=== PATIENT | male | born 1955 | race Caucasian/White ===

== ENCOUNTER 2017-12-03 23:30 | Emergency (ER) | payer SELFPAY ==
[2017-12-03 23:36] VITALS: BMI 39.5
[2017-12-03] MEDS ORDERED: VALSARTAN 80 MG TABLET (UD) PO ONE (23:49)
--- NOTE | 2017-12-04 00:08 | PDOC ---
Attending Attestation - HPI HPI: 12/04/17 01:02 62 year old male with past medical history of alcoholism, cirrhosis, CHF, CAD, who presents to the ED with complaints of chest pain, headache and nausea for the past two days. Patient was on a binge of drinking this week and is now feeling ill. He reports a midsternal, reproducible chest pain without any palpitations or SOB. Complains of a headache similar to a hangover with associated nausea. Denies any visual changes or focal neurological deficits. Denies any fevers or chills. - Medical Decision Making 12/04/17 01:02 Documentation prepared by Frances Thompson, acting as medical laboratory technicians for Patti Busots MD. <Frances Thompson - Last Filed: 12/04/17 01:02> - Resident Resident Name: Alejo Stroud - ED Attending Attestation I have performed the following: I have examined & evaluated the patient, The case was reviewed & discussed with the resident, I agree w/resident's findings & plan - Physicial Exam PE: 12/04/17 03:22 Agree with resident exam. Pt is requesting detox. He will be sent over to [facility]. I am trying to reach Dr. Plummer. - Medical Decision Making 12/04/17 03:40 Pt is going to a detox bed at [facility]. Accepted by Dr. Plummer. <Patti Bustos - Last Filed: 12/04/17 03:41>
[2017-12-04] MEDS ORDERED: SODIUM CHLORIDE 1,000 ML IV STA (00:15)
[2017-12-04] MEDS ORDERED: METOCLOPRAMIDE HCL INJECTION 10 MG/2 ML VIAL IVPUSH ONE (00:16)
[2017-12-04] MEDS ORDERED: FOLIC ACID INJECTION - 1 MG, THIAMINE HCL 100 MG, MULTIVIT INJECTION ADULT 10 ML in SOD... IVPB ONE (00:38)
--- NOTE | 2017-12-04 01:01 | PDOC ---
History of Present Illness - General Chief Complaint: Chest Pain Stated Complaint: CHEST PAIN Time Seen by Provider: 12/03/17 23:51 History Source: Patient Exam Limitations: No Limitations - History of Present Illness Initial Comments: 12/04/17 00:55 Patient is a 62M with history of HTN, CAD, CHF, alcohol abuse, and cirrhosis coming in today complaining of headache, nausea, and chest pain after drinking for the past three days. Patient states that his last drink was on 12/03/17, he states that he drinks beer to keep his blood pressure down. He states that his chest pain is worsened with palpation. Endorses subjective fevers and chills. Denies withdrawal and seizure history. Denies history of blood clots, recent travel and leg swelling. He states that he came in today because he took his blood pressure at home and it was high. He states that he has not taken any blood pressure medication since May. Past History - Past Medical History Allergies/Adverse Reactions: Allergies Allergy/AdvReac Type Severity Reaction Status Date / Time No Known Drug Allergies Allergy Verified 12/03/17 23:36 Home Medications: Ambulatory Orders Ondansetron [Zofran Odt -] 4 mg SL TID #21 od.tablet 03/20/16 Pantoprazole Sodium [Protonix -] 40 mg PO DAILY #30 tablet.ec 03/20/16 Anemia: No Asthma: No Cancer: No Cardiac Disorders: No CVA: No COPD: No CHF: No Dementia: No Diabetes: No GI Disorders: No Disorders: No HTN: Yes Hypercholesterolemia: Yes Liver Disease: No Seizures: No Thyroid Disease: No - Surgical History Abdominal Surgery: Yes (HERNIA) Appendectomy: Yes Cardiac Surgery: No Cholecystectomy: Yes GI Surgery: Yes (appendectomy) Lung Surgery: No Neurologic Surgery: No Orthopedic Surgery: No - Immunization History Td Vaccination: Yes Immunization Up to Date: Yes - Suicide/Smoking/Psychosocial Hx Smoking Status: Yes Smoking History: Never smoked Years of Tobacco Use: 0 Have you smoked in the past 12 months: No Number of Cigarettes Smoked Daily: 0 If you are a former smoker, when did you quit?: smoked for 13 years Cigars Per Day: 0 'Breaking Loose' booklet given: 06/12/12 Hx Alcohol Use: Yes Drug/Substance Use Hx: No Substance Use Type: None Hx Substance Use Treatment: No Review of Systems - Review of Systems Comments:: 12/04/17 00:57 GENERAL/CONSTITUTIONAL: +fever +chills. No weakness. HEAD, EYES, EARS, NOSE AND THROAT: No change in vision. No sore throat. CARDIOVASCULAR+chest pain +shortness of breath RESPIRATORY: No cough, wheezing, or hemoptysis. GASTROINTESTINAL: +nausea, no vomiting, diarrhea or constipation. GENITOURINARY: No dysuria, frequency, or change in urination. MUSCULOSKELETAL: No joint or muscle swelling or pain. No neck or back pain. SKIN: No rash NEUROLOGIC: + headache, no vertigo, loss of consciousness, or change in strength /sensation. ENDOCRINE: No increased thirst. No abnormal weight change HEMATOLOGIC/LYMPHATIC: No anemia, easy bleeding, or history of blood clots. ALLERGIC/IMMUNOLOGIC: No hives or skin allergy. *Physical Exam - Vital Signs Last Vital Signs Temp Pulse Resp BP Pulse Ox 98.2 F 79 16 172/100 H 100 12/03/17 23:33 12/03/17 23:33 12/03/17 23:33 12/03/17 23:33 12/03/17 23:33 - Physical Exam Comments: 12/04/17 00:58 GENERAL: Awake, alert, and fully oriented, in no acute distress, smells of alcohol HEAD: No signs of trauma, normocephalic, atraumatic EYES: PERRLA, EOMI, sclera anicteric, conjunctiva clear ENT: Auricles normal inspection, hearing grossly normal, nares patent, oropharynx clear without exudates. Moist mucosa NECK: Normal ROM, supple, no lymphadenopathy, JVD, or masses, no meningismus LUNGS: No distress, speaks full sentences, clear to auscultation bilaterally, tender over chest wall HEART: Regular rate and rhythm, normal S1 and S2, no murmurs, rubs or gallops, peripheral pulses normal and equal bilaterally. ABDOMEN: Soft, nontender, normoactive bowel sounds. No guarding, no rebound. No masses EXTREMITIES: Normal inspection, Normal range of motion, no edema. No clubbing or cyanosis. NEUROLOGICAL: Cranial nerves II through XII grossly intact. Normal speech, no focal sensorimotor deficits SKIN: Warm, Dry, normal turgor, no rashes or lesions noted. ED Treatment Course - LABORATORY CBC & Chemistry Diagram: 12/04/17 01:30 12/04/17 01:30 - RADIOLOGY Radiology Studies Ordered: Category Date Time Status CHEST X-RAY PORTABLE* [RAD] Stat Radiology 12/04/17 00:15 Ordered Medical Decision Making - Medical Decision Making 12/04/17 00:59 Patient is 62M with history of HTN, CAD, CHF, alcohol abuse, liver cirrhosis here today with headache, nausea, and chest pain. Vitals notable for hypertension, but stable. Given valsartan. DDx includes, but is not limited to: ACS, alcoholic gastritis, arrhythmia, alcohol withdrawal. Do not suspect bleed. Do not suspect meningitis. No abdominal pain. Will evaluate with cardiac labs, ekg, cxr. Will treat with fluids, reglan, banana bag. 12/04/17 03:34 Laboratory Tests 12/04/17 12/04/17 01:30 01:30 WBC 4.7 Hgb 15.6 Plt Count 120 L BUN 19 H Creatinine 0.9 AST 126 H ALT 79 H Alkaline Phosphatase 173 H Troponin I 0.04 CBC normal. CMP shows normal kidney function, liver enzymes mildly elevated consistent with cirrhosis. Troponin less than threshold. Patient is requesting detox. Medically cleared. Feeling better. *DC/Admit/Observation/Transfer Diagnosis at time of Disposition: Atypical chest pain, Alcohol intoxication - Discharge Dispostion Disposition: HOME Condition at time of disposition: Good Decision to Admit order: No - Referrals - Patient Instructions Printed Discharge Instructions: DI for Atypical Chest Pain Additional Instructions: Please go to [facility] for detox. Please return to the ED if you have any new, worsening or concerning symptoms. - Post Discharge Activity
[2017-12-04] MEDS ORDERED: VALSARTAN 80 MG TABLET (UD) ONE (01:11)
[2017-12-04] MEDS ORDERED: METOCLOPRAMIDE HCL INJECTION 10 MG/2 ML VIAL ONE (01:11)
[2017-12-04 01:43] LABS: BASO % 1.1 % (0-2.0); EOS % 1.1 % (0-4.5); HEMOGLOBIN 15.6 GM/dL (11.7-16.9); LYMPH % 33.4 % (8-40); MCHC 34.6 g/dl (32.0-35.9); MEAN CELL VOLUME 95.5 fl (80-96); MEAN PLT VOLUME 8.4 fl (7.5-11.1); MONO % 7.1 % (3.8-10.2); NEUT % 57.3 % (42.8-82.8); PLATELET COUNT 120 K/MM3 (134-434); RBC 4.71 M/mm3 (4.00-5.60); RDW 13.9 % (11.9-15.9); WHITE BLOOD COUNT 4.7 K/mm3 (4.0-10.0)
[2017-12-04 01:54] LABS: INR 1.33 (0.83-1.09); PROTHROMBIN TIME (PATIENT) 15.7 SEC (9.7-13.0)
[2017-12-04 02:07] LABS: ALBUMIN 3.1 g/dl (3.4-5.0); ALK PHOS 173 U/L (45-117); ANION GAP 10 MMOL/L (8-16); BILIRUBIN,TOTAL 1.1 mg/dL (0.2-1); BLOOD UREA NITROGEN 19 mg/dL (7-18); CALCIUM 7.8 mg/dL (8.5-10.1); CHLORIDE 104 mmol/L (98-107); CO2 24 mmol/L (21-32); CREATININE 0.9 mg/dL (0.55-1.3); GLUCOSE,RANDOM 97 mg/dL (74-106); MAGNESIUM 1.7 mg/dL (1.8-2.4); POTASSIUM 3.7 mmol/L (3.5-5.1); SGOT/AST 126 U/L (15-37); SGPT/ALT 79 U/L (13-61); SODIUM 139 mmol/L (136-145); TOT PROT 7.2 g/dl (6.4-8.2)
[2017-12-04] MEDS ORDERED: MAGNESIUM SULF 50% (8.12 MEQ/2 ML-1 GM VIAL) IVPB ONE (02:12)
[2017-12-04] MEDS ORDERED: MAGNESIUM 1GM/D5W - 1 GM/100 ML IVPB IVPB ONE (02:49)
[2017-12-04 04:51] VITALS: BP 167/95; PULSE 64; TEMP 98.1
--- NOTE | 2017-12-04 13:58 | EKG ---
Test Reason : Blood Pressure : / mmHG Vent. Rate : 072 BPM Atrial Rate : 072 BPM P-R Int : 198 ms QRS Dur : 114 ms QT Int : 428 ms P-R-T Axes : 026 -47 024 degrees QTc Int : 468 ms NORMAL SINUS RHYTHM LEFT AXIS DEVIATION POSSIBLE LATERAL INFARCT , AGE UNDETERMINED INFERIOR-POSTERIOR INFARCT (CITED ON OR BEFORE 16-AUG-2014) ABNORMAL ECG Confirmed by MD Prabha, Dillan ([id number]) on 12/04/2017 1:58:04 PM Referred By: Confirmed By:Dillan Armando MD
== END 2017-12-04 04:51 | disposition home or self-care (01) ==
LOC: JER 23:30
PROC: 3E033GC Introduction of Other Therapeutic Substance into Peripheral Vein, Percutaneous Approach (ICD-10-PCS; principal; 2017-12-03)
PROC: 3E033GC Introduction of Other Therapeutic Substance into Peripheral Vein, Percutaneous Approach (ICD-10-PCS; 2017-12-03)
PROC: 3E033GC Introduction of Other Therapeutic Substance into Peripheral Vein, Percutaneous Approach (ICD-10-PCS; 2017-12-03)
DX: R07.89 Other chest pain (principal); F10.120 Alcohol abuse with intoxication, uncomplicated; I25.10 Atherosclerotic heart disease of native coronary artery without angina pectoris; I11.0 Hypertensive heart disease with heart failure; I50.9 Heart failure, unspecified; K74.60 Unspecified cirrhosis of liver
CPT/HCPCS: 36415; 71045-TC-FY; 80053; 82550; 82553; 83735; 84484; 85025; 85610; 93005; 93010; 99285-25; J7030

== ENCOUNTER 2018-01-03 22:11 | Inpatient (IN) | payer OTHER ==
--- NOTE | 2018-01-03 23:25 | PDOC ---
History of Present Illness - General Chief Complaint: Chest Pain Stated Complaint: CHEST PAIN,VOMITING Time Seen by Provider: 01/03/18 23:19 - History of Present Illness Initial Comments: 01/04/18 01:49 The patient is a 62 year old male with a history of HTN, HLD, Alcohol abuse who presents for evaluation of chest pain, nausea, vomiting, body aches, headache. The patient reports a 3 day history of chest pain with associated nausea, and vomiting, body aches and headache prompting his presentation to the ED for further evaluation. He notes that he is a daily alcohol drinker and his last drink was 10pm yesterday evening. He otherwise denies fevers, chills, SOB, abdominal pain, or changes with urination or bowel movements. Past History - Past Medical History Allergies/Adverse Reactions: Allergies Allergy/AdvReac Type Severity Reaction Status Date / Time No Known Drug Allergies Allergy Verified 01/03/18 22:20 Home Medications: Ambulatory Orders Lisinopril 10 mg PO DAILY 01/26/15 Lisinopril [Zestril] 10 mg PO BID #60 tablet 01/26/15 Lisinopril [Prinivil] 10 mg PO DAILY 01/04/18 Metoprolol Tartrate 25 mg PO Q12H 01/04/18 Pravastatin Sodium [Pravachol -] 40 mg PO HS 01/04/18 Anemia: No Asthma: No Cancer: No Cardiac Disorders: No CVA: No COPD: No CHF: No Dementia: No Diabetes: No GI Disorders: No Disorders: No HTN: Yes Hypercholesterolemia: Yes Liver Disease: No Seizures: No Thyroid Disease: No - Surgical History Abdominal Surgery: Yes (HERNIA) Appendectomy: Yes Cardiac Surgery: No Cholecystectomy: Yes GI Surgery: Yes (appendectomy) Lung Surgery: No Neurologic Surgery: No Orthopedic Surgery: No - Immunization History Td Vaccination: Yes Immunization Up to Date: Yes - Suicide/Smoking/Psychosocial Hx Smoking Status: Yes Smoking History: Never smoked Years of Tobacco Use: 0 Have you smoked in the past 12 months: No Number of Cigarettes Smoked Daily: 0 If you are a former smoker, when did you quit?: smoked for 13 years Cigars Per Day: 0 Information on smoking cessation initiated: No 'Breaking Loose' booklet given: 06/12/12 Hx Alcohol Use: No Drug/Substance Use Hx: No Substance Use Type: None Hx Substance Use Treatment: No Review of Systems - Review of Systems Comments:: 01/04/18 01:51 Constitutional: Body aches. No fevers, chills, fatigue, HEENT: No Rhinorrhea, nasal congestion, visual changes Cardiovascular: Chest pain. No syncope, palpitations, lightheadedness Respiratory: No Cough, SOB, Hemoptysis, Gastrointestinal: Nausea, vomiting. No Abdominal pain, Constipation, Diarrhea, Melena Genitourinary: No Dysuria, Frequency, Urgency, Hesitancy, Hematuria, Flank pain Musculoskeletal: No Myalgia, arthralgia Skin: No rashes, itching, bruising, pallor Neurologic: Headache. No Dizziness, Numbness, Weakness, or Tingling Psychiatric: No Hallucinations. No SI or HI *Physical Exam - Vital Signs Last Vital Signs Temp Pulse Resp BP Pulse Ox 98.3 F 107 H 16 133/90 96 01/03/18 22:16 01/03/18 22:16 01/03/18 22:16 01/03/18 22:16 01/03/18 22:16 - Physical Exam Comments: 01/04/18 01:51 General Appearance: Nourished. No Apparent Distress HEENT: No Pharyngeal Erythema, Tonsillar Exudate, Tonsillar Erythema Neck: No Cervical Lymphadenopathy Respiratory/Chest: Lungs Clear, Normal Breath Sounds. No Crackles, Rales, Rhonchi, Wheezing Cardiovascular: Regular Rhythm, Regular Rate. No Murmur, Gallops, Rubs Gastrointestinal/Abdominal: Normal Bowel Sounds, Soft. No Guarding, Rebound, Tenderness Musculoskeletal: No CVA Tenderness Extremity: Normal Capillary Refill Integumentary: Normal Color, Dry, Warm Neurologic: Fully Oriented, Alert, Normal Mood/Affect, Normal Response, Moderate Sedation - Procedure Monitoring Vital Signs: Procedure Monitoring Vital Signs Temperature 98.3 F 01/03/18 22:16 Pulse Rate 107 H 01/03/18 22:16 Respiratory Rate 16 01/03/18 22:16 Blood Pressure 133/90 01/03/18 22:16 O2 Sat by Pulse Oximetry (%) 96 01/03/18 22:16 Heart Score/ECG Review - History History: Slightly suspicious - Electrocardiogram EKG: Non specific repolarization disturbance - Age Age: 45-65 - Risk Factors Risk Factors Heart Score: Yes Hx Hypercholesterolemia, Yes Hx Hypertension, Yes Smoking History Based on the list above the patient has:: >/=3 risk factors or Hx atherosclerotic disease - Troponin Troponin: </= normal limit - Score Heart Score - Total: 4 ED Treatment Course - LABORATORY CBC & Chemistry Diagram: 01/06/18 05:30 01/06/18 05:30 Medical Decision Making - Medical Decision Making 01/04/18 01:52 The patient is a 62 year old male with a history of HTN, HLD, Alcohol abuse who presents for evaluation of chest pain, nausea, vomiting, body aches, headache. Differential includes but is not limited to: ACS, Arrhythmia, Gastritis, Pneumonia, Musculoskeletal, Infectious, Metabolic Derangement. Given the patient's history and physical exam, we will obtain a cbc, cmp, troponin, chest plain film, ekg, lipase to evaluate further. We will treat with a banana bag and asa and continue to monitor and reassess while here in the ED. 01/04/18 04:01 CBC, cmp, troponin are unremarkable. Chest plain film is unremarkable. Lipase is unremarkable. Given the patient's comorbidities, we believe he requires observation admission for further monitoring. We discussed the case with the admitting team who accepted the patient for admission. *DC/Admit/Observation/Transfer Diagnosis at time of Disposition: Chest pain - Discharge Dispostion Condition at time of disposition: Good Decision to Admit order: Yes - Referrals - Patient Instructions - Post Discharge Activity
[2018-01-03] MEDS ORDERED: FOLIC ACID INJECTION - 1 MG, THIAMINE HCL 100 MG, MULTIVIT INJECTION ADULT 10 ML in SOD... IVPB ONE (23:45)
[2018-01-04] MEDS ORDERED: ASPIRIN 81 MG CHEWABLE TABLETS PO ONE (00:25)
[2018-01-04 00:38] LABS: BASO % 0.6 % (0-2.0); EOS % 0.5 % (0-4.5); HEMATOCRIT 45.9 % (35.4-49); HEMOGLOBIN 16.6 GM/dL (11.7-16.9); LYMPH % 15.9 % (8-40); MCH 34.1 pg (25.7-33.7); MCHC 36.2 g/dl (32.0-35.9); MEAN CELL VOLUME 94.4 fl (80-96); MEAN PLT VOLUME 10.2 fl (7.5-11.1); MONO % 6.1 % (3.8-10.2); NEUT % 76.9 % (42.8-82.8); PLATELET COUNT 80 K/MM3 (134-434); RBC 4.87 M/mm3 (4.00-5.60); RDW 15.3 % (11.9-15.9); WHITE BLOOD COUNT 5.7 K/mm3 (4.0-10.0)
[2018-01-04] MEDS ORDERED: ASPIRIN 325 MG TABLET ONE (01:15)
[2018-01-04 01:31] LABS: ALBUMIN 2.6 g/dl (3.4-5.0); ALK PHOS 348 U/L (45-117); ANION GAP 10 MMOL/L (8-16); BILIRUBIN,TOTAL 7.6 mg/dL (0.2-1); BLOOD UREA NITROGEN 13 mg/dL (7-18); CALCIUM 7.9 mg/dL (8.5-10.1); CHLORIDE 96 mmol/L (98-107); CO2 26 mmol/L (21-32); CREATININE 1.3 mg/dL (0.55-1.3); GLUCOSE,RANDOM 172 mg/dL (74-106); LIPASE 214 U/L (73-393); POTASSIUM 3.4 mmol/L (3.5-5.1); SGOT/AST 281 U/L (15-37); SGPT/ALT 155 U/L (13-61); SODIUM 132 mmol/L (136-145); TOT PROT 7.3 g/dl (6.4-8.2)
[2018-01-04] MEDS ORDERED: LORazepam 2 MG/ML SDV VIAL IVPUSH PRN (03:00)
[2018-01-04] MEDS ORDERED: LORazepam 2 MG/ML SDV VIAL IVPUSH SCH (03:23)
--- NOTE | 2018-01-04 04:02 | PDOC ---
Attending Attestation - Resident Resident Name: IvonneBaljit - ED Attending Attestation I have performed the following: I have examined & evaluated the patient, The case was reviewed & discussed with the resident, I agree w/resident's findings & plan, Exceptions are as noted <Nallely Skinner - Last Filed: 01/04/18 04:02> - HPI HPI: 01/04/18 04:32 The patient is a 62 year old male with a history of HTN, HLD, Alcohol abuse who presents for evaluation of chest pain, nausea, vomiting, body aches, headache for the past 3 days. Patient states his last drink was at 10PM yesterday. He denies fevers, chills, shortness of breath, abdominal pain, or changes with urination or bowel movements. <Desi Guzmán - Last Filed: 01/04/18 04:33>
[2018-01-04] MEDS: LACTATED RINGERS SOLUTION 1,000 ML/1,000 ML INFUS.BAG IV SCH (04:08)
[2018-01-04] MEDS ORDERED: POTASSIUM CHLORIDE TABS 20 MEQ TABLET.ER (FP) PO ONE ×3 (04:41→09:00)
--- NOTE | 2018-01-04 04:47 | HP ---
CHIEF COMPLAINT: n/v, CP PCP: HISTORY OF PRESENT ILLNESS: Patient is a 62 y/o M w/ PMHx EtOH abuse, cirrhosis, significant ischemic cardiac history otherwise unspecified, HTN, HLD, p/w n/v, CP, PARMAR, body aches x ~ 3days. Denies f/c/SOB/tremors. Drinks significant EtOH daily, last drink was 10 pm 1 day PROSTHETIST. Has had multiple hospitalizations for chest pain, is totally non- compliant with recommendations. Had cardiac w/u in 2014 demonstrating ischemic defects, was recommended therapy with carvedilol and lisinopril but had no compliance or f/u. On presentation, has thrombocytopenia, LFT elevation w/ AST: ALT ~2, hyperbilirubinemia, negative initial troponin, Cr 1.3 representing ESTIVEN given Cr 0.9 1 month ago, CIWA score 3. EKG showed evidence of prior infarct and QTc 686. Additionally is chronically hypomagnesemic. In ED, received ASA 324 and banana bag. ER course was notable for: (1) AST:ALT = 281:155, T bilirubin 7.6, alk phos 348 (2) QTc 686 (3) Cr 1.3 vs 0.9 1 month prior Recent Travel: PAST MEDICAL HISTORY: As per HPI PAST SURGICAL HISTORY: As per HPI Social History: As per HPI Family History: Allergies No Known Drug Allergies Allergy (Verified 01/03/18 22:20) HOME MEDICATIONS: Home Medications Medication Instructions Recorded Ondansetron [Zofran Odt -] 4 mg SL TID #21 od.tablet 03/20/16 Pantoprazole Sodium [Protonix -] 40 mg PO DAILY #30 tablet.ec 03/20/16 REVIEW OF SYSTEMS As per HPI PHYSICAL EXAMINATION Vital Signs - 24 hr 01/03/18 22:16 Temperature 98.3 F Pulse Rate 107 H Respiratory 16 Rate Blood Pressure 133/90 O2 Sat by Pulse 96 Oximetry (%) GENERAL: A&Ox3, jaundiced and toxic-appearing, in moderate distress HEAD: NC/AT EYES: +scleral icterus, PERRLA, EOMI EARS, NOSE, THROAT: MMM LUNGS: CTA b/l HEART: RRR no m/r/g, no reproducible TTP ABDOMEN: significant distention, tympanitic, +fluid wave EXTREMITIES: 2+ pulses, warm, well-perfused. No calf tenderness. No peripheral edema. NEUROLOGICAL: No focal deficits, no tremor, no asterixis SKIN: Profound jaundice Laboratory Results - last 24 hr 01/04/18 01/04/18 00:20 00:20 WBC 5.7 RBC 4.87 Hgb 16.6 Hct 45.9 MCV 94.4 MCH 34.1 H MCHC 36.2 H RDW 15.3 D Plt Count 80 L D MPV 10.2 D Absolute Neuts (auto) 4.4 Neutrophils % 76.9 D Lymphocytes % 15.9 D Monocytes % 6.1 Eosinophils % 0.5 Basophils % 0.6 Nucleated RBC % 0 Sodium 132 L Potassium 3.4 L Chloride 96 L Carbon Dioxide 26 Anion Gap 10 BUN 13 Creatinine 1.3 Creat Clearance w eGFR 56.31 Random Glucose 172 H Calcium 7.9 L Total Bilirubin 7.6 H AST 281 H ALT 155 H Alkaline Phosphatase 348 H Creatine Kinase 341 H Creatine Kinase Index 1.6 CK-MB (CK-2) 5.5 H Troponin I 0.04 Total Protein 7.3 Albumin 2.6 L Lipase 214 ASSESSMENT/PLAN: 62 y/o M w/ PMHx EtOH abuse, cirrhosis, significant ischemic cardiac history otherwise unspecified, HTN, HLD, p/w n/v, CP, PARMAR, body aches x ~3days. Presentation suggests alcoholic hepatitis. #GI/hepatic -likely alcoholic hepatitis -viral hepatitis panel pending -AST:ALT ~2 -Plt 80 -Coags pending, obtain discriminant and MELD score when available -abd US pending -LR @ 83 -close monitoring for decompensation #cardiac -EKG, prior history suggestive of ischemic cardiomyopathy -repeat EKG to confirm QTc prolongation -cardiology consulted -started on carvedilol 3.125 BID, titrate up as needed -echo ordered -no LAM inhibition at this time in light of ESTIVEN #EtOH withdrawal -Ativan protocol given cirrhosis and QTc elevation -thiamine, folate, MVT daily -fall risk precautions #ESTIVEN -LR @ 83 -treat underlying issues -avoid nephrotoxic agents #FEN -LR @ 83 -monitor and replete -NPO at this time #PPx -DVT: heparin subq -GI: Protonic IV #code -full #dispo -admit to tele Visit type - Emergency Visit Emergency Visit: Yes ED Registration Date: 01/04/18 Care time: The patient presented to the Emergency Department on the above date and was hospitalized for further evaluation of their emergent condition. - New Patient This patient is new to me today: Yes Date on this admission: 01/04/18 - Critical Care Critical Care patient: No
[2018-01-04 05:17] LABS: MAGNESIUM 1.4 mg/dL (1.8-2.4); PHOSPHOROUS 2.4 mg/dL (2.5-4.9)
[2018-01-04] MEDS ORDERED: MAGNESIUM SULF 50% (8.12 MEQ/2 ML-1 GM VIAL) IVPB ONE (05:37)
[2018-01-04 05:54] LABS: BASO % 0.5 % (0-2.0); EOS % 0.8 % (0-4.5); HEMATOCRIT 49.5 % (35.4-49); HEMOGLOBIN 16.8 GM/dL (11.7-16.9); MCH 32.3 pg (25.7-33.7); MEAN PLT VOLUME 10.1 fl (7.5-11.1); MONO % 5.2 % (3.8-10.2); NEUT % 70.5 % (42.8-82.8); PLATELET COUNT 69 K/MM3 (134-434); RBC 5.21 M/mm3 (4.00-5.60); RDW 15.2 % (11.9-15.9)
[2018-01-04] MEDS ORDERED: HEPARIN NA (PORCINE) 5,000 UNITS/ML 1ML VIAL SQ SCH (06:00)
[2018-01-04 06:43] LABS: ALBUMIN 2.8 g/dl (3.4-5.0); ALK PHOS 357 U/L (45-117); ANION GAP 8 MMOL/L (8-16); BILIRUBIN,TOTAL 8.4 mg/dL (0.2-1); BLOOD UREA NITROGEN 13 mg/dL (7-18); CALCIUM 7.9 mg/dL (8.5-10.1); CHLORIDE 98 mmol/L (98-107); CO2 29 mmol/L (21-32); CREATININE 1.2 mg/dL (0.55-1.3); GLUCOSE,RANDOM 119 mg/dL (74-106); POTASSIUM 3.3 mmol/L (3.5-5.1); SGOT/AST 286 U/L (15-37); SGPT/ALT 159 U/L (13-61); SODIUM 135 mmol/L (136-145); TOT PROT 7.5 g/dl (6.4-8.2)
[2018-01-04] MEDS ORDERED: HEPARIN NA (PORCINE) 5,000 UNITS/ML 1ML VIAL ONE (06:49)
[2018-01-04] MEDS ORDERED: MAGNESIUM SULF 50% (8.12 MEQ/2 ML-1 GM VIAL) ONE (06:49)
--- NOTE | 2018-01-04 07:39 | PDOC ---
Attending Attestation - Resident Resident Name: IvonneBaljit - ED Attending Attestation I have performed the following: I have examined & evaluated the patient, The case was reviewed & discussed with the resident, I agree w/resident's findings & plan, Exceptions are as noted - HPI HPI: 01/04/18 07:36 62 yo M with h/o HTN, HLD, Alcohol abuse who presents for evaluation of chest pain, nausea, vomiting, body aches, headache. states 2 days ago. nause, no vomting. no sick contact. no h/o pe or dvt. no leg swelling. no mod factor. was seen for same thin in the past. no cough. no diarrhea. no recent travel. - Physicial Exam PE: 01/04/18 07:37 awake alert lungs clear bilaterally heart rrr no mrg abd soft nt nd. abd soft nt nd. ext wwp . no edema. no calf tenderness. - Medical Decision Making 01/04/18 07:38 differential angina, pna, effusion, infection, gerd, intox plan cxr ekg tro plabs asa. cxr negative. labs unremakrable. eliud admit. Heart Score/ECG Review #1 General ECG Interpretation: Sinus Rhythm, Normal Rate, Normal Intervals Compared to previous ECG there are: Other (q wave II, III, AVF.)
--- NOTE | 2018-01-04 08:13 | PN ---
Teaching Attending Note Name of Resident: Lalito Palafox ATTENDING PHYSICIAN STATEMENT I saw and evaluated the patient. I reviewed the resident's note and discussed the case with the resident. I agree with the resident's findings and plan as documented. SUBJECTIVE: Patient is a 62 y/o HM with a PMH of EtOH abuse, cirrhosis, CAD, HLD, HTN; he presents with a host of complaints. He has been having chest pain, headaches, bodyaches, fatigue, etc. for the past several days; not made better or worse with anything, hasn't seen anyone else with this. His last drink was at 10 today. He is a daily drinker with poor compliance with his home therapies. He is not feeling tremulous. He agrees he has withdrawn from alcohol in the past. He denies any anil RUQ pain, etc. Afebrile, hemodynamics stable. He is hypokalemic and hypomagnesemic. He has largely derranged LFTs. His CP is atypical in nature but he does have a history of a positive stress test in 2014 ; unknown followup. Admit to medicine service for further workup and monitoring. Further history per resident note. He had similar symptoms at his last visit to our ER last month and was not admitted at that juncture. Got aspirin and banana bag in the ER. 10 sys ROS done and negative aside for HPI. PMH and PSH discussed Socially he consumes EtOH daily, no illicits, has withdrawn in the past. FH asked and noncontributory OBJECTIVE: VS, labs, imaging reviewed NAD, AAOx3, resting comfortably in bed RRR s1/2 no mgr Lungs CTAB with sym exp NT ND +ascites limited assessment of HSM CN2-12 wnl, no fnd CIWA 3 Normal mood, appropriate behavior Labs show AST/ALT 286/159, Alk Phos of 357, negligible NH4, chronic thrombocytopenia with plts 69 today. Hepatitis pannel pending. Troponin 0.04x1 EKG with QTC 686; repeating RUQ us pending ASSESSMENT AND PLAN: 62 y/o male presenting with nonspecific sx with chest pain and full body aches; found to have likely alcoholic hepatitis. Chest pain is atypical but he is high risk given his h/o CAD and noncompliance. 1) Likely Alcoholic Hepatitis with history of cirrhosis -INR pending; given cirrhosis need to calculate MELD and Maddrey -Trend CMP; check hepatitis pannel -Consider GI consultation in AM; workup still pending with coags -Advise alcohol cessasion; check RUQ US to r/o any underlying biliary pathology given the total is 7.6. Will fractionate this. Lipase negative. Doesn't have the components to call this a cholangitis and the history points to EtOH 2) Chest Pain -Nonspecific and atypical; does have a history of ischemic CAD as shown on his prior workups here. Restarting BB, restarting ASA 81mg PO QD. Trend troponins , consider CV consultation. Monitor on tele. We need to find out if he ever was ultimately cathed, etc. Check lipids, TSH, A1c. 3) CAD -Continue BB with restarting his coreg at low dose, ASA. Hold off on statin for now given cirrhosis (rechecking lipids). High risk for CAD with prior findings on 2014 stress test. Needs consistent followup with cardiology or at high risk for decompensation and . Was on lisinopril but likely noncompliant (20mg; consider restarting at lower dose) and coreg 12.5 4) EtOH abuse/WD potential -Precontemplative; placing on ativan protocol and rechecking qTC. 5) HLD -Has history but was wholly noncompliant 6) HTN -Monitor pressure on coreg; titrate as needed and reintroduce lisinopril Full Code
[2018-01-04 09:31] LABS: CHOLESTEROL 100 mg/dL (50-200); HDL CHOLESTEROL 12 mg/dL (40-60); TRIGLYCERIDES 471 mg/dL (0-150)
[2018-01-04 09:58] LABS: BILIRUBIN,DIRECT 5.8 mg/dL (0.0-0.2)
[2018-01-04] MEDS ORDERED: LORazepam 2 MG/ML SDV VIAL ONE ×2 (09:59→16:47)
[2018-01-04] MEDS ORDERED: CARVEDILOL 3.125 MG TABLET (FP) PO SCH (10:00)
[2018-01-04] MEDS: NAPH,MB-DB/K PH,MBDB POWDER PACKET PO SCH ×3 (10:11→21:37)
[2018-01-04] MEDS ORDERED: PANTOPRAZOLE SODIUM 40 MG/100 ML BAG IVPB ONE (10:14)
--- NOTE | 2018-01-04 10:18 | CON.CARD ---
Consult - History of Present Illness History of Present Illness: Patient is a 62 y/o HM with a PMH of EtOH abuse, cirrhosis, CAD, HLD, HTN; he presents with a host of complaints. He has been having chest pain, headaches, bodyaches, fatigue, etc. for the past several days; not made better or worse with anything, hasn't seen anyone else with this. His last drink was at 10 today. He is a daily drinker with poor compliance with his home therapies. He is not feeling tremulous. He agrees he has withdrawn from alcohol in the past. He denies any anil RUQ pain, etc. Afebrile, hemodynamics stable. He is hypokalemic and hypomagnesemic. He has largely derranged LFTs. His CP is atypical in nature but he does have a history of a positive stress test in 2014 ; unknown followup. Admit to medicine service for further workup and monitoring. Further history per resident note. He had similar symptoms at his last visit to our ER last month and was not admitted at that juncture. Got aspirin and banana bag in the ER. 10 sys ROS done and negative aside for HPI. PMH and PSH discussed Socially he consumes EtOH daily, no illicits, has withdrawn in the past. 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: Alzheimer's, CVA, Dementia, Migraine, Multiple Sclerosis, Peripheral Neuropathy, Parkinson's, Seizure, Syncope, TIA, Vertigo, Other Cardio/Vascular: Yes: CAD, HTN, Hyperlipdemia Pulmonary: No: Asthma, Bronchitis, Cancer, COPD, O2 Dependent, Pneumonia, Previously Intubated, Pulmonary Embolus, Pulmonary Fibrosis, Sleep Apnea, Other Gastrointestinal: No: Ascites, Cancer, Constipation, Crohn's Disease, Diverticulitis, Diverticulosis, Esophageal Varices, Gastritis, GERD, GI Bleed, Hemorrhoids, Hiatal Hernia, Inflamatory Bowel Disease, Irritable Bowel Disease, Pancreatitis, Peptic Ulcer Disease, Ulcerative Colitis, Other Psych: Yes: Addictions - Past Surgical History Past Surgical History: Yes: Appendectomy, Hernia Repair - Alcohol/Substance Use Hx Alcohol Use: No Number of Drinks Daily: 5 (25 oz cans) History of Substance Use: reports: Cocaine - Smoking History Smoking history: Never smoked Have you smoked in the past 12 months: No Aproximately how many cigarettes per day: 0 If you are a former smoker, when did you quit?: smoked for 13 years - Social History Usual Living Arrangement: Other (detention) ADL: Independent 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 History of Recent Travel: No Home Medications - Allergies Allergies/Adverse Reactions: Allergies Allergy/AdvReac Type Severity Reaction Status Date / Time No Known Drug Allergies Allergy Verified 01/03/18 22:20 - Home Medications Home Medications: Ambulatory Orders Ondansetron [Zofran Odt -] 4 mg SL TID #21 od.tablet 03/20/16 Pantoprazole Sodium [Protonix -] 40 mg PO DAILY #30 tablet.ec 03/20/16 Family Disease History - Family Disease History Family Disease History: Diabetes: Father, Other: Brother (has swelling in legs) Review of Systems - Review of Systems Constitutional: reports: No Symptoms Eyes: reports: No Symptoms HENT: reports: No Symptoms Neck: reports: No Symptoms Cardiovascular: reports: Chest Pain Gastrointestinal: reports: No Symptoms Genitourinary: reports: No Symptoms Breasts: reports: No Symptoms Reported Musculoskeletal: reports: No Symptoms Integumentary: reports: No Symptoms Neurological: reports: No Symptoms Endocrine: reports: No Symptoms Hematology/Lymphatic: reports: No Symptoms Psychiatric: reports: No Symptoms Vital Signs: Vital Signs Temperature 98.4 F 01/04/18 08:40 Pulse Rate 70 01/04/18 08:40 Respiratory Rate 18 01/04/18 08:40 Blood Pressure 153/98 01/04/18 08:40 O2 Sat by Pulse Oximetry (%) 97 01/04/18 08:40 Constitutional: Yes: Well Nourished, No Distress, Calm Eyes: Yes: WNL, Conjunctiva Clear, EOM Intact HENT: Yes: WNL, Atraumatic, Normocephalic Neck: Yes: WNL, Supple, Trachea Midline Respiratory: Yes: WNL, Regular, CTA Bilaterally Gastrointestinal: Yes: WNL, Normal Bowel Sounds Renal/: Yes: WNL Cardiovascular: Yes: WNL, Regular Rate and Rhythm Musculoskeletal: Yes: WNL Extremities: Yes: WNL Integumentary: Yes: WNL Neurological: Yes: WNL, Alert, Oriented ...Motor Strength: WNL Psychiatric: Yes: WNL, Alert, Oriented - Other Data Labs, Other Data: CBC, BMP 01/04/18 05:10 01/04/18 05:10 Troponin, BNP 01/04/18 01/04/18 00:20 05:10 Troponin I 0.04 0.05 Troponin, BNP 01/04/18 01/04/18 00:20 05:10 Troponin I 0.04 0.05 Imaging - Results Chest X-ray: Pending EKG: Image Reviewed (SR LVH old IW AR?ant wall AR) Problem List - Problems (1) Chest pain Code(s): R07.9 - CHEST PAIN, UNSPECIFIED Qualifiers: Chest pain type: unspecified Qualified Code(s): R07.9 - Chest pain, unspecified (2) Alcohol abuse Code(s): F10.10 - ALCOHOL ABUSE, UNCOMPLICATED (3) GERD (gastroesophageal reflux disease) Code(s): K21.9 - GASTRO-ESOPHAGEAL REFLUX DISEASE WITHOUT ESOPHAGITIS (4) Hypercholesteremia Code(s): E78.0 - PURE HYPERCHOLESTEROLEMIA * DO NOT USE * (5) Hypertension Code(s): I10 - ESSENTIAL (PRIMARY) HYPERTENSION Qualifiers: Hypertension type: essential hypertension Qualified Code(s): I10 - Essential (primary) hypertension (6) Obesity Code(s): E66.9 - OBESITY, UNSPECIFIED Qualifiers: Obesity classification: unspecified obesity classification (7) Coronary artery disease Code(s): I25.10 - ATHSCL HEART DISEASE OF [place] CORONARY ARTERY W/O ANG PCTRS (8) Acute coronary syndrome Code(s): I24.9 - ACUTE ISCHEMIC HEART DISEASE, UNSPECIFIED Assessment/Plan EtOH abuse, cirrhosis, CAD, HLD, HTN;presenting with multiple complaints including CP ECHO ekg c/w old IW AR Plan Detox bp control asa if no contraindication from GI point of view MIBI st when stable
[2018-01-04] MEDS: FOLIC ACID 1 MG TABLET (FP) PO SCH (10:37)
[2018-01-04] MEDS: PANTOPRAZOLE SODIUM 40 MG VIAL IVPUSH SCH (10:37)
[2018-01-04] MEDS: SODIUM CHLORIDE 1,000 ML IV SCH (10:38)
[2018-01-04] MEDS: MULTIVITAMINS (DAILY MVI) TABLET (FP) PO SCH (10:38)
[2018-01-04] MEDS: THIAMINE HCL 100 MG TABLET (FP) PO SCH (10:38)
--- NOTE | 2018-01-04 11:40 | EKG ---
Test Reason : Blood Pressure : / mmHG Vent. Rate : 083 BPM Atrial Rate : 083 BPM P-R Int : 190 ms QRS Dur : 118 ms QT Int : 388 ms P-R-T Axes : 020 -46 053 degrees QTc Int : 455 ms SINUS RHYTHM WITH OCCASIONAL PREMATURE VENTRICULAR COMPLEXES LEFT AXIS DEVIATION LATERAL INFARCT (CITED ON OR BEFORE 16-AUG-2014) INFERIOR-POSTERIOR INFARCT (CITED ON OR BEFORE 16-AUG-2014) ABNORMAL ECG WHEN COMPARED WITH ECG OF 03-DEC-2017 23:35, PREMATURE VENTRICULAR COMPLEXES ARE NOW PRESENT QUESTIONABLE CHANGE IN INITIAL FORCES OF LATERAL LEADS NONSPECIFIC T WAVE ABNORMALITY, WORSE IN LATERAL LEADS Confirmed by RADHA COX, RAEGAN ([id number]) on 01/04/2018 11:39:59 AM Referred By: LAURO WILLIS Confirmed By:RAEGAN GARCIA MD
--- NOTE | 2018-01-04 11:46 | EKG ---
Test Reason : Blood Pressure : / mmHG Vent. Rate : 100 BPM Atrial Rate : 100 BPM P-R Int : 000 ms QRS Dur : 114 ms QT Int : 532 ms P-R-T Axes : 000 -61 015 degrees QTc Int : 686 ms SINUS RHYTHM WITH SHORT [place] WITH OCCASIONAL PREMATURE VENTRICULAR COMPLEXES LEFT AXIS DEVIATION INFERIOR-POSTERIOR INFARCT (CITED ON OR BEFORE 16-AUG-2014) ANTEROLATERAL INFARCT (CITED ON OR BEFORE 16-AUG-2014) PROLONGED QT ABNORMAL ECG WHEN COMPARED WITH ECG OF 03-DEC-2017 23:35, SIGNIFICANT CHANGES HAVE OCCURRED Confirmed by RAEGAN GARCIA MD ([id number]) on 01/04/2018 11:45:52 AM Referred By: Confirmed By:RAEGAN GARCIA MD
--- NOTE | 2018-01-04 12:18 | CONSULT ---
Admitting History and Physical - Primary Care Physician PCP: Hank Mixon - Admission History of Present Illness: 62 y/o M w/ PMHx EtOH abuse, cirrhosis, significant ischemic cardiac history otherwise unspecified, HTN, HLD, p/w n/v, CP, PARMAR, body aches x ~3days. Presentation suggests alcoholic hepatitis. 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: Alzheimer's, CVA, Dementia, Migraine, Multiple Sclerosis, Peripheral Neuropathy, Parkinson's, Seizure, Syncope, TIA, Vertigo, Other Cardiovascular: Yes: CAD, HTN, Hyperlipdemia Pulmonary: No: Asthma, Bronchitis, Cancer, COPD, O2 Dependent, Pneumonia, Previously Intubated, Pulmonary Embolus, Pulmonary Fibrosis, Sleep Apnea, Other Gastrointestinal: No: Ascites, Cancer, Constipation, Crohn's Disease, Diverticulitis, Diverticulosis, Esophageal Varices, Gastritis, GERD, GI Bleed, Hemorrhoids, Hiatal Hernia, Inflamatory Bowel Disease, Irritable Bowel Disease, Pancreatitis, Peptic Ulcer Disease, Ulcerative Colitis, Other Psych: Yes: Addictions - Past Surgical History Past Surgical History: Yes: Appendectomy, Hernia Repair - Smoking History Smoking history: Never smoked Have you smoked in the past 12 months: No Aproximately how many cigarettes per day: 0 If you are a former smoker, when did you quit?: smoked for 13 years - Alcohol/Substance Use Hx Alcohol Use: No Number of Drinks Daily: 5 (25 oz cans) History of Substance Use: reports: Cocaine - Social History ADL: Independent 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 Pt denies dysphagia.) Oral Secretions: Yes: WFL Dentition: Yes: Adequate Facial Symmetry at Rest: Symmetrical Facial Symmetry on Retraction: Symmetrical Facial Movement: Controlled Against Resistance Opening: Normal Against Resistance Closing: Normal Pucker Lips: Normal Smile: Normal Lingual Movement: Normal, Symmetric Bolus Size: WFL Labial Seal: WFL Chewing: WFL Oral Prep Time: WFL A-P Transit: WFL Pocketing: None Coughing/Throat Clear: No Change in Voice: No Recommendations - Speech Evaluation, Impression/Plan Impression: Swallowing overtly intact. - Dysphagia Impressions/Plan Dysphagia Impressions: No Impairment *Silent aspiration: cannot be R/O at bedside Recommendations: Other (Monitor PO tolerance and and for deterioration in status which can adversely affect swallowing function.) - Recommendations Diet Consistency: Regular Medication Administration: Whole with water Liquids: Thin Liquids
--- NOTE | 2018-01-04 13:16 | ECHO ---
Name: RADHA CARDOSO ELIAS Exam:Adult Echocardiogram Study Date: 01/04/2018 08:05 AM Age: 62 yrs Reason For Study: Cardiomyopathy Height: 66 in Weight: 185 lb BSA: 1.9 m2 MMode/2D Measurements & Calculations IVSd: 1.3 cm Ao root diam: 2.7 cm LVIDd: 6.4 cm LA dimension: 4.3 cm LVIDs: 4.5 cm LVPWd: 0.85 cm EDV(Teich): 210.5 ml LAV (MOD-bp): 66.1 ml ESV(Teich): 92.4 ml Doppler Measurements & Calculations MV E max gil: 64.0 cm/sec MR max gil: 240.3 cm/sec MV A max gil: 100.4 cm/sec MR max P.1 mmHg MV E/A: 0.64 MV dec time: 0.11 sec Med Peak E' Gil: 5.8 cm/sec PI Vmax: 69.2 cm/sec Med E/e': 11.1 Lat Peak E' Gil: 4.2 cm/sec Lat E/e': 15.1 Procedure A two-dimensional transthoracic echocardiogram with color flow and Doppler was performed. Left Ventricle The left ventricle is moderately dilated. There is moderate concentric left ventricular hypertrophy. The left ventricular ejection fraction is normal. E/A reversal consistent with but not diagnostic of poor LV compliance. There is moderate inferior wall hypokinesis. Right Ventricle The right ventricle is not well visualized. Atria The left atrium is moderately dilated. The right atrium is moderately dilated. Mitral Valve There is moderate mitral valve thickening. There is no mitral valve stenosis. There is trace to mild mitral regurgitation. Tricuspid Valve There is mild to moderate tricuspid valve thickening. There is no tricuspid stenosis. There was insuf ficient TR detected to calculate RV systolic pressure. Aortic Valve The aortic valve is not well visualized. No hemodynamically significant valvular aortic stenosis. No aortic regurgitation is present. Pulmonic Valve The pulmonic valve is not well visualized. There is no pulmonic valvular stenosis. Mild pulmonic valv ular regurgitation. Great Vessels The aortic root is normal size. Pericardium/Pleura There is no pericardial effusion. Interpretation Summary The left ventricle is moderately dilated. There is moderate concentric left ventricular hypertrophy. There is moderate inferior wall hypokinesis. The left atrium is moderately dilated. The right atrium is moderately dilated. The left ventricular ejection fraction is normal. There is moderate mitral valve thickening. There is mild to moderate tricuspid valve thickening. The aortic valve is not well visualized. The aortic root is normal size. E/A reversal consistent with but not diagnostic of poor LV compliance There is trace to mild mitral regurgitation. There was insufficient TR detected to calculate RV systolic pressure. MD Cortes Headley 01/04/2018 01:16 PM
--- NOTE | 2018-01-04 16:10 | PN ---
Physical Exam: SUBJECTIVE: Patient seen and examined reports he was still having some chest pain that comes and goes. Patient denies any history of GI bleeds, reports he drinks about 6 beers a day. Patient has no other complaints and no acute events today. OBJECTIVE: Vital Signs Temperature 98.4 F 01/04/18 08:40 Pulse Rate 70 01/04/18 08:40 Respiratory Rate 18 01/04/18 08:40 Blood Pressure 153/98 01/04/18 08:40 O2 Sat by Pulse Oximetry (%) 97 01/04/18 08:40 GENERAL: The patient is awake, alert, and fully oriented, in no acute distress. smells of alcohol HEAD: Normal with no signs of trauma. EYES: PERRL, extraocular movements intact, sclera anicteric, conjunctiva clear. No ptosis. ENT: moist mucous membranes. NECK: Trachea midline, full range of motion, supple. LUNGS: Breath sounds equal, clear to auscultation bilaterally, no wheezes, no crackles, no accessory muscle use. HEART: Regular rate and rhythm, S1, S2 without murmur, rub or gallop. ABDOMEN: Soft, nontender, nondistended, normoactive bowel sounds, no guarding, no ascites present EXTREMITIES: 2+ pulses, warm, well-perfused, no edema. PSYCH: Normal mood, normal affect. SKIN: Warm, dry, normal turgor, no rashes or lesions noted CBC, BMP 01/04/18 05:10 01/04/18 05:10 Active Medications Carvedilol (Coreg -) 3.125 mg PO BID [facility] Last Admin: 01/04/18 10:37 Dose: 3.125 mg Folic Acid (Folic Acid -) 1 mg PO DAILY [facility] Last Admin: 01/04/18 10:37 Dose: 1 mg Lactated Ringer's (Lactated Ringers Solution) 1,000 ml in 1,000 mls @ 83 mls/ hr IV ASDIR [facility] Last Admin: 01/04/18 04:08 Dose: 83 mls/hr Sodium Chloride (Normal Saline -) 1,000 mls @ 100 mls/hr IV ASDIR [facility] Last Admin: 01/04/18 10:38 Dose: 100 mls/hr Lorazepam (Ativan Injection -) 2 mg IVPUSH Q4H PRN PRN Reason: WITHDRAWAL(CONT SUBST) Lorazepam (Ativan Injection -) 1 mg IVPUSH Q6H-IV LISA Multivitamins/Minerals/Vitamin C (Tab-A-Vit -) 1 tab PO DAILY [facility] Last Admin: 01/04/18 10:38 Dose: 1 tab Pantoprazole Sodium (Protonix Iv) 40 mg IVPUSH DAILY [facility] Last Admin: 01/04/18 10:37 Dose: 40 mg Potassium Phos/Sodium Phos (Phos-Nak Packet -) 1 packet PO TID [facility] Last Admin: 01/04/18 14:29 Dose: 1 packet Thiamine HCl (Vitamin B1 -) 100 mg PO DAILY [facility] Last Admin: 01/04/18 10:38 Dose: 100 mg ASSESSMENT/PLAN: Patient is a 62 y/o male with a history of alcohol abuse, ischemic cardiac disease, HTN, and HLD, who presents to r/o ACS and for alcoholic hepatitis. #r/o ACS - troponin negative x 2 - EKG shows no changes - per cardio, Dr. Headley continue detox, asa if no cotra indication from GI - repeat EKG: QTC 455 - 2014 stress test: large, severe inferior and inferior lateral wall defects that are predominatly fixed with a small area of reversibility in fay inferior wall consistent with infarct with mild perinfarct ischemia LVEF: 50% #withdrawl from alcohol - continue ativan q6h - continue folic acid - continue thiamine - fall risk precautions #alcoholic hepatitis - elevated transaminitis, continue to trend - ABD sonogram: no evidence of ascites - MADRY score 25, steroids not indicated at this time - f/u hepatitis panel #HTN - continue lsinopril 10 mg daily - metoprolol 25 mg po BID #HLD - pravastatin 40 mg po hs - high triglycerides: 471 begin fenofibrat 45 mg daily #FEN - K: 3.3, replete with kdur Dispo: f/u GI consult, NPO for possible stress test tomorrow, f/u with cardio for stress test tomorrow Visit type - Emergency Visit Emergency Visit: No - New Patient This patient is new to me today: Yes Date on this admission: 01/04/18 - Critical Care Critical Care patient: No
--- NOTE | 2018-01-04 16:16 | PN ---
Teaching Attending Note Name of Resident: Whit Linares ATTENDING PHYSICIAN STATEMENT I saw and evaluated the patient. I reviewed the resident's note and discussed the case with the resident. I agree with the resident's findings and plan as documented. SUBJECTIVE: No fever or chills. has minimal L sided Cp . he drank alcohol to help pain. he took 3 tylenols a day for PARMAR nad CP. he is a very poor historian even with using quarter seamer phone. unclear if he has a conference service coordinator or GI doctor . OBJECTIVE: NAD CV: RRR. NL S1, S2. Lungs : CTAB Abd: obese, soft, ND, no hepatosplenomegaly . TTP in epigastric area and RUQ. no shifting dullness Ext : no edema ASSESSMENT AND PLAN: 62 y/o man with h/o HTN, CAD, + stress test in 2014 ( unknown w/u after then), cirrhosis , and alcoholism who presented with CP 1- L sided CP: complicated hx, poor historian, not clear of previous w/u. high risk. likely MS though. - EKG, trop reviewed. - repeat trop now. -Card consult : stress test. hopefully tomorrow 2- prolonged Qtc> 600---> 445 . - avoid any prolonging agents. 3- ETOH abuse: PRn ativan for withdrawal signs - thiamine 4- Alcoholic hepatitis: DF 25.4. no need for steorids - monitor lFTS - no signs of ascitis on exam - GI consult - US reviewed.
[2018-01-04] MEDS: LORazepam 2 MG/ML SDV VIAL IVPUSH SCH ×2 (16:49→21:39)
[2018-01-04 18:18] VITALS: BMI 30.7
--- NOTE | 2018-01-04 19:23 | CON.GI ---
Consult Consult Specialty:: GI - History of Present Illness History of Present Illness: The patient was asked to be seebn because of alcoholo abuse associated with elevated total bilirubin. He has been drdinking every day for the past 10 years, usually Tequila and beer. He denies LOC, denies fall, melena and rectal bleeding. 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: Alzheimer's, CVA, Dementia, Migraine, Multiple Sclerosis, Peripheral Neuropathy, Parkinson's, Seizure, Syncope, TIA, Vertigo, Other Cardio/Vascular: Yes: CAD, HTN, Hyperlipdemia Pulmonary: No: Asthma, Bronchitis, Cancer, COPD, O2 Dependent, Pneumonia, Previously Intubated, Pulmonary Embolus, Pulmonary Fibrosis, Sleep Apnea, Other Gastrointestinal: No: Ascites, Cancer, Constipation, Crohn's Disease, Diverticulitis, Diverticulosis, Esophageal Varices, Gastritis, GERD, GI Bleed, Hemorrhoids, Hiatal Hernia, Inflamatory Bowel Disease, Irritable Bowel Disease, Pancreatitis, Peptic Ulcer Disease, Ulcerative Colitis, Other Psych: Yes: Addictions - Past Surgical History Past Surgical History: Yes: Appendectomy, Hernia Repair - Alcohol/Substance Use Hx Alcohol Use: Yes (daily) Number of Drinks Daily: 5 (25 oz cans) History of Substance Use: reports: Cocaine - Smoking History Smoking history: Never smoked Have you smoked in the past 12 months: No Aproximately how many cigarettes per day: 0 If you are a former smoker, when did you quit?: smoked for 13 years - Social History Usual Living Arrangement: Other (retirement) ADL: Independent 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 History of Recent Travel: No Home Medications - Allergies Allergies/Adverse Reactions: Allergies Allergy/AdvReac Type Severity Reaction Status Date / Time No Known Drug Allergies Allergy Verified 01/03/18 22:20 - Home Medications Home Medications: Ambulatory Orders Lisinopril [Prinivil] 10 mg PO DAILY 01/04/18 Metoprolol Tartrate 25 mg PO Q12H 01/04/18 Pravastatin Sodium [Pravachol -] 40 mg PO HS 01/04/18 Family Disease History - Family Disease History Family Disease History: Diabetes: Father, Other: Brother (has swelling in legs) Review of Systems - Review of Systems Constitutional: denies: No Symptoms, Chills, Diaphoresis, Fever, Lethargy, Loss of Appetite, Malaise, Night Sweats, Unintentional Wgt. Loss, Weakness, Other Eyes: denies: No Symptoms, Blind Spots, Blurred Vision, Double Vision, Eye Pain , Floaters, Photophobia, Recent Change in Vision, Other HENT: denies: No Symptoms, Difficult Swallowing, Ear Discharge, Ear Pain, Epistaxis, Gingival Bleeding, Hearing Loss, Mouth Swelling, Nasal Congestion, Ocular Prosthesis, Throat Pain, Toothache, Ringing in Ears, Other Neck: denies: No Symptoms, Decreased ROM, Lumps, Pain on Movement, Stiffness, Swollen Glands, Tenderness, Other Gastrointestinal: denies: No Symptoms, Abdominal Pain, Bloating, Constipation, Diarrhea, Dysphagia, Indigestion, Melena, Nausea, Rectal Bleeding, Vomiting, Vomiting Blood, Other Physical Exam-GI Vital Signs: Vital Signs Temperature 98.4 F 01/04/18 18:10 Pulse Rate 90 01/04/18 18:10 Respiratory Rate 20 01/04/18 18:10 Blood Pressure 135/85 01/04/18 18:10 O2 Sat by Pulse Oximetry (%) 98 01/04/18 18:00 Constitutional: Yes: No Distress Eyes: Yes: Sclera Icterus HENT: Yes: Normocephalic Neck: Yes: Supple Cardiovascular: Yes: Regular Rate and Rhythm Gastrointestinal Inspection: No: Distention ...Palpate: Yes: Soft. No: Guarding, Hepatomegaly, Mass, Pulsatile Mass, Splenomegaly, Tenderness, Epigastium Labs: CBC, BMP 01/04/18 05:10 01/04/18 05:10 Hepatic Panel Total Bilirubin 8.4 mg/dL (0.2-1) H 01/04/18 05:10 Direct Bilirubin 5.8 mg/dL (0.0-0.2) H 01/04/18 00:20 AST 286 U/L (15-37) H 01/04/18 05:10 ALT 159 U/L (13-61) H 01/04/18 05:10 Alkaline Phosphatase 357 U/L (45-117) H 01/04/18 05:10 Albumin 2.8 g/dl (3.4-5.0) L 01/04/18 05:10 Home Medications Medication Instructions Recorded Lisinopril [Prinivil] 10 mg PO DAILY 01/04/18 Metoprolol Tartrate 25 mg PO Q12H 01/04/18 Pravastatin Sodium [Pravachol -] 40 mg PO HS 01/04/18 Problem List - Problems (1) Alcohol abuse Assessment/Plan: associated with subacute hepatic failure and portal HTN casuing thrombocytopenia R> continue to abstain from alcohol avoid simvastatin and fenofibrate in a patient with e severe elevation of liver enzymes trend lfts every 3 days recall as necessary patient was made aware of his clinical condition Code(s): F10.10 - ALCOHOL ABUSE, UNCOMPLICATED
[2018-01-04] MEDS: METOPROLOL TARTRATE 25 MG TABLET (FP) PO SCH (21:37)
[2018-01-04] MEDS ORDERED: ATORVASTATIN CA 10 MG TABLET (FP) PO SCH (22:00)
[2018-01-05] MEDS: LORazepam 2 MG/ML SDV VIAL IVPUSH SCH ×2 (02:31→09:05)
[2018-01-05] MEDS: LACTATED RINGERS SOLUTION 1,000 ML/1,000 ML INFUS.BAG IV SCH (02:31)
[2018-01-05] MEDS ORDERED: diazePAM CARPU-JECT 10 MG/2 ML DISP.SYRIN IVPUSH ONE (05:31)
[2018-01-05] MEDS ORDERED: LORazepam 2 MG/ML SDV VIAL IVPUSH ONE ×2 (06:06→11:50)
[2018-01-05] MEDS: NAPH,MB-DB/K PH,MBDB POWDER PACKET PO SCH ×4 (06:41→21:24)
[2018-01-05 07:50] LABS: HEMATOCRIT 43.1 % (35.4-49); HEMOGLOBIN 14.5 GM/dL (11.7-16.9); MCH 32.3 pg (25.7-33.7); MCHC 33.6 g/dl (32.0-35.9); MEAN CELL VOLUME 96.1 fl (80-96); PLATELET COUNT 43 K/MM3 (134-434); RBC 4.49 M/mm3 (4.00-5.60); RDW 15.6 % (11.9-15.9); WHITE BLOOD COUNT 4.4 K/mm3 (4.0-10.0)
[2018-01-05 08:43] LABS: ALBUMIN 2.4 g/dl (3.4-5.0); ALK PHOS 330 U/L (45-117); ANION GAP 9 MMOL/L (8-16); BILIRUBIN,TOTAL 9.6 mg/dL (0.2-1); BLOOD UREA NITROGEN 12 mg/dL (7-18); CHLORIDE 102 mmol/L (98-107); CO2 26 mmol/L (21-32); CREATININE 1.3 mg/dL (0.55-1.3); GLUCOSE,RANDOM 125 mg/dL (74-106); POTASSIUM 3.6 mmol/L (3.5-5.1); SGOT/AST 226 U/L (15-37); SGPT/ALT 117 U/L (13-61); SODIUM 137 mmol/L (136-145); TOT PROT 6.4 g/dl (6.4-8.2)
[2018-01-05] MEDS: LISINOPRIL 10 MG TABLET (FP) PO SCH (09:27)
[2018-01-05] MEDS: THIAMINE HCL 100 MG TABLET (FP) PO SCH (09:27)
[2018-01-05] MEDS: PANTOPRAZOLE SODIUM 40 MG VIAL IVPUSH SCH (09:27)
[2018-01-05] MEDS: METOPROLOL TARTRATE 25 MG TABLET (FP) PO SCH ×2 (09:27→21:24)
[2018-01-05] MEDS: MULTIVITAMINS (DAILY MVI) TABLET (FP) PO SCH (09:27)
[2018-01-05] MEDS: FOLIC ACID 1 MG TABLET (FP) PO SCH (09:27)
[2018-01-05] MEDS ORDERED: FENOFIBRIC ACID 45 MG CAP PO SCH (10:00)
[2018-01-05] MEDS ORDERED: ASPIRIN 81 MG CHEWABLE TABLETS PO SCH (10:00)
--- NOTE | 2018-01-05 11:46 | PN ---
Teaching Attending Note Name of Resident: Linda Mckinnon ATTENDING PHYSICIAN STATEMENT I saw and evaluated the patient. I reviewed the resident's note and discussed the case with the resident. I agree with the resident's findings and plan as documented. SUBJECTIVE: no fever or chills . no abd pain. no cp . over night he was confused , tried to leave bed. was reaching out in the air. OBJECTIVE: NAD , confused, does not answer questions appropriately . calm. CV: RRR. NL S1, S2. Lungs: CTAB Abd: obese, soft, ND, no hepatosplenomegaly . No tenderness Ext : no edema ASSESSMENT AND PLAN: 62 y/o man with h/o HTN, CAD, + stress test in 2014 ( unknown w/u after then), cirrhosis , and alcoholism who presented with CP 1- L sided CP: - hold stress test due to withdrawal sx - d/W dr. Martinez - cont aspiin 2- Prolonged Qtc, improved - avoid any prolonging agents. 3-Alcohol withdrawal: with visual hallucinations - change ativan to standing for now. monitor cont thiamine and folate 4- Alcoholic hepatitis: bili is worse check INR/PT to calculate DF - monitor lFTS - Hep serology pending 5- Cirrhosis : -will perform rectal exam to check for OB - no ascitis on US . - Monitor with low salt diet . 6- Hypertriglyceredemia: low fat diet for now, pending improvement in his LFTs before statin or Fibrates coulf be used 7- Thrombocytopenia: - likely due to cirrhosis. - cont to hold heparin products. - if it drops further will check HIT Abs SCDS
[2018-01-05] MEDS: SODIUM CHLORIDE 1,000 ML IV SCH (11:47)
[2018-01-05] MEDS ORDERED: LORazepam 2 MG/ML SDV VIAL ONE (13:01)
[2018-01-05 13:04] LABS: INR 1.56 (0.83-1.09); PROTHROMBIN TIME (PATIENT) 18.5 SEC (9.7-13.0)
[2018-01-05] MEDS: LORazepam 2 MG/ML SDV VIAL IM SCH ×3 (14:15→21:33)
--- NOTE | 2018-01-05 15:26 | PN ---
Physical Exam: SUBJECTIVE: Patient seen and upon examination was alert and oriented x3. Patient answered questions appropriately. Overnight patient became unruley and had to be place on a 1:1. OBJECTIVE: Vital Signs Period Temp Pulse Resp BP Sys/De Dios Pulse Ox Last 24 Hr 98.2 F-99 F 83-90 18-20 116-155/60-85 95-98 GENERAL: The patient is awake, alert, and fully oriented, in no acute distress. smells of alcohol HEAD: Normal with no signs of trauma. EYES: PERRL, extraocular movements intact, sclera anicteric, conjunctiva clear. No ptosis. ENT: moist mucous membranes. NECK: Trachea midline, full range of motion, supple. LUNGS: Breath sounds equal, clear to auscultation bilaterally, no wheezes, no crackles, no accessory muscle use. HEART: Regular rate and rhythm, S1, S2 without murmur, rub or gallop. ABDOMEN: Soft, nontender, nondistended, normoactive bowel sounds, no guarding, no ascites present EXTREMITIES: 2+ pulses, warm, well-perfused, no edema. PSYCH: Normal mood, normal affect. SKIN: Warm, dry, normal turgor, no rashes or lesions noted CBC, BMP 01/05/18 06:10 01/05/18 06:10 Active Medications Folic Acid (Folic Acid -) 1 mg PO DAILY [facility] Last Admin: 01/05/18 09:27 Dose: 1 mg Sodium Chloride (Normal Saline -) 1,000 mls @ 100 mls/hr IV ASDIR [facility] Last Admin: 01/05/18 11:47 Dose: 100 mls/hr Lisinopril (Prinivil) 10 mg PO DAILY [facility] Last Admin: 01/05/18 09:27 Dose: 10 mg Lorazepam (Ativan Injection -) 1 mg IM Q4H [facility] Last Admin: 01/05/18 14:15 Dose: 1 mg Metoprolol Tartrate (Lopressor -) 25 mg PO BID [facility] Last Admin: 01/05/18 09:27 Dose: 25 mg Multivitamins/Minerals/Vitamin C (Tab-A-Vit -) 1 tab PO DAILY [facility] Last Admin: 01/05/18 09:27 Dose: 1 tab Pantoprazole Sodium (Protonix Iv) 40 mg IVPUSH DAILY [facility] Last Admin: 01/05/18 09:27 Dose: 40 mg Potassium Phos/Sodium Phos (Phos-Nak Packet -) 1 packet PO TID [facility] Last Admin: 01/05/18 15:13 Dose: Not Given Prednisolone (Prednisolone Unit Dose Cups) 40 mg PO DAILY [facility] Thiamine HCl (Vitamin B1 -) 100 mg PO DAILY [facility] Last Admin: 01/05/18 09:27 Dose: 100 mg ASSESSMENT/PLAN: Patient is a 62 y/o male with a history of alcohol abuse, ischemic cardiac disease, HTN, and HLD, who presents to r/o ACS and for alcoholic hepatitis. #alcoholic hepatitis - elevated transaminitis, trending down slightly - ABD sonogram: no evidence of ascites - MADRY score 39.5, start prednisolone 40 mg daily - f/u hepatitis panel - f/u GI Dr. Patterson #r/o ACS - troponin negative x 2 - EKG shows no changes - per cardio, Dr. Headley continue detox, asa if no cotra indication from GI - repeat EKG: QTC 455 - 2014 stress test: large, severe inferior and inferior lateral wall defects that are predominatly fixed with a small area of reversibility in fay inferior wall consistent with infarct with mild perinfarct ischemia LVEF: 50% - hold stress test until stable #withdrawl from alcohol - continue ativan 2mg q6h standing - continue folic acid - continue thiamine - fall risk precautions - 1:1 - consulted Dr. Taylor for detox #thrombocytopenia - hold asa - continue to monitor - likely 2/2 to splenomegaly #HTN - continue lsinopril 10 mg daily - metoprolol 25 mg po BID #HLD - high triglycerides: 471 - hold statin and antitriglycerides while in transaminitis #FEN - monitor daily #DVT ppx - SCD's Dispo: f/u GI consult, NPO for possible stress test tomorrow, f/u with cardio for stress test tomorrow Visit type - Emergency Visit Emergency Visit: No - New Patient This patient is new to me today: No - Critical Care Critical Care patient: No
[2018-01-05] MEDS: PrednisoLONE 15 MG/5 ML UNIT-DOSE CUP PO SCH (17:54)
[2018-01-06 00:06] LABS: HBSAG SCREEN Negative (Negative); HEP A AB, IGM Negative (Negative); HEP B CORE AB, TOT Negative (Negative)
[2018-01-06] MEDS: LORazepam 2 MG/ML SDV VIAL IM SCH ×3 (02:30→09:58)
[2018-01-06] MEDS: NAPH,MB-DB/K PH,MBDB POWDER PACKET PO SCH ×3 (05:13→23:35)
[2018-01-06 06:21] LABS: HEMATOCRIT 42.1 % (35.4-49); HEMOGLOBIN 13.9 GM/dL (11.7-16.9); MCH 32.1 pg (25.7-33.7); MCHC 33.1 g/dl (32.0-35.9); MEAN CELL VOLUME 97.1 fl (80-96); MEAN PLT VOLUME 10.6 fl (7.5-11.1); RBC 4.34 M/mm3 (4.00-5.60); RDW 15.7 % (11.9-15.9); WHITE BLOOD COUNT 4.8 K/mm3 (4.0-10.0)
[2018-01-06 06:43] LABS: PLATELET COUNT 31 K/MM3 (134-434)
[2018-01-06 07:31] LABS: ALK PHOS 283 U/L (45-117); ANION GAP 8 MMOL/L (8-16); BLOOD UREA NITROGEN 13 mg/dL (7-18); CALCIUM 7.6 mg/dL (8.5-10.1); CHLORIDE 109 mmol/L (98-107); CO2 25 mmol/L (21-32); CREATININE 1.1 mg/dL (0.55-1.3); GLUCOSE,RANDOM 141 mg/dL (74-106); POTASSIUM 3.6 mmol/L (3.5-5.1); SGOT/AST 166 U/L (15-37); SGPT/ALT 94 U/L (13-61); SODIUM 142 mmol/L (136-145); TOT PROT 5.8 g/dl (6.4-8.2)
--- NOTE | 2018-01-06 08:14 | PN ---
Physical Exam: SUBJECTIVE: Patient is a 62 y/o male with a history of alcohol abuse, ischemic cardiac disease, HTN, and HLD, who presents to r/o ACS and for alcoholic hepatitis. Per nursing patient was quiet overnight, but late afternoon he needed security to hold him down as he was thrashing. Patient is A & O x2. Patients only complaint is of a headache. OBJECTIVE: Vital Signs Temperature 97.5 F L 01/06/18 05:56 Pulse Rate 76 01/06/18 05:56 Respiratory Rate 19 01/06/18 05:56 Blood Pressure 118/73 01/06/18 05:56 O2 Sat by Pulse Oximetry (%) 95 01/05/18 21:00 GENERAL: The patient is awake, alert, and fully oriented, in no acute distress. smells of alcohol HEAD: Normal with no signs of trauma. EYES: PERRL, extraocular movements intact, sclera anicteric, conjunctiva clear. No ptosis. ENT: moist mucous membranes. NECK: Trachea midline, full range of motion, supple. LUNGS: Breath sounds equal, clear to auscultation bilaterally, no wheezes, no crackles, no accessory muscle use. HEART: Regular rate and rhythm, S1, S2 without murmur, rub or gallop. ABDOMEN: Soft, nontender, nondistended, normoactive bowel sounds, no guarding, no ascites present EXTREMITIES: 2+ pulses, warm, well-perfused, no edema. PSYCH: Normal mood, normal affect. SKIN: Warm, dry, normal turgor, no rashes or lesions noted CBC, BMP 01/06/18 05:30 01/06/18 05:30 Active Medications Folic Acid (Folic Acid -) 1 mg PO DAILY [facility] Last Admin: 01/05/18 09:27 Dose: 1 mg Sodium Chloride (Normal Saline -) 1,000 mls @ 100 mls/hr IV ASDIR [facility] Last Admin: 01/05/18 11:47 Dose: 100 mls/hr Lisinopril (Prinivil) 10 mg PO DAILY [facility] Last Admin: 01/05/18 09:27 Dose: 10 mg Lorazepam (Ativan Injection -) 1 mg IM Q4H [facility] Last Admin: 01/06/18 05:13 Dose: 1 mg Metoprolol Tartrate (Lopressor -) 25 mg PO BID [facility] Last Admin: 01/05/18 21:24 Dose: Not Given Multivitamins/Minerals/Vitamin C (Tab-A-Vit -) 1 tab PO DAILY [facility] Last Admin: 01/05/18 09:27 Dose: 1 tab Pantoprazole Sodium (Protonix Iv) 40 mg IVPUSH DAILY [facility] Last Admin: 01/05/18 09:27 Dose: 40 mg Potassium Phos/Sodium Phos (Phos-Nak Packet -) 1 packet PO TID [facility] Last Admin: 01/06/18 05:13 Dose: 1 packet Prednisolone (Prednisolone Unit Dose Cups) 45 mg PO DAILY [facility] Last Admin: 01/05/18 17:54 Dose: 45 mg Thiamine HCl (Vitamin B1 -) 100 mg PO DAILY [facility] Last Admin: 01/05/18 09:27 Dose: 100 mg ASSESSMENT/PLAN: Patient is a 62 y/o male with a history of alcohol abuse, ischemic cardiac disease, HTN, and HLD, who presents to r/o ACS and for alcoholic hepatitis. #alcoholic hepatitis - elevated transaminitis, trending down slightly - ABD sonogram: no evidence of ascites, spleen slightly enlarged measuring 12.1 cm - MADRY score 39.5, start prednisolone 40 mg daily day 2 - hepatitis panel negative for acute infection, f/u hep B add on - discussed with GI Dr. Patterson, see bottom of note for reccomendations #r/o ACS - troponin negative x 2 - EKG shows no changes - per cardio, Dr. Headley continue detox, asa if no cotra indication from GI - repeat EKG: QTC 455 - 2014 stress test: large, severe inferior and inferior lateral wall defects that are predominantly fixed with a small area of reversibility in inferior wall consistent with infarct with mild perinfarct ischemia LVEF: 50% - hold stress test and aspirin until stable from detox #withdrawl from alcohol - continue ativan 1mg q4h standing, can likely decrease tomorrow - continue folic acid - continue thiamine - fall risk precautions - 1:1 - consulted Dr. Taylor for detox #thrombocytopenia - hold asa - continue to monitor - likely 2/2 to splenomegaly - f/u HIT assay #HTN - continue lsinopril 10 mg daily - metoprolol 25 mg po BID #HLD - high triglycerides: 471 - hold statin and antitriglycerides while in transaminitis #FEN - replete Mg and Phosp, follow tomorrow #DVT ppx - SCD's Dispo: monitor patient until stable for possible stress test - upon discharge patient needs to have his alpha feta protein followed every four months, and abd US every 6 months to check for hepatoma, patient should f/ u with Dr. Patterson for an EGD, patient needs to follow with clinic to trend LFT's , should be D/C on Pentoxifylline rather than prednisolone, patient will not likely be compliant with steroid outpatient and need to avoid adrenal insufficiency, patient should be encouraged to follow up with [facility] or [facility] for potential future treatment Visit type - Emergency Visit Emergency Visit: No - New Patient This patient is new to me today: No - Critical Care Critical Care patient: No
--- NOTE | 2018-01-06 08:15 | CON.CARD ---
Consult Consult Specialty:: cardiology Reason for Consultation:: chest pain; CAD risks - History of Present Illness Chief Complaint: Pt is verbally abusive and confrontational; tries to get out of bed, resisting treatment. History of Present Illness: The patient is a 62 year old male with a history of HTN, HLD, Alcohol abuse, who presents for evaluation of chest pain, nausea, vomiting, body aches, headache. The patient reports a 3 day history of chest pain with associated nausea, and vomiting, body aches and headache prompting his presentation to the ED for further evaluation. He notes that he is a daily alcohol drinker and his last drink was 10pm yesterday evening. He otherwise denies fevers, chills, SOB , abdominal pain, or changes with urination or bowel movements. - History Source History Provided By: Patient, Medical Record Limitations to Obtaining History: Intoxication - Past Medical History ELECTROLYSIST: No: Alzheimer's, CVA, Dementia, Migraine, Multiple Sclerosis, Peripheral Neuropathy, Parkinson's, Seizure, Syncope, TIA, Vertigo, Other Cardio/Vascular: Yes: CAD, HTN, Hyperlipdemia Pulmonary: No: Asthma, Bronchitis, Cancer, COPD, O2 Dependent, Pneumonia, Previously Intubated, Pulmonary Embolus, Pulmonary Fibrosis, Sleep Apnea, Other Gastrointestinal: No: Ascites, Cancer, Constipation, Crohn's Disease, Diverticulitis, Diverticulosis, Esophageal Varices, Gastritis, GERD, GI Bleed, Hemorrhoids, Hiatal Hernia, Inflamatory Bowel Disease, Irritable Bowel Disease, Pancreatitis, Peptic Ulcer Disease, Ulcerative Colitis, Other Psych: Yes: Addictions - Past Surgical History Past Surgical History: Yes: Appendectomy, Hernia Repair - Alcohol/Substance Use Hx Alcohol Use: No Number of Drinks Daily: 5 (25 oz cans) History of Substance Use: reports: Cocaine - Smoking History Smoking history: Never smoked Have you smoked in the past 12 months: No Aproximately how many cigarettes per day: 0 If you are a former smoker, when did you quit?: smoked for 13 years - Social History Usual Living Arrangement: Other (long-term) ADL: Independent 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 History of Recent Travel: No Home Medications - Allergies Allergies/Adverse Reactions: Allergies Allergy/AdvReac Type Severity Reaction Status Date / Time No Known Drug Allergies Allergy Verified 01/03/18 22:20 - Home Medications Home Medications: Ambulatory Orders Lisinopril 10 mg PO DAILY 01/26/15 Lisinopril [Zestril] 10 mg PO BID #60 tablet 01/26/15 Lisinopril [Prinivil] 10 mg PO DAILY 01/04/18 Metoprolol Tartrate 25 mg PO Q12H 01/04/18 Pravastatin Sodium [Pravachol -] 40 mg PO HS 01/04/18 Family Disease History - Family Disease History Family Disease History: Diabetes: Father, Other: Brother (has swelling in legs) Vital Signs: Vital Signs Temperature 97.5 F L 01/06/18 05:56 Pulse Rate 76 01/06/18 05:56 Respiratory Rate 19 01/06/18 05:56 Blood Pressure 118/73 01/06/18 05:56 O2 Sat by Pulse Oximetry (%) 95 01/05/18 21:00 - Other Data Labs, Other Data: CBC, BMP 01/06/18 05:30 01/06/18 05:30 INR, PTT INR 1.56 (0.83-1.09) H 01/05/18 12:35 Problem List - Problems (1) Elevated LFTs Assessment/Plan: acute alcoholism F/u w/u for this elevation, including hepatitis profile. Code(s): R94.5 - ABNORMAL RESULTS OF LIVER FUNCTION STUDIES (2) Chest pain Assessment/Plan: f/u EKG (evidence of old infarct and possibly acute ischemia); telemetry. Lipid levels WNL. HFpEF: continue lisinopril and metoprolol. ASA 81 mg daily. Coronary artery evaluation when stable. Code(s): R07.9 - CHEST PAIN, UNSPECIFIED (3) Alcohol abuse Assessment/Plan: Full detox protocol. Code(s): F10.10 - ALCOHOL ABUSE, UNCOMPLICATED (4) Alcohol abuse Code(s): F10.10 - ALCOHOL ABUSE, UNCOMPLICATED (5) Hypercholesteremia Assessment/Plan: total cholesterol 100 mg/dL Code(s): E78.0 - PURE HYPERCHOLESTEROLEMIA * DO NOT USE * (6) Hypertension Assessment/Plan: on metoprolol and lisinopril Code(s): I10 - ESSENTIAL (PRIMARY) HYPERTENSION Qualifiers: Hypertension type: essential hypertension Qualified Code(s): I10 - Essential (primary) hypertension (7) Obesity Code(s): E66.9 - OBESITY, UNSPECIFIED Qualifiers: Obesity classification: unspecified obesity classification (8) [place] cardiac risk >20% in next 10 years Assessment/Plan: Coronary artery evaluation (stress MIBI and/or coronary angiogram) when no longer acutely alcoholic. (Ability to comply with medication regimen is questionable, however). Code(s): Z91.89 - [facility] PERSONAL RISK FACTORS, NOT ELSEWHERE CLASSIFIED (9) Hypomagnesemia Assessment/Plan: f/u all electrolyte levels after repletion (K, Mg, and PO4 were initially low). Code(s): E83.42 - HYPOMAGNESEMIA
[2018-01-06 09:43] LABS: MAGNESIUM 1.6 mg/dL (1.8-2.4); PHOSPHOROUS 2.2 mg/dL (2.5-4.9)
[2018-01-06] MEDS ORDERED: PT OWN MED DRAWER 7, Y5N ONE (09:48)
[2018-01-06] MEDS: PANTOPRAZOLE SODIUM 40 MG VIAL IVPUSH SCH (09:57)
[2018-01-06] MEDS: THIAMINE HCL 100 MG TABLET (FP) PO SCH (09:58)
[2018-01-06] MEDS: PrednisoLONE 15 MG/5 ML UNIT-DOSE CUP PO SCH (09:58)
[2018-01-06] MEDS: MULTIVITAMINS (DAILY MVI) TABLET (FP) PO SCH (09:58)
[2018-01-06] MEDS: METOPROLOL TARTRATE 25 MG TABLET (FP) PO SCH ×2 (09:58→23:34)
[2018-01-06] MEDS: FOLIC ACID 1 MG TABLET (FP) PO SCH (09:58)
[2018-01-06] MEDS: LISINOPRIL 10 MG TABLET (FP) PO SCH (09:58)
--- NOTE | 2018-01-06 10:09 | EKG ---
Test Reason : Blood Pressure : / mmHG Vent. Rate : 087 BPM Atrial Rate : 087 BPM P-R Int : 200 ms QRS Dur : 114 ms QT Int : 410 ms P-R-T Axes : 021 -50 -25 degrees QTc Int : 493 ms SINUS RHYTHM WITH OCCASIONAL and consecutive PREMATURE VENTRICULAR COMPLEXES LEFT AXIS DEVIATION LATERAL INFARCT (CITED ON OR BEFORE 16-AUG-2014) INFERIOR INFARCT (CITED ON OR BEFORE 16-AUG-2014) ABNORMAL ECG WHEN COMPARED WITH ECG OF 04-JAN-2018 09:37, INVERTED T WAVES HAVE REPLACED NONSPECIFIC T WAVE ABNORMALITY IN INFERIOR LEADS NONSPECIFIC T WAVE ABNORMALITY, IMPROVED IN LATERAL LEADS Confirmed by ROBER TEIXEIRA MD ([id number]) on 01/06/2018 10:09:01 AM Referred By: MICHI LÓPEZ DR Confirmed By:ROBER TEIXEIRA MD
[2018-01-06] MEDS: LORazepam 2 MG/ML SDV VIAL IVPUSH SCH ×4 (10:39→23:34)
--- NOTE | 2018-01-06 12:01 | PN ---
Progress Note, Physician History of Present Illness: Patient is a 62 y/o HM with a PMH of EtOH abuse, cirrhosis, CAD, HLD, HTN; he presents with a host of complaints. He has been having chest pain, headaches, bodyaches, fatigue, etc. for the past several days; not made better or worse with anything, hasn't seen anyone else with this. His last drink was at 10 today. He is a daily drinker with poor compliance with his home therapies. He is not feeling tremulous. He agrees he has withdrawn from alcohol in the past. He denies any anil RUQ pain, etc. Afebrile, hemodynamics stable. He is hypokalemic and hypomagnesemic. He has largely derranged LFTs. His CP is atypical in nature but he does have a history of a positive stress test in 2014 ; unknown followup. Admit to medicine service for further workup and monitoring. Further history per resident note. He had similar symptoms at his last visit to our ER last month and was not admitted at that juncture. Got aspirin and banana bag in the ER. 10 sys ROS done and negative aside for HPI. PMH and PSH discussed Socially he consumes EtOH daily, no illicits, has withdrawn in the past. FH asked and noncontributory - Current Medication List Current Medications: Active Medications Folic Acid (Folic Acid -) 1 mg PO DAILY [facility] Last Admin: 01/06/18 09:58 Dose: 1 mg Sodium Chloride (Normal Saline -) 1,000 mls @ 100 mls/hr IV ASDIR [facility] Last Admin: 01/05/18 11:47 Dose: 100 mls/hr Lisinopril (Prinivil) 10 mg PO DAILY [facility] Last Admin: 01/06/18 09:58 Dose: 10 mg Lorazepam (Ativan Injection -) 1 mg IVPUSH Q4H [facility] Last Admin: 01/06/18 10:39 Dose: Not Given Metoprolol Tartrate (Lopressor -) 25 mg PO BID [facility] Last Admin: 01/06/18 09:58 Dose: 25 mg Multivitamins/Minerals/Vitamin C (Tab-A-Vit -) 1 tab PO DAILY [facility] Last Admin: 01/06/18 09:58 Dose: 1 tab Pantoprazole Sodium (Protonix Iv) 40 mg IVPUSH DAILY [facility] Last Admin: 01/06/18 09:57 Dose: 40 mg Potassium Phos/Sodium Phos (Phos-Nak Packet -) 1 packet PO TID [facility] Last Admin: 01/06/18 05:13 Dose: 1 packet Prednisolone (Prednisolone Unit Dose Cups) 45 mg PO DAILY [facility] Last Admin: 01/06/18 09:58 Dose: 45 mg Thiamine HCl (Vitamin B1 -) 100 mg PO DAILY [facility] Last Admin: 01/06/18 09:58 Dose: 100 mg - Objective Vital Signs: Vital Signs Temperature 97.7 F 01/06/18 11:00 Pulse Rate 69 01/06/18 11:00 Respiratory Rate 18 01/06/18 11:00 Blood Pressure 119/72 01/06/18 11:00 O2 Sat by Pulse Oximetry (%) 92 L 01/06/18 09:00 Eyes: Yes: WNL, Conjunctiva Clear, EOM Intact HENT: Yes: WNL, Atraumatic, Normocephalic Neck: Yes: WNL, Supple, Trachea Midline Cardiovascular: Yes: WNL, Regular Rate and Rhythm Respiratory: Yes: WNL, Regular, CTA Bilaterally Gastrointestinal: Yes: WNL, Normal Bowel Sounds Genitourinary: Yes: WNL Musculoskeletal: Yes: WNL Extremities: Yes: WNL Edema: No Integumentary: Yes: WNL Neurological: Yes: WNL, Alert, Oriented ...Motor Strength: WNL Psychiatric: Yes: WNL Labs: CBC, BMP 01/06/18 05:30 01/06/18 05:30 INR, PTT INR 1.56 (0.83-1.09) H 01/05/18 12:35 Problem List - Problems (1) Chest pain Code(s): R07.9 - CHEST PAIN, UNSPECIFIED Qualifiers: Chest pain type: unspecified Qualified Code(s): R07.9 - Chest pain, unspecified (2) Alcohol abuse Code(s): F10.10 - ALCOHOL ABUSE, UNCOMPLICATED (3) GERD (gastroesophageal reflux disease) Code(s): K21.9 - GASTRO-ESOPHAGEAL REFLUX DISEASE WITHOUT ESOPHAGITIS (4) Hypercholesteremia Code(s): E78.0 - PURE HYPERCHOLESTEROLEMIA * DO NOT USE * (5) Hypertension Code(s): I10 - ESSENTIAL (PRIMARY) HYPERTENSION Qualifiers: Hypertension type: essential hypertension Qualified Code(s): I10 - Essential (primary) hypertension (6) Obesity Code(s): E66.9 - OBESITY, UNSPECIFIED Qualifiers: Obesity classification: unspecified obesity classification (7) Coronary artery disease Code(s): I25.10 - ATHSCL HEART DISEASE OF [place] CORONARY ARTERY W/O ANG PCTRS (8) Acute coronary syndrome Code(s): I24.9 - ACUTE ISCHEMIC HEART DISEASE, UNSPECIFIED Assessment/Plan - Problems (1) Elevated LFTs Assessment/Plan: acute alcoholism F/u w/u for this elevation, including hepatitis profile. Code(s): R94.5 - ABNORMAL RESULTS OF LIVER FUNCTION STUDIES (2) Chest pain Assessment/Plan: f/u EKG (evidence of old infarct and possibly acute ischemia); telemetry. Lipid levels WNL. HFpEF: continue lisinopril and metoprolol. ASA 81 mg daily. Coronary artery evaluation when stable. Code(s): R07.9 - CHEST PAIN, UNSPECIFIED (3) Alcohol abuse Assessment/Plan: Full detox protocol. Code(s): F10.10 - ALCOHOL ABUSE, UNCOMPLICATED (4) Alcohol abuse Code(s): F10.10 - ALCOHOL ABUSE, UNCOMPLICATED (5) Hypercholesteremia Assessment/Plan: total cholesterol 100 mg/dL Code(s): E78.0 - PURE HYPERCHOLESTEROLEMIA * DO NOT USE * (6) Hypertension Assessment/Plan: on metoprolol and lisinopril Code(s): I10 - ESSENTIAL (PRIMARY) HYPERTENSION Qualifiers: Hypertension type: essential hypertension Qualified Code(s): I10 - Essential (primary) hypertension (7) Obesity Code(s): E66.9 - OBESITY, UNSPECIFIED Qualifiers: Obesity classification: unspecified obesity classification (8) [place] cardiac risk >20% in next 10 years Assessment/Plan: Coronary artery evaluation (stress MIBI and/or coronary angiogram) when no longer acutely alcoholic. (Ability to comply with medication regimen is questionable, however). Code(s): Z91.89 - [place] PERSONAL RISK FACTORS, NOT ELSEWHERE CLASSIFIED (9) Hypomagnesemia Assessment/Plan: f/u all electrolyte levels after repletion (K, Mg, and PO4 were initially low). Code(s): E83.42 - HYPOMAGNESEMIA
--- NOTE | 2018-01-06 14:26 | PN ---
Teaching Attending Note Name of Resident: Linda Mckinnon ATTENDING PHYSICIAN STATEMENT I saw and evaluated the patient. I reviewed the resident's note and discussed the case with the resident. I agree with the resident's findings and plan as documented. SUBJECTIVE: no fever or chills. No pain. no events over night OBJECTIVE:[place], knows his name, and location . jaundiced CV: RRR. NL S1, S2. Lungs: CTAB Abd: obese, soft, ND, no hepatosplenomegaly. No tenderness Ext : no edema . ASSESSMENT AND PLAN: 62 y/o man with h/o HTN, CAD, + stress test in 2014 ( unknown w/u after then), cirrhosis , and alcoholism who presented with CP 1- L sided CP: - hold stress test due to withdrawal sx - hold aspirin due to thrombocytopenia 2- Alcoholic hepatitis : bili is getting worse. poor prognosis - day 2 of prednisolone - monitor LFTs - will watch for response - add hep B core IgM Abs . follow hep C abs 3-Alcohol withdrawal: improved today . - cont Ativan , can decrease dose tomorrow if cont to improve - cont thiamine and folate 4- Cirrhosis : - was not able to perform rectal due to agitation. will try later - no ascitis on US . - Monitor with low salt diet . 5- Hypertriglyceredemia: low fat diet for now, pending improvement in his LFTs before statin or Fibrates could be used 6- Thrombocytopenia: worse. likely due to liver disease, but received heparin on admission - HIT Abs. low suspicion - hold antiplt and heparin 7- replete electrolytes SCDS
[2018-01-06] MEDS: MAGNESIUM OXIDE 400 MG TABLET (FP) PO SCH ×2 (15:13→23:34)
[2018-01-06] MEDS: SODIUM CHLORIDE 1,000 ML IV SCH (23:35)
[2018-01-07] MEDS: LORazepam 2 MG/ML SDV VIAL IVPUSH SCH ×2 (02:50→06:27)
[2018-01-07] MEDS: NAPH,MB-DB/K PH,MBDB POWDER PACKET PO SCH ×3 (06:28→21:26)
[2018-01-07 06:45] LABS: HEMATOCRIT 40.4 % (35.4-49); HEMOGLOBIN 13.6 GM/dL (11.7-16.9); MCH 32.2 pg (25.7-33.7); MCHC 33.5 g/dl (32.0-35.9); MEAN CELL VOLUME 96.1 fl (80-96); MEAN PLT VOLUME 11.1 fl (7.5-11.1); PLATELET COUNT 40 K/MM3 (134-434); RBC 4.21 M/mm3 (4.00-5.60); RDW 15.7 % (11.9-15.9); WHITE BLOOD COUNT 7.9 K/mm3 (4.0-10.0)
[2018-01-07 07:37] LABS: ALBUMIN 2.3 g/dl (3.4-5.0); ALK PHOS 320 U/L (45-117); ANION GAP 9 MMOL/L (8-16); BILIRUBIN,TOTAL 10.2 mg/dL (0.2-1); BLOOD UREA NITROGEN 17 mg/dL (7-18); CALCIUM 7.9 mg/dL (8.5-10.1); CHLORIDE 110 mmol/L (98-107); CO2 23 mmol/L (21-32); CREATININE 1.3 mg/dL (0.55-1.3); GLUCOSE,RANDOM 142 mg/dL (74-106); POTASSIUM 3.8 mmol/L (3.5-5.1); SGOT/AST 165 U/L (15-37); SGPT/ALT 93 U/L (13-61); SODIUM 142 mmol/L (136-145); TOT PROT 6.2 g/dl (6.4-8.2)
[2018-01-07] MEDS ORDERED: LORazepam 2 MG/ML SDV VIAL IVPUSH SCH (10:30)
[2018-01-07] MEDS: LISINOPRIL 10 MG TABLET (FP) PO SCH (11:23)
[2018-01-07] MEDS: METOPROLOL TARTRATE 25 MG TABLET (FP) PO SCH ×2 (11:23→21:26)
[2018-01-07] MEDS: FOLIC ACID 1 MG TABLET (FP) PO SCH (11:23)
[2018-01-07] MEDS: MULTIVITAMINS (DAILY MVI) TABLET (FP) PO SCH (11:24)
[2018-01-07] MEDS: PENTOXIFYLLINE 400 MG TABLET.ER PO SCH ×2 (11:24→18:54)
[2018-01-07] MEDS: THIAMINE HCL 100 MG TABLET (FP) PO SCH (11:24)
[2018-01-07] MEDS: PANTOPRAZOLE SODIUM 40 MG VIAL IVPUSH SCH (11:24)
[2018-01-07] MEDS: SODIUM CHLORIDE 1,000 ML IV SCH (11:32)
--- NOTE | 2018-01-07 11:57 | PN ---
Physical Exam: SUBJECTIVE: Patient seen and examined. Seen in hallway, sitting on chair fully dressed with restraints. Had attempted to leave floor. C/o pain in chest, abdomen, upper and lower extremities. OBJECTIVE: Vital Signs Period Temp Pulse Resp BP Sys/De Dios Pulse Ox Last 24 Hr 98 F-98.3 F 66-83 20-20 92-122/54-73 95 GENERAL: The patient is AAOx2. Sitting in chair with vest restraint. HEAD: Normal with no signs of trauma. EYES: PERRL, extraocular movements intact, +scleral icterus ENT: Ears normal, nares patent, oropharynx clear without exudates, moist mucous membranes NECK: Trachea midline, supple. LUNGS: CTA b/l. no rhonchi/wheezes/crackles HEART: Regular rate and rhythm, S1, S2 without murmur, rub or gallop. ABDOMEN: Soft, obese, nontender, nondistended EXTREMITIES: 2+ pt pulses, warm, well-perfused, no edema NEUROLOGICAL: club licensee 2-12 grossly intact. unable to adequately assess motor strength. pt not compliant PSYCH: Normal mood, normal affect. SKIN: Warm, dry, normal turgor Laboratory Results 01/04/18 01/04/18 03:52 03:52 Heparin-Ind Plt Ab Scrn Hep A IgM Ab Confirm Negative Hepatitis A Ab Total Positive H Hep Bs Antigen Negative Hep Bs Antibody Non reactive Hep B Core Total Ab Negative HCV Quantitation Hcv not detected 01/07/18 05:30 AST 165 H ALT 93 H Alkaline Phosphatase 320 H Heparin-Ind Plt Ab Scrn pending Active Medications Generic Name Dose Route Start Last Admin Trade Name [id number] PRN Reason Stop Dose Admin Folic Acid 1 mg 01/04/18 10:00 01/07/18 11:23 Folic Acid - PO 1 mg DAILY LISA Administration Sodium Chloride 1,000 mls @ 100 mls/hr 01/04/18 10:15 01/07/18 11:32 Normal Saline - IV Not Given ASDIR LISA Lisinopril 10 mg 01/05/18 10:00 01/07/18 11:23 Prinivil PO 10 mg DAILY LISA Administration Lorazepam 1 mg 01/07/18 10:30 01/07/18 11:24 Ativan Injection - IVPUSH 1 mg Q6H-IV LISA Administration Metoprolol Tartrate 25 mg 01/04/18 22:00 01/07/18 11:23 Lopressor - PO 25 mg BID LISA Administration Multivitamins/Minerals/Vitamin C 1 tab 01/04/18 10:00 01/07/18 11:24 Tab-A-Vit - PO 1 tab DAILY LISA Administration Pantoprazole Sodium 40 mg 01/04/18 10:00 01/07/18 11:24 Protonix Iv IVPUSH 40 mg DAILY LISA Administration Pentoxifylline 400 mg 01/07/18 12:00 01/07/18 11:24 Trental - PO 400 mg TIDCM LISA Administration Potassium Phos/Sodium Phos 1 packet 01/04/18 06:00 01/07/18 06:28 Phos-Nak Packet - PO 1 packet TID LISA Administration Thiamine HCl 100 mg 01/04/18 10:00 01/07/18 11:24 Vitamin B1 - PO 100 mg DAILY LISA Administration ASSESSMENT/PLAN: 62 y/o M with a history of alcohol abuse, ischemic cardiac disease, HTN, and HLD , who presented with chest pain and was found to have alcoholic hepatitis. #chest pain -no longer with complaint, trops (-) x 2 -asa still held -can complete stress test as outpatient #alcoholic hepatitis -consistently elevated LFTs -started on pentoxifylline 400 TID (Day1), given pt's likely noncompliance -hep B core igM, HCV (-) -will need AFP q4h, abd sono q6mo as outpt to check for hepatoma. will also need to f/u with Dr. Patterson for EGD, trend LFTs, and f/u with [facility] or [facility] clinic #alcohol withdrawal -improving; CIWA 2-3. continue to assess -will switch ativan to 1mg q6h. cannot use librium in setting of transaminitis -c/w thiamine, folic -detox consult #thrombocytopenia -slowly improving, however may be lab variation -hold asa -f/u HIT assay. still pending #HTN -c/w lisinopril 10 mg qd, metoprolol 25mg bid #HLD -hold statin and triglyceride tx given transaminitis. #F/E/N IV NS 100 cc/hr continue to follow lytes Na controlled diet #PPX SCD's; as w/thrombocytopenia GI: protonix 40mg IVP qd #Dispo cont'd monitoring to assess withdrawal status. Visit type - Emergency Visit Emergency Visit: No - New Patient This patient is new to me today: No - Critical Care Critical Care patient: No
--- NOTE | 2018-01-07 13:26 | PN ---
Teaching Attending Note Name of Resident: Whit Linares ATTENDING PHYSICIAN STATEMENT I saw and evaluated the patient. I reviewed the resident's note and discussed the case with the resident. I agree with the resident's findings and plan as documented. SUBJECTIVE: No fever or chills. has generalized pain , even in his chest for a while . NP. Kessler helped with translation OBJECTIVE: awake, knows his nameand location CV: RRR. NL S1, S2. Lungs: CTAB Ext : no edema . no asterexis and no tremor ASSESSMENT AND PLAN: 62 y/o man with h/o HTN, CAD, + stress test in 2014 ( unknown w/u after then), cirrhosis , and alcoholism who presented with CP 1- L sided CP: -doubt it is cardiac now, as patient is abl eto provide more history and indicates pain for a week , did not resolve yet - hold aspirin due to thrombocytopenia 2- Alcoholic hepatitis : - change to pentoxiphylin 400 TID, due to concern for compliance with prednisone , infection , and side effects . this was d/w GI - monitor LFTs - Neg hepatitis serology 3-Alcohol withdrawal: improved today . -decrease ativan to 1 mg q 6 hours and give PO - cont thiamine and folate 4- Cirrhosis : - Monitor with low salt diet . 5- Hypertriglyceredemia: low fat diet for now, pending improvement in his LFTs before statin or Fibrates could be used 6- Thrombocytopenia: likely due to liver disease, but received heparin on admission - HIT Abs pending . low suspicion for HIT - hold antiplt and heparin 7- replete electrolytes SCDS
[2018-01-07] MEDS ORDERED: LORazepam 0.5 MG TABLET PO SCH (13:45)
[2018-01-07] MEDS: LORazepam 0.5 MG TABLET PO SCH (18:54)
[2018-01-07] MEDS ORDERED: LORazepam 2 MG/ML SDV VIAL IM ONE (20:03)
[2018-01-07] MEDS ORDERED: LORazepam 2 MG/ML SDV VIAL IVPUSH ONE ×2 (22:10→23:40)
[2018-01-07] MEDS ORDERED: LORazepam 2 MG/ML SDV VIAL ONE (23:34)
[2018-01-08] MEDS: LORazepam 0.5 MG TABLET PO SCH ×5 (00:08→21:12)
[2018-01-08] MEDS ORDERED: LORazepam 2 MG/ML SDV VIAL IVPUSH ONE ×3 (02:41→06:32)
[2018-01-08] MEDS: NAPH,MB-DB/K PH,MBDB POWDER PACKET PO SCH (05:49)
[2018-01-08 06:37] LABS: BASO % 0.3 % (0-2.0); EOS % 2.4 % (0-4.5); HEMOGLOBIN 12.8 GM/dL (11.7-16.9); LYMPH % 20.7 % (8-40); MCHC 32.9 g/dl (32.0-35.9); MEAN CELL VOLUME 97.2 fl (80-96); MONO % 11.3 % (3.8-10.2); NEUT % 65.3 % (42.8-82.8); RBC 4.01 M/mm3 (4.00-5.60); RDW 15.8 % (11.9-15.9); WHITE BLOOD COUNT 5.8 K/mm3 (4.0-10.0)
--- NOTE | 2018-01-08 07:10 | PN ---
Progress Note (short form) - Note Progress Note: Pt. became agitated overnight and broke threw wrist restraints and vest restraint. Pt. was constantly getting out of be out of bed to walk to the bathroom and to leave AMA. I talked with the patient and we agreed that it was best for him to stay and get some sleep and he agreed to get some medication that would help him sleep. Per Uptodate guidelines Pt. is able to receive up to 4 mg Ativan every 15 min until somnolent. Decision was made to give 2 mg increments in addition to the 1 mg scheduled doses. Pt was assessed in between doses by nursing staff with stable vital signs. Pt. was breathing calmly and SpO2 was always maintained above 95%.
[2018-01-08 07:47] LABS: PLATELET COUNT 35 K/MM3 (134-434)
[2018-01-08 08:02] LABS: ALK PHOS 259 U/L (45-117); ANION GAP 10 MMOL/L (8-16); BILIRUBIN,TOTAL 8.6 mg/dL (0.2-1); BLOOD UREA NITROGEN 14 mg/dL (7-18); CALCIUM 7.6 mg/dL (8.5-10.1); CHLORIDE 106 mmol/L (98-107); CO2 26 mmol/L (21-32); CREATININE 1.1 mg/dL (0.55-1.3); GLUCOSE,RANDOM 94 mg/dL (74-106); MAGNESIUM 1.5 mg/dL (1.8-2.4); PHOSPHOROUS 2.4 mg/dL (2.5-4.9); POTASSIUM 3.7 mmol/L (3.5-5.1); SGOT/AST 161 U/L (15-37); SGPT/ALT 92 U/L (13-61); SODIUM 141 mmol/L (136-145); TOT PROT 5.5 g/dl (6.4-8.2)
[2018-01-08] MEDS: THIAMINE HCL 100 MG TABLET (FP) PO SCH (10:15)
[2018-01-08] MEDS: METOPROLOL TARTRATE 25 MG TABLET (FP) PO SCH ×2 (10:15→21:13)
[2018-01-08] MEDS: MULTIVITAMINS (DAILY MVI) TABLET (FP) PO SCH (10:15)
[2018-01-08] MEDS: PENTOXIFYLLINE 400 MG TABLET.ER PO SCH ×3 (10:15→17:15)
[2018-01-08] MEDS: PANTOPRAZOLE SODIUM 40 MG VIAL IVPUSH SCH (10:15)
[2018-01-08] MEDS: LISINOPRIL 10 MG TABLET (FP) PO SCH (10:16)
[2018-01-08] MEDS: FOLIC ACID 1 MG TABLET (FP) PO SCH (10:16)
[2018-01-08] MEDS ORDERED: NAPH,MB-DB/K PH,MBDB POWDER PACKET PO SCH (10:57)
[2018-01-08] MEDS: SODIUM CHLORIDE 1,000 ML IV SCH (11:00)
--- NOTE | 2018-01-08 11:02 | PN ---
Progress Note (short form) - Note Progress Note: Subjective: no fever or chills . contto have generalized pain even in his chest . no N/V. Objective: Vital Signs: Last Vital Signs Temp Pulse Resp BP Pulse Ox 98.3 F 75 18 108/68 94 L 01/08/18 03:00 01/08/18 03:00 01/08/18 09:00 01/08/18 03:00 01/08/18 09:00 Laboratory Results - last 24 hr 01/08/18 01/08/18 05:30 05:30 WBC 5.8 RBC 4.01 Hgb 12.8 Hct 39.0 MCV 97.2 H MCH 32.0 MCHC 32.9 RDW 15.8 Plt Count 35 L* MPV 11.0 Absolute Neuts (auto) 3.8 Neutrophils % 65.3 Lymphocytes % 20.7 Monocytes % 11.3 H D Eosinophils % 2.4 D Basophils % 0.3 Nucleated RBC % 0 Sodium 141 Potassium 3.7 Chloride 106 Carbon Dioxide 26 Anion Gap 10 BUN 14 Creatinine 1.1 Creat Clearance w eGFR > 60 Random Glucose 94 Calcium 7.6 L Phosphorus 2.4 L Magnesium 1.5 L Total Bilirubin 8.6 H AST 161 H ALT 92 H Alkaline Phosphatase 259 H Total Protein 5.5 L Albumin 2.0 L Physical Exam: sleeping, arousable, lethargic ( got ativan ) CV: RRR. NL S1, S2. Lungs: CTAB Ext : no edema. no asterexis and no tremor ASSESSMENT AND PLAN: 62 y/o man with h/o HTN, CAD, + stress test in 2014 ( unknown w/u after then), cirrhosis , and alcoholism who presented with CP 1- L sided CP: -unlikely cardiac - hold aspirin due to thrombocytopenia 2- Alcoholic hepatitis : -cont pentoxiphylin 400 TID,day 2 - LFTs improved 3-Alcohol withdrawal: - cont po ativan at 1 mg q6h. possible decrease in dose tomorrow - cont thiamine and folate 4- Cirrhosis : - Monitor with low salt diet . no volume overload 5- Hypertriglyceredemia: low fat diet for now, pending improvement in his LFTs before statin or Fibrates could be used 6- Thrombocytopenia: likely due to liver disease. - HIT Abs pending . low suspicion for HIT - hold anti-plt and heparin 7- replete electrolytes : Mg and Phos SCDS Visit type - Emergency Visit Emergency Visit: Yes ED Registration Date: 01/04/18 Care time: The patient presented to the Emergency Department on the above date and was hospitalized for further evaluation of their emergent condition. - New Patient This patient is new to me today: No - Critical Care Critical Care patient: No
[2018-01-08] MEDS: MAGNESIUM OXIDE 400 MG TABLET (FP) PO SCH ×2 (12:53→21:12)
[2018-01-08] MEDS ORDERED: PT OWN MED DRAWER 7, Y5N ONE (17:18)
[2018-01-09] MEDS: LORazepam 0.5 MG TABLET PO SCH ×2 (06:05→06:12)
[2018-01-09 06:53] LABS: HEMATOCRIT 37.7 % (35.4-49); HEMOGLOBIN 12.6 GM/dL (11.7-16.9); MCH 32.1 pg (25.7-33.7); MCHC 33.4 g/dl (32.0-35.9); MEAN CELL VOLUME 96.3 fl (80-96); MEAN PLT VOLUME 10.9 fl (7.5-11.1); PLATELET COUNT 38 K/MM3 (134-434); RBC 3.91 M/mm3 (4.00-5.60); RDW 15.9 % (11.9-15.9); WHITE BLOOD COUNT 5.2 K/mm3 (4.0-10.0)
[2018-01-09 07:16] LABS: ALBUMIN 1.8 g/dl (3.4-5.0); ALK PHOS 278 U/L (45-117); ANION GAP 8 MMOL/L (8-16); BILIRUBIN,TOTAL 7.4 mg/dL (0.2-1); BLOOD UREA NITROGEN 10 mg/dL (7-18); CALCIUM 7.2 mg/dL (8.5-10.1); CHLORIDE 106 mmol/L (98-107); CO2 26 mmol/L (21-32); GLUCOSE,RANDOM 111 mg/dL (74-106); MAGNESIUM 1.6 mg/dL (1.8-2.4); PHOSPHOROUS 2.6 mg/dL (2.5-4.9); POTASSIUM 3.3 mmol/L (3.5-5.1); SGOT/AST 104 U/L (15-37); SGPT/ALT 74 U/L (13-61); SODIUM 139 mmol/L (136-145); TOT PROT 5.3 g/dl (6.4-8.2)
[2018-01-09] MEDS ORDERED: POTASSIUM CHLORIDE TABS 20 MEQ TABLET.ER (FP) PO ONE (08:07)
[2018-01-09] MEDS: PENTOXIFYLLINE 400 MG TABLET.ER PO SCH ×3 (08:30→16:56)
[2018-01-09] MEDS: MULTIVITAMINS (DAILY MVI) TABLET (FP) PO SCH (09:30)
[2018-01-09] MEDS: MAGNESIUM OXIDE 400 MG TABLET (FP) PO SCH ×2 (09:30→23:11)
[2018-01-09] MEDS: THIAMINE HCL 100 MG TABLET (FP) PO SCH (09:30)
[2018-01-09] MEDS: PANTOPRAZOLE SODIUM 40 MG VIAL IVPUSH SCH (09:30)
[2018-01-09] MEDS: FOLIC ACID 1 MG TABLET (FP) PO SCH (09:30)
[2018-01-09] MEDS: LISINOPRIL 10 MG TABLET (FP) PO SCH (09:30)
[2018-01-09] MEDS: METOPROLOL TARTRATE 25 MG TABLET (FP) PO SCH ×2 (09:30→23:11)
[2018-01-09] MEDS ORDERED: LORazepam 0.5 MG TABLET PO PRN (11:30)
--- NOTE | 2018-01-09 11:40 | PN ---
Physical Exam: SUBJECTIVE: Patient is a 62 y/o male with a history of alcohol abuse, ischemic cardiac disease, HTN, and HLD, who presents to r/o ACS and for alcoholic hepatitis. Patient A & O x2 upon examination, patient reports only having a headache with no other complaints. OBJECTIVE: Vital Signs Temperature 98.4 F 01/09/18 08:52 Pulse Rate 74 01/09/18 08:52 Respiratory Rate 16 01/09/18 08:52 Blood Pressure 150/78 01/09/18 08:52 O2 Sat by Pulse Oximetry (%) 94 L 01/09/18 10:00 GENERAL: The patient is awake, alert, and fully oriented, in no acute distress. smells of alcohol HEAD: Normal with no signs of trauma. EYES: PERRL, extraocular movements intact, sclera anicteric, conjunctiva clear. No ptosis. ENT: moist mucous membranes. NECK: Trachea midline, full range of motion, supple. LUNGS: Breath sounds equal, clear to auscultation bilaterally, no wheezes, no crackles, no accessory muscle use. HEART: Regular rate and rhythm, S1, S2 without murmur, rub or gallop. ABDOMEN: Soft, nontender, nondistended, normoactive bowel sounds, no guarding, no ascites present EXTREMITIES: 2+ pulses, warm, well-perfused, no edema. PSYCH: Normal mood, normal affect. SKIN: Warm, dry, normal turgor, no rashes or lesions noted CBC, BMP 01/09/18 05:30 01/09/18 05:30 Active Medications Folic Acid (Folic Acid -) 1 mg PO DAILY [facility]CLUDES [facility] Last Admin: 01/09/18 09:30 Dose: 1 mg Sodium Chloride (Normal Saline -) 1,000 mls @ 100 mls/hr IV ASDIR COUNT INCLUDES THE [facility] Last Admin: 01/08/18 11:00 Dose: 100 mls/hr Lisinopril (Prinivil) 10 mg PO DAILY [facility] Last Admin: 01/09/18 09:30 Dose: 10 mg Lorazepam (Ativan -) 1 mg PO Q6HPO PRN PRN Reason: AGITATION Magnesium Oxide (Mag-Ox -) 400 mg PO BID COUNT [facility]CLUDES [facility] Stop: 01/09/18 22:01 Last Admin: 01/09/18 09:30 Dose: 400 mg Metoprolol Tartrate (Lopressor -) 25 mg PO BID COUNT [facility]CLUD[facility] Last Admin: 01/09/18 09:30 Dose: 25 mg Multivitamins/Minerals/Vitamin C (Tab-A-Vit -) 1 tab PO DAILY [facility] Last Admin: 01/09/18 09:30 Dose: 1 tab Pantoprazole Sodium (Protonix Iv) 40 mg IVPUSH DAILY [facility] Last Admin: 01/09/18 09:30 Dose: 40 mg Pentoxifylline (Trental -) 400 mg PO TIDCM COUNT INCLUDES [facility] Last Admin: 01/09/18 08:30 Dose: 400 mg Thiamine HCl (Vitamin B1 -) 100 mg PO DAILY [facility]CLUD[facility] Last Admin: 01/09/18 09:30 Dose: 100 mg ASSESSMENT/PLAN: Patient is a 62 y/o male with a history of alcohol abuse, ischemic cardiac disease, HTN, and HLD, who presents to r/o ACS and for alcoholic hepatitis. #alcoholic hepatitis - elevated transaminitis, trending down slightly - ABD sonogram: no evidence of ascites, spleen slightly enlarged measuring 12.1 cm - MADRY score 39.5, Phentoxifylline 400 mg TID - hepatitis panel negative for acute infection, f/u hep B add on - discussed with GI Dr. Patterson, see bottom of note for recommendations #r/o ACS : resolved - per cardio, Dr. Headley continue detox, asa if no cotra indication from GI - repeat EKG: QTC 455 - stress test as an outpatient #withdrawl from alcohol - continue ativan 1mg q4h prn - continue folic acid - continue thiamine - fall risk precautions - consulted Dr. Taylor for detox #thrombocytopenia - hold asa - continue to monitor - likely 2/2 to splenomegaly - f/u HIT assay #HTN - continue lsinopril 10 mg daily - metoprolol 25 mg po BID #HLD - high triglycerides: 471 - hold statin and antitriglycerides while in transaminitis #FEN - replete Mg and K, follow tomorrow #DVT ppx - SCD's Dispo: monitor patient status, possibly leave tomorrow - upon discharge patient needs to have his alpha feta protein followed every four months, and abd US every 6 months to check for hepatoma, patient should f/ u with Dr. Patterson for an EGD, patient needs to follow with clinic to trend LFT's , should be D/C on Pentoxifylline rather than prednisolone, patient will not likely be compliant with steroid outpatient and need to avoid adrenal insufficiency, patient should be encouraged to follow up with [facility] or [place] [facility] for potential future treatment Visit type - Emergency Visit Emergency Visit: No - New Patient This patient is new to me today: No - Critical Care Critical Care patient: No
[2018-01-09] MEDS: SODIUM CHLORIDE 1,000 ML IV SCH (12:48)
--- NOTE | 2018-01-09 13:06 | PN ---
Teaching Attending Note Name of Resident: Linda Mckinnon ATTENDING PHYSICIAN STATEMENT I saw and evaluated the patient. I reviewed the resident's note and discussed the case with the resident. I agree with the resident's findings and plan as documented. SUBJECTIVE: No fever ro chills. has no pain. has no SOB. OBJECTIVE: awake, alert, knows location and age . CV: RRR. NL S1, S2. Lungs: CTAB Ext : no edema. no asterexis and no tremor ASSESSMENT AND PLAN: 62 y/o man with h/o HTN, CAD, + stress test in 2014 ( unknown w/u after then), cirrhosis , and alcoholism who presented with CP 1- L sided CP: - unlikely cardiac - hold aspirin due to thrombocytopenia 2- Alcoholic hepatitis : - cont pentoxiphylin 400 TID,day 3 - LFTs improved . bili improved . hopefully can stop pentoxiphylin when Bili < 5 3-Alcohol withdrawal: much improved - make ativan PRN - cont thiamine and folate 4- Cirrhosis : - Monitor with low salt diet . no volume overload 5- Hypertriglyceredemia: low fat diet for now, pending improvement in his LFTs before statin or Fibrates could be used 6- Thrombocytopenia: likely due to liver disease. - HIT Abs pending . low suspicion for HIT - hold anti-plt and heparin 7- replete electrolytes SCDS
[2018-01-09] MEDS ORDERED: OCTREOTIDE ACETATE 1,200 MCG in DEXTROSE 5%-WATER - 488 ML IVPB SCH (17:15)
[2018-01-09] MEDS: PANTOPRAZOLE SODIUM 80 MG in SODIUM CHLORIDE 100 ML IVPB SCH (18:37)
[2018-01-09 19:43] LABS: HEMATOCRIT 36.7 % (35.4-49); HEMOGLOBIN 12.9 GM/dL (11.7-16.9); MCH 33.8 pg (25.7-33.7); MCHC 35.3 g/dl (32.0-35.9); PLATELET COUNT 62 K/MM3 (134-434); RBC 3.82 M/mm3 (4.00-5.60); RDW 15.8 % (11.9-15.9); WHITE BLOOD COUNT 5.4 K/mm3 (4.0-10.0)
[2018-01-10] MEDS: PANTOPRAZOLE SODIUM 80 MG in SODIUM CHLORIDE 100 ML IVPB SCH ×2 (04:14→14:02)
[2018-01-10 07:43] LABS: HEMATOCRIT 37.9 % (35.4-49); HEMOGLOBIN 12.6 GM/dL (11.7-16.9); MCH 32.2 pg (25.7-33.7); MCHC 33.2 g/dl (32.0-35.9); MEAN PLT VOLUME 10.8 fl (7.5-11.1); PLATELET COUNT 55 K/MM3 (134-434); RBC 3.91 M/mm3 (4.00-5.60); RDW 15.6 % (11.9-15.9)
[2018-01-10 08:21] LABS: ALBUMIN 1.9 g/dl (3.4-5.0); ALK PHOS 259 U/L (45-117); ANION GAP 10 MMOL/L (8-16); BILIRUBIN,TOTAL 6.6 mg/dL (0.2-1); BLOOD UREA NITROGEN 9 mg/dL (7-18); CALCIUM 7.3 mg/dL (8.5-10.1); CHLORIDE 105 mmol/L (98-107); CO2 24 mmol/L (21-32); CREATININE 0.9 mg/dL (0.55-1.3); GLUCOSE,RANDOM 106 mg/dL (74-106); POTASSIUM 3.7 mmol/L (3.5-5.1); SGOT/AST 74 U/L (15-37); SGPT/ALT 62 U/L (13-61); SODIUM 139 mmol/L (136-145); TOT PROT 5.7 g/dl (6.4-8.2)
[2018-01-10] MEDS ORDERED: PT OWN MED DRAWER 7, Y5N ONE ×2 (09:55→18:33)
[2018-01-10] MEDS: SODIUM CHLORIDE 1,000 ML IV SCH ×2 (10:27→10:28)
[2018-01-10] MEDS: PENTOXIFYLLINE 400 MG TABLET.ER PO SCH ×3 (10:28→18:36)
[2018-01-10] MEDS: LISINOPRIL 10 MG TABLET (FP) PO SCH (10:28)
[2018-01-10] MEDS: THIAMINE HCL 100 MG TABLET (FP) PO SCH (10:28)
[2018-01-10] MEDS: MULTIVITAMINS (DAILY MVI) TABLET (FP) PO SCH (10:28)
[2018-01-10] MEDS: FOLIC ACID 1 MG TABLET (FP) PO SCH (10:28)
[2018-01-10] MEDS: METOPROLOL TARTRATE 25 MG TABLET (FP) PO SCH ×2 (10:28→21:54)
--- NOTE | 2018-01-10 11:31 | PN ---
GI Progress Note Subjective: patients history reviewed, he was seen for follow up last night. I was informed by his nurse that he coughed up blood,no anil hematemesis, no rectal bleeding, no melena. He was started on octreotide and IV Protonix. - Objective Vital Signs: Vital Signs Temperature 97.8 F 01/10/18 09:32 Pulse Rate 67 01/10/18 09:32 Respiratory Rate 18 01/10/18 09:32 Blood Pressure 129/74 01/10/18 09:32 O2 Sat by Pulse Oximetry (%) 96 01/10/18 09:00 Constitutional: Well Nourished Eyes: Yes: Conjunctiva Clear HENT: Yes: Atraumatic Neck: Yes: Trachea Midline Cardiovascular: Yes: Regular Rate and Rhythm Respiratory: Yes: CTA Bilaterally ...Palpate: Yes: Soft. No: Firm/Rigid, Guarding, Hepatomegaly, Mass, Pulsatile Mass, Splenomegaly, Tenderness Labs: CBC, BMP 01/10/18 05:30 01/10/18 05:30 INR, PTT INR 1.56 (0.83-1.09) H 01/05/18 12:35 Hepatic Panel Total Bilirubin 6.6 mg/dL (0.2-1) H 01/10/18 05:30 Direct Bilirubin 5.8 mg/dL (0.0-0.2) H 01/04/18 00:20 AST 74 U/L (15-37) H 01/10/18 05:30 ALT 62 U/L (13-61) H 01/10/18 05:30 Alkaline Phosphatase 259 U/L (45-117) H 01/10/18 05:30 Albumin 1.9 g/dl (3.4-5.0) L 01/10/18 05:30 Problem List - Problems (1) Alcohol abuse Code(s): F10.10 - ALCOHOL ABUSE, UNCOMPLICATED (2) Acute and subacute hepatic failure without coma Assessment/Plan: --resolving, T bilirubin trending downward R>continue Trental 400mg tid ok to discontinue Octreotide and IV Pantoprazole(switch to PO) Code(s): K72.00 - ACUTE AND SUBACUTE HEPATIC FAILURE WITHOUT COMA
--- NOTE | 2018-01-10 13:41 | PN ---
Teaching Attending Note Name of Resident: Linda Mckinnon ATTENDING PHYSICIAN STATEMENT I saw and evaluated the patient. I reviewed the resident's note and discussed the case with the resident. I agree with the resident's findings and plan as documented. SUBJECTIVE: no pain, no fever or chills. No abd pain . had hematomesis ( < 1 tble spoon ) , last night, started on octeriotide and PPI gtt. OBJECTIVE: awake, alert, knows location and age . CV: RRR. NL S1, S2. Lungs: CTAB Ext: no edema. no tremor ASSESSMENT AND PLAN: 62 y/o man with h/o HTN, CAD, + stress test in 2014 ( unknown w/u after then), cirrhosis , and alcoholism who presented with CP 1- L sided CP: - unlikely cardiac - hold aspirin due to thrombocytopenia - l discussed with Dr. Norris if a stress test is still needed . will follow Recs 2- Alcoholic hepatitis : - cont pentoxiphylin 400 TID,day 4 - LFTs improved . bili improved . hopefully can stop pentoxiphylin when Bili < 5 3-Alcohol withdrawal: much improved . did not require ativan since yesterday. - cont po ativan PRN - cont thiamine and folate 4- Hematemesis yesterday: no recurence. evaluated by GI and will stop PPI and octeriotide gtt. ? EGD? 5- Hypertriglyceredemia: low fat diet for now, pending improvement in his LFTs before statin or Fibrates could be used 6- Thrombocytopenia: likely due to liver disease. - HIT Abs pending . low suspicion for HIT - hold anti-plt and heparin 7- Cirrhosis: low salt diet . f/u as out pt SCDS PT eval. anticipate dc in 2 days A
--- NOTE | 2018-01-10 14:29 | PN ---
Physical Exam: SUBJECTIVE: Patient is a 62 y/o male with a history of alcohol abuse, ischemic cardiac disease, HTN, and HLD, who presents to r/o ACS and for alcoholic hepatitis. Patient A & O x2 upon examination, patient had one episode of bloody vomit last night. Reports not having any further episodes. OBJECTIVE: Vital Signs Temperature 97.8 F 01/10/18 09:32 Pulse Rate 67 01/10/18 09:32 Respiratory Rate 18 01/10/18 09:32 Blood Pressure 129/74 01/10/18 09:32 O2 Sat by Pulse Oximetry (%) 96 01/10/18 09:00 GENERAL: The patient is awake, alert, and fully oriented, in no acute distress. smells of alcohol HEAD: Normal with no signs of trauma. EYES: PERRL, extraocular movements intact ENT: moist mucous membranes. NECK: Trachea midline, full range of motion, supple. LUNGS: Breath sounds equal, clear to auscultation bilaterally, no wheezes, no crackles, no accessory muscle use. HEART: Regular rate and rhythm, S1, S2 without murmur, rub or gallop. ABDOMEN: Soft, nontender, nondistended, normoactive bowel sounds, no guarding, no ascites present EXTREMITIES: 2+ pulses, warm, well-perfused, no edema. PSYCH: Normal mood, normal affect. SKIN: Warm, dry, normal turgor, no rashes or lesions noted CBC, BMP 01/10/18 05:30 01/10/18 05:30 Active Medications Folic Acid (Folic Acid -) 1 mg PO DAILY [facility] Last Admin: 01/10/18 10:28 Dose: 1 mg Sodium Chloride (Normal Saline -) 1,000 mls @ 100 mls/hr IV ASDIR [facility] Last Admin: 01/10/18 10:28 Dose: 100 mls/hr Lisinopril (Prinivil) 10 mg PO DAILY [facility] Last Admin: 01/10/18 10:28 Dose: 10 mg Lorazepam (Ativan -) 1 mg PO Q6H PRN PRN Reason: AGITATION Metoprolol Tartrate (Lopressor -) 25 mg PO BID [facility] Last Admin: 01/10/18 10:28 Dose: 25 mg Multivitamins/Minerals/Vitamin C (Tab-A-Vit -) 1 tab PO DAILY [facility] Last Admin: 01/10/18 10:28 Dose: 1 tab Pantoprazole Sodium (Protonix -) 40 mg PO DAILY [facility] Pentoxifylline (Trental -) 400 mg PO TIDCM [facility] Last Admin: 01/10/18 12:57 Dose: Not Given Thiamine HCl (Vitamin B1 -) 100 mg PO DAILY [facility] Last Admin: 01/10/18 10:28 Dose: 100 mg ASSESSMENT/PLAN: Patient is a 62 y/o male with a history of alcohol abuse, ischemic cardiac disease, HTN, and HLD, who presents to r/o ACS and for alcoholic hepatitis. #alcoholic hepatitis - elevated transaminitis, trending down slightly - ABD sonogram: no evidence of ascites, spleen slightly enlarged measuring 12.1 cm - MADRY score 39.5, Phentoxifylline 400 mg TID, if T mikhail resumes to normal can DC medication - hepatitis panel negative - discussed with GI Dr. Patterson, see bottom of note for recommendations - patient to continue protonix 40 mg po daily #r/o ACS : resolved - per cardio, Dr. Headley continue detox, asa if no cotra indication from GI - repeat EKG: QTC 455 - stress test as an outpatient #withdrawl from alcohol - patient DC ativant and restraints - continue folic acid - continue thiamine - fall risk precautions - consulted Dr. Taylor for detox #thrombocytopenia - hold asa - continue to monitor - likely 2/2 to splenomegaly - HIT assay elevated at .526 #HTN - continue lsinopril 10 mg daily - metoprolol 25 mg po BID #HLD - high triglycerides: 471 - hold statin and antitriglycerides while in transaminitis #FEN - f/u electrolytes tomorrow #DVT ppx - SCD's Dispo: monitor patient, can likely leave tomorrow, patient cannot get VNS, will be discharged to his apartment - upon discharge patient needs to have his alpha feta protein followed every four months, and abd US every 6 months to check for hepatoma, patient should f/ u with Dr. Patterson for an EGD, patient needs to follow with clinic to trend LFT's , should be D/C on Pentoxifylline rather than prednisolone, patient will not likely be compliant with steroid outpatient and need to avoid adrenal insufficiency, patient should be encouraged to follow up with [facility] or [facility] [facility] for potential future treatment Visit type - Emergency Visit Emergency Visit: No - New Patient This patient is new to me today: No - Critical Care Critical Care patient: No
--- NOTE | 2018-01-10 15:32 | PN ---
Progress Note, Physician Chief Complaint: Pt lolitawer; denies chest pain or dyspnea, but hx of chest pressure and GOMEZ. History of Present Illness: The patient is a 62 year old male with a history of HTN, HLD, Alcohol abuse, who presents for evaluation of chest pain, nausea, vomiting, body aches, headache. The patient reports a 3 day history of chest pain with associated nausea, and vomiting, body aches and headache prompting his presentation to the ED for further evaluation. He notes that he is a daily alcohol drinker and his last drink was 10pm yesterday evening. He otherwise denies fevers, chills, SOB , abdominal pain, or changes with urination or bowel movements. - Current Medication List Current Medications: Active Medications Folic Acid (Folic Acid -) 1 mg PO DAILY [facility] Last Admin: 01/10/18 10:28 Dose: 1 mg Lisinopril (Prinivil) 10 mg PO DAILY [facility] Last Admin: 01/10/18 10:28 Dose: 10 mg Metoprolol Tartrate (Lopressor -) 25 mg PO BID [facility] Last Admin: 01/10/18 10:28 Dose: 25 mg Multivitamins/Minerals/Vitamin C (Tab-A-Vit -) 1 tab PO DAILY [facility] Last Admin: 01/10/18 10:28 Dose: 1 tab Pantoprazole Sodium (Protonix -) 40 mg PO DAILY [facility] Pentoxifylline (Trental -) 400 mg PO TIDCM [facility] Last Admin: 01/10/18 12:57 Dose: Not Given Thiamine HCl (Vitamin B1 -) 100 mg PO DAILY [facility] Last Admin: 01/10/18 10:28 Dose: 100 mg - Objective Vital Signs: Vital Signs Temperature 97.8 F 01/10/18 09:32 Pulse Rate 67 01/10/18 09:32 Respiratory Rate 18 01/10/18 09:32 Blood Pressure 129/74 01/10/18 09:32 O2 Sat by Pulse Oximetry (%) 96 01/10/18 09:00 Labs: CBC, BMP 01/10/18 05:30 01/10/18 05:30 INR, PTT INR 1.56 (0.83-1.09) H 01/05/18 12:35 Problem List - Problems (1) Elevated LFTs Assessment/Plan: acute alcoholism F/u w/u for this elevation, including hepatitis profile. Code(s): R94.5 - ABNORMAL RESULTS OF LIVER FUNCTION STUDIES (2) Chest pain Assessment/Plan: f/u EKG (evidence of old infarct and possibly acute ischemia); telemetry. Lipid levels WNL. HFpEF: continue lisinopril and metoprolol. ASA 81 mg daily. Coronary artery evaluation: pt refused to consider coronary angiogram, despite having had + stress MIBI in 2015, with large infarct area and area of periinfarct ischemia. Code(s): R07.9 - CHEST PAIN, UNSPECIFIED (3) Alcohol abuse Code(s): F10.10 - ALCOHOL ABUSE, UNCOMPLICATED (4) Alcohol abuse Code(s): F10.10 - ALCOHOL ABUSE, UNCOMPLICATED (5) Hypercholesteremia Code(s): E78.0 - PURE HYPERCHOLESTEROLEMIA * DO NOT USE * (6) Hypertension Code(s): I10 - ESSENTIAL (PRIMARY) HYPERTENSION Qualifiers: Hypertension type: essential hypertension Qualified Code(s): I10 - Essential (primary) hypertension (7) Obesity Code(s): E66.9 - OBESITY, UNSPECIFIED Qualifiers: Obesity classification: unspecified obesity classification (8) [place] cardiac risk >20% in next 10 years Assessment/Plan: Stress MIBI 2015: large areas of infarct with mild periinfarct ischemia. Pt refuses to consdier undergoing coronary angiogrma, despite being informed of the potential risks of not studying the state of the coronary arteries in the face of the stress results and ongoing dyspnea with exertion and occasional chest pressure with exertion.He believes the procedure might be dangerous for him.Compliance with post-angiogram medication regimen (e.g. potential need for dual-platelet therapy) and pt's admitted contining alcoholism are additional obstacles. Code(s): Z91.89 - [facility] PERSONAL RISK FACTORS, NOT ELSEWHERE CLASSIFIED (9) Hypomagnesemia Assessment/Plan: f/u all electrolyte levels after repletion (K, Mg, and PO4 were initially low). Code(s): E83.42 - HYPOMAGNESEMIA (10) (HFpEF) heart failure with preserved ejection fraction Code(s): I50.30 - UNSPECIFIED DIASTOLIC (CONGESTIVE) HEART FAILURE
[2018-01-10 17:18] LABS: MAGNESIUM 1.6 mg/dL (1.8-2.4)
[2018-01-11 06:45] LABS: HEMATOCRIT 38.1 % (35.4-49); HEMOGLOBIN 12.8 GM/dL (11.7-16.9); MCH 32.6 pg (25.7-33.7); MCHC 33.6 g/dl (32.0-35.9); MEAN PLT VOLUME 10.2 fl (7.5-11.1); PLATELET COUNT 79 K/MM3 (134-434); RBC 3.92 M/mm3 (4.00-5.60); RDW 15.7 % (11.9-15.9); WHITE BLOOD COUNT 5.5 K/mm3 (4.0-10.0)
[2018-01-11 07:31] LABS: ALK PHOS 254 U/L (45-117); ANION GAP 7 MMOL/L (8-16); BILIRUBIN,TOTAL 6.6 mg/dL (0.2-1); BLOOD UREA NITROGEN 10 mg/dL (7-18); CALCIUM 7.5 mg/dL (8.5-10.1); CHLORIDE 102 mmol/L (98-107); CO2 27 mmol/L (21-32); GLUCOSE,RANDOM 136 mg/dL (74-106); MAGNESIUM 1.6 mg/dL (1.8-2.4); PHOSPHOROUS 2.3 mg/dL (2.5-4.9); POTASSIUM 3.5 mmol/L (3.5-5.1); SGOT/AST 71 U/L (15-37); SGPT/ALT 54 U/L (13-61); SODIUM 136 mmol/L (136-145); TOT PROT 5.9 g/dl (6.4-8.2)
--- NOTE | 2018-01-11 07:41 | PN ---
Teaching Attending Note Name of Resident: Linda Mckinnon ATTENDING PHYSICIAN STATEMENT I saw and evaluated the patient. I reviewed the resident's note and discussed the case with the resident. I agree with the resident's findings and plan as documented. SUBJECTIVE: Patient is sitting on the bed comfortably , trinidadian speaking gentleman. No new complains. OBJECTIVE: Vital Signs Temperature 98.1 F 01/11/18 05:10 Pulse Rate 65 01/11/18 05:10 Respiratory Rate 20 01/11/18 05:10 Blood Pressure 138/77 01/11/18 05:10 O2 Sat by Pulse Oximetry (%) 97 01/10/18 20:42 Initial Vital Signs Temp Pulse Resp BP Pulse Ox 98.3 F 107 H 16 133/90 96 01/03/18 22:16 01/03/18 22:16 01/03/18 22:16 01/03/18 22:16 01/03/18 22:16 GENERAL: The patient is awake, alert, and fully oriented, in no acute distress. HEAD: Normal with no signs of trauma. EYES: PERRL, extraocular movements intact ENT: moist mucous membranes. NECK: Trachea midline, full range of motion, supple. LUNGS: Breath sounds equal, CTA BL , no wheezes, no crackles, no accessory muscle use. HEART: Regular rate and rhythm, S1, S2 without murmur, rub or gallop. ABDOMEN: Soft, nontender, nondistended, normoactive bowel sounds, no guarding, no ascites present EXTREMITIES: 2+ pulses, warm, well-perfused, no edema. PSYCH: Normal mood, normal affect. SKIN: Warm, dry, normal turgor, no rashes or lesions noted CBCD WBC 5.0 K/mm3 (4.0-10.0) 01/10/18 05:30 RBC 3.91 M/mm3 (4.00-5.60) L 01/10/18 05:30 Hgb 12.6 GM/dL (11.7-16.9) 01/10/18 05:30 Hct 37.9 % (35.4-49) 01/10/18 05:30 MCV 97.0 fl (80-96) H 01/10/18 05:30 MCHC 33.2 g/dl (32.0-35.9) 01/10/18 05:30 RDW 15.6 % (11.9-15.9) 01/10/18 05:30 Plt Count 55 K/MM3 (134-434) L 01/10/18 05:30 MPV 10.8 fl (7.5-11.1) 01/10/18 05:30 CMP Sodium 136 mmol/L (136-145) 01/11/18 05:30 Potassium 3.5 mmol/L (3.5-5.1) 01/11/18 05:30 Chloride 102 mmol/L (98-107) 01/11/18 05:30 Carbon Dioxide 27 mmol/L (21-32) 01/11/18 05:30 Anion Gap 7 MMOL/L (8-16) L 01/11/18 05:30 BUN 10 mg/dL (7-18) 01/11/18 05:30 Creatinine 1.0 mg/dL (0.55-1.3) 01/11/18 05:30 Creat Clearance w eGFR > 60 (>60) 01/11/18 05:30 Random Glucose 136 mg/dL (74-106) H 01/11/18 05:30 Calcium 7.5 mg/dL (8.5-10.1) L 01/11/18 05:30 Total Bilirubin 6.6 mg/dL (0.2-1) H 01/11/18 05:30 AST 71 U/L (15-37) H 01/11/18 05:30 ALT 54 U/L (13-61) 01/11/18 05:30 Alkaline Phosphatase 254 U/L (45-117) H 01/11/18 05:30 Total Protein 5.9 g/dl (6.4-8.2) L 01/11/18 05:30 Albumin 2.0 g/dl (3.4-5.0) L 01/11/18 05:30 CARDIAC ENZYMES Creatine Kinase 341 IU/L (26-308) H 01/04/18 00:20 Troponin I 0.05 ng/ml (0.00-0.05) 01/04/18 17:00 Current Medications Generic Name Dose Route Start Last Admin Trade Name Freq PRN Reason Stop Dose Admin Folic Acid 1 mg 01/04/18 10:00 01/10/18 10:28 Folic Acid - PO 1 mg DAILY [facility] Administration Lisinopril 10 mg 01/05/18 10:00 01/10/18 10:28 Prinivil PO 10 mg DAILY [facility] Administration Metoprolol Tartrate 25 mg 01/04/18 22:00 01/10/18 21:54 Lopressor - PO 25 mg BID [facility] Administration Multivitamins/Minerals/Vitamin C 1 tab 01/04/18 10:00 01/10/18 10:28 Tab-A-Vit - PO 1 tab DAILY [facility] Administration Pantoprazole Sodium 40 mg 01/11/18 10:00 Protonix - PO DAILY [facility] Pentoxifylline 400 mg 01/07/18 12:00 01/10/18 18:36 Trental - PO 400 mg TIDCM [facility] Administration Thiamine HCl 100 mg 01/04/18 10:00 01/10/18 10:28 Vitamin B1 - PO 100 mg DAILY [facility] Administration Home Medications Medication Instructions Recorded Lisinopril [Prinivil] 10 mg PO DAILY 01/04/18 Metoprolol Tartrate 25 mg PO Q12H 01/04/18 Pravastatin Sodium [Pravachol -] 40 mg PO HS 01/04/18 ASSESSMENT AND PLAN: Patient is a 62yo male with PMHx of HTN, CAD, positive for stress test in 2014 ( unknown w/u), cirrhosis , and alcoholism who presented with CP # Acute left sided CP: Troponins are negative ;unlikely cardiac in origin , continue to hold aspirin due to thrombocytopenia, cardiology Dr. Norris possible stress test as per cardio. # Alcoholic hepatitis : as per GI to cont. pentoxiphylin 400 TID ,day 6, LFTs improved . bili improving but still elevated will repeat the level in am . hopefully can stop pentoxiphylin when Bili < 5 #Alcohol withdrawal: improved, s/p Ativan. prn ativan if needed. cont thiamine and folate # s/p Hematemesis : no reccurence. evaluated by GI and will stop PPI and octeriotide gtt. EGD as an outpatient as per GI. # Hypertriglyceredemia: low fat diet for now, repeat LFTs improving but still elevated and has an elevated bilirubin , will hydrate the patient , before statin or Fibrates could be used # Thrombocytopenia: likely due to liver disease. will continue to hold aspirin due to thrombocytopenia. HIT Abs is negative. hold anti-plt and heparin # Cirrhosis: low salt diet . f/u as out pt SCDS PT eval. anticipate dc in am
[2018-01-11] MEDS ORDERED: MAGNESIUM SULF 50% (8.12 MEQ/2 ML-1 GM VIAL) IVPB ONE (09:00)
[2018-01-11] MEDS ORDERED: NAPH,MB-DB/K PH,MBDB POWDER PACKET PO ONE (09:00)
[2018-01-11] MEDS ORDERED: SODIUM CHLORIDE 0.9% 500 ML INFUS.BAG IV ONE ×2 (09:22→10:45)
[2018-01-11] MEDS: METOPROLOL TARTRATE 25 MG TABLET (FP) PO SCH ×2 (09:33→21:46)
[2018-01-11] MEDS: FOLIC ACID 1 MG TABLET (FP) PO SCH (09:33)
[2018-01-11] MEDS: LISINOPRIL 10 MG TABLET (FP) PO SCH (09:33)
[2018-01-11] MEDS: MULTIVITAMINS (DAILY MVI) TABLET (FP) PO SCH (09:33)
[2018-01-11] MEDS: PENTOXIFYLLINE 400 MG TABLET.ER PO SCH ×3 (09:33→17:36)
[2018-01-11] MEDS: THIAMINE HCL 100 MG TABLET (FP) PO SCH (09:33)
[2018-01-11] MEDS: PANTOPRAZOLE 40 MG TABLET (FP) PO SCH (09:33)
[2018-01-11] MEDS: SODIUM CHLORIDE 1,000 ML IV SCH (12:31)
--- NOTE | 2018-01-11 13:19 | PN ---
Physical Exam: SUBJECTIVE: Patient is a 62 y/o male with a history of alcohol abuse, ischemic cardiac disease, HTN, and HLD, who presents to r/o ACS and for alcoholic hepatitis. Patient A & O x2 upon examination, patient had one episode of bloody vomit last night. Reports not having any further episodes. OBJECTIVE: Vital Signs Temperature 98.0 F 01/11/18 09:00 Pulse Rate 68 01/11/18 09:00 Respiratory Rate 20 01/11/18 09:00 Blood Pressure 123/72 01/11/18 09:00 O2 Sat by Pulse Oximetry (%) 97 01/11/18 08:28 GENERAL: The patient is awake, alert, and fully oriented, in no acute distress. smells of alcohol HEAD: Normal with no signs of trauma. EYES: PERRL, extraocular movements intact ENT: moist mucous membranes. NECK: Trachea midline, full range of motion, supple. LUNGS: Breath sounds equal, clear to auscultation bilaterally, no wheezes, no crackles, no accessory muscle use. HEART: Regular rate and rhythm, S1, S2 without murmur, rub or gallop. ABDOMEN: Soft, nontender, nondistended, normoactive bowel sounds, no guarding, no ascites present EXTREMITIES: 2+ pulses, warm, well-perfused, no edema. PSYCH: Normal mood, normal affect. SKIN: Warm, dry, normal turgor, no rashes or lesions noted CBC, BMP 01/11/18 05:30 01/11/18 05:30 Active Medications Folic Acid (Folic Acid -) 1 mg PO DAILY [facility] Last Admin: 01/11/18 09:33 Dose: 1 mg Sodium Chloride (Normal Saline -) 1,000 mls @ 125 mls/hr IV ASDIR [facility] Last Admin: 01/11/18 12:31 Dose: 125 mls/hr Lisinopril (Prinivil) 10 mg PO DAILY [facility] Last Admin: 01/11/18 09:33 Dose: 10 mg Metoprolol Tartrate (Lopressor -) 25 mg PO BID [facility] Last Admin: 01/11/18 09:33 Dose: 25 mg Multivitamins/Minerals/Vitamin C (Tab-A-Vit -) 1 tab PO DAILY [facility] Last Admin: 01/11/18 09:33 Dose: 1 tab Pantoprazole Sodium (Protonix -) 40 mg PO DAILY [facility] Last Admin: 12/05/18 09:33 Dose: 40 mg Pentoxifylline (Trental -) 400 mg PO TIDCM [facility] Last Admin: 01/11/18 12:33 Dose: 400 mg Thiamine HCl (Vitamin B1 -) 100 mg PO DAILY [facility] Last Admin: 01/11/18 09:33 Dose: 100 mg ASSESSMENT/PLAN: Patient is a 62 y/o male with a history of alcohol abuse, ischemic cardiac disease, HTN, and HLD, who presents to r/o ACS and for alcoholic hepatitis. #alcoholic hepatitis - elevated transaminitis, trending down slightly - ABD sonogram: no evidence of ascites, spleen slightly enlarged measuring 12.1 cm , fatty liver - MADRY score 39.5, Phentoxifylline 400 mg TID, if T mikhail resumes to normal can DC medication - hepatitis panel negative - discussed with GI Dr. Patterson, see bottom of note for recommendations - patient to continue protonix 40 mg po daily #r/o ACS : resolved - per cardio, Dr. Headley continue detox, asa if no cotra indication from GI - repeat EKG: QTC 455 - stress test as an outpatient #withdrawl from alcohol - continue folic acid - continue thiamine - fall risk precautions #thrombocytopenia - hold asa - continue to monitor - likely 2/2 to splenomegaly - HIT assay elevated at .526 #HTN - continue lsinopril 10 mg daily - metoprolol 25 mg po BID #HLD - high triglycerides: 471 - hold statin and antitriglycerides while in transaminitis #FEN - repleted Mg and Phosp #DVT ppx - SCD's Dispo: monitor patients T bili until below 5 to be D/C - upon discharge patient needs to have his alpha feta protein followed every four months, and abd US every 6 months to check for hepatoma, patient should f/ u with Dr. Patterson for an EGD, patient needs to follow with clinic to trend LFT's , should be D/C on Pentoxifylline rather than prednisolone, patient will not likely be compliant with steroid outpatient and need to avoid adrenal insufficiency, patient should be encouraged to follow up with [facility] or [facility] for potential future treatment Visit type - Emergency Visit Emergency Visit: No - New Patient This patient is new to me today: No - Critical Care Critical Care patient: No
[2018-01-12 07:02] LABS: HEMATOCRIT 38.3 % (35.4-49); HEMOGLOBIN 12.7 GM/dL (11.7-16.9); MCH 32.1 pg (25.7-33.7); MCHC 33.2 g/dl (32.0-35.9); MEAN CELL VOLUME 96.9 fl (80-96); MEAN PLT VOLUME 10.1 fl (7.5-11.1); PLATELET COUNT 106 K/MM3 (134-434); RBC 3.95 M/mm3 (4.00-5.60); RDW 15.9 % (11.9-15.9); WHITE BLOOD COUNT 7.4 K/mm3 (4.0-10.0)
[2018-01-12 07:47] LABS: ALBUMIN 2.3 g/dl (3.4-5.0); ALK PHOS 316 U/L (45-117); ANION GAP 10 MMOL/L (8-16); BILIRUBIN,TOTAL 6.8 mg/dL (0.2-1); BLOOD UREA NITROGEN 11 mg/dL (7-18); CALCIUM 7.4 mg/dL (8.5-10.1); CHLORIDE 104 mmol/L (98-107); CO2 25 mmol/L (21-32); CREATININE 0.9 mg/dL (0.55-1.3); GLUCOSE,RANDOM 97 mg/dL (74-106); MAGNESIUM 1.8 mg/dL (1.8-2.4); PHOSPHOROUS 2.3 mg/dL (2.5-4.9); POTASSIUM 3.4 mmol/L (3.5-5.1); SGOT/AST 96 U/L (15-37); SGPT/ALT 63 U/L (13-61); SODIUM 138 mmol/L (136-145); TOT PROT 6.6 g/dl (6.4-8.2)
[2018-01-12] MEDS: PENTOXIFYLLINE 400 MG TABLET.ER PO SCH ×3 (08:37→17:43)
[2018-01-12] MEDS ORDERED: POTASSIUM CHLORIDE TABS 20 MEQ TABLET.ER (FP) PO ONE (08:45)
--- NOTE | 2018-01-12 08:48 | PN ---
Teaching Attending Note Name of Resident: Linda Mckinnon ATTENDING PHYSICIAN STATEMENT I saw and evaluated the patient. I reviewed the resident's note and discussed the case with the resident. I agree with the resident's findings and plan as documented. SUBJECTIVE: Patient is feeling better with no acute distress. OBJECTIVE: Vital Signs Temperature 98.5 F 01/12/18 05:00 Pulse Rate 67 01/12/18 05:00 Respiratory Rate 20 01/12/18 05:00 Blood Pressure 126/74 01/12/18 05:00 O2 Sat by Pulse Oximetry (%) 98 01/11/18 21:00 GENERAL: The patient is awake, alert, and fully oriented, in no acute distress. HEAD: Normal with no signs of trauma. EYES: PERRL, extraocular movements intact ENT: moist mucous membranes. NECK: Trachea midline, full range of motion, supple. LUNGS: Breath sounds equal, CTA BL , no wheezes, no crackles, no accessory muscle use. HEART: Regular rate and rhythm, S1, S2 without murmur, rub or gallop. ABDOMEN: Soft, nontender, nondistended, normoactive bowel sounds, no guarding, no ascites present EXTREMITIES: 2+ pulses, warm, well-perfused, no edema. PSYCH: Normal mood, normal affect. SKIN: Warm, dry, normal turgor, no rashes or lesions noted CBCD WBC 7.4 K/mm3 (4.0-10.0) 01/12/18 05:30 RBC 3.95 M/mm3 (4.00-5.60) L 01/12/18 05:30 Hgb 12.7 GM/dL (11.7-16.9) 01/12/18 05:30 Hct 38.3 % (35.4-49) 01/12/18 05:30 MCV 96.9 fl (80-96) H 01/12/18 05:30 MCHC 33.2 g/dl (32.0-35.9) 01/12/18 05:30 RDW 15.9 % (11.9-15.9) 01/12/18 05:30 Plt Count 106 K/MM3 (134-434) L D 01/12/18 05:30 MPV 10.1 fl (7.5-11.1) 01/12/18 05:30 CMP Sodium 138 mmol/L (136-145) 01/12/18 05:30 Potassium 3.4 mmol/L (3.5-5.1) L 01/12/18 05:30 Chloride 104 mmol/L (98-107) 01/12/18 05:30 Carbon Dioxide 25 mmol/L (21-32) 01/12/18 05:30 Anion Gap 10 MMOL/L (8-16) 01/12/18 05:30 BUN 11 mg/dL (7-18) 01/12/18 05:30 Creatinine 0.9 mg/dL (0.55-1.3) 01/12/18 05:30 Creat Clearance w eGFR > 60 (>60) 01/12/18 05:30 Random Glucose 97 mg/dL (74-106) 01/12/18 05:30 Calcium 7.4 mg/dL (8.5-10.1) L 01/12/18 05:30 Total Bilirubin 6.8 mg/dL (0.2-1) H 01/12/18 05:30 AST 96 U/L (15-37) H 01/12/18 05:30 ALT 63 U/L (13-61) H 01/12/18 05:30 Alkaline Phosphatase 316 U/L (45-117) H 01/12/18 05:30 Total Protein 6.6 g/dl (6.4-8.2) 01/12/18 05:30 Albumin 2.3 g/dl (3.4-5.0) L 01/12/18 05:30 CARDIAC ENZYMES Creatine Kinase 341 IU/L (26-308) H 01/04/18 00:20 Troponin I 0.05 ng/ml (0.00-0.05) 01/04/18 17:00 Current Medications Generic Name Dose Route Start Last Admin Trade Name Freq PRN Reason Stop Dose Admin Folic Acid 1 mg 01/12/18 10:00 Folic Acid - PO DAILY [facility] Sodium Chloride 1,000 mls @ 125 mls/hr 01/11/18 11:00 01/11/18 12:31 Normal Saline - IV 125 mls/hr ASDIR [facility] Administration Lisinopril 10 mg 01/12/18 10:00 Prinivil PO DAILY [facility] Metoprolol Tartrate 25 mg 01/12/18 10:00 Lopressor - PO BID [facility] Multivitamins/Minerals/Vitamin C 1 tab 01/12/18 10:00 Tab-A-Vit - PO DAILY [facility] Pantoprazole Sodium 40 mg 01/11/18 10:00 01/11/18 09:33 Protonix - PO 40 mg DAILY [facility] Administration Pentoxifylline 400 mg 01/12/18 12:00 Trental - PO TIDCM [facility] Thiamine HCl 100 mg 01/12/18 10:00 Vitamin B1 - PO DAILY [facility] Home Medications Medication Instructions Recorded Lisinopril [Prinivil] 10 mg PO DAILY 01/04/18 Metoprolol Tartrate 25 mg PO Q12H 01/04/18 Pravastatin Sodium [Pravachol -] 40 mg PO HS 01/04/18 ASSESSMENT AND PLAN: Patient is a 62yo male with PMHx of HTN, CAD, positive for stress test in 2014 ( unknown w/u), cirrhosis , and alcoholism who presented with CP # Alcoholic hepatitis : as per GI to cont.to stop pentoxiphylin 400 TID since patient is unreliable with his meds. s/p day 7, LFTs improved . bili improving but still elevated. As per GI patient can be discharged with follow up visit with , follow with electrical tech/project manager/clinic for follow up labs. # Acute left sided CP: Troponins are negative ;unlikely cardiac in origin , continue to hold aspirin due to thrombocytopenia, cardiology Dr. Norris appreciated. As per cardio: Stress MIBI 2014: large areas of infarct with mild periinfarct ischemia. Pt refuses to consider coronary angiogram, despite being informed of the potential risks of not studying the state of the coronary arteries in the face of the stress results and ongoing dyspnea with exertion and occasional chest pressure with exertion.He believes the procedure might be dangerous for him.Compliance with post-angiogram medication regimen (e.g. potential need for dual-platelet therapy) and pt's states that he will quit drinking but not reliable since has started drinking since he was age 16yo. since patient might bleed and falll is a risk factor of bleeding. #Alcohol withdrawal: improved, s/p Ativan. prn ativan if needed. cont thiamine and folate # s/p Hematemesis : no reccurence. evaluated by GI and will stop PPI and octeriotide gtt. EGD as an outpatient as per GI. # Hypertriglyceredemia: low fat diet for now, repeat LFTs improving but still elevated and has an elevated bilirubin , will hydrate the patient. # Thrombocytopenia: likely due to liver disease. will continue to hold aspirin due to thrombocytopenia. HIT Abs is negative. hold anti-plt and heparin # Cirrhosis: low salt diet . f/u as out pt dc patient home.
[2018-01-12] MEDS ORDERED: THIAMINE HCL 100 MG TABLET (FP) PO SCH (10:00)
[2018-01-12] MEDS ORDERED: LISINOPRIL 10 MG TABLET (FP) PO SCH (10:00)
[2018-01-12] MEDS ORDERED: METOPROLOL TARTRATE 25 MG TABLET (FP) PO SCH (10:00)
[2018-01-12] MEDS ORDERED: FOLIC ACID 1 MG TABLET (FP) PO SCH (10:00)
[2018-01-12] MEDS ORDERED: MULTIVITAMINS (DAILY MVI) TABLET (FP) PO SCH (10:00)
[2018-01-12] MEDS: PANTOPRAZOLE 40 MG TABLET (FP) PO SCH (10:07)
[2018-01-12] MEDS ORDERED: PT OWN MED DRAWER 7, Y5N ONE ×2 (11:12→17:42)
[2018-01-12] MEDS: SODIUM CHLORIDE 1,000 ML IV SCH (11:17)
--- NOTE | 2018-01-12 14:35 | DS ---
Physical Exam: SUBJECTIVE: Patient denies any nausea or vomiting overnight. Reports he is feeling better. OBJECTIVE: Vital Signs Temperature 99.4 F 01/12/18 15:08 Pulse Rate 73 01/12/18 15:08 Respiratory Rate 18 01/12/18 15:08 Blood Pressure 129/61 01/12/18 15:08 O2 Sat by Pulse Oximetry (%) 98 01/12/18 09:00 PHYSICAL EXAM GENERAL: The patient is awake, alert, and fully oriented, in no acute distress. smells of alcohol HEAD: Normal with no signs of trauma. EYES: PERRL, extraocular movements intact ENT: moist mucous membranes. NECK: Trachea midline, full range of motion, supple. LUNGS: Breath sounds equal, clear to auscultation bilaterally, no wheezes, no crackles, no accessory muscle use. HEART: Regular rate and rhythm, S1, S2 without murmur, rub or gallop. ABDOMEN: Soft, nontender, nondistended, normoactive bowel sounds, no guarding, no ascites present EXTREMITIES: 2+ pulses, warm, well-perfused, no edema. PSYCH: Normal mood, normal affect. SKIN: Warm, dry, normal turgor, no rashes or lesions noted LABS Laboratory Results - last 24 hr CBC, BMP 01/12/18 05:30 01/12/18 05:30 HOSPITAL COURSE: Date of Admission:01/04/18 Patient was admitted to the hospital with chest pain. Troponins were negative x2 and EKG showed no acute ST elevations. Patient was seen by Life Insurance Actuary, recommended out patient stress test. Patient presented with elevated transaminitis 2/2 to alcoholic hepatitis. Patient had a Madry discriminant of 39.5. Prenisolone was started but it was changed to Phentoxyfilline upon recommendation of GI. Patient had one episode of blood sputum/vomiting. Per GI patient should have a follow up EGD as an outpatient to check for varicies. Patient did not have any further episodes of vomiting. Patients AST, ALT, and Tbili trended down but did not resolve. Patient instructed to follow up with outpatinet. Patient showed signs of withdrawl from alcohol and was on standing ativan. He had to be put on a 1:1 to monitor his condition. ABD sonogram: no evidence of ascites, spleen slightly enlarged measuring 12.1 cm , fatty liver FOBT: negative Date of Discharge: 01/12/18 Minutes to complete discharge: 38 Discharge Summary Reason For Visit: CHEST PAIN Current Active Problems (HFpEF) heart failure with preserved ejection fraction (Chronic) Acute and subacute hepatic failure without coma (Chronic) Elevated LFTs (Chronic) [place] cardiac risk >20% in next 10 years (Chronic) Hypomagnesemia (Chronic) Condition: Good - Instructions Diet, Activity, Other Instructions: You were admitted to the hospital for having chest pain. We monitored you and your heart is stable. While you were here your liver enzymes were elevated. Your enzymes and bilirubin levels are now lower, but they are not completely normal. Within one week you need to have your levels checked of Bilirubin These levels were high due to your alcohol use. It is very important that you discontinue using alcohol. Continuing to drink alcohol will lead to a worsening of your liver, could lead to vomiting blood which could lead to . Please stop drinking alcohol. To continue monitoring your heart you should follow up with public housing manager, Dr. Headley in one week. To continue monitoring your liver function you need to make an appointment with reception agent, Dr. Patterson. You also need an EGD done, you can make this appointment with Dr. Patterson. It is very important that every four months you follow with a clinic to have your alpha feta protein checked. Every 6 months you need to have an ultrasound of your liver done to check for hepatoma. Medications: Please continue to take Folic acid 1 a day by mouth Thiamine 100 mg a day by mouth Please follow up with a primary care physician in one week, information for one will be provided in the discharge instructions. You may also call the clinic at [address] [place] [address] and schedule an appointment . Please continue your home medications as prescribed. Please return to the Emergency Department if you vomit blood, have headache, nausea, vomiting, diarrhea, chest pain, or shortness of breath. En Espanol Usted fue ingresado en el hospital por [facility]. Te vigilamos y tu corazn est estable. Mientras estabas aqu, tus enzimas hepticas estaban elevadas. Shell niveles de enzimas y bilirrubina ahora son ms bajos, jesse no son completamente normales. Dentro de anton semana, debe tener shell niveles controlados en anton clnica. Estos niveles fueron altos debido a peña consumo de alcohol. Es muy importante que dejes de consumir alcohol. Seguir bebiendo alcohol provocar un empeoramiento de peña hgado, podra provocar vmitos de joel que podran provocar la muerte. Por favor pranav de beber alcohol. Para continuar controlando peña corazn, debe hacer un seguimiento con el cardilogo, el Dr. Headley, en anton semana. Para continuar controlando peña funcin heptica, debe hacer anton miranda con el gastroenterlogo, el Dr. Patterson. Dago necesita un EGD hecho, puede hacer esta miranda con el Dr. Patterson. Es muy importante que cada cuatro meses siga con anton clnica para que le revisen la protena elliot feta. Cada 6 meses debe realizarse anton ecografa de peña hgado para detectar un hepatoma. Medicamentos Por favor contine tomando cido flico 1 al da por va oral. Tiamina 100 mg al da por va oral. Por favor felton un seguimiento con un mdico de atencin primaria en anton semana, la informacin para jorden se proporcionar en las instrucciones de jose. Dago puede llamar a la clnica al [facility] [place] [facility] y programar anton miranda . Por favor contine shell medicamentos caseros segn lo prescrito. Regrese al Departamento de Emergencias si vomita joel, tiene dolor de boogie, nuseas, vmitos, diarrea, dolor de pecho o falta de aire. Referrals: [facility] [place] [facility] [Provider Group] - 1 Week Stew Patterson MD [Staff Physician] - 1 Week Cortes Headley MD [Staff Physician] - 1 Week Disposition: HOME - Home Medications Comprehensive Discharge Medication List: Ambulatory Orders Lisinopril [Prinivil] 10 mg PO DAILY 01/04/18 Metoprolol Tartrate 25 mg PO Q12H 01/04/18 Pravastatin Sodium [Pravachol -] 40 mg PO HS 01/04/18 Folic Acid 1 mg PO DAILY #30 tablet 01/12/18 Thiamine HCl [B-1] 100 mg PO DAILY #30 tablet 01/12/18 This patient is new to me today: No Emergency Visit: No Critical Care patient: No - Discharge Referral Referred to [facility] No
[2018-01-12 15:09] VITALS: BP 129/61; PULSE 73; TEMP 99.4
== END 2018-01-12 18:37 | disposition home or self-care (01) | DRG 280 ==
LOC: JER 22:11 → JERBED 01-04 02:45 → OBSVTOIN 01-04 03:14 → J4W 01-04 17:55 → J8W 01-12 05:53
PROVIDERS: ADMIT Internal Medicine; ATTEND Internal Medicine
DX: K70.10 Alcoholic hepatitis without ascites (principal); F10.239 Alcohol dependence with withdrawal, unspecified; N17.9 Acute kidney failure, unspecified; R07.9 Chest pain, unspecified; E83.42 Hypomagnesemia; E78.5 Hyperlipidemia, unspecified; I25.10 Atherosclerotic heart disease of native coronary artery without angina pectoris; R74.0 Nonspecific elevation of levels of transaminase and lactic acid dehydrogenase [LDH]; K72.00 Acute and subacute hepatic failure without coma; D69.6 Thrombocytopenia, unspecified; K74.60 Unspecified cirrhosis of liver; E78.1 Pure hyperglyceridemia; I11.0 Hypertensive heart disease with heart failure; I50.30 Unspecified diastolic (congestive) heart failure; K21.9 Gastro-esophageal reflux disease without esophagitis; E87.6 Hypokalemia
CPT/HCPCS: 36415; 76700-TC; 80053; 80061; 80307; 82140; 82248; 82272; 82550; 82553; 83036; 83690; 83721; 83735; 84100; 84443; 84484; 85025; 85027; 85610; 86022; 86704; 86705; 86706; 86708; 87340; 87522; 93005; 93010; 93306-TC; 97116-GP; 97161-GP; 99284-25; G0378; J1644; J7030

== ENCOUNTER 2018-03-11 03:17 | Inpatient (IN) | payer OTHER ==
--- NOTE | 2018-03-11 03:33 | PDOC ---
History of Present Illness - General Stated Complaint: CHEST PAIN Time Seen by Provider: 03/11/18 03:33 - History of Present Illness Initial Comments: 63 year old male with PMH of EtOH abuse, cirrhosis, significant ischemic cardiac history (medically non compliant after workup demonstrating ischemia in 2014), HTN, and HLD presenting with chest pain in the left side of his chest that started a few hours ago that is non-exertional, non-pleuritic, non- radiating and does not co-present with nausea, vomiting, diarrhea, SOB or other symptoms. He does drink a bottle of Bacardi daily and his last drink was last night at 22:00. He states he sometimes gets the shakes when he doesn't drink for a few days but denies seizures in the psat. He was admitted to our hospital a few months ago for similar chest pain and was worked up with negative EKGs and troponins and recommended medications and stress tst but he has been non compliant with meds or follow up. 03/11/18 05:09 Past History - Past Medical History Allergies/Adverse Reactions: Allergies Allergy/AdvReac Type Severity Reaction Status Date / Time No Known Drug Allergies Allergy Verified 03/11/18 04:05 Home Medications: Ambulatory Orders Folic Acid 1 mg PO DAILY #30 tablet 01/12/18 Lisinopril [Prinivil] 10 mg PO DAILY #30 tablet 01/12/18 Metoprolol Tartrate 25 mg PO Q12H #30 tablet 01/12/18 Pantoprazole Sodium [Protonix] 40 mg PO BID #30 tablet. 01/12/18 Pravastatin Sodium [Pravachol -] 40 mg PO HS #30 tablet 01/12/18 Thiamine HCl [B-1] 100 mg PO DAILY #30 tablet 01/12/18 Aspirin 81 mg DAILY 03/13/18 Famotidine 20 mg PO Q12H 03/13/18 Anemia: No Asthma: No Cancer: No Cardiac Disorders: No CVA: No COPD: No CHF: No Dementia: No Diabetes: No GI Disorders: No Disorders: No HTN: Yes Hypercholesterolemia: Yes Liver Disease: No Seizures: No Thyroid Disease: No - Surgical History Abdominal Surgery: Yes (HERNIA) Appendectomy: Yes Cardiac Surgery: No Cholecystectomy: Yes GI Surgery: Yes (appendectomy) Lung Surgery: No Neurologic Surgery: No Orthopedic Surgery: No - Immunization History Td Vaccination: Yes Immunization Up to Date: No - Suicide/Smoking/Psychosocial Hx Smoking Status: Yes Smoking History: Unknown if ever smoked Years of Tobacco Use: 0 Have you smoked in the past 12 months: No Number of Cigarettes Smoked Daily: 0 If you are a former smoker, when did you quit?: smoked for 13 years Cigars Per Day: 0 'Breaking Loose' booklet given: 06/12/12 Hx Alcohol Use: No Drug/Substance Use Hx: No Substance Use Type: None Hx Substance Use Treatment: No Review of Systems - Review of Systems Constitutional: No: Chills, Diaphoresis, Fever, Loss of Appetite HEENTM: No: Eye Pain, Blurred Vision, Tearing Respiratory: Yes: Shortness of Breath. No: Cough, Orthopnea Cardiac (ROS): Yes: Chest Pain. No: Irregular Heart Rate, Lightheadedness ABD/GI: No: Diarrhea, Nausea, Poor Appetite, Poor Fluid Intake : No: Burning, Frequency, Hematuria Integumentary: No: Lesions, Lumps, Pallor Neurological: No: Headache, Numbness, Paresthesia Psychiatric: No: Anxiety, Depression Hematologic/Lymphatic: No: Anemia, Blood Clots *Physical Exam - Physical Exam General Appearance: Yes: Nourished, Appropriately Dressed. No: Apparent Distress HEENT: positive: EOMI, DAYAN, Normal ENT Inspection Neck: positive: Trachea midline, Normal Thyroid, Supple. negative: Tender, Rigid Respiratory/Chest: positive: Lungs Clear, Normal Breath Sounds. negative: Chest Tender, Respiratory Distress Cardiovascular: positive: Regular Rhythm, Tachycardia. negative: Regular Rate Gastrointestinal/Abdominal: positive: Normal Bowel Sounds, Flat, Soft. negative : Tender Lymphatic: negative: Adenopathy, Tenderness Musculoskeletal: positive: Normal Inspection. negative: Decreased Range of Motion Extremity: positive: Normal Capillary Refill, Normal Inspection, Normal Range of Motion. negative: Tender Integumentary: positive: Normal Color, Dry, Warm Neurologic: positive: Fully Oriented, Alert, Normal Mood/Affect, Normal Response , Motor Strength 5/5 Heart Score/ECG Review - History History: Moderately suspicious - Electrocardiogram EKG: Non specific repolarization disturbance - Age Age: 45-65 - Risk Factors Risk Factors Heart Score: Yes Hx Hypercholesterolemia, Yes Hx Hypertension, Yes Hx Obesity Based on the list above the patient has:: >/=3 risk factors or Hx atherosclerotic disease ED Treatment Course - LABORATORY CBC & Chemistry Diagram: 03/13/18 13:40 03/13/18 07:35 Medical Decision Making - Medical Decision Making 63 year old male with PMH of cardiac disease with many risk factors and very poor follow up with outpatient PCP and cardiology. 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 Patient given asa and Tylenol. VS concerning for Labs and CXR pending and patient was signed out to the oncoming team. 03/11/18 07:10 *DC/Admit/Observation/Transfer Diagnosis at time of Disposition: Hypercholesteremia, Alcohol abuse Chest pain Qualifiers: Chest pain type: chest pain due to myocardial ischemia Ischemic chest pain type : unstable angina pectoris Qualified Code(s): I20.0 - Unstable angina CAD (coronary artery disease) Qualifiers: Coronary Disease-Associated Artery/Lesion type: unspecified vessel or lesion type [place] vs. transplanted heart: [place] heart Associated angina: with unstable angina Qualified Code(s): I25.110 - Atherosclerotic heart disease of [place] coronary artery with unstable angina pectoris Hypertension Qualifiers: Hypertension type: essential hypertension Qualified Code(s): I10 - Essential ( primary) hypertension - Discharge Dispostion Condition at time of disposition: Guarded - Referrals - Patient Instructions - Post Discharge Activity
--- NOTE | 2018-03-11 03:56 | PDOC ---
Attending Attestation - Resident Resident Name: Jim Simmons - ED Attending Attestation I have performed the following: I have examined & evaluated the patient, The case was reviewed & discussed with the resident, I agree w/resident's findings & plan - HPI HPI: 03/11/18 06:27 Pt comes with chest pain. - Physicial Exam PE: 03/11/18 06:30 Agree with resident exam - Medical Decision Making 03/11/18 06:30 Pt has a large heart as well as an unfolded aorta which is the same as old. 03/11/18 19:59 Signed out to the day attendings to follow results and disposition the patient. We recommended that pt be admitted for 24 hr obs in tele unit.
[2018-03-11] MEDS ORDERED: ASPIRIN 81 MG CHEWABLE TABLETS PO ONE (05:23)
[2018-03-11] MEDS ORDERED: ACETAMINOPHEN 500 MG TABLET (FP) PO ONE (05:23)
[2018-03-11] MEDS ORDERED: ASPIRIN 81 MG CHEWABLE TABLETS ONE (05:36)
[2018-03-11] MEDS ORDERED: ACETAMINOPHEN 325 MG TABLET (FP) ONE (05:37)
[2018-03-11 05:56] LABS: BASO % 0.4 % (0-2.0); HEMOGLOBIN 15.1 GM/dL (11.7-16.9); LYMPH % 24.9 % (8-40); MCH 33.8 pg (25.7-33.7); MCHC 35.1 g/dl (32.0-35.9); MEAN CELL VOLUME 96.3 fl (80-96); MEAN PLT VOLUME 8.8 fl (7.5-11.1); MONO % 7.5 % (3.8-10.2); NEUT % 67.2 % (42.8-82.8); PLATELET COUNT 78 K/MM3 (134-434); RBC 4.47 M/mm3 (4.00-5.60); RDW 13.8 % (11.9-15.9); WHITE BLOOD COUNT 6.1 K/mm3 (4.0-10.0)
[2018-03-11] MEDS ORDERED: FOLIC ACID INJECTION - 1 MG, THIAMINE HCL 100 MG, MULTIVIT INJECTION ADULT 10 ML in SOD... IVPB ONE (06:28)
[2018-03-11 06:50] LABS: INR 1.25 (0.83-1.09); PROTHROMBIN TIME (PATIENT) 14.8 SEC (9.7-13.0)
--- NOTE | 2018-03-11 07:11 | PDOC ---
*Physical Exam - Vital Signs Last Vital Signs Temp Pulse Resp BP Pulse Ox 98.1 F 94 H 15 148/88 100 03/11/18 07:07 03/11/18 07:07 03/11/18 07:07 03/11/18 07:07 03/11/18 07:07 - Physical Exam Comments: 03/11/18 07:42 Patient is a 62 y/o HM with a PMH of EtOH abuse, cirrhosis, CAD (stress test 2014 large fixed defect in inferolateral wall and small periinfarct reversible defect in basal-inferior wall), HLD, HTN, who now presents with L sided CP. patient was admitted Dec 2017 for CP but refused cath at that time. Now CP is associated with new T inversions in Vi-V4 concerning for proximal LAD lesion. Patient was treated with asa, plav and statin Last drink was yesterday 03/11/18 08:11 03/11/18 08:55 patient agreeable to eventual cardiac cath and states he will take his medication admit to telemetry 03/11/18 08:57 03/11/18 17:25 General Appearance: Yes: Nourished. No: Apparent Distress, Alcohol on Breath Neck: positive: Supple Respiratory/Chest: positive: Lungs Clear, Normal Breath Sounds Cardiovascular: positive: Regular Rate, S1, S2, Murmur (systollic and diastolic ). negative: JVD Gastrointestinal/Abdominal: positive: Flat, Soft ED Treatment Course - LABORATORY CBC & Chemistry Diagram: 03/11/18 04:38 03/11/18 07:47 - ADDITIONAL ORDERS Additional order review: Laboratory Results 03/11/18 04:38 PT with INR 14.80 H INR 1.25 H 03/11/18 04:38 RBC 4.47 MCV 96.3 H MCHC 35.1 RDW 13.8 D MPV 8.8 D Neutrophils % 67.2 Lymphocytes % 24.9 D Monocytes % 7.5 Eosinophils % 0.0 D Basophils % 0.4 - Medications Given in the ED: ED Medications Discontinued Medications Generic Name Dose Route Start Last Admin Trade Name Freq PRN Reason Stop Dose Admin Acetaminophen 1,000 mg 03/11/18 05:23 03/11/18 05:39 Tylenol - PO 03/11/18 05:24 1,000 mg ONCE ONE Administration Aspirin 324 mg 03/11/18 05:23 03/11/18 05:39 Asa - PO 03/11/18 05:24 324 mg ONCE ONE Administration *DC/Admit/Observation/Transfer Diagnosis at time of Disposition: Hypercholesteremia, Alcohol abuse Chest pain Qualifiers: Chest pain type: chest pain due to myocardial ischemia Ischemic chest pain type : unstable angina pectoris Qualified Code(s): I20.0 - Unstable angina CAD (coronary artery disease) Qualifiers: Coronary Disease-Associated Artery/Lesion type: unspecified vessel or lesion type [place] vs. transplanted heart: [place] heart Associated angina: with unstable angina Qualified Code(s): I25.110 - Atherosclerotic heart disease of [place] coronary artery with unstable angina pectoris Hypertension Qualifiers: Hypertension type: essential hypertension Qualified Code(s): I10 - Essential ( primary) hypertension - Discharge Dispostion Condition at time of disposition: Guarded Decision to Admit order: Yes - Referrals - Patient Instructions - Post Discharge Activity
[2018-03-11] MEDS ORDERED: CLOPIDOGREL BISULFATE 300 MG TABLET PO ONE (07:34)
[2018-03-11] MEDS ORDERED: ATORVASTATIN CA 80 MG TABLET (FP) PO ONE (07:34)
[2018-03-11] MEDS ORDERED: ATORVASTATIN CA 80 MG TABLET (FP) ONE ×2 (08:14→08:16)
[2018-03-11] MEDS ORDERED: CLOPIDOGREL BISULFATE 300 MG TABLET ONE (08:14)
[2018-03-11 08:35] LABS: ALBUMIN 3.4 g/dl (3.4-5.0); ALK PHOS 200 U/L (45-117); ANION GAP 6 MMOL/L (8-16); BILIRUBIN,TOTAL 1.2 mg/dL (0.2-1); BLOOD UREA NITROGEN 15 mg/dL (7-18); CALCIUM 7.9 mg/dL (8.5-10.1); CHLORIDE 108 mmol/L (98-107); CO2 28 mmol/L (21-32); GLUCOSE,RANDOM 116 mg/dL (74-106); POTASSIUM 3.4 mmol/L (3.5-5.1); SGOT/AST 78 U/L (15-37); SGPT/ALT 59 U/L (13-61); SODIUM 142 mmol/L (136-145); TOT PROT 7.3 g/dl (6.4-8.2)
[2018-03-11] MEDS ORDERED: POTASSIUM CHLORIDE ORAL LIQUID 20 MEQ/15 ML PO ONE (08:50)
[2018-03-11] MEDS ORDERED: POTASSIUM CHLORIDE ORAL LIQUID 20 MEQ/15 ML ONE (09:38)
[2018-03-11] MEDS ORDERED: LISINOPRIL 10 MG TABLET (FP) PO SCH (10:15)
--- NOTE | 2018-03-11 10:28 | HP ---
CHIEF COMPLAINT:chest pain PCP: none HISTORY TAKEN WITH HELP OF CATERING DRIVER [id number] HISTORY OF PRESENT ILLNESS: 63 year old non compliant male with PMH of EtOH abuse, alcoholic cirrhosis, CAD (stress test 2014 large fixed defect in inferolateral wall and small periinfarct reversible defect in basal-inferior wall), , HTN, and HLD presenting chest pain in the left side of his chest just above his left nipple that started wile he was sleeping at 3 am and didn't get better this time with tylenol. Pain was non radiating, sudden in onset, constant , 10/10 in intensity. Pain got better after getting meds in hospital. Pt states that pain was associated with trouble beating, palpitations, dizziness an diaphoresis. He states he has many episodes of this type of pain but its use to get better with tylenol but this time it didn't help. He does drink a 2 bottle of Bacardi daily and his last drink was last night at 22:00. He states he sometimes gets the shakes when he doesn't drink for a few days but denies seizures in the psat. patient was admitted Dec 2017 for CP but refused cath at that time. Now CP is associated with new T inversions in Vi-V4 concerning for proximal LAD lesion. Patient was treated with asa, plav and statin, but requires transfer for cath. ER course was notable for: (1) cbc, cmp, troponin, ekg (2)aspirin, plavix, atorvastatin (3)ED discussed the case with cardiology Dr ames --- Pt will be transferred on Tuesday for collaborative physician. Recent Travel: no PAST MEDICAL HISTORY: EtOH abuse, alcoholic cirrhosis, CAD (stress test 2014 large fixed defect in inferolateral wall and small periinfarct reversible defect in basal-inferior wall), , HTN, and HLD PAST SURGICAL HISTORY: appendectomy, hernia Social History: Smoking: smokes occasional Alcohol: 2 bottles of bacardi every day Drugs: no Family History: Allergies No Known Drug Allergies Allergy (Verified 03/11/18 04:05) HOME MEDICATIONS: Home Medications Medication Instructions Recorded Folic Acid 1 mg PO DAILY #30 tablet 01/12/18 Lisinopril [Prinivil] 10 mg PO DAILY #30 tablet 01/12/18 Metoprolol Tartrate 25 mg PO Q12H #30 tablet 01/12/18 Pantoprazole Sodium [Protonix] 40 mg PO BID #30 tablet. 01/12/18 Pravastatin Sodium [Pravachol -] 40 mg PO HS #30 tablet 01/12/18 Thiamine HCl [B-1] 100 mg PO DAILY #30 tablet 01/12/18 REVIEW OF SYSTEMS CONSTITUTIONAL: Absent: fever, chills, diaphoresis, generalized weakness, malaise, loss of appetite, weight change HEENT: Absent: rhinorrhea, nasal congestion, throat pain, throat swelling, difficulty swallowing, mouth swelling, ear pain, eye pain, visual changes CARDIOVASCULAR: Absent: chest pain, syncope, palpitations, irregular heart rate, lightheadedness , peripheral edema RESPIRATORY: Absent: cough, shortness of breath, dyspnea with exertion, orthopnea, wheezing, stridor, hemoptysis GASTROINTESTINAL: Absent: abdominal pain, abdominal distension, nausea, vomiting, diarrhea, constipation, melena, hematochezia GENITOURINARY: Absent: dysuria, frequency, urgency, hesitancy, SKIN: Absent: rash, itching, pallor HEMATOLOGIC/IMMUNOLOGIC: Absent: easy bleeding, easy bruising, ENDOCRINE: Absent: unexplained weight gain, unexplained weight loss, NEUROLOGIC: Absent: headache, focal weakness or paresthesias, dizziness, unsteady gait, PSYCHIATRIC: Absent: anxiety, depression, suicidal or homicidal ideation, hallucinations. PHYSICAL EXAMINATION Vital Signs - 24 hr 03/11/18 03/11/18 03:25 07:07 Temperature 97.6 F 98.1 F Pulse Rate 100 H Pulse Rate [ 94 H Right Radial] Respiratory 16 15 Rate Blood Pressure 164/97 Blood Pressure 148/88 [Left Arm] O2 Sat by Pulse 100 100 Oximetry (%) GENERAL: Awake, alert, and fully oriented, in no acute distress. HEAD: Normal with no signs of trauma. EYES: Pupils equal, round and reactive to light, sclera anicteric, conjunctiva clear. No lid lag. EARS, NOSE, THROAT: Ears normal, nares patent, oropharynx clear without exudates. Moist mucous membranes. NECK: Normal range of motion, supple without lymphadenopathy, JVD, or masses. LUNGS: Breath sounds equal, clear to auscultation bilaterally. No wheezes, and no crackles. No accessory muscle use. HEART: Regular rate and rhythm, normal S1 and S2 without murmur, rub or gallop. ABDOMEN: Soft, nontender, not distended, normoactive bowel sounds, no guarding, no rebound, no masses. hepatomegaly, midline scar and appendectomy scar MUSCULOSKELETAL: Normal range of motion at all joints. No bony deformities or tenderness. No CVA tenderness. UPPER EXTREMITIES: 2+ pulses, warm, well-perfused. No cyanosis. No clubbing. No peripheral edema. LOWER EXTREMITIES: 2+ pulses, warm, No calf tenderness. No peripheral edema, varicose vein b/l with chronic skin change NEUROLOGICAL: Cranial nerves II-XII intact. Normal speech. PSYCHIATRIC: Cooperative. Good eye contact. Appropriate mood and affect. SKIN: Warm, dry, Laboratory Results - last 24 hr 03/11/18 03/11/18 03/11/18 04:38 04:38 04:38 WBC 6.1 RBC 4.47 Hgb 15.1 Hct 43.0 MCV 96.3 H MCH 33.8 H MCHC 35.1 RDW 13.8 D Plt Count 78 L D MPV 8.8 D Absolute Neuts (auto) 4.1 Neutrophils % 67.2 Lymphocytes % 24.9 D Monocytes % 7.5 Eosinophils % 0.0 D Basophils % 0.4 Nucleated RBC % 0 PT with INR 14.80 H INR 1.25 H Sodium Cancelled Potassium Cancelled Chloride Cancelled Carbon Dioxide Cancelled Anion Gap Cancelled BUN Cancelled Creatinine Cancelled Creat Clearance w eGFR Cancelled Random Glucose Cancelled Calcium Cancelled Total Bilirubin Cancelled AST Cancelled ALT Cancelled Alkaline Phosphatase Cancelled Creatine Kinase Creatine Kinase Index CK-MB (CK-2) Troponin I Cancelled Total Protein Cancelled Albumin Cancelled Alcohol, Quantitative Cancelled 03/11/18 07:47 WBC RBC Hgb Hct MCV MCH MCHC RDW Plt Count MPV Absolute Neuts (auto) Neutrophils % Lymphocytes % Monocytes % Eosinophils % Basophils % Nucleated RBC % PT with INR INR Sodium 142 Potassium 3.4 L Chloride 108 H Carbon Dioxide 28 Anion Gap 6 L BUN 15 Creatinine 1.0 Creat Clearance w eGFR > 60 Random Glucose 116 H Calcium 7.9 L Total Bilirubin 1.2 H AST 78 H ALT 59 Alkaline Phosphatase 200 H Creatine Kinase 251 Creatine Kinase Index 1.1 CK-MB (CK-2) 3.0 Troponin I 0.03 Total Protein 7.3 Albumin 3.4 Alcohol, Quantitative < 3.0 ASSESSMENT/PLAN:Patient is a 62 y/o HM with a PMH of EtOH abuse, cirrhosis, CAD (stress test 2014 large fixed defect in inferolateral wall and small periinfarct reversible defect in basal-inferior wall), HLD, HTN, who now presents with L sided CP. patient was admitted Dec 2017 for CP but refused cath at that time. Now CP is associated with new T inversions in Vi-V4 concerning for proximal LAD lesion. Patient was treated with asa, plav and statin, but requires transfer for cath. Acute left sided CP: h/o CAD 1 st set Troponins are negative ekg shows new T wave inversion and q waves. stress test 2014 large fixed defect in inferolateral wall and small periinfarct reversible defect in basal-inferior wall) cardiac monitoring monitor vitals Lipid profile done on 01/04: TG 471, Cholestrol 100, ldl 56, hdl 12 Hba1c 5.4 continue aspirin, plavix continue statin continue metoprolol hold lisinopril as pt need to go for collaborative physician on tuesday Iv hydration. cardiology on case echo done in dec 2017 reviewed HTN continue metoprolol hold lisinopril as pt need to go to collaborative physician h/o Alcohol abuse. No signs of active withdraw got banana bag in ed continue with folic acid and thiamine. watch for withdraw symptoms. If starts to withdraw use ativan becuse of prolonged qtc and cirrhosis H/o alcoholic hepatitis, cirrhosis recently dc from hospital in january ast/ alt improved bilrubin decreased acute hepatic panel done in dec 2017 : negative USG done in dec 2017 reviewed. pt didn't follow p with dr willingham after dc in January Hypertriglyceredemia: low fat diet for now continue statin. started on omega 3 fatty acid. Thrombocytopenia: likely due to liver disease. monior plt denies bleeding in stool, urine and vomit alcoholic Cirrhosis: f/u as out pt obesity low fat diet Fluid: 1/2 ns 75 ml/hr electrolyte: hypokalemia: got 40 meq in ed nutrition: low fat and salt diet. dvt pro: scd. gi pro: protonix 40 daily. as pt has h/o hematemesis and is daily alcohol drinker dispo: tele monitoring
[2018-03-11] MEDS ORDERED: THIAMINE HCL 100 MG TABLET (FP) ONE (10:42)
[2018-03-11] MEDS ORDERED: METOPROLOL TARTRATE 25 MG TABLET (FP) ONE (10:42)
[2018-03-11] MEDS ORDERED: FOLIC ACID 1 MG TABLET (FP) ONE (10:43)
[2018-03-11] MEDS: FOLIC ACID 1 MG TABLET (FP) PO SCH (10:53)
[2018-03-11] MEDS: METOPROLOL TARTRATE 25 MG TABLET (FP) PO SCH ×2 (10:53→21:42)
[2018-03-11] MEDS: THIAMINE HCL 100 MG TABLET (FP) PO SCH (10:53)
[2018-03-11 11:58] VITALS: BMI 31.1
--- NOTE | 2018-03-11 12:44 | CON.CARD ---
Consult Consult Specialty:: Cardiology for Dr. Martinez Referred by:: Hospitalist Medicine Reason for Consultation:: Chest pain - History of Present Illness Chief Complaint: Chest pain History of Present Illness: Patient is a 63 y/o noncompliant HM with a PMH of EtOH abuse, cirrhosis, CAD ( stress test 2014 large fixed defect in inferolateral wall and small periinfarct reversible defect in basal-inferior wall), HLD, HTN, chronic ETOH is a daily drinker with poor compliance with his home therapies. He is not feeling tremulous. He agrees he has withdrawn from alcohol in the past. Afebrile, hemodynamics stable. He is hypokalemic and hypomagnesemic. He has largely derranged LFTs. His CP is atypical and stabbing in nature but he does have a history of a positive stress test in 2014; unknown follow-up. Patient has similar presentation last month, not ideal cath candidate due to ongoing noncompliance. 10 sys ROS done and negative aside for HPI. PMH and PSH discussed Socially he consumes EtOH daily, no illicits, has withdrawn in the past. FH asked and noncontributory - History Source History Provided By: Medical Record Limitations to Obtaining History: Language Barrier - Past Medical History OFFBEARER SEWER PIPE: No: Alzheimer's, CVA, Dementia, Migraine, Multiple Sclerosis, Peripheral Neuropathy, Parkinson's, Seizure, Syncope, TIA, Vertigo, Other Cardio/Vascular: Yes: CAD, HTN, Hyperlipdemia Pulmonary: No: Asthma, Bronchitis, Cancer, COPD, O2 Dependent, Pneumonia, Previously Intubated, Pulmonary Embolus, Pulmonary Fibrosis, Sleep Apnea, Other Gastrointestinal: No: Ascites, Cancer, Constipation, Crohn's Disease, Diverticulitis, Diverticulosis, Esophageal Varices, Gastritis, GERD, GI Bleed, Hemorrhoids, Hiatal Hernia, Inflamatory Bowel Disease, Irritable Bowel Disease, Pancreatitis, Peptic Ulcer Disease, Ulcerative Colitis, Other Psych: Yes: Addictions - Past Surgical History Past Surgical History: Yes: Hernia Repair, Appendectomy - Alcohol/Substance Use Hx Alcohol Use: Yes Number of Drinks Daily: 5 (25 oz cans) History of Substance Use: reports: Cocaine - Smoking History Smoking history: Former smoker Have you smoked in the past 12 months: No Aproximately how many cigarettes per day: 0 If you are a former smoker, when did you quit?: Smoked for 13 years - Social History Usual Living Arrangement: Other (residential) ADL: Independent 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 01/12/18 Pravastatin Sodium [Pravachol -] 40 mg PO HS #30 tablet 01/12/18 Thiamine HCl [B-1] 100 mg PO DAILY #30 tablet 01/12/18 Family Disease History - Family Disease History Family Disease History: Diabetes: Father, Other: Brother (has swelling in legs) Review of Systems - Review of Systems Cardiovascular: reports: Chest Pain Vital Signs: Vital Signs Temperature 98.5 F 03/11/18 11:34 Pulse Rate 92 H 03/11/18 11:34 Respiratory Rate 18 03/11/18 11:34 Blood Pressure 164/102 H 03/11/18 11:34 O2 Sat by Pulse Oximetry (%) 97 03/11/18 11:34 Constitutional: Yes: No Distress, Calm Neck: Yes: Supple Respiratory: Yes: Regular, CTA Bilaterally Gastrointestinal: Yes: Normal Bowel Sounds, Soft Cardiovascular: Yes: Regular Rate and Rhythm JVD: No Carotid Bruit: No Heart Sounds: Yes: S1, S2 Edema: No - Other Data Labs, Other Data: CBC, BMP 03/11/18 04:38 03/11/18 07:47 INR, PTT INR 1.25 (0.83-1.09) H 03/11/18 04:38 Troponin, BNP 03/11/18 03/11/18 04:38 07:47 Troponin I Cancelled 0.03 Troponin, BNP 03/11/18 03/11/18 04:38 07:47 Troponin I Cancelled 0.03 NSR @ 75 LAD anterolateral TWI Imaging - Results Chest X-ray: Report Reviewed (NAD) Assessment/Plan 01/04/2018 Echo: Moderate dilated with mod cLVH mod inferior HK, mod MERON, normal LVEF, abnl LV compliance, tr-mild MR Echo 06/21 showed infero and inferolateral hypokinesis with mildly to moderately reduced LV systolic function Nuclear stress 06/21 showed infarct with mild rosaura-infarct ischemia and LVEF 50% 1. Atypical chest pain syndrome with underlying CAD h/o IN and abnormal MPI 2. HTN 3. ETOH abuse PLAN: 1. Ruling out for IN, agree with ASA 81 qd, Lopressor 25 bid with uptitration as tolerated, Lipitor 2. Not ideal candidate for revascularization therapy due to noncompliance, ongoing ETOH and consequent risk of stent thrombosis 3. Emphasized importance of compliance with meds and diet, - Problems (1) Elevated LFTs Assessment/Plan: acute alcoholism F/u w/u for this elevation, including hepatitis profile. Code(s): R94.5 - ABNORMAL RESULTS OF LIVER FUNCTION STUDIES (2) Chest pain Assessment/Plan: f/u EKG (evidence of old infarct and possibly acute ischemia); telemetry. Lipid levels WNL. HFpEF: continue lisinopril and metoprolol. ASA 81 mg daily. Coronary artery evaluation: pt refused to consider coronary angiogram, despite having had + stress MIBI in 2015, with large infarct area and area of periinfarct ischemia. Code(s): R07.9 - CHEST PAIN, UNSPECIFIED (4) Alcohol abuse Code(s): F10.10 - ALCOHOL ABUSE, UNCOMPLICATED (5) Hypercholesteremia Code(s): E78.0 - PURE HYPERCHOLESTEROLEMIA * DO NOT USE * (6) Hypertension Code(s): I10 - ESSENTIAL (PRIMARY) HYPERTENSION Qualifiers: Hypertension type: essential hypertension Qualified Code(s): I10 - Essential (primary) hypertension (8) [place] cardiac risk >20% in next 10 years Assessment/Plan: Stress MIBI 2015: large areas of infarct with mild periinfarct ischemia. Compliance with post-angiogram medication regimen (e.g. potential need for dual- platelet therapy) and pt's admitted contining alcoholism make him unideal candidate for [facility] Code(s): Z91.89 - OTH PERSONAL RISK FACTORS, NOT ELSEWHERE CLASSIFIED (10) (HFpEF) heart failure with preserved ejection fraction Code(s): I50.30 - UNSPECIFIED DIASTOLIC (CONGESTIVE) HEART FAILURE
[2018-03-11] MEDS ORDERED: LORazepam 2 MG/ML SDV VIAL IVPUSH PRN (14:45)
--- NOTE | 2018-03-11 15:06 | PN ---
Teaching Attending Note Name of Resident: Wilner Soriano ATTENDING PHYSICIAN STATEMENT I saw and evaluated the patient. I reviewed the resident's note and discussed the case with the resident. I agree with the resident's findings and plan as documented. SUBJECTIVE: No further chest pain. No cough/sputum/hemoptysis. OBJECTIVE: Afebrile, Hemodynamically Stable. Last Vital Signs Temp Pulse Resp BP Pulse Ox 98.5 F 92 H 18 164/102 H 97 03/11/18 11:34 03/11/18 11:34 03/11/18 11:34 03/11/18 11:34 03/11/18 11:34 HEENT - Atraumatic, Normocephalic. Heart - S1, S2, RRR Lungs - clear to auscultation. No crackles/wheeze. Abdomen - Soft, non-tender. Bowel Sounds normal. Extremities - chronic venous stasis changes, mild edema. Neuro - AAO x 3. Tone/Power normal all 4 extremities. Laboratory Results - last 24 hr 03/11/18 03/11/18 03/11/18 04:38 04:38 04:38 WBC 6.1 RBC 4.47 Hgb 15.1 Hct 43.0 MCV 96.3 H MCH 33.8 H MCHC 35.1 RDW 13.8 D Plt Count 78 L D MPV 8.8 D Absolute Neuts (auto) 4.1 Neutrophils % 67.2 Lymphocytes % 24.9 D Monocytes % 7.5 Eosinophils % 0.0 D Basophils % 0.4 Nucleated RBC % 0 PT with INR 14.80 H INR 1.25 H Sodium Cancelled Potassium Cancelled Chloride Cancelled Carbon Dioxide Cancelled Anion Gap Cancelled BUN Cancelled Creatinine Cancelled Creat Clearance w eGFR Cancelled Random Glucose Cancelled Calcium Cancelled Total Bilirubin Cancelled AST Cancelled ALT Cancelled Alkaline Phosphatase Cancelled Creatine Kinase Creatine Kinase Index CK-MB (CK-2) Troponin I Cancelled Total Protein Cancelled Albumin Cancelled Alcohol, Quantitative Cancelled 03/11/18 07:47 WBC RBC Hgb Hct MCV MCH MCHC RDW Plt Count MPV Absolute Neuts (auto) Neutrophils % Lymphocytes % Monocytes % Eosinophils % Basophils % Nucleated RBC % PT with INR INR Sodium 142 Potassium 3.4 L Chloride 108 H Carbon Dioxide 28 Anion Gap 6 L BUN 15 Creatinine 1.0 Creat Clearance w eGFR > 60 Random Glucose 116 H Calcium 7.9 L Total Bilirubin 1.2 H AST 78 H ALT 59 Alkaline Phosphatase 200 H Creatine Kinase 251 Creatine Kinase Index 1.1 CK-MB (CK-2) 3.0 Troponin I 0.03 Total Protein 7.3 Albumin 3.4 Alcohol, Quantitative < 3.0 Home Medications Medication Instructions Recorded Folic Acid 1 mg PO DAILY #30 tablet 01/12/18 Lisinopril [Prinivil] 10 mg PO DAILY #30 tablet 01/12/18 Metoprolol Tartrate 25 mg PO Q12H #30 tablet 01/12/18 Pantoprazole Sodium [Protonix] 40 mg PO BID #30 tablet.dr 01/12/18 Pravastatin Sodium [Pravachol -] 40 mg PO HS #30 tablet 01/12/18 Thiamine HCl [B-1] 100 mg PO DAILY #30 tablet 01/12/18 ASSESSMENT AND PLAN: 63 year old male with HTN, HLD, CAD s/p SC (s/p positive MPI with reversible defect in basal inferior wall), history of Alcohol excess and Liver Cirrhosis, presents with left sided CP onset during sleep at 3 am with associated SOB, diaphoresis, nausea, lightheadedness. No vomiting. Symptoms resolved spontaneously after several hours in ED. 1. Atypical Chest Pain, resolved TnI 0.03 ECG - NSR rate 102 with Q waves inferior leads and T wave changes samira- lateral leads. CXR - no acute cardiopulmonary findings. Patient has history of CAD with prior positive Stress Test showing reversible ischemia, previously declined cath, poorly compliant with medications generally. Cardiology consulted for evaluation and recommendations regarding further management. Loaded with Aspirin and Plavix in ED. Telemonitoring bed. NTG prn. Resume BB, LAM-I, Statin. 2. Liver Cirrhosis, appears compensated. No clinical evidence of portal hypertension. AST 78/ALT 59/TBil 1.2, INR 1.25, Albumin 3. Macrocytosis, Thrombocytopenia - sec to Alcohol excess and chronic liver disease. Will monitor Platelets. 4. Hypokalemia - replete. 5. History of Alcohol excess History of withdrawal. Currently no signs of withdrawal except for fine tremor of outstretched arms. Ativan prn. Will consult Addiction medicine for possible transfer to [facility] [place] [facility] if no intervention by Cardiology. DVT Px - SCDs. Heparin held due to Thrombocytopenia. GI Px - Protonix.
[2018-03-11] MEDS: PANTOPRAZOLE 40 MG TABLET (FP) PO SCH (15:56)
[2018-03-11] MEDS: LISINOPRIL 10 MG TABLET (FP) PO SCH (15:56)
--- NOTE | 2018-03-11 16:32 | EKG ---
Test Reason : Blood Pressure : / mmHG Vent. Rate : 075 BPM Atrial Rate : 075 BPM P-R Int : 186 ms QRS Dur : 116 ms QT Int : 434 ms P-R-T Axes : 025 -45 046 degrees QTc Int : 484 ms NORMAL SINUS RHYTHM LEFT AXIS DEVIATION INFERIOR-POSTERIOR INFARCT (CITED ON OR BEFORE 16-AUG-2014) ABNORMAL ECG WHEN COMPARED WITH ECG OF 11-MAR-2018 04:22, BORDERLINE CRITERIA FOR LATERAL INFARCT ARE NO LONGER PRESENT NON-SPECIFIC CHANGE IN ST SEGMENT IN ANTERIOR LEADS Confirmed by Anita Holman ([id number]) on 03/11/2018 4:31:51 PM Referred By: Chavo MCGOWAN Confirmed By:Anita Holman
--- NOTE | 2018-03-11 16:36 | EKG ---
Test Reason : Blood Pressure : / mmHG Vent. Rate : 102 BPM Atrial Rate : 102 BPM P-R Int : 188 ms QRS Dur : 106 ms QT Int : 382 ms P-R-T Axes : 027 -50 038 degrees QTc Int : 497 ms SINUS TACHYCARDIA LEFT AXIS DEVIATION POSSIBLE LATERAL INFARCT (CITED ON OR BEFORE 16-AUG-2014) INFERIOR-POSTERIOR INFARCT (CITED ON OR BEFORE 16-AUG-2014) ABNORMAL ECG WHEN COMPARED WITH ECG OF 06-JAN-2018 09:07, PREMATURE VENTRICULAR COMPLEXES ARE NO LONGER PRESENT QUESTIONABLE CHANGE IN INITIAL FORCES OF LATERAL LEADS T WAVE INVERSION NOW EVIDENT IN ANTERIOR LEADS Confirmed by Anita Holman ([id number]) on 03/11/2018 4:35:37 PM Referred By: Confirmed By:Anita Holman
[2018-03-11] MEDS: OMEGA-3 ACID ETHYL ESTERS (FATTY-ACIDS) 1 GM CAPSULE (FP) PO SCH (21:42)
[2018-03-12 07:44] LABS: BASO % 0.4 % (0-2.0); EOS % 1.5 % (0-4.5); HEMOGLOBIN 14.5 GM/dL (11.7-16.9); LYMPH % 39.2 % (8-40); MCH 33.7 pg (25.7-33.7); MCHC 34.4 g/dl (32.0-35.9); MEAN CELL VOLUME 97.9 fl (80-96); MEAN PLT VOLUME 8.8 fl (7.5-11.1); MONO % 7.4 % (3.8-10.2); NEUT % 51.5 % (42.8-82.8); PLATELET COUNT 45 K/MM3 (134-434); RBC 4.29 M/mm3 (4.00-5.60); WHITE BLOOD COUNT 3.4 K/mm3 (4.0-10.0)
[2018-03-12 08:30] LABS: ALBUMIN 3.7 g/dl (3.4-5.0); ALK PHOS 200 U/L (45-117); ANION GAP 10 MMOL/L (8-16); BILIRUBIN,TOTAL 1.4 mg/dL (0.2-1); BLOOD UREA NITROGEN 18 mg/dL (7-18); CALCIUM 8.4 mg/dL (8.5-10.1); CHLORIDE 119 mmol/L (98-107); CO2 26 mmol/L (21-32); CREATININE 0.9 mg/dL (0.55-1.3); GLUCOSE,RANDOM 98 mg/dL (74-106); MAGNESIUM 1.6 mg/dL (1.8-2.4); POTASSIUM 3.9 mmol/L (3.5-5.1); SGOT/AST 79 U/L (15-37); SGPT/ALT 62 U/L (13-61); SODIUM 156 mmol/L (136-145); TOT PROT 7.8 g/dl (6.4-8.2)
[2018-03-12] MEDS: METOPROLOL TARTRATE 25 MG TABLET (FP) PO SCH ×2 (09:27→21:36)
[2018-03-12] MEDS: LISINOPRIL 10 MG TABLET (FP) PO SCH (09:27)
[2018-03-12] MEDS: PANTOPRAZOLE 40 MG TABLET (FP) PO SCH (09:27)
[2018-03-12] MEDS: FOLIC ACID 1 MG TABLET (FP) PO SCH (09:27)
[2018-03-12] MEDS: OMEGA-3 ACID ETHYL ESTERS (FATTY-ACIDS) 1 GM CAPSULE (FP) PO SCH ×2 (09:27→21:36)
[2018-03-12] MEDS: ASPIRIN 81 MG CHEWABLE TABLETS PO SCH (09:27)
[2018-03-12] MEDS: THIAMINE HCL 100 MG TABLET (FP) PO SCH (09:27)
[2018-03-12] MEDS ORDERED: CLOPIDOGREL BISULFATE 75 MG TABLET (FP) PO SCH (10:00)
[2018-03-12] MEDS ORDERED: MAGNESIUM SULF 50% (8.12 MEQ/2 ML-1 GM VIAL) IVPB ONE (11:00)
[2018-03-12] MEDS ORDERED: ACETAMINOPHEN 650 MG/20.3 ML ORAL SOLUTION (CUPS) PO ONE (11:42)
[2018-03-12] MEDS ORDERED: SODIUM PHOSPHATE - 30 MM in DEXTROSE 5%-WATER - 500 ML IVPB ONE (11:45)
--- NOTE | 2018-03-12 12:18 | PN ---
Progress Note (short form) - Note Progress Note: SUBJECTIVE: No further chest pain. No cough/sputum/hemoptysis. NO palpitations/ diaphoresis/tremor/hallucinations OBJECTIVE: Afebrile, Hemodynamically Stable. No signs of alcohol withdrawal. Last Vital Signs Temp Pulse Resp BP Pulse Ox 98.2 F 75 20 139/85 97 03/12/18 06:00 03/12/18 10:00 03/12/18 10:00 03/12/18 10:03/12/18 08:46 HEENT - Atraumatic, Normocephalic. Heart - S1, S2, RRR Lungs - clear to auscultation. No crackles/wheeze. Abdomen - Soft, non-tender. Bowel Sounds normal. Extremities - chronic venous stasis changes, mild edema. Mild fine tremor outstretched arms. Neuro - AAO x 3. Tone/Power normal all 4 extremities. Laboratory Results - last 24 hr 03/11/18 03/11/18 03/12/18 15:40 21:20 05:50 WBC 3.4 L RBC 4.29 Hgb 14.5 Hct 42.0 MCV 97.9 H MCH 33.7 MCHC 34.4 RDW 13.0 Plt Count 45 L D MPV 8.8 Absolute Neuts (auto) 1.8 Neutrophils % 51.5 D Lymphocytes % 39.2 D Monocytes % 7.4 Eosinophils % 1.5 D Basophils % 0.4 Nucleated RBC % 0 Sodium Potassium Chloride Carbon Dioxide Anion Gap BUN Creatinine Creat Clearance w eGFR Random Glucose Calcium Phosphorus Magnesium Total Bilirubin AST ALT Alkaline Phosphatase Creatine Kinase Creatine Kinase Index CK-MB (CK-2) Troponin I 0.03 0.02 Total Protein Albumin 03/12/18 05:50 WBC RBC Hgb Hct MCV MCH MCHC RDW Plt Count MPV Absolute Neuts (auto) Neutrophils % Lymphocytes % Monocytes % Eosinophils % Basophils % Nucleated RBC % Sodium 156 H Potassium 3.9 Chloride 119 H Carbon Dioxide 26 Anion Gap 10 BUN 18 Creatinine 0.9 Creat Clearance w eGFR > 60 Random Glucose 98 Calcium 8.4 L Phosphorus 2.0 L Magnesium 1.6 L Total Bilirubin 1.4 H AST 79 H ALT 62 H Alkaline Phosphatase 200 H Creatine Kinase 194 Creatine Kinase Index 0.9 CK-MB (CK-2) 1.9 Troponin I 0.02 Total Protein 7.8 Albumin 3.7 Current Medications Generic Name Dose Route Start Last Admin Trade Name Freq PRN Reason Stop Dose Admin Aspirin 81 mg 03/12/18 10:00 03/12/18 09:27 Asa - PO 81 mg DAILY LISA Administration Atorvastatin Calcium 80 mg 03/12/18 22:00 Lipitor - PO HS LISA Folic Acid 1 mg 03/11/18 10:00 03/12/18 09:27 Folic Acid - PO 1 mg DAILY LISA Administration Sodium Phosphate 30 mm/ 510 mls @ 85 mls/hr 03/12/18 11:45 Dextrose IVPB 03/12/18 17:44 ONCE ONE Lisinopril 10 mg 03/11/18 15:30 03/12/18 09:27 Prinivil PO 10 mg DAILY LISA Administration Lorazepam 2 mg 03/11/18 14:45 Ativan Injection - IVPUSH Q12H PRN AGITATION Metoprolol Tartrate 25 mg 03/11/18 10:15 03/12/18 09:27 Lopressor - PO 25 mg BID LISA Administration [id number] Ethyl Esters 2 gm 03/11/18 22:00 03/12/18 09:27 Lovaza - PO 2 gm BID LISA Administration Pantoprazole Sodium 40 mg 03/11/18 14:00 03/12/18 09:27 Protonix - PO 40 mg DAILY LISA Administration Thiamine HCl 100 mg 03/11/18 10:15 03/12/18 09:27 Vitamin B1 - PO 100 mg DAILY LISA Administration ASSESSMENT AND PLAN: 63 year old male with HTN, HLD, CAD s/p [place] (s/p positive MPI with reversible defect in basal inferior wall), history of Alcohol excess and Liver Cirrhosis, presents with left sided CP onset during sleep at 3 am with associated SOB, diaphoresis, nausea, lightheadedness. No vomiting. Symptoms resolved spontaneously after several hours in ED. 1. Atypical Chest Pain, resolved TnI 0.03 ---> 0.02 ECG - NSR rate 102 with Q waves inferior leads and T wave changes samira- lateral leads. CXR - no acute cardiopulmonary findings. Patient has history of CAD with prior positive Stress Test showing reversible ischemia, previously declined cath, poorly compliant with medications generally. Cardiology consulted for evaluation and recommendations regarding further management and felt patient was too high risk of non-compliance for interventional management. Loaded with Aspirin and Plavix in ED. Continued on Aspirin. Not on dual anti- platelet therapy due to thrombocytopenia. Resumed on BB, LAM-I, Statin. 2. Liver Cirrhosis, appears compensated. No clinical evidence of portal hypertension. AST 79/ALT 62/TBil 1.4, INR 1.25, Albumin 3.7 3. Macrocytosis, Thrombocytopenia - sec to Alcohol excess and chronic liver disease. Will monitor Platelets. 4. Electrolyte Abnormalities: Hypokalemia - repleted, Hypomagnesemia - repleted , Hypophosphatemia - repleted. 5. History of Alcohol excess History of withdrawal. Currently no signs of withdrawal except for fine tremor of outstretched arms. Ativan prn. Addiction medicine consulted for possible transfer to [facility] if no further intervention by Cardiology. DVT Px - SCDs. Heparin held due to Thrombocytopenia. GI Px - Protonix. Visit type - Emergency Visit Emergency Visit: Yes ED Registration Date: 03/11/18 Care time: The patient presented to the Emergency Department on the above date and was hospitalized for further evaluation of their emergent condition. - New Patient This patient is new to me today: No - Critical Care Critical Care patient: No - Discharge Referral Referred to [facility] Med [facility] No
--- NOTE | 2018-03-12 13:49 | PN ---
Progress Note, Physician Chief Complaint: Cardiology for Dr. Martinez History of Present Illness: Atypical stabbing chest pain has resolved, reports headache. - Current Medication List Current Medications: Active Medications Aspirin (Asa -) 81 mg PO DAILY [facility] Last Admin: 03/12/18 09:27 Dose: 81 mg Atorvastatin Calcium (Lipitor -) 80 mg PO [facility] Folic Acid (Folic Acid -) 1 mg PO DAILY [facility] Last Admin: 03/12/18 09:27 Dose: 1 mg Sodium Phosphate 30 mm/ (Dextrose) 510 mls @ 85 mls/hr IVPB ONCE ONE Stop: 03/12/18 17:44 Last Admin: 03/12/18 13:36 Dose: 85 mls/hr Lisinopril (Prinivil) 10 mg PO DAILY [facility] Last Admin: 03/12/18 09:27 Dose: 10 mg Lorazepam (Ativan Injection -) 2 mg IVPUSH Q12H PRN PRN Reason: AGITATION Metoprolol Tartrate (Lopressor -) 25 mg PO BID [facility] Last Admin: 03/12/18 09:27 Dose: 25 mg [id number] Ethyl Esters (Lovaza -) 2 gm PO BID [facility] Last Admin: 03/12/18 09:27 Dose: 2 gm Pantoprazole Sodium (Protonix -) 40 mg PO DAILY [facility] Last Admin: 03/12/18 09:27 Dose: 40 mg Thiamine HCl (Vitamin B1 -) 100 mg PO DAILY [facility] Last Admin: 03/12/18 09:27 Dose: 100 mg - Objective Vital Signs: Vital Signs Temperature 98.2 F 03/12/18 06:00 Pulse Rate 75 03/12/18 10:00 Respiratory Rate 20 03/12/18 10:00 Blood Pressure 139/85 03/12/18 10:00 O2 Sat by Pulse Oximetry (%) 97 03/12/18 08:46 Constitutional: Yes: No Distress, Calm Neck: Yes: Supple Cardiovascular: Yes: Regular Rate and Rhythm Respiratory: Yes: Regular, CTA Bilaterally Gastrointestinal: Yes: Normal Bowel Sounds, Soft Edema: No Labs: CBC, BMP 03/12/18 05:50 03/12/18 05:50 INR, PTT INR 1.25 (0.83-1.09) H 03/11/18 04:38 - ....Imaging EKG: Report Reviewed (Tele: NSR) Assessment/Plan 01/04/2018 Echo: Moderate dilated with mod cLVH mod inferior HK, mod MERON, normal LVEF, abnl LV compliance, tr-mild MR Echo 06/21 showed infero and inferolateral hypokinesis with mildly to moderately reduced LV systolic function Nuclear stress 06/21 showed infarct with mild rosaura-infarct ischemia and LVEF 50% 1. Atypical chest pain syndrome with underlying CAD h/o AK and abnormal MPI 2. HTN 3. ETOH abuse 4. LV diastolic dysfunction PLAN: 1. Ruled out for AK, agree with ASA 81 qd, Lopressor 25 bid, lisinopril 10 qd with uptitration as tolerated, Lipitor 2. Not ideal candidate for revascularization therapy due to noncompliance, ongoing ETOH and consequent risk of stent thrombosis 3. Emphasized importance of compliance with meds and diet - Problems (1) Elevated LFTs Assessment/Plan: acute alcoholism F/u w/u for this elevation, including hepatitis profile. Code(s): R94.5 - ABNORMAL RESULTS OF LIVER FUNCTION STUDIES (2) Chest pain Assessment/Plan: f/u EKG (evidence of old infarct); telemetry. Lipid levels WNL. HFpEF: continue lisinopril 10 qd and metoprolol 25 bid. ASA 81 mg daily. Coronary artery evaluation: pt previously refused to consider coronary angiogram , despite having had + stress MIBI in 2014, with large infarct area and area of periinfarct ischemia. Code(s): R07.9 - CHEST PAIN, UNSPECIFIED (4) Alcohol abuse Code(s): F10.10 - ALCOHOL ABUSE, UNCOMPLICATED (5) Hypercholesteremia Code(s): E78.0 - PURE HYPERCHOLESTEROLEMIA * DO NOT USE * (6) Hypertension Code(s): I10 - ESSENTIAL (PRIMARY) HYPERTENSION Qualifiers: Hypertension type: essential hypertension Qualified Code(s): I10 - Essential (primary) hypertension (8) [place] cardiac risk >20% in next 10 years Assessment/Plan: Stress MIBI 2014: large areas of infarct with mild periinfarct ischemia. Compliance with post-angiogram medication regimen (e.g. potential need for dual- platelet therapy) and pt's admitted contining alcoholism make him unideal candidate for [facility] Code(s): Z91.89 - OTH PERSONAL RISK FACTORS, NOT ELSEWHERE CLASSIFIED (10) (HFpEF) heart failure with preserved ejection fraction Code(s): I50.30 - UNSPECIFIED DIASTOLIC (CONGESTIVE) HEART FAILURE
--- NOTE | 2018-03-12 15:35 | EKG ---
Test Reason : Blood Pressure : / mmHG Vent. Rate : 074 BPM Atrial Rate : 074 BPM P-R Int : 180 ms QRS Dur : 108 ms QT Int : 412 ms P-R-T Axes : 020 -41 024 degrees QTc Int : 457 ms NORMAL SINUS RHYTHM LEFT AXIS DEVIATION POSSIBLE LATERAL INFARCT , AGE UNDETERMINED INFERIOR-POSTERIOR INFARCT (CITED ON OR BEFORE 16-AUG-2014) ABNORMAL ECG WHEN COMPARED WITH ECG OF 11-MAR-2018 12:50, NO SIGNIFICANT CHANGE WAS FOUND Confirmed by VALERY CHUNG MD ([id number]) on 03/12/2018 3:34:35 PM Referred By: Chavo MCGOWAN Confirmed By:VALERY CHUNG MD
[2018-03-12] MEDS ORDERED: chlordiazePOXIDE HCL 25 MG CAPSULE PO PRN (18:10)
[2018-03-12] MEDS: ATORVASTATIN CA 80 MG TABLET (FP) PO SCH (21:36)
[2018-03-12] MEDS: chlordiazePOXIDE HCL 25 MG CAPSULE PO SCH (22:41)
[2018-03-13] MEDS ORDERED: LORazepam 2 MG/ML SDV VIAL IM ONE (04:06)
[2018-03-13] MEDS: chlordiazePOXIDE HCL 25 MG CAPSULE PO SCH ×2 (04:17→12:01)
[2018-03-13 08:12] LABS: BASO % 0.6 % (0-2.0); EOS % 2.3 % (0-4.5); HEMATOCRIT 41.1 % (35.4-49); HEMOGLOBIN 14.3 GM/dL (11.7-16.9); LYMPH % 36.8 % (8-40); MCH 33.7 pg (25.7-33.7); MCHC 34.8 g/dl (32.0-35.9); MEAN CELL VOLUME 96.8 fl (80-96); MONO % 7.2 % (3.8-10.2); NEUT % 53.1 % (42.8-82.8); RBC 4.24 M/mm3 (4.00-5.60); RDW 13.1 % (11.9-15.9)
[2018-03-13 08:29] LABS: ALBUMIN 3.2 g/dl (3.4-5.0); ALK PHOS 171 U/L (45-117); ANION GAP 6 MMOL/L (8-16); BILIRUBIN,DIRECT 0.5 mg/dL (0.0-0.2); BILIRUBIN,TOTAL 0.9 mg/dL (0.2-1); BLOOD UREA NITROGEN 14 mg/dL (7-18); CALCIUM 7.7 mg/dL (8.5-10.1); CHLORIDE 107 mmol/L (98-107); CO2 27 mmol/L (21-32); CREATININE 0.8 mg/dL (0.55-1.3); GLUCOSE,RANDOM 102 mg/dL (74-106); MAGNESIUM 1.7 mg/dL (1.8-2.4); PHOSPHOROUS 3.3 mg/dL (2.5-4.9); POTASSIUM 3.3 mmol/L (3.5-5.1); SGOT/AST 61 U/L (15-37); SGPT/ALT 51 U/L (13-61); SODIUM 141 mmol/L (136-145); TOT PROT 6.9 g/dl (6.4-8.2)
[2018-03-13] MEDS ORDERED: MAGNESIUM SULF 50% (8.12 MEQ/2 ML-1 GM VIAL) IVPB ONE ×2 (08:33→11:09)
[2018-03-13] MEDS ORDERED: POTASSIUM CHLORIDE TABS 20 MEQ TABLET.ER (FP) PO ONE ×2 (08:33→11:08)
[2018-03-13] MEDS: OMEGA-3 ACID ETHYL ESTERS (FATTY-ACIDS) 1 GM CAPSULE (FP) PO SCH ×2 (09:29→22:01)
[2018-03-13] MEDS: METOPROLOL TARTRATE 25 MG TABLET (FP) PO SCH ×2 (09:30→22:01)
[2018-03-13] MEDS: PANTOPRAZOLE 40 MG TABLET (FP) PO SCH (09:30)
[2018-03-13] MEDS: LISINOPRIL 10 MG TABLET (FP) PO SCH (09:30)
[2018-03-13] MEDS: FOLIC ACID 1 MG TABLET (FP) PO SCH (09:30)
[2018-03-13] MEDS: ASPIRIN 81 MG CHEWABLE TABLETS PO SCH (09:30)
[2018-03-13] MEDS: THIAMINE HCL 100 MG TABLET (FP) PO SCH (09:30)
[2018-03-13] MEDS ORDERED: LORazepam 2 MG/ML SDV VIAL IVPUSH PRN (11:03)
--- NOTE | 2018-03-13 11:14 | PN ---
Teaching Attending Note Name of Resident: Wilder Azul ATTENDING PHYSICIAN STATEMENT I saw and evaluated the patient. I reviewed the resident's note and discussed the case with the resident. I agree with the resident's findings and plan as documented. SUBJECTIVE: Confused today - no complaints. Pleasant. No fever/chills/chest pain /cough/sputum/hemoptysis. No palpitations/diaphoresis/tremor/hallucinations OBJECTIVE: Afebrile, Hemodynamically Stable. Confused. Disoriented. Last Vital Signs Temp Pulse Resp BP Pulse Ox 98.2 F 69 20 129/85 97 03/13/18 10:00 03/13/18 10:00 03/13/18 10:03/13/18 10:03/13/18 07:27 HEENT - Atraumatic, Normocephalic. Heart - S1, S2, RRR Lungs - clear to auscultation. No crackles/wheeze. Abdomen - Soft, non-tender. Bowel Sounds normal. Extremities - chronic venous stasis changes, mild edema. Mild fine tremor outstretched arms. Neuro - AAO x 1. Tone/Power normal all 4 extremities. Laboratory Results - last 24 hr 03/12/18 03/13/18 03/13/18 19:00 07:35 07:35 WBC 5.0 RBC 4.24 Hgb 14.3 Hct 41.1 MCV 96.8 H MCH 33.7 MCHC 34.8 RDW 13.1 Plt Count No Result Required. Absolute Neuts (auto) 2.7 Neutrophils % 53.1 Lymphocytes % 36.8 Monocytes % 7.2 Eosinophils % 2.3 Basophils % 0.6 Nucleated RBC % 0 Platelet Comment Mod plt clumping Sodium 142 141 Potassium 3.3 L Chloride 107 Carbon Dioxide 27 Anion Gap 6 L BUN 14 Creatinine 0.8 Creat Clearance w eGFR > 60 Random Glucose 102 Calcium 7.7 L Phosphorus 3.3 Magnesium 1.7 L Total Bilirubin 0.9 Direct Bilirubin 0.5 H AST 61 H ALT 51 Alkaline Phosphatase 171 H Total Protein 6.9 Albumin 3.2 L Current Medications Generic Name Dose Route Start Last Admin Trade Name Freq PRN Reason Stop Dose Admin Aspirin 81 mg 03/12/18 10:00 03/13/18 09:30 Asa - PO 81 mg DAILY LISA Administration Atorvastatin Calcium 80 mg 03/12/18 22:00 03/12/18 21:36 Lipitor - PO 80 mg HS LISA Administration Folic Acid 1 mg 03/11/18 10:00 03/13/18 09:30 Folic Acid - PO 1 mg DAILY LISA Administration Lisinopril 10 mg 03/11/18 15:30 03/13/18 09:30 Prinivil PO 10 mg DAILY LISA Administration Lorazepam 2 mg 03/13/18 11:03 Ativan Injection - IVPUSH Q4H PRN AGITATION Magnesium Sulfate 2 gm 03/13/18 11:09 Magnesium Sulfate IVPB 03/13/18 11:10 ONCE ONE Metoprolol Tartrate 25 mg 03/11/18 10:15 03/13/18 09:30 Lopressor - PO 25 mg BID LISA Administration Qqhlk-3-Otgk Ethyl Esters 2 gm 03/11/18 22:00 03/13/18 09:29 Lovaza - PO 2 gm BID LISA Administration Pantoprazole Sodium 40 mg 03/11/18 14:00 03/13/18 09:30 Protonix - PO 40 mg DAILY LISA Administration Potassium Chloride 40 meq 03/13/18 11:08 K-Dur - PO 03/13/18 11:09 ONCE ONE Thiamine HCl 100 mg 03/11/18 10:15 03/13/18 09:30 Vitamin B1 - PO 100 mg DAILY LISA Administration ASSESSMENT AND PLAN: 63 year old male with HTN, HLD, CAD s/p [place] (s/p positive MPI with reversible defect in basal inferior wall), history of Alcohol excess and Liver Cirrhosis, presents with left sided CP onset during sleep at 3 am with associated SOB, diaphoresis, nausea, lightheadedness. No vomiting. Symptoms resolved spontaneously after several hours in ED. 1. Atypical Chest Pain, resolved TnI 0.03 ---> 0.02 ECG - NSR rate 102 with Q waves inferior leads and T wave changes samira- lateral leads. CXR - no acute cardiopulmonary findings. Patient has history of CAD with prior positive Stress Test showing reversible ischemia, previously declined cath, poorly compliant with medications generally. Cardiology consulted for evaluation and recommendations regarding further management and felt patient was too high risk of non-compliance for interventional or even pharmacologic management. He was loaded with Aspirin and Plavix in ED and continued on Aspirin. Not on dual anti-platelet therapy due to thrombocytopenia. Resumed on BB, LAM-I, Statin. 2. Liver Cirrhosis, appears compensated. No clinical evidence of portal hypertension. AST 61/ALT 51, INR 1.25, Albumin 3.7 3. Macrocytosis, Thrombocytopenia - sec to Alcohol excess and chronic liver disease. Will monitor Platelets. 4. Electrolyte Abnormalities: Hypokalemia - repleted, Hypomagnesemia - repleted. 5. History of Alcohol excess with current acute withdrawal Ativan prn. Addiction medicine consulted and possible transfer to [facility] (pending insurance issues) if no further intervention by Cardiology. DVT Px - SCDs. Heparin held due to Thrombocytopenia. GI Px - Protonix.
[2018-03-13] MEDS ORDERED: MAGNESIUM OXIDE 400 MG TABLET (FP) PO ONE (12:04)
--- NOTE | 2018-03-13 12:39 | PN ---
Physical Exam: SUBJECTIVE: Patient seen and examined this AM. Appears uncomfortable, states he is not having any pain anywhere but does endorse some chills overnight. OBJECTIVE: Vital Signs Period Temp Pulse Resp BP Sys/De Dios Pulse Ox Last 24 Hr 98 F-98.6 F 69-94 18-20 129-186/60-106 97-97 GENERAL: A&O, no acute distress, diaphoretic HEAD: Normocephalic, atraumatic. EYES: no scleral icterus EARS, NOSE, THROAT: oropharynx clear without exudates. Moist mucous membranes. NECK: supple without lymphadenopathy LUNGS: CTA b/l, no crackles or wheezes HEART: Regular rate and rhythm, normal S1 and S2 without murmur ABDOMEN: Soft, nontender to palpation, normoactive bowel sounds MUSCULOSKELETAL: No bony deformities or tenderness. EXTREMITIES: warm, well-perfused. No peripheral edema. NEUROLOGICAL: Cranial nerves II-XII grossly intact. Normal speech. Laboratory Results - last 24 hr 03/12/18 03/13/18 03/13/18 19:00 07:35 07:35 WBC 5.0 RBC 4.24 Hgb 14.3 Hct 41.1 MCV 96.8 H MCH 33.7 MCHC 34.8 RDW 13.1 Plt Count No Result Required. Absolute Neuts (auto) 2.7 Neutrophils % 53.1 Lymphocytes % 36.8 Monocytes % 7.2 Eosinophils % 2.3 Basophils % 0.6 Nucleated RBC % 0 Platelet Comment Mod plt clumping Sodium 142 141 Potassium 3.3 L Chloride 107 Carbon Dioxide 27 Anion Gap 6 L BUN 14 Creatinine 0.8 Creat Clearance w eGFR > 60 Random Glucose 102 Calcium 7.7 L Phosphorus 3.3 Magnesium 1.7 L Total Bilirubin 0.9 Direct Bilirubin 0.5 H AST 61 H ALT 51 Alkaline Phosphatase 171 H Total Protein 6.9 Albumin 3.2 L Active Medications Generic Name Dose Route Start Last Admin Trade Name Freq PRN Reason Stop Dose Admin Aspirin 81 mg 03/12/18 10:00 03/13/18 09:30 Asa - PO 81 mg DAILY LISA Administration Atorvastatin Calcium 80 mg 03/12/18 22:00 03/12/18 21:36 Lipitor - PO 80 mg HS LISA Administration Folic Acid 1 mg 03/11/18 10:00 03/13/18 09:30 Folic Acid - PO 1 mg DAILY LISA Administration Lisinopril 10 mg 03/11/18 15:30 03/13/18 09:30 Prinivil PO 10 mg DAILY LISA Administration Lorazepam 2 mg 03/13/18 11:03 Ativan Injection - IVPUSH Q4H PRN AGITATION Metoprolol Tartrate 25 mg 03/11/18 10:15 03/13/18 09:30 Lopressor - PO 25 mg BID LISA Administration Siuzr-2-Humj Ethyl Esters 2 gm 03/11/18 22:00 03/13/18 09:29 Lovaza - PO 2 gm BID LISA Administration Pantoprazole Sodium 40 mg 03/11/18 14:00 03/13/18 09:30 Protonix - PO 40 mg DAILY LISA Administration Potassium Chloride 40 meq 03/13/18 18:03 K-Dur - PO 03/13/18 18:04 ONCE ONE Thiamine HCl 100 mg 03/11/18 10:15 03/13/18 09:30 Vitamin B1 - PO 100 mg DAILY LISA Administration ASSESSMENT/PLAN: 63 year old non compliant male with PMH of EtOH abuse, alcoholic cirrhosis, CAD (stress test 2015 large fixed defect in inferolateral wall and small periinfarct reversible defect in basal-inferior wall), HTN, and HLD admitted with chest pain, withdrawal from EtOH EtOH Withdrawal -Monitor CIWA -Ativan 2 mg IV Q4 PRN for agitation and withdrawal -Addiction medicine consulted, will await further recs -Avoid librium with known liver disease -Pt stable for discharge medically if able to be discharged to Detox facility -Sports Medicine Coordinator pt on ethanol abuse Atypical chest pain, ACS ruled out -Initial troponin leak resolved -Cardiology consult appreciated -likely not a good candidate for cath with known noncompliance, would likely not comply with dual antiplatelet if stenting required -Chest pain resolved Macrocyosis/Thrombocytopenia -likely secondary to alcohol abuse and liver cirrhosis -Stable, monitor platelet count and transfuse if below 20K or below 50K if bleeding CAD -ASA and statin -stress in past with large fixed defect HTN -Lisinopril 10 mg PO Daily -Lopressor 25 mg PO BID HLD -Lipitor 80 mg PO HS DVT Prophylaxis -Held due to thrombocytopenia FEN -Fluids: none -Electrolytes: Monitor and replete, BMP in AM -Nutrition: Cholesterol/Fat controlled Disposition Telemetry Visit type - Emergency Visit Emergency Visit: Yes ED Registration Date: 03/11/18 Care time: The patient presented to the Emergency Department on the above date and was hospitalized for further evaluation of their emergent condition. - New Patient This patient is new to me today: Yes Date on this admission: 03/13/18 - Critical Care Critical Care patient: No
--- NOTE | 2018-03-13 13:49 | PN ---
Progress Note, Physician - Current Medication List Current Medications: Active Medications Aspirin (Asa -) 81 mg PO DAILY [facility] Last Admin: 03/13/18 09:30 Dose: 81 mg Atorvastatin Calcium (Lipitor -) 80 mg PO HS [facility] Last Admin: 03/12/18 21:36 Dose: 80 mg Folic Acid (Folic Acid -) 1 mg PO DAILY [facility] Last Admin: 03/13/18 09:30 Dose: 1 mg Lisinopril (Prinivil) 10 mg PO DAILY [facility] Last Admin: 03/13/18 09:30 Dose: 10 mg Lorazepam (Ativan Injection -) 2 mg IVPUSH Q4H PRN PRN Reason: AGITATION Metoprolol Tartrate (Lopressor -) 25 mg PO BID [facility] Last Admin: 03/13/18 09:30 Dose: 25 mg Kxqdv-2-Gupy Ethyl Esters (Lovaza -) 2 gm PO BID [facility] Last Admin: 03/13/18 09:29 Dose: 2 gm Pantoprazole Sodium (Protonix -) 40 mg PO DAILY [facility] Last Admin: 03/13/18 09:30 Dose: 40 mg Potassium Chloride (K-Dur -) 40 meq PO ONCE ONE Stop: 03/13/18 18:04 Thiamine HCl (Vitamin B1 -) 100 mg PO DAILY [facility] Last Admin: 03/13/18 09:30 Dose: 100 mg - Objective Vital Signs: Vital Signs Temperature 98.2 F 03/13/18 10:00 Pulse Rate 69 03/13/18 10:00 Respiratory Rate 20 03/13/18 10:00 Blood Pressure 129/85 03/13/18 10:00 O2 Sat by Pulse Oximetry (%) 97 03/13/18 07:27 Eyes: Yes: WNL, Conjunctiva Clear, EOM Intact HENT: Yes: WNL, Atraumatic, Normocephalic Neck: Yes: WNL, Supple, Trachea Midline Cardiovascular: Yes: WNL, Regular Rate and Rhythm Respiratory: Yes: WNL, Regular, CTA Bilaterally Gastrointestinal: Yes: WNL, Normal Bowel Sounds Genitourinary: Yes: WNL Musculoskeletal: Yes: WNL Extremities: Yes: WNL Edema: No Integumentary: Yes: WNL Neurological: Yes: WNL, Alert, Oriented ...Motor Strength: WNL Psychiatric: Yes: WNL Labs: CBC, BMP 03/13/18 07:35 03/13/18 07:35 INR, PTT INR 1.25 (0.83-1.09) H 03/11/18 04:38 Assessment/Plan Assessment/Plan 01/04/2018 Echo: Moderate dilated with mod cLVH mod inferior HK, mod MERON, normal LVEF, abnl LV compliance, tr-mild MR Echo 06/21 showed infero and inferolateral hypokinesis with mildly to moderately reduced LV systolic function Nuclear stress 06/21 showed infarct with mild rosaura-infarct ischemia and LVEF 50% 1. Atypical chest pain syndrome with underlying CAD h/o OK and abnormal MPI 2. HTN 3. ETOH abuse 4. LV diastolic dysfunction PLAN: 1. Ruled out for OK, agree with ASA 81 qd, Lopressor 25 bid, lisinopril 10 qd with uptitration as tolerated, Lipitor 2. Not ideal candidate for revascularization therapy due to noncompliance, ongoing ETOH and consequent risk of stent thrombosis 3. Emphasized importance of compliance with meds and diet 4. Refused c. cath Jan 10 2018 -understands the risks - Problems (1) Elevated LFTs Assessment/Plan: acute alcoholism F/u w/u for this elevation, including hepatitis profile. Code(s): R94.5 - ABNORMAL RESULTS OF LIVER FUNCTION STUDIES (2) Chest pain Assessment/Plan: f/u EKG (evidence of old infarct); telemetry. Lipid levels WNL. HFpEF: continue lisinopril 10 qd and metoprolol 25 bid. ASA 81 mg daily. Coronary artery evaluation: pt previously refused to consider coronary angiogram , despite having had + stress MIBI in 2014, with large infarct area and area of periinfarct ischemia. Code(s): R07.9 - CHEST PAIN, UNSPECIFIED (4) Alcohol abuse Code(s): F10.10 - ALCOHOL ABUSE, UNCOMPLICATED (5) Hypercholesteremia Code(s): E78.0 - PURE HYPERCHOLESTEROLEMIA * DO NOT USE * (6) Hypertension Code(s): I10 - ESSENTIAL (PRIMARY) HYPERTENSION Qualifiers: Hypertension type: essential hypertension Qualified Code(s): I10 - Essential (primary) hypertension (8) [place] cardiac risk >20% in next 10 years Assessment/Plan: Stress MIBI 2014: large areas of infarct with mild periinfarct ischemia. Compliance with post-angiogram medication regimen (e.g. potential need for dual- platelet therapy) and pt's admitted contining alcoholism make him unideal candidate for [facility] Code(s): Z91.89 - OTH PERSONAL RISK FACTORS, NOT ELSEWHERE CLASSIFIED (10) (HFpEF) heart failure with preserved ejection fraction Code(s): I50.30 - UNSPECIFIED DIASTOLIC (CONGESTIVE) HEART FAILURE
[2018-03-13 14:31] LABS: HEMATOCRIT 42.3 % (35.4-49); MCH 34.3 pg (25.7-33.7); MCHC 35.4 g/dl (32.0-35.9); MEAN CELL VOLUME 96.9 fl (80-96); PLATELET COUNT 45 K/MM3 (134-434); RBC 4.36 M/mm3 (4.00-5.60); RDW 12.9 % (11.9-15.9); WHITE BLOOD COUNT 6.1 K/mm3 (4.0-10.0)
[2018-03-13] MEDS: POTASSIUM CHLORIDE TABS 20 MEQ TABLET.ER (FP) PO ONE ×2 (16:45→17:13)
[2018-03-13] MEDS: ATORVASTATIN CA 80 MG TABLET (FP) PO SCH (22:01)
[2018-03-13] MEDS ORDERED: chlordiazePOXIDE HCL 25 MG CAPSULE PO SCH (23:00)
[2018-03-14 06:43] LABS: HEMATOCRIT 38.4 % (35.4-49); HEMOGLOBIN 13.5 GM/dL (11.7-16.9); MCH 33.9 pg (25.7-33.7); MCHC 35.2 g/dl (32.0-35.9); MEAN CELL VOLUME 96.3 fl (80-96); MEAN PLT VOLUME 10.3 fl (7.5-11.1); PLATELET COUNT 45 K/MM3 (134-434); RBC 3.99 M/mm3 (4.00-5.60); RDW 12.9 % (11.9-15.9); WHITE BLOOD COUNT 4.6 K/mm3 (4.0-10.0)
[2018-03-14] MEDS ORDERED: LORazepam 2 MG/ML SDV VIAL IVPUSH PRN (07:50)
[2018-03-14] MEDS: OMEGA-3 ACID ETHYL ESTERS (FATTY-ACIDS) 1 GM CAPSULE (FP) PO SCH (09:32)
[2018-03-14] MEDS: ASPIRIN 81 MG CHEWABLE TABLETS PO SCH (09:33)
[2018-03-14] MEDS: LISINOPRIL 10 MG TABLET (FP) PO SCH (09:33)
[2018-03-14] MEDS: METOPROLOL TARTRATE 25 MG TABLET (FP) PO SCH (09:33)
[2018-03-14] MEDS: THIAMINE HCL 100 MG TABLET (FP) PO SCH (09:33)
[2018-03-14] MEDS: FOLIC ACID 1 MG TABLET (FP) PO SCH (09:33)
[2018-03-14] MEDS: PANTOPRAZOLE 40 MG TABLET (FP) PO SCH (09:33)
[2018-03-14 10:17] LABS: BLOOD UREA NITROGEN 20 mg/dL (7-18); CREATININE 0.8 mg/dL (0.55-1.3); GLUCOSE,RANDOM 98 mg/dL (74-106)
[2018-03-14 10:18] LABS: ANION GAP 7 MMOL/L (8-16); CALCIUM 8.3 mg/dL (8.5-10.1); CHLORIDE 111 mmol/L (98-107); CO2 24 mmol/L (21-32); MAGNESIUM 1.9 mg/dL (1.8-2.4); PHOSPHOROUS 2.9 mg/dL (2.5-4.9); POTASSIUM 3.8 mmol/L (3.5-5.1); SODIUM 142 mmol/L (136-145)
[2018-03-14 10:19] LABS: ALBUMIN 3.2 g/dl (3.4-5.0); ALK PHOS 190 U/L (45-117); BILIRUBIN,TOTAL 0.9 mg/dL (0.2-1); SGOT/AST 65 U/L (15-37); SGPT/ALT 55 U/L (13-61); TOT PROT 6.7 g/dl (6.4-8.2)
--- NOTE | 2018-03-14 12:42 | PN ---
Teaching Attending Note Name of Resident: Wilder Azul ATTENDING PHYSICIAN STATEMENT I saw and evaluated the patient. I reviewed the resident's note and discussed the case with the resident. I agree with the resident's findings and plan as documented. SUBJECTIVE:asymptomatic. tolerating diet. denies CP, SOB, fever, chills, N/V/C/D , PARMAR, blured vision, auditory/visual hallucinations OBJECTIVE: Last Vital Signs Temp Pulse Resp BP Pulse Ox 98.7 F 81 18 129/75 96 03/14/18 06:00 03/14/18 09:27 03/14/18 09:27 03/14/18 09:27 03/14/18 08:15 General NAD, A&O x3 CV S1 S2 RRR no m/r/g abdomen soft NT/ND Extremities no tremor ASSESSMENT AND PLAN: 63 year old male with HTN, HLD, CAD s/p [place] (s/p positive MPI with reversible defect in basal inferior wall), history of Alcohol excess and Liver Cirrhosis, presents with left sided CP onset during sleep at 3 am with associated SOB, diaphoresis, nausea, lightheadedness. No vomiting. Symptoms resolved spontaneously after several hours in ED. 1. CP- no recurrent episodes here. no event on monitor. flat trend of troponins. Patient has history of CAD with prior positive Stress Test showing reversible ischemia, previously declined cath, poorly compliant with medications generally.Cardiology consulted for evaluation and recommendations regarding further management and felt patient was too high risk of non- compliance for interventional or even pharmacologic management. on asa/BB/acei/ statin. no further intevention at this time. 2. acute ETOH withdrawal- started on benzo taper yesterday but only received one dose. currently CIWA 0. does not have insurance. not interested in inpatient rehab. counselled on effects of ETOH and worseningn liver function and if continues to drink. verbalized understanding. outpatient referral list to be guven by CM. 3. Liver Cirrhosis, appears compensated. 4. Macrocytosis, Thrombocytopenia - sec to Alcohol excess and chronic liver disease. no signs of bleeding 5. Hypokalemia- replete 6. Hypomagnesemia- resolved 6. d/c home. encouraged to f/u in clinic and establish primary medical care.
[2018-03-14] MEDS ORDERED: MAGNESIUM OXIDE 400 MG TABLET (FP) PO ONE (12:47)
--- NOTE | 2018-03-14 13:08 | DS ---
Physical Exam: SUBJECTIVE: Patient seen and examined this AM. He states he is much better. He denies any headache, fevers, chills, tremors, hallucinations, n/v/d. OBJECTIVE: Vital Signs Period Temp Pulse Resp BP Sys/De Dios Pulse Ox Last 24 Hr 97.3 F-99.1 F 71-91 18-20 121-146/75-93 96-96 PHYSICAL EXAM GENERAL: A&O, no acute distress HEAD: Normocephalic, atraumatic. EYES: no scleral icterus EARS, NOSE, THROAT: oropharynx clear without exudates. Moist mucous membranes. NECK: supple without lymphadenopathy LUNGS: CTA b/l, no crackles or wheezes HEART: Regular rate and rhythm, normal S1 and S2 without murmur ABDOMEN: Soft, nontender to palpation, normoactive bowel sounds MUSCULOSKELETAL: No bony deformities or tenderness. EXTREMITIES: warm, well-perfused. No peripheral edema. LABS Laboratory Results - last 24 hr 03/13/18 03/14/18 03/14/18 13:40 05:30 05:30 WBC 6.1 4.6 RBC 4.36 3.99 L Hgb 15.0 13.5 Hct 42.3 38.4 MCV 96.9 H 96.3 H MCH 34.3 H 33.9 H MCHC 35.4 35.2 RDW 12.9 12.9 Plt Count 45 L 45 L MPV 10.0 D 10.3 Sodium 142 Potassium 3.8 Chloride 111 H Carbon Dioxide 24 Anion Gap 7 L BUN 20 H Creatinine 0.8 Creat Clearance w eGFR > 60 Random Glucose 98 Calcium 8.3 L Phosphorus 2.9 Magnesium 1.9 Total Bilirubin 0.9 AST 65 H ALT 55 Alkaline Phosphatase 190 H Total Protein 6.7 Albumin 3.2 L HOSPITAL COURSE: Date of Admission:03/11/18 Date of Discharge: 03/14/18 HPI on Admission: 63 year old non compliant male with PMH of EtOH abuse, alcoholic cirrhosis, CAD (stress test 2015 large fixed defect in inferolateral wall and small periinfarct reversible defect in basal-inferior wall), , HTN, and HLD presenting chest pain in the left side of his chest just above his left nipple that started wile he was sleeping at 3 am and didn't get better this time with tylenol. Pain was non radiating, sudden in onset, constant, 10/10 in intensity. Pain got better after getting meds in hospital. Pt states that pain was associated with trouble beating, palpitations, dizziness an diaphoresis. He states he has many episodes of this type of pain but its use to get better with tylenol but this time it didn't help. He does drink a 2 bottle of Bacardi daily and his last drink was last night at 22:00. He states he sometimes gets the shakes when he doesn't drink for a few days but denies seizures in the psat. patient was admitted Dec 2017 for CP but refused cath at that time. Now CP is associated with new T inversions in Vi-V4 concerning for proximal LAD lesion. Patient was treated with asa, plav and statin, but requires transfer for cath. Hospital Course: He was seen by cardiology who stated he was not a good candidate for cath due to his medication noncompliance and the fact that he would very unlikely comply with dual antiplatelet therapy following cath. Chest pain resolved. He was noted to be withdrawing from alcohol. He was managed with ativan PRN as needed for 2 days. He did not require any ativan for greater than 24 hours and was deemed medically safe for discharge. He was counseled about the importance of discontinuing his alcohol abuse and advised of the risks. He does not have a primary care physician so he was referred to the [facility] clinic and instructed to follow up within one week. Minutes to complete discharge: 35 Discharge Summary Reason For Visit: ALCOHOL ABUSE,CAD, HYPERCHOLESTEROLEMIA,CHEST PAIN Current Active Problems CAD (coronary artery disease) (Acute) Chest pain (Acute) Hypertension (Acute) Alcohol abuse (Chronic) Hypercholesteremia (Chronic) Condition: Stable - Instructions Diet, Activity, Other Instructions: Please communicate discharge instructions to patient clearly in [place]. You were admitted to the hospital with complaint of chest pain. An acute heart attack was ruled out. Cardiology saw you and did not recommend any further procedures at this time. While you were admitted, you were found to be withdrawing from alcohol and given ativan to help prevent any withdrawal seizures. At this point you are medically safe for discharge from the hospital. It is very important that you quit drinking alcohol. If you continue to drink alcohol you are at risk for liver failure and . A list will be provided to you for outpatient rehab services. You should follow up with a primary care physician. As you do not have one, the information for the [facility] has been provided for you in the discharge paperwork. You should continue all of your home medications as they are prescribed. Your protonix was discontinued as it can cause low platelet counts and your platelets were very low. If you have any significant chest pain, tremors, dizziness, shortness of breath , or any other concerning symptoms, you should be evaluated by your doctor or return to the emergency department. Referrals: Nathan Wiley MD [Staff Physician] - Disposition: HOME - Home Medications Comprehensive Discharge Medication List: Ambulatory Orders Folic Acid 1 mg PO DAILY #30 tablet 01/12/18 Lisinopril [Prinivil] 10 mg PO DAILY #30 tablet 01/12/18 Metoprolol Tartrate 25 mg PO Q12H #30 tablet 01/12/18 Pravastatin Sodium [Pravachol -] 40 mg PO HS #30 tablet 01/12/18 Thiamine HCl [B-1] 100 mg PO DAILY #30 tablet 01/12/18 Aspirin 81 mg DAILY 03/13/18 Famotidine 20 mg PO Q12H 03/13/18 This patient is new to me today: No Emergency Visit: Yes ED Registration Date: 03/11/18 Care time: The patient presented to the Emergency Department on the above date and was hospitalized for further evaluation of their emergent condition. Critical Care patient: No - Discharge Referral Referred to [facility] Med P.C.: No
--- NOTE | 2018-03-14 13:55 | PN ---
Progress Note, Physician Chief Complaint: Pt believes he is going to a detox program today. Denies chest pain. History of Present Illness: 63 year old male with PMH of EtOH abuse, cirrhosis, significant ischemic cardiac history (medically non compliant after workup demonstrating ischemia in 2014), HTN, and HLD presenting with chest pain in the left side of his chest that started a few hours ago that is non-exertional, non-pleuritic, non- radiating and does not co-present with nausea, vomiting, diarrhea, SOB or other symptoms. He does drink a bottle of Bacardi daily and his last drink was last night at 22:00. He states he sometimes gets the shakes when he doesn't drink for a few days but denies seizures in the psat. He was admitted to our hospital a few months ago for similar chest pain and was worked up with negative EKGs and troponins and recommended medications and stress tst but he has been non compliant with meds or follow up. - Current Medication List Current Medications: Active Medications Aspirin (Asa -) 81 mg PO DAILY [facility] Last Admin: 03/14/18 09:33 Dose: 81 mg Atorvastatin Calcium (Lipitor -) 80 mg PO HS [facility] Last Admin: 03/13/18 22:01 Dose: 80 mg Folic Acid (Folic Acid -) 1 mg PO DAILY [facility] Last Admin: 03/14/18 09:33 Dose: 1 mg Lisinopril (Prinivil) 10 mg PO DAILY [facility] Last Admin: 03/14/18 09:33 Dose: 10 mg Lorazepam (Ativan Injection -) 2 mg IVPUSH Q12H PRN PRN Reason: AGITATION Metoprolol Tartrate (Lopressor -) 25 mg PO BID [facility] Last Admin: 03/14/18 09:33 Dose: 25 mg Nxtme-4-Khev Ethyl Esters (Lovaza -) 2 gm PO BID [facility] Last Admin: 03/14/18 09:32 Dose: 2 gm Pantoprazole Sodium (Protonix -) 40 mg PO DAILY [facility] Last Admin: 03/14/18 09:33 Dose: 40 mg Thiamine HCl (Vitamin B1 -) 100 mg PO DAILY [facility] Last Admin: 03/14/18 09:33 Dose: 100 mg - Objective Vital Signs: Vital Signs Temperature 98.7 F 03/14/18 06:00 Pulse Rate 81 03/14/18 09:27 Respiratory Rate 18 03/14/18 09:27 Blood Pressure 129/75 03/14/18 09:27 O2 Sat by Pulse Oximetry (%) 96 03/14/18 08:15 Constitutional: Yes: Anxious Eyes: Yes: WNL HENT: Yes: WNL Labs: CBC, BMP 03/14/18 05:30 03/14/18 05:30 INR, PTT INR 1.25 (0.83-1.09) H 03/11/18 04:38 Problem List - Problems (1) Hypertriglyceridemia Assessment/Plan: on statin; f/u prifile. Code(s): E78.1 - PURE HYPERGLYCERIDEMIA (2) Alcohol abuse Code(s): F10.10 - ALCOHOL ABUSE, UNCOMPLICATED (3) (HFpEF) heart failure with preserved ejection fraction Assessment/Plan: Continue metoprolol and lisinopril. BUN/Cr, electrlytes, Is and Os, daily weight. Code(s): I50.30 - UNSPECIFIED DIASTOLIC (CONGESTIVE) HEART FAILURE (4) Elevated LFTs Code(s): R94.5 - ABNORMAL RESULTS OF LIVER FUNCTION STUDIES (5) [place] cardiac risk >20% in next 10 years Assessment/Plan: stress MIBI when stable. Code(s): Z91.89 - OTH PERSONAL RISK FACTORS, NOT ELSEWHERE CLASSIFIED (6) Acute on chronic alcoholic liver disease Assessment/Plan: ETOH rehabilitation would be ideal; pt must acquire insurance. Code(s): K70.9 - ALCOHOLIC LIVER DISEASE, UNSPECIFIED
[2018-03-14 14:07] VITALS: BP 121/76; PULSE 77; TEMP 98.6
[2018-03-14] MEDS ORDERED: chlordiazePOXIDE 5 MG CAPSULE PO SCH (23:00)
[2018-03-15] MEDS ORDERED: chlordiazePOXIDE 5 MG CAPSULE PO SCH (23:00)
== END 2018-03-14 15:50 | disposition home or self-care (01) | DRG 775 ==
LOC: JER 03:17 → JERBED 09:00 → J4W 11:15
PROVIDERS: ATTEND Internal Medicine
DX: F10.239 Alcohol dependence with withdrawal, unspecified (principal); R07.89 Other chest pain; I25.110 Atherosclerotic heart disease of native coronary artery with unstable angina pectoris; I50.30 Unspecified diastolic (congestive) heart failure; I25.2 Old myocardial infarction; I11.0 Hypertensive heart disease with heart failure; I50.32 Chronic diastolic (congestive) heart failure; D69.6 Thrombocytopenia, unspecified; I45.81 Long QT syndrome; E83.42 Hypomagnesemia; E83.39 Other disorders of phosphorus metabolism; K70.30 Alcoholic cirrhosis of liver without ascites; E87.6 Hypokalemia; Z91.14 Patient's other noncompliance with medication regimen; E66.9 Obesity, unspecified; Z68.32 Body mass index [BMI] 32.0-32.9, adult; F17.210 Nicotine dependence, cigarettes, uncomplicated; E78.1 Pure hyperglyceridemia; R94.5 Abnormal results of liver function studies; D75.89 Other specified diseases of blood and blood-forming organs; I87.8 Other specified disorders of veins; R45.1 Restlessness and agitation
CPT/HCPCS: 36415; 71045-TC-FY; 80053; 80307; 82248; 82550; 82553; 83735; 84100; 84295; 84484; 85025; 85027; 85610; 93005; 93010; 99284-25; J7030

== ENCOUNTER 2018-07-14 17:06 | Observation (INO) | payer OTHER ==
--- NOTE | 2018-07-14 17:19 | PDOC ---
Rapid Medical Evaluation Chief Complaint: Chest Pain Time Seen by Provider: 07/14/18 17:13 Medical Evaluation: Allergies Allergy/AdvReac Type Severity Reaction Status Date / Time No Known Allergies Allergy Verified 07/10/18 20:03 07/14/18 17:19 I have performed a brief in-person evaluation of this patient. The patient presents with a chief complaint of: h/o HTN present with complains of left side chest pain since this morning which he drunk alcohol to try and make chest pain go away. Report drinking 2 beers for the chest pain but chest got worse. Report nausea Pertinent physical exam findings: heart RRR. lungs CTAB I have ordered the following: ekg, cbc,cmp cardiac profile The patient will proceed to the ED for further evaluation. Discharge Disposition - Diagnosis Chest pain Qualifiers: Chest pain type: unspecified Qualified Code(s): R07.9 - Chest pain, unspecified - Discharge Dispostion Condition at time of disposition: Stable - Referrals - Patient Instructions - Post Discharge Activity
--- NOTE | 2018-07-14 17:32 | PDOC ---
History of Present Illness - General Chief Complaint: Chest Pain Stated Complaint: CHEST PAIN Time Seen by Provider: 07/14/18 17:13 History Source: Patient Exam Limitations: No Limitations - History of Present Illness Initial Comments: 07/14/18 17:22 63YOM with h/o HTN, HLD, NIDDM, COPD, EtOH use and hepatocellular disease ( diagnosed in the past few days) who was recently admitted for chest pain, negative troponins x2, non-ischemic EKG, and echo with LA dilatation, with elevated LFTs (AST/ALT 1006/1032), was on CIWA, cardiology and GI saw the patient in consult, but he left AMA. He returns with continued non-radiating mild-moderate left anterior chest pain which he notes is the same as prior and for which he has not taken any medications. Notes occasional sweats, and constant nausea, but denies SOB, vertigo, lightheadedness, headache, vomiting, diarrhea, constipation, or other new symptoms. Drank EtOH to excess today as well as yesterday. Past History - Past Medical History Allergies/Adverse Reactions: Allergies Allergy/AdvReac Type Severity Reaction Status Date / Time No Known Allergies Allergy Verified 07/14/18 17:13 Home Medications: Ambulatory Orders Atorvastatin Calcium [Lipitor] 10 mg PO DAILY 07/11/18 Lisinopril [Prinivil] 20 mg PO BID 07/11/18 Metoprolol Succinate [Toprol Xl] 50 mg PO DAILY 07/11/18 COPD: Yes Diabetes: Yes HTN: Yes Hypercholesterolemia: Yes Psychiatric Problems: Yes (DEPRESSION) - Surgical History Abdominal Surgery: Yes Appendectomy: Yes - Immunization History Immunization Up to Date: No - Suicide/Smoking/Psychosocial Hx Smoking History: Never smoked Have you smoked in the past 12 months: No Hx Alcohol Use: No Drug/Substance Use Hx: No Review of Systems - Review of Systems Able to Perform ROS?: Yes Comments:: 07/14/18 17:32 GEN: sweats, no fever, chills, malaise, generalized weakness, or weight change HEENT: no ear pain, sore throat, vision change, or eye pain CV: chest pain, no palpitations, lightheadedness, syncope, or edema RESP: no cough, wheezing, or SOB GI: nausea, no abdominal pain, vomiting, diarrhea, constipation, or white/black/ bloody stool : no dysuria, hematuria, incontinence, retention, bleeding, or discharge MSK: no neck/back pain, muscle weakness/pain, or joint swelling/pain NEURO: no headache, seizure, vertigo, numbness, tingling, or focal weakness PSYCH: no substance use, no behavior change SKIN: no jaundice, no rash ROS otherwise negative except as noted in HPI *Physical Exam - Vital Signs Last Vital Signs Temp Pulse Resp BP Pulse Ox 98.1 F 64 20 134/79 98 07/15/18 14:00 07/15/18 14:00 07/15/18 10:00 07/15/18 14:00 07/14/18 21:40 - Physical Exam Comments: 07/14/18 17:33 GENERAL: tired and a bit uncomfortable-appearing Croatian-speaking male, mild odor of alcohol present and appears mildly intoxicated, A/Ox4, mild distress, answers questions appropriately HEENT: PERRLA, EOMI, moist mucous membranes NECK/BACK: no midline ttp, no spinal stepoff or deformity, no hematoma, full ROM , neck supple CARDIOVASCULAR: regularly irregular rhythm (two goob-[id number] beat-pause pattern), normal S1S2, no MGR, strong peripheral pulses, capillary refill <2 seconds, extremities wwp, no edema LUNGS/RESPIRATORY: no respiratory distress, CTAB GI/ABDOMEN: symmetric [id number], normoactive BS, soft, no ttp, no midline pulsatile masses : no CVA tenderness EXTREMITIES: no muscle atrophy, no acute deformity SKIN: possible slight jaundice, skin warm and dry, no pallor, no rash, no bruising, no skin breakdown, no cuts, no lesions NEUROLOGICAL: GCS 15, CN II-XII grossly intact, 5/5 strength proximally and distally, no facial droop, no asterixis Heart Score/ECG Review - History History: Moderately suspicious - Electrocardiogram EKG: Non specific repolarization disturbance - Age Age: 45-65 - Risk Factors Risk Factors Heart Score: Yes Hx Hypercholesterolemia, Yes Hx Hypertension, Yes Hx Diabetes Based on the list above the patient has:: >/=3 risk factors or Hx atherosclerotic disease - Troponin Troponin: </= normal limit - Score Heart Score - Total: 5 #1 07/14/18 17:02 Sinus rhythm with PACs, ventricular rate of 82, left axis deviation, no VIVIANE, no STD, but there is TW flattening in I, II, III, aVR, aVL, aVF, V1, and V6. EKG looks essentially the same as prior from 07/11/18. Procedures - Bedside Ultrasound Remarks: STUDY: RUQ INDICATION: Abdominal pain FINDINGS: Liver with fibrotic changes, GB without stones, distention, pericholecystic fluid, wall thickening, or CBD dilatation CONCLUSION: Liver US c/f cirrhosis/hepatocellular changes, GB without e/o cholecystitis or cholelithiasis or choledocholithiasis STUDY: Renal INDICATION: Abdominal pain FINDINGS: Kidneys normal size bilaterally without e/o hydronephrosis CONCLUSION: Normal renal US ED Treatment Course - LABORATORY CBC & Chemistry Diagram: 07/15/18 07:04 07/15/18 07:04 - ADDITIONAL ORDERS Additional order review: 07/14/18 17:27 RBC 4.58 MCV 93.0 MCHC 33.7 RDW 14.3 MPV 9.1 Neutrophils % 66.9 D Lymphocytes % 27.6 D Monocytes % 4.6 Eosinophils % 0.3 D Basophils % 0.6 - RADIOLOGY Radiology Studies Ordered: Category Date Time Status CXRPORT [CHEST X-RAY PORTABLE*] [RAD] Stat Radiology 07/14/18 17:38 Completed - Medications Given in the ED: ED Medications Discontinued Medications Generic Name Dose Route Start Last Admin Trade Name Dany PRN Reason Stop Dose Admin Al Hydroxide/Mg Hydroxide 30 ml 07/14/18 19:00 07/14/18 19:17 Mylanta Oral Suspension - PO 07/14/18 19:01 30 ml ONCE ONE Administration Folic Acid 1 mg/ Thiamine HCl 1,000 mls @ 125 mls/hr 07/14/18 17:39 07/14/18 18:43 100 mg/ Multivitamins/Minerals IVPB 07/15/18 01:38 125 mls/hr 10 ml/ Sodium Chloride ONCE ONE Administration Famotidine/Sodium Chloride 20 mg in 50 mls @ 100 mls/hr 07/14/18 17:41 18:03 Pepcid 20 Mg Premixed Ivpb - IVPB 07/14/18 18:10 100 mls/hr ONCE ONE Administration Nitroglycerin 0.4 mg 07/14/18 19:01 07/14/18 19:20 Nitrostat - SL 07/14/18 19:02 0.4 mg ONCE ONE Administration Medical Decision Making - Medical Decision Making 07/14/18 17:51 63YOM with h/o EtOH use disorder p/w chest pain continuing for the past week for which he was recently admitted and left AMA. Initial Vital Signs Temp Pulse Resp BP Pulse Ox 98.5 F 46 L 18 139/70 97 07/14/18 17:14 07/14/18 17:14 07/14/18 17:14 07/14/18 17:14 07/14/18 17:14 Exam: As noted in Physical Exam section. DDX IBNLT: ACS, alcoholic gastritis, pancreatitis, hepatitis, cholecystitis, choledochoithiasis, UGIB (can cause AMS), LGIB, less likely SBP, coingestion, hepatorenal syndrome, trauma, etc. W/U ordered: CBCD CMP Mg Phos Lipase Coags T&S Lactate BCx Troponin CK CKMB LDH Ammonia B12 EKG CXR FOBT UA UCx TX ordered: Banana Bag, NTG SL, Pepcid, Maalox 07/14/18 18:22 POCUS studies as noted in Procedures section. EKG: Reviewed; results as noted in ECG Review section. CXR: Nothing acute Laboratory Tests 07/14/18 07/14/18 17:27 17:29 WBC 4.8 RBC 4.58 Hgb 14.4 Hct 42.6 MCV 93.0 MCH 31.4 MCHC 33.7 RDW 14.3 Plt Count 72 L D MPV 9.1 Absolute Neuts (auto) 3.2 Neutrophils % 66.9 D Lymphocytes % 27.6 D Monocytes % 4.6 Eosinophils % 0.3 D Basophils % 0.6 Nucleated RBC % 0 Platelet Estimate Decreased Platelet Comment No clumping noted Sodium 138 Potassium 4.1 Chloride 107 Carbon Dioxide 23 Anion Gap 9 BUN 19.7 H Creatinine 1.1 Est GFR (CKD-EPI)AfAm 83.53 Est GFR (CKD-EPI)NonAf 72.07 Random Glucose 138 H Calcium 8.1 L Phosphorus 4.7 Total Bilirubin 0.9 AST 140 H ALT 352 H Alkaline Phosphatase 201 H Creatine Kinase 591 H Creatine Kinase Index 1.6 CK-MB (CK-2) 9.7 H Troponin I < 0.02 Total Protein 7.9 Albumin 3.7 Lipase 204 Alcohol, Quantitative 73.2 H Reassessment: Exam unchanged The Pt is unsafe for discharge at this time. They require further hospital observation, workup, and treatment. Microblog sent to [facility] for admission. Blank Decision to Admit order is placed per ED protocol. *DC/Admit/Observation/Transfer Diagnosis at time of Disposition: Alcohol use disorder Chest pain Qualifiers: Chest pain type: unspecified Qualified Code(s): R07.9 - Chest pain, unspecified Arrhythmia Qualifiers: Arrhythmia type: unspecified cardiac arrhythmia Qualified Code(s): I49.9 - Cardiac arrhythmia, unspecified - Discharge Dispostion Condition at time of disposition: Guarded Decision to Admit order: Yes - Referrals - Patient Instructions - Post Discharge Activity
[2018-07-14] MEDS ORDERED: FOLIC ACID INJECTION - 1 MG, THIAMINE HCL 100 MG, MULTIVIT INJECTION ADULT 10 ML in SOD... IVPB ONE (17:39)
[2018-07-14] MEDS ORDERED: FAMOTIDINE 20 MG/50 ML IVPB 20 MG/50 ML MG IVPB ONE ×2 (17:41→18:01)
[2018-07-14 17:44] LABS: BASO % 0.6 % (0-2.0); EOS % 0.3 % (0-4.5); HEMATOCRIT 42.6 % (35.4-49); HEMOGLOBIN 14.4 GM/dL (11.7-16.9); LYMPH % 27.6 % (8-40); MCH 31.4 pg (25.7-33.7); MCHC 33.7 g/dl (32.0-35.9); MEAN PLT VOLUME 9.1 fl (7.5-11.1); MONO % 4.6 % (3.8-10.2); NEUT % 66.9 % (42.8-82.8); RBC 4.58 M/mm3 (4.00-5.60); RDW 14.3 % (11.9-15.9); WHITE BLOOD COUNT 4.8 K/mm3 (4.0-10.0)
[2018-07-14 18:43] LABS: ALBUMIN 3.7 g/dl (3.4-5.0); ALK PHOS 201 U/L (45-117); ANION GAP 9 MMOL/L (8-16); BILIRUBIN,TOTAL 0.9 mg/dL (0.2-1); BLOOD UREA NITROGEN 19.7 mg/dL (7-18); CALCIUM 8.1 mg/dL (8.5-10.1); CHLORIDE 107 mmol/L (98-107); CO2 23 mmol/L (21-32); CREATININE 1.1 mg/dL (0.55-1.3); GLUCOSE,RANDOM 138 mg/dL (74-106); LIPASE 204 U/L (73-393); POTASSIUM 4.1 mmol/L (3.5-5.1); SGOT/AST 140 U/L (15-37); SGPT/ALT 352 U/L (13-61); SODIUM 138 mmol/L (136-145); TOT PROT 7.9 g/dl (6.4-8.2)
[2018-07-14] MEDS ORDERED: MAG HYDROX/AL HYDROX/SIMETH 30 ML UNIT-DOSE CUP PO ONE (19:00)
[2018-07-14] MEDS ORDERED: NITROGLYCERIN SUBLINGUAL 1/150 0.4 MG TAB SL ONE (19:01)
[2018-07-14] MEDS ORDERED: MAG HYDROX/AL HYDROX/SIMETH 30 ML UNIT-DOSE CUP ONE (19:12)
--- NOTE | 2018-07-14 19:21 | CON.CARD ---
Consult Consult Specialty:: Cardiology - History of Present Illness History of Present Illness: 63YOM with h/o HTN, HLD, NIDDM, COPD, EtOH use and hepatocellular disease ( diagnosed in the past few days) who was recently admitted for chest pain, negative troponins x2, non-ischemic EKG, and echo with LA dilatation, with elevated LFTs (AST/ALT 1006/1032), was on CIWA, cardiology and GI saw the patient in consult, but he left AMA. He returns with continued non-radiating mild-moderate left anterior chest pain which he notes is the same as prior and for which he has not taken any medications. Notes occasional sweats, and constant nausea, but denies SOB, vertigo, lightheadedness, headache, vomiting, diarrhea, constipation, or other new symptoms. Drank EtOH to excess today as well as yesterday. - History Source History Provided By: Patient, Medical Record - Past Medical History Cardio/Vascular: Yes: HTN Pulmonary: Yes: COPD Psych: Yes: Addictions (alcohol) - Alcohol/Substance Use Hx Alcohol Use: No - Smoking History Smoking history: Never smoked Have you smoked in the past 12 months: No Home Medications - Allergies Allergies/Adverse Reactions: Allergies Allergy/AdvReac Type Severity Reaction Status Date / Time No Known Allergies Allergy Verified 07/14/18 17:13 - Home Medications Home Medications: Ambulatory Orders Atorvastatin Calcium [Lipitor] 10 mg PO DAILY 07/11/18 Lisinopril [Prinivil] 20 mg PO BID 07/11/18 Metoprolol Succinate [Toprol Xl] 50 mg PO DAILY 07/11/18 Review of Systems - Review of Systems Constitutional: reports: No Symptoms Eyes: reports: No Symptoms HENT: reports: No Symptoms Neck: reports: No Symptoms Cardiovascular: reports: No Symptoms Gastrointestinal: reports: No Symptoms Genitourinary: reports: No Symptoms Breasts: reports: No Symptoms Reported Musculoskeletal: reports: No Symptoms Integumentary: reports: No Symptoms Neurological: reports: No Symptoms Endocrine: reports: No Symptoms Hematology/Lymphatic: reports: No Symptoms Psychiatric: reports: No Symptoms Vital Signs: Vital Signs Temperature 98.5 F 07/14/18 17:14 Pulse Rate 46 L 07/14/18 17:14 Respiratory Rate 18 07/14/18 17:14 Blood Pressure 139/70 07/14/18 17:14 O2 Sat by Pulse Oximetry (%) 97 07/14/18 17:14 Constitutional: Yes: Well Nourished, No Distress, Calm Eyes: Yes: WNL, Conjunctiva Clear, EOM Intact HENT: Yes: WNL, Atraumatic, Normocephalic Neck: Yes: WNL, Supple, Trachea Midline Respiratory: Yes: WNL, Regular, CTA Bilaterally Gastrointestinal: Yes: WNL, Normal Bowel Sounds Renal/: Yes: WNL Cardiovascular: Yes: WNL, Regular Rate and Rhythm Musculoskeletal: Yes: WNL Extremities: Yes: WNL Integumentary: Yes: WNL Neurological: Yes: WNL, Alert, Oriented ...Motor Strength: WNL Psychiatric: Yes: WNL, Alert, Oriented - Other Data Labs, Other Data: CBC, BMP 07/14/18 17:27 07/14/18 17:29 Troponin, BNP 07/14/18 17:29 Troponin I < 0.02 Troponin, BNP 07/14/18 17:29 Troponin I < 0.02 Imaging - Results Chest X-ray: Image Reviewed (no i/e) EKG: Pending Assessment/Plan derek (1) Atypical chest pain Assessment/Plan: Pain denies pain on exertion; c/o abdominal pain; EKG: NSR; ?old IW and/or lateral wall infarct. Multiple CAD risks. Will get stress test once detox is completed. Code(s): R07.89 - OTHER CHEST PAIN (2) HTN (hypertension) Assessment/Plan: on metoprolol and lisinopril. F/u BP serially. ECHO: normal LVEF; mild LAE; normal wall thicknesses. Code(s): I10 - ESSENTIAL (PRIMARY) HYPERTENSION (3) Elevated LFTs Assessment/Plan: AST ajnd ALT markedly elevated on arrival. F/u serially as detox protocol continues. Code(s): R94.5 - ABNORMAL RESULTS OF LIVER FUNCTION STUDIES (4) Alcohol abuse Assessment/Plan: detox protocol. Code(s): F10.10 - ALCOHOL ABUSE, UNCOMPLICATED (5) COPD (chronic obstructive pulmonary disease) Assessment/Plan: by history Pt says he smoked only a little, and when very young CXR: no acute pathology F/u records. Code(s): J44.9 - CHRONIC OBSTRUCTIVE PULMONARY DISEASE, UNSPECIFIED (6) Hyperlipidemia Code(s): E78.5 - HYPERLIPIDEMIA, UNSPECIFIED (7) Diabetes Code(s): E11.9 - TYPE 2 DIABETES MELLITUS WITHOUT COMPLICATIONS
--- NOTE | 2018-07-14 19:32 | PN ---
Teaching Attending Note Name of Resident: Lalito Palafox ATTENDING PHYSICIAN STATEMENT I saw and evaluated the patient. I reviewed the resident's note and discussed the case with the resident. I agree with the resident's findings and plan as documented. SUBJECTIVE: Patient is a 63 year old man with PMH of HTN, HLD, NIDDM, COPD, EtOH use and hepatocellular disease who presents with continued non-radiating mild-moderate left anterior chest pain which he notes is the same as prior and for which he has not taken any medications. He was admitted on 07/10/18 for possible alcoholic hepatitis superimposed on fatty liver as well as chest pain. Work up showed negative troponins x2, non-ischemic EKG, and ECHO with LA dilatation, with elevated LFTs (AST/ALT 1006/1032). He was on CIWA protocol and was seen by Cardiology and GI but he left AMA. The chest pain is left sided, pleuritic and radiates to his head and neck area. He denies any recent trauma. Now he has occasional sweats, and constant nausea, but denies SOB, vertigo, lightheadedness, headache, vomiting, diarrhea, constipation, or other new symptoms. Drank alcohol to excess today as well as yesterday. OBJECTIVE: Vital Signs Period Temp Pulse Resp BP Sys/De Dios Pulse Ox Last 24 Hr 98.5 F 46-79 18-18 139-148/70-90 96-98 HEENT: No Jaundice, eye redness or discharge, PERRLA, EOMI. Normocephalic, atraumatic. External ears are normal and hearing is grossly intact. No nasal discharge. Neck: Supple, nontender. No palpable adenopathy or thyromegaly. No JVD Chest: Good effort. Left precordial tenderness. Clear to auscultation. Heart: Regular. No S3, rub or murmur Abdomen: Not distended, soft, nontender and no HSM. No rebound or guarding. Normal bowel sounds. Ext: Peripheral pulses intact. No leg edema. Skin: Warm and dry. No petechiae, rash or ecchymosis. Neuro: Alert. Oriented x3. CN 2-12 grossly intact. Sensation grossly intact in all four extremities and DTR are symmetric. Psych: Appropriate mood and affect. Good insight. Current Medications Generic Name Dose Route Start Last Admin Trade Name Freq PRN Reason Stop Dose Admin Folic Acid 1 mg/ Thiamine HCl 1,000 mls @ 125 mls/hr 07/14/18 17:39 07/14/18 18:43 100 mg/ Multivitamins/Minerals IVPB 07/15/18 01:38 125 mls/hr 10 ml/ Sodium Chloride ONCE ONE Administration Home Medications Medication Instructions Recorded Atorvastatin Calcium [Lipitor] 10 mg PO DAILY 07/11/18 Lisinopril [Prinivil] 20 mg PO BID 07/11/18 Metoprolol Succinate [Toprol Xl] 50 mg PO DAILY 07/11/18 Abnormal Lab Results 07/14/18 17:29 BUN 19.7 H Random Glucose 138 H Calcium 8.1 L AST 140 H ALT 352 H Alkaline Phosphatase 201 H Creatine Kinase 591 H CK-MB (CK-2) 9.7 H Alcohol, Quantitative 73.2 H ASSESSMENT AND PLAN: 1. Chest pain - Though he has rsik factors for ACS, his pain is atypical. Initial troponin is negative. EKG shows NSR with PACs, ventricular rate of 82, left axis deviation, no VIVIANE, no STD, but there is TW flattening in I, II, III, aVR, aVL, aVF, V1, and V6. EKG looks essentially the same as prior from 07/11/18. No acute abnormality on CXR. Will admit to telemetry to rule out ACS and get a chest CT. He has rhabdomyolysis which may explain the positive "blood" in the urine with only few RBC - indicating haptoglobinuria. Continue IV NS and monitor UA and CPK daily. 2. Alcohol abuse/Alcoholic hepatitis - His LFTs have been trending lower compared to the peak on 07/10/18, but his CPK is higher and the platelet count is improved (82 >71 >54 >72). Hepatitis A antibody test was positive. Bedside ultrasound done by ER staff shows liver with fibrotic changes, gall bladder without stones, distention, pericholecystic fluid, wall thickening, or CBD dilatation. He got banana bag in the ER. Will continue IV NS, trend LFTs and platelet count. Will implement CIWA ativan alcohol withdrawal protocol and do neurochecks. Implement seizure, fall and aspiration precautions. Treat with thiamine and folic acid and monitor electrolytes (Ca,Mg,K,P). Counseled patient about abstaining from alcohol. Will consult medical management specialist and refer to alcohol detox upon discharge. 3. DM For now, we will hold the home diabetes drugs and implement sliding scale insulin regimen. Provide comprehensive diabetes care with patient teaching and counseling about the importance of adherence to prescribed diabetes regimen, euglycemia, eye care and foot care. 4. Hypertension - Restart suitable outpatient antihypertensive drugs when clinically appropriate. Revise regimen to ensure good BP control. Nonpharmacologic measures to control hypertension like weight loss, salt restriction and exercise discussed. 5. DVT prophylaxis - Lovenox 40 mg SQ q 24 hours. 6. Advance directives - Full code
--- NOTE | 2018-07-14 19:42 | PDOC ---
Documentation entered by Steve Veloz SCRIBE, acting as scribe for Alicia Gagnon MD. Alicia Gagnon MD: This documentation has been prepared by the Magdiel augustin Collisia, SCRIBE, under my direction and personally reviewed by me in its entirety. I confirm that the documentation accurately reflects all work, treatment, procedures, and medical decision making performed by me. Attending Attestation - Resident Resident Name: Lizbeth Wang - ED Attending Attestation I have performed the following: I have examined & evaluated the patient, The case was reviewed & discussed with the resident, I agree w/resident's findings & plan, Exceptions are as noted - HPI HPI: 07/14/18 18:49 The patient is a 63 year old male with a significant past medical history of hypertension, hyperlipidemia, diabetes, COPD and etoh disorder who presents to the emergency department with persistent chest pain since earlier this week. It is noted that the patient was recently admitted on 07/10/18 for left sided chest pain by which he left AMA. Today, the patient reports to the ED with the same left sided chest pain and associated nausea and sweats. The patient states that he has been drinking since he left the hospital previously and endorses having 2 beers today. He denies any shortness of breath or palpitations. He denies any fever, chills, vomiting, diarrhea, constipation or urinary symptoms. The patient denies any other complaints. - Physicial Exam PE: 07/14/18 19:40 agree with resident exam - Medical Decision Making 07/14/18 19:40 63yo M presents to the ED with persistent CP after leaving the hospital AMA a few days ago HS 5, pt with multiple risk factors for ACS Plan for admission for further cardiac w/u 07/14/18 20:12 EXAM:CHEST X-RAY Impression: A single view of the chest is been submitted. Since the prior study of 07/10/2018 there is no change of an adverse nature and no sign of an acute process. Reported By: Luciano Wilkerson MD
[2018-07-14 19:56] LABS: PLATELET COUNT 72 K/MM3 (134-434)
[2018-07-14 19:57] LABS: PLATELET ESTIMATE DECREASED
[2018-07-14 21:14] LABS: PHOSPHOROUS 4.7 mg/dL (2.5-4.9)
[2018-07-14 21:17] LABS: EPI CELLS 0.1 /HPF (0-5/HPF); HYALINE CASTS 1 /lpf (0-8); URINE APPEARANCE CLEAR; URINE BACTERIA 2.7 /hpf (NEGATIVE); URINE BILIRUBIN NEGATIVE (NEGATIVE); URINE COLOR YELLOW; URINE GLUCOSE (UA) NEGATIVE (NEGATIVE); URINE KETONE NEGATIVE (NEGATIVE); URINE LEUK ESTERASE NEGATIVE (NEGATIVE); URINE NITRITE NEGATIVE (NEGATIVE); URINE PROTEIN TRACE (NEGATIVE); URINE RBC 7 /hpf (0-4); URINE WBC 0 /hpf (0-5)
--- NOTE | 2018-07-14 21:31 | HP ---
CHIEF COMPLAINT: Chest pain PCP: none HISTORY OF PRESENT ILLNESS: 63 y.o. dutch-speaking M w/ PMHx. of HTN, NIDDM, and HLD who comes into the ED c/o left sided chest pain. Pt. states that he has been having 8/10, dull, nonradiating pain associated with SOB, dizziness and holocranial headache. The patient was recently admitted to [facility] for identical symptoms. EKG at that time was nonischemic and troponins were negative x3. His LFTs were found to be in the 1000's at that time. GI and Cardio were consulted, both of which recommended no acute intervention outpatient follow up. The patient was placed in a librium detox protocol. His LFTs trended down. The patient left AMA prior to completiing his detox protocol. Today he has identical ssx, stating that they never went away which is why he came back. The patient endorses medication compliance and states that these medications help his chest pain. Patient states that he had a negative stress test at [facility] several months ago, but no record of this can be found in the EMR. Patient also endorses drinking "a lot" over the past two days. The patient was unable to quantify his drinking at the time of interview. Pt. denies any fever, chills, changes in urinary or bowel habits, any vomiting of blood, or blood in the stool. Pt. unsure which medications he takes and is unable to give a clear answer as to what pharmacy ([facility] on [address]?) ER course was notable for: (1) Trop neg x1 (2) EKG unchanged (3) LFTs downtrending. Recent Travel: PAST MEDICAL HISTORY: see HPI PAST SURGICAL HISTORY: appendectomy Hernia repair foot sx Social History: Smoking: denies Alcohol: see HPI Drugs: denies Family History: Father had DM and alcoholism Allergies No Known Allergies Allergy (Verified 07/14/18 17:13) HOME MEDICATIONS: Home Medications Medication Instructions Recorded Atorvastatin Calcium [Lipitor] 10 mg PO DAILY 07/11/18 Lisinopril [Prinivil] 20 mg PO BID 07/11/18 Metoprolol Succinate [Toprol Xl] 50 mg PO DAILY 07/11/18 REVIEW OF SYSTEMS CONSTITUTIONAL: Absent: fever, chills, diaphoresis, generalized weakness, malaise, loss of appetite, weight change HEENT: Absent: rhinorrhea, nasal congestion, throat pain, throat swelling, difficulty swallowing, mouth swelling, ear pain, eye pain, visual changes CARDIOVASCULAR: Absent: syncope, irregular heart rate, peripheral edema RESPIRATORY: Absent: cough, dyspnea with exertion, orthopnea, wheezing, stridor, hemoptysis GASTROINTESTINAL: Absent: abdominal pain, abdominal distension, nausea, vomiting, diarrhea, constipation, melena, hematochezia GENITOURINARY: Absent: dysuria, frequency, urgency, hesitancy, hematuria, flank pain, genital pain MUSCULOSKELETAL: Absent: myalgia, arthralgia, joint swelling, back pain, neck pain SKIN: Absent: rash, itching, pallor HEMATOLOGIC/IMMUNOLOGIC: Absent: easy bleeding, easy bruising, lymphadenopathy, frequent infections ENDOCRINE: Absent: unexplained weight gain, unexplained weight loss, heat intolerance, cold intolerance NEUROLOGIC: Absent: headache, focal weakness or paresthesias, unsteady gait, seizure, mental status changes, bladder or bowel incontinence PSYCHIATRIC: Absent: anxiety, depression, suicidal or homicidal ideation, hallucinations. PHYSICAL EXAMINATION Vital Signs - 24 hr 07/14/18 07/14/18 07/14/18 17:14 19:25 19:27 Temperature 98.5 F Pulse Rate 46 L Pulse Rate [ 79 Apical] Respiratory 18 18 Rate Blood Pressure 139/70 Blood Pressure 148/90 [Left] O2 Sat by Pulse 97 96 98 Oximetry (%) GENERAL: Awake, alert, and fully oriented, in no acute distress. HEAD: Normal with no signs of trauma. EYES: Pupils equal, round and reactive to light, extraocular movements intact, sclera anicteric, conjunctiva clear. No lid lag. LUNGS: Breath sounds equal, clear to auscultation bilaterally. No wheezes, and no crackles. No accessory muscle use. HEART: Regular rate and rhythm, normal S1 and S2 without murmur, rub or gallop. ABDOMEN: Soft, nontender, not distended, normoactive bowel sounds, no guarding, no rebound. LOWER EXTREMITIES: 2+ pulses, warm, well-perfused. No calf tenderness. No peripheral edema. NEUROLOGICAL: Cranial nerves II-X intact. Normal speech. PSYCHIATRIC: Cooperative. Good eye contact. Appropriate mood and affect. SKIN: Warm, dry, normal turgor, no rashes or lesions noted, normal capillary refill. Laboratory Results - last 24 hr 07/14/18 07/14/18 07/14/18 17:27 17:29 20:37 WBC 4.8 RBC 4.58 Hgb 14.4 Hct 42.6 MCV 93.0 MCH 31.4 MCHC 33.7 RDW 14.3 Plt Count 72 L D MPV 9.1 Absolute Neuts (auto) 3.2 Neutrophils % 66.9 D Lymphocytes % 27.6 D Monocytes % 4.6 Eosinophils % 0.3 D Basophils % 0.6 Nucleated RBC % 0 Platelet Estimate Decreased Platelet Comment No clumping noted Sodium 138 Potassium 4.1 Chloride 107 Carbon Dioxide 23 Anion Gap 9 BUN 19.7 H Creatinine 1.1 Est GFR (CKD-EPI)AfAm 83.53 Est GFR (CKD-EPI)NonAf 72.07 Random Glucose 138 H Calcium 8.1 L Phosphorus 4.7 Total Bilirubin 0.9 AST 140 H ALT 352 H Alkaline Phosphatase 201 H Creatine Kinase 591 H Creatine Kinase Index 1.6 CK-MB (CK-2) 9.7 H Troponin I < 0.02 Total Protein 7.9 Albumin 3.7 Lipase 204 Urine Color Yellow Urine Appearance Clear Urine pH 5.0 Ur Specific [place] 1.018 Urine Protein Trace Urine Glucose (UA) Negative Urine Ketones Negative Urine Blood 3+ H Urine Nitrite Negative Urine Bilirubin Negative Urine Urobilinogen 1.0 Ur Leukocyte Esterase Negative Urine WBC (Auto) 0 Urine RBC (Auto) 7 Urine Casts (Auto) 1 U Epithel Cells (Auto) 0.1 Urine Bacteria (Auto) 2.7 Alcohol, Quantitative 73.2 H ASSESSMENT/PLAN: 63 y.o. dutch-speaking M w/ PMHx. of HTN, NIDDM, and HLD who comes into the ED c/o left sided chest pain. #Chest Pain, r/o ACS, less likely cardiac, more likely MSK -EKG unchanged, will trend w/ trop -Trop: Negative x 1, will trend -CXR: unchanged -will order CT chest as pain has apparently been constant -cardiology consulted by ED staff #Transaminitis 2/2 to likely alcoholism and hepatitis -Hepatomegaly last admission -LFTs trending down today -hep panel shows hep a positive -thrombocytopenia improving #EtoH Withdrawal -current CIWA 1 for PARMAR -monitor CIWA, begin ativan protocol if >8 -Protonix 40mg po daily -Zofran 4mg Q6H PRN -Fall precautions -consider GI consult in AM -consider detox consult in AM -banana bag given in ED -daily thiamine and folate #DM -hold oral medications -BGM ACHS -ISS ACHS -a1c 4.4 on previous admission #HTN -c/w home privinil and toprol #HLD -c/w home atrovastatin #FEN -banana bag x1 -monitor electrolytes and replete as needed -diabetic, sodium controlled diet #Prophy -lovenox 40mg sq daily #Dispo -Observe on tele Visit type - Emergency Visit Emergency Visit: Yes ED Registration Date: 07/14/18 Care time: The patient presented to the Emergency Department on the above date and was hospitalized for further evaluation of their emergent condition. - New Patient This patient is new to me today: Yes Date on this admission: 07/14/18 - Critical Care Critical Care patient: No
[2018-07-14] MEDS: LISINOPRIL 20 MG TABLET (FP) PO SCH (23:26)
[2018-07-15] MEDS ORDERED: LORazepam 2 MG/ML SDV VIAL IVPUSH PRN (00:14)
[2018-07-15 03:40] VITALS: BMI 28.2
[2018-07-15] MEDS ORDERED: HEPARIN NA (PORCINE) 5,000 UNITS/ML 1ML VIAL SQ SCH (06:00)
[2018-07-15] MEDS: INSULIN SLIDING SCALE (NOVOLOG) 1 VIAL SQ SCH ×4 (07:04→23:00)
[2018-07-15 07:45] LABS: HEMATOCRIT 37.4 % (35.4-49); HEMOGLOBIN 13.2 GM/dL (11.7-16.9); MCH 32.2 pg (25.7-33.7); MCHC 35.3 g/dl (32.0-35.9); MEAN CELL VOLUME 91.3 fl (80-96); MEAN PLT VOLUME 8.8 fl (7.5-11.1); RDW 14.1 % (11.9-15.9); WHITE BLOOD COUNT 3.8 K/mm3 (4.0-10.0)
[2018-07-15 08:09] LABS: INR 1.12 (0.83-1.09); PROTHROMBIN TIME (PATIENT) 13.2 SEC (9.7-13.0)
[2018-07-15 08:31] LABS: ALBUMIN 3.4 g/dl (3.4-5.0); BILIRUBIN,TOTAL 1.3 mg/dL (0.2-1); BLOOD UREA NITROGEN 17.2 mg/dL (7-18); CALCIUM 8.1 mg/dL (8.5-10.1); CREATININE 0.9 mg/dL (0.55-1.3); PHOSPHOROUS 2.7 mg/dL (2.5-4.9); POTASSIUM 3.6 mmol/L (3.5-5.1); TOT PROT 6.9 g/dl (6.4-8.2)
--- NOTE | 2018-07-15 09:49 | EKG ---
Test Reason : Blood Pressure : / mmHG Vent. Rate : 082 BPM Atrial Rate : 082 BPM P-R Int : 190 ms QRS Dur : 116 ms QT Int : 424 ms P-R-T Axes : 048 -65 034 degrees QTc Int : 495 ms SINUS RHYTHM WITH PREMATURE SUPRAVENTRICULAR COMPLEXES LEFT AXIS DEVIATION INFERIOR-POSTERIOR INFARCT (CITED ON OR BEFORE 10-JUL-2018) ABNORMAL ECG WHEN COMPARED WITH ECG OF 11-JUL-2018 12:07, CRITERIA FOR LATERAL INFARCT ARE NO LONGER PRESENT NONSPECIFIC T WAVE ABNORMALITY NO LONGER EVIDENT IN LATERAL LEADS Confirmed by RADHA COX, RAEGAN ([id number]) on 07/15/2018 9:49:33 AM Referred By: Confirmed By:RAEGAN GARCIA MD
[2018-07-15] MEDS: THIAMINE HCL 100 MG TABLET (FP) PO SCH (10:18)
[2018-07-15] MEDS: ENOXAPARIN NA (PORCINE) 40 MG/0.4 ML DISP.SYRIN SQ SCH (10:18)
[2018-07-15] MEDS: LISINOPRIL 20 MG TABLET (FP) PO SCH ×2 (10:18→23:00)
[2018-07-15] MEDS: FOLIC ACID 1 MG TABLET (FP) PO SCH (10:19)
[2018-07-15] MEDS: PANTOPRAZOLE 40 MG TABLET (FP) PO SCH (10:19)
[2018-07-15] MEDS ORDERED: ACETAMINOPHEN 325 MG TABLET (FP) ONE (11:34)
[2018-07-15 14:05] LABS: PLATELET COUNT 74 K/MM3 (134-434)
--- NOTE | 2018-07-15 15:08 | PN ---
Progress Note (short form) - Note Progress Note: Patient is c/o of having midepigastric pain. Vital Signs Temperature 97.8 F 07/15/18 10:00 Pulse Rate 72 07/15/18 10:00 Respiratory Rate 20 07/15/18 10:00 Blood Pressure 133/76 07/15/18 10:00 O2 Sat by Pulse Oximetry (%) 98 07/14/18 21:40 GENERAL: Awake, alert, and fully oriented, in no acute distress. HEAD: Normal with no signs of trauma. EYES: Pupils equal, round and reactive to light, extraocular movements intact, sclera anicteric, conjunctiva clear. LUNGS: Breath sounds equal, clear to auscultation bilaterally. No wheezes, and no crackles. No accessory muscle use. HEART: Regular rate and rhythm, normal S1 and S2 without murmur, rub or gallop. ABDOMEN: Soft, nontender, not distended, normoactive bowel sounds, no guarding, no rebound. EXTREMITIES: 2+ pulses, warm, well-perfused. No calf tenderness. No peripheral edema. NEUROLOGICAL: Cranial nerves II-X intact. Normal speech. PSYCHIATRIC: Cooperative. Good eye contact. Appropriate mood and affect. SKIN: Warm, dry, normal turgor, no rashes or lesions noted, normal capillary refill. CBCD WBC 3.8 K/mm3 (4.0-10.0) L 07/15/18 07:04 RBC 4.10 M/mm3 (4.00-5.60) 07/15/18 07:04 Hgb 13.2 GM/dL (11.7-16.9) 07/15/18 07:04 Hct 37.4 % (35.4-49) 07/15/18 07:04 MCV 91.3 fl (80-96) 07/15/18 07:04 MCHC 35.3 g/dl (32.0-35.9) 07/15/18 07:04 RDW 14.1 % (11.9-15.9) 07/15/18 07:04 Plt Count 74 K/MM3 (134-434) L 07/15/18 07:04 MPV 8.8 fl (7.5-11.1) 07/15/18 07:04 CMP Sodium 142 mmol/L (136-145) 07/15/18 07:04 Potassium 3.6 mmol/L (3.5-5.1) 07/15/18 07:04 Chloride 107 mmol/L (98-107) 07/15/18 07:04 Carbon Dioxide 26 mmol/L (21-32) 07/15/18 07:04 Anion Gap 8 MMOL/L (8-16) 07/15/18 07:04 BUN 17.2 mg/dL (7-18) 07/15/18 07:04 Creatinine 0.9 mg/dL (0.55-1.3) 07/15/18 07:04 Random Glucose 96 mg/dL (74-106) 07/15/18 07:04 Calcium 8.1 mg/dL (8.5-10.1) L 07/15/18 07:04 Total Bilirubin 1.3 mg/dL (0.2-1) H 07/15/18 07:04 AST 94 U/L (15-37) H 07/15/18 07:04 ALT 254 U/L (13-61) H 07/15/18 07:04 Alkaline Phosphatase 168 U/L (45-117) H 07/15/18 07:04 Total Protein 6.9 g/dl (6.4-8.2) 07/15/18 07:04 Albumin 3.4 g/dl (3.4-5.0) 07/15/18 07:04 CARDIAC ENZYMES Creatine Kinase 591 U/L (26-308) H 07/14/18 17:29 Troponin I < 0.02 ng/ml (0.00-0.05) 07/15/18 07:04 Current Medications Generic Name Dose Route Start Last Admin Trade Name Sukhwinderq PRN Reason Stop Dose Admin Enoxaparin Sodium 40 mg 07/15/18 10:00 07/15/18 10:18 Lovenox - SQ 40 mg DAILY LISA Administration Folic Acid 1 mg 07/15/18 10:00 07/15/18 10:19 Folic Acid - PO 1 mg DAILY LISA Administration Insulin Aspart 1 vial 07/15/18 07:00 07/15/18 13:41 Novolog Vial Sliding Scale - SQ Not Given ACHS [facility] Protocol Lisinopril 20 mg 07/14/18 22:00 07/15/18 10:18 Prinivil PO 20 mg BID LISA Administration Lorazepam 2 mg 07/15/18 00:14 Ativan Injection - IVPUSH Q6H PRN WITHDRAWAL(CONT SUBST) Metoprolol Succinate 50 mg 07/15/18 10:00 07/15/18 10:19 Toprol Xl - PO 50 mg DAILY LISA Administration Pantoprazole Sodium 40 mg 07/15/18 10:00 07/15/18 10:19 Protonix - PO 40 mg DAILY LISA Administration Thiamine HCl 100 mg 07/15/18 10:00 07/15/18 10:18 Vitamin B1 - PO 100 mg DAILY LISA Administration Home Medications Medication Instructions Recorded Atorvastatin Calcium [Lipitor] 10 mg PO DAILY 07/11/18 Lisinopril [Prinivil] 20 mg PO BID 07/11/18 Metoprolol Succinate [Toprol Xl] 50 mg PO DAILY 07/11/18 Laboratory Tests 07/10/18 07/11/18 07/11/18 21:20 00:52 03:30 Troponin I Acetaminophen < 10 L Alcohol, Quantitative 272.2 H Hepatitis A IgM Ab Negative Hep A IgM Ab Confirm Hepatitis A Ab Total Hep Bs Antigen Negative Hep Bs Antibody Hep B Core IgM Ab Negative Hepatitis C Antibody <0.1 07/11/18 07/14/18 07/14/18 05:40 17:29 23:30 Troponin I < 0.02 < 0.02 Acetaminophen Alcohol, Quantitative Hepatitis A IgM Ab Hep A IgM Ab Confirm Negative Hepatitis A Ab Total Positive H Hep Bs Antigen Hep Bs Antibody Non reactive Hep B Core IgM Ab Hepatitis C Antibody 07/15/18 07:04 Troponin I < 0.02 Acetaminophen Alcohol, Quantitative Hepatitis A IgM Ab Hep A IgM Ab Confirm Hepatitis A Ab Total Hep Bs Antigen Hep Bs Antibody Hep B Core IgM Ab Hepatitis C Antibody Assessment and plan: Patient is a 63yo cook islander-speaking male with PMHx. of HTN, NIDDM, and HLD who comes into the ED c/o left sided chest pain. #Acute chest pain r/o ACS, 3 sets of troponin is negative, cardio would like to do stress test. # Acute transaminitis due to alcoholism /hepatitis : continue to monitor #EtoH Withdrawal: on thiamine and folic acid #DM: BGM ACHS, ISS ACHS #HTN: c/w home privinil and toprol #HLD: c/w home atrovastatin DVT px: Lovenox Visit type - Emergency Visit Emergency Visit: Yes ED Registration Date: 07/14/18 Care time: The patient presented to the Emergency Department on the above date and was hospitalized for further evaluation of their emergent condition. - New Patient This patient is new to me today: Yes Date on this admission: 07/15/18 - Critical Care Critical Care patient: No - Discharge Referral Referred to [facility] No
--- NOTE | 2018-07-15 17:02 | EKG ---
Test Reason : Blood Pressure : / mmHG Vent. Rate : 071 BPM Atrial Rate : 071 BPM P-R Int : 212 ms QRS Dur : 116 ms QT Int : 376 ms P-R-T Axes : 032 -55 028 degrees QTc Int : 408 ms SINUS RHYTHM WITH 1ST DEGREE A-V BLOCK LEFT AXIS DEVIATION LATERAL INFARCT , AGE UNDETERMINED INFERIOR-POSTERIOR INFARCT (CITED ON OR BEFORE 10-JUL-2018) ABNORMAL ECG WHEN COMPARED WITH ECG OF 14-JUL-2018 23:40, PREMATURE ATRIAL COMPLEXES ARE NO LONGER PRESENT QT HAS SHORTENED Confirmed by RADHA COX, RAEGAN ([id number]) on 07/15/2018 5:02:20 PM Referred By: Chavo FERNANDEZ Confirmed By:RAEGAN GARCIA MD
--- NOTE | 2018-07-15 17:03 | EKG ---
Test Reason : Blood Pressure : / mmHG Vent. Rate : 080 BPM Atrial Rate : 080 BPM P-R Int : 200 ms QRS Dur : 112 ms QT Int : 416 ms P-R-T Axes : 014 -46 021 degrees QTc Int : 479 ms SINUS RHYTHM WITH PREMATURE ATRIAL COMPLEXES LEFT AXIS DEVIATION INFERIOR-POSTERIOR INFARCT (CITED ON OR BEFORE 10-JUL-2018) ABNORMAL ECG WHEN COMPARED WITH ECG OF 14-JUL-2018 17:01, NO SIGNIFICANT CHANGE WAS FOUND Confirmed by RAEGAN GARCIA MD ([id number]) on 07/15/2018 5:02:40 PM Referred By: Confirmed By:RAEGAN GARCIA MD
[2018-07-16] MEDS: INSULIN SLIDING SCALE (NOVOLOG) 1 VIAL SQ SCH ×4 (06:23→21:42)
--- NOTE | 2018-07-16 08:50 | PN ---
Progress Note, Physician History of Present Illness: 63YOM with h/o HTN, HLD, NIDDM, COPD, EtOH use and hepatocellular disease ( diagnosed in the past few days) who was recently admitted for chest pain, negative troponins x2, non-ischemic EKG, and echo with LA dilatation, with elevated LFTs (AST/ALT 1006/1032), was on CIWA, cardiology and GI saw the patient in consult, but he left AMA. He returns with continued non-radiating mild-moderate left anterior chest pain which he notes is the same as prior and for which he has not taken any medications. Notes occasional sweats, and constant nausea, but denies SOB, vertigo, lightheadedness, headache, vomiting, diarrhea, constipation, or other new symptoms. Drank EtOH to excess today as well as yesterday. - Current Medication List Current Medications: Active Medications Enoxaparin Sodium (Lovenox -) 40 mg SQ DAILY [facility] Last Admin: 07/15/18 10:18 Dose: 40 mg Folic Acid (Folic Acid -) 1 mg PO DAILY [facility] Last Admin: 07/15/18 10:19 Dose: 1 mg Insulin Aspart (Novolog Vial Sliding Scale -) 1 vial SQ [facility]; Protocol Last Admin: 07/16/18 06:23 Dose: Not Given Lisinopril (Prinivil) 20 mg PO BID [facility] Last Admin: 07/15/18 23:00 Dose: 20 mg Lorazepam (Ativan Injection -) 2 mg IVPUSH Q6H PRN PRN Reason: WITHDRAWAL(CONT SUBST) Metoprolol Succinate (Toprol Xl -) 50 mg PO DAILY [facility] Last Admin: 07/15/18 10:19 Dose: 50 mg Pantoprazole Sodium (Protonix -) 40 mg PO DAILY [facility] Last Admin: 07/15/18 10:19 Dose: 40 mg Thiamine HCl (Vitamin B1 -) 100 mg PO DAILY [facility] Last Admin: 07/15/18 10:18 Dose: 100 mg - Objective Vital Signs: Vital Signs Temperature 98.7 F 07/16/18 05:00 Pulse Rate 54 L 07/16/18 05:00 Respiratory Rate 20 07/16/18 05:00 Blood Pressure 137/84 07/16/18 05:00 O2 Sat by Pulse Oximetry (%) 98 07/14/18 21:40 Eyes: Yes: WNL, Conjunctiva Clear, EOM Intact HENT: Yes: WNL, Atraumatic, Normocephalic Neck: Yes: WNL, Supple, Trachea Midline Cardiovascular: Yes: WNL, Regular Rate and Rhythm Respiratory: Yes: WNL, Regular, CTA Bilaterally Gastrointestinal: Yes: WNL, Normal Bowel Sounds Genitourinary: Yes: WNL Musculoskeletal: Yes: WNL Extremities: Yes: WNL Edema: No Integumentary: Yes: WNL Neurological: Yes: WNL, Alert, Oriented ...Motor Strength: WNL Psychiatric: Yes: WNL Labs: CBC, BMP 07/15/18 07:04 07/15/18 07:04 INR, PTT INR 1.12 (0.83-1.09) H 07/15/18 07:04 Assessment/Plan derek (1) Atypical chest pain Assessment/Plan: Pain denies pain on exertion; c/o abdominal pain; EKG: NSR; ?old IW and/or lateral wall infarct. Multiple CAD risks. Will get stress test once detox is completed. Code(s): R07.89 - OTHER CHEST PAIN (2) HTN (hypertension) Assessment/Plan: on metoprolol and lisinopril. F/u BP serially. ECHO: normal LVEF; mild LAE; normal wall thicknesses. Code(s): I10 - ESSENTIAL (PRIMARY) HYPERTENSION (3) Elevated LFTs Assessment/Plan: AST ajnd ALT markedly elevated on arrival. F/u serially as detox protocol continues. Code(s): R94.5 - ABNORMAL RESULTS OF LIVER FUNCTION STUDIES (4) Alcohol abuse Assessment/Plan: detox protocol. Code(s): F10.10 - ALCOHOL ABUSE, UNCOMPLICATED (5) COPD (chronic obstructive pulmonary disease) Assessment/Plan: by history Pt says he smoked only a little, and when very young CXR: no acute pathology F/u records. Code(s): J44.9 - CHRONIC OBSTRUCTIVE PULMONARY DISEASE, UNSPECIFIED (6) Hyperlipidemia Code(s): E78.5 - HYPERLIPIDEMIA, UNSPECIFIED (7) Diabetes Code(s): E11.9 - TYPE 2 DIABETES MELLITUS WITHOUT COMPLICATIONS
[2018-07-16] MEDS: ENOXAPARIN NA (PORCINE) 40 MG/0.4 ML DISP.SYRIN SQ SCH (09:49)
[2018-07-16] MEDS: FOLIC ACID 1 MG TABLET (FP) PO SCH (09:50)
[2018-07-16] MEDS: LISINOPRIL 20 MG TABLET (FP) PO SCH ×2 (09:50→21:39)
[2018-07-16] MEDS: PANTOPRAZOLE 40 MG TABLET (FP) PO SCH (09:50)
[2018-07-16] MEDS: THIAMINE HCL 100 MG TABLET (FP) PO SCH (09:50)
--- NOTE | 2018-07-16 15:17 | PN ---
Physical Exam: SUBJECTIVE: Patient seen and examined at bedside. Denies chest pain or shortness of breath. OBJECTIVE: Vital Signs Period Temp Pulse Resp BP Sys/De Dios Pulse Ox Last 24 Hr 97.9 F-98.7 F 53-64 18-20 115-141/75-87 GENERAL: NAD HEAD: Normal with no signs of trauma. EYES: EOMI Sclera Clear NECK: Trachea midline, full range of motion, supple. LUNGS: Clear to auscultation b/l.. HEART: RRR S1S2. Nontender to deep palpation ABDOMEN: Soft NDNT EXTREMITIES: 2+ pulses, warm, well-perfused, no edema. NEUROLOGICAL: CN 2-12 intact observed. PSYCH: Normal mood, normal affect. SKIN: Warm, dry, normal turgor, no rashes or lesions noted Laboratory Results - last 24 hr 07/15/18 07/16/18 07/16/18 22:57 06:21 11:37 POC Glucometer 92 99 112 Active Medications Generic Name Dose Route Start Last Admin Trade Name Freq PRN Reason Stop Dose Admin Enoxaparin Sodium 40 mg 07/15/18 10:00 07/16/18 09:49 Lovenox - SQ 40 mg DAILY LISA Administration Folic Acid 1 mg 07/15/18 10:00 07/16/18 09:50 Folic Acid - PO 1 mg DAILY LISA Administration Insulin Aspart 1 vial 07/15/18 07:00 07/16/18 11:38 Novolog Vial Sliding Scale - SQ Not Given ACHS LISA Protocol Lisinopril 20 mg 07/14/18 22:00 07/16/18 09:50 Prinivil PO 20 mg BID LISA Administration Lorazepam 2 mg 07/15/18 00:14 Ativan Injection - IVPUSH Q6H PRN WITHDRAWAL(CONT SUBST) Metoprolol Succinate 50 mg 07/15/18 10:00 07/16/18 09:50 Toprol Xl - PO 50 mg DAILY LISA Administration Pantoprazole Sodium 40 mg 07/15/18 10:00 07/16/18 09:50 Protonix - PO 40 mg DAILY LISA Administration Thiamine HCl 100 mg 07/15/18 10:00 07/16/18 09:50 Vitamin B1 - PO 100 mg DAILY LISA Administration ASSESSMENT/PLAN: 63 y/o. Slovenian-speaking M w/ PMHx. of HTN, NIDDM, and HLD who comes into the ED c/o left sided chest pain. #Chest Pain, r/o ACS, less likely cardiac, more likely MSK -Trop negative x 2 -CXR: unchanged -CT Chest--> Left upper(4X3 mm) and lower nodules (1X0.4cm). Follow up CT recommended in 3 months -cardiology on board------> Will get stress test once detox is completed. #Transaminitis 2/2 to likely alcoholism and hepatitis -Hepatomegaly last admission -LFTs trending down -hep panel shows hep a positive -thrombocytopenia improving - CT---> Hepatic Cirrhosis #EtoH Withdrawal -current CIWA 1 for PARMAR -monitor CIWA, begin ativan protocol if >8 -Protonix 40mg po daily -Zofran 4mg Q6H PRN -Fall precautions -consider GI consult -consider detox consult -banana bag given in ED -daily thiamine and folate #DM -hold oral medications -BGM ACHS -ISS ACHS -a1c 4.4 on previous admission #HTN -c/w home privinil and toprol #HLD -c/w home atorvastatin #FEN -banana bag x1 -monitor electrolytes and replete as needed -diabetic, sodium controlled diet #Prophy -lovenox 40mg sq daily #Dispo -transfer out of tele Visit type - Emergency Visit Emergency Visit: Yes ED Registration Date: 07/14/18 Care time: The patient presented to the Emergency Department on the above date and was hospitalized for further evaluation of their emergent condition. - New Patient This patient is new to me today: Yes Date on this admission: 07/16/18 - Critical Care Critical Care patient: No - Discharge Referral Referred to [facility] No
--- NOTE | 2018-07-16 18:06 | PN ---
Teaching Attending Note Name of Resident: Nathan Shah ATTENDING PHYSICIAN STATEMENT I saw and evaluated the patient. I reviewed the resident's note and discussed the case with the resident. I agree with the resident's findings and plan as documented. SUBJECTIVE: Patient is better today , no further chest pain. OBJECTIVE: Vital Signs Temperature 99.0 F 07/16/18 17:00 Pulse Rate 57 L 07/16/18 17:00 Respiratory Rate 20 07/16/18 17:00 Blood Pressure 137/83 07/16/18 17:00 O2 Sat by Pulse Oximetry (%) 98 07/16/18 14:00 GENERAL: Awake, alert, and fully oriented, in no acute distress. HEAD: Normal with no signs of trauma. EYES: Pupils equal, round and reactive to light, extraocular movements intact, sclera anicteric, conjunctiva clear. LUNGS: Breath sounds equal, clear to auscultation bilaterally. No wheezes, and no crackles. No accessory muscle use. HEART: Regular rate and rhythm, normal S1 and S2 without murmur, rub or gallop. ABDOMEN: Soft, nontender, not distended, normoactive bowel sounds, no guarding, no rebound. EXTREMITIES: 2+ pulses, warm, well-perfused. No calf tenderness. No peripheral edema. NEUROLOGICAL: Cranial nerves II-X intact. Normal speech. PSYCHIATRIC: Cooperative. Good eye contact. Appropriate mood and affect. SKIN: Warm, dry, normal turgor, no rashes or lesions noted, normal capillary refill. CBCD WBC 3.8 K/mm3 (4.0-10.0) L 07/15/18 07:04 RBC 4.10 M/mm3 (4.00-5.60) 07/15/18 07:04 Hgb 13.2 GM/dL (11.7-16.9) 07/15/18 07:04 Hct 37.4 % (35.4-49) 07/15/18 07:04 MCV 91.3 fl (80-96) 07/15/18 07:04 MCHC 35.3 g/dl (32.0-35.9) 07/15/18 07:04 RDW 14.1 % (11.9-15.9) 07/15/18 07:04 Plt Count 74 K/MM3 (134-434) L 07/15/18 07:04 MPV 8.8 fl (7.5-11.1) 07/15/18 07:04 CMP Sodium 142 mmol/L (136-145) 07/15/18 07:04 Potassium 3.6 mmol/L (3.5-5.1) 07/15/18 07:04 Chloride 107 mmol/L (98-107) 07/15/18 07:04 Carbon Dioxide 26 mmol/L (21-32) 07/15/18 07:04 Anion Gap 8 MMOL/L (8-16) 07/15/18 07:04 BUN 17.2 mg/dL (7-18) 07/15/18 07:04 Creatinine 0.9 mg/dL (0.55-1.3) 07/15/18 07:04 Random Glucose 96 mg/dL (74-106) 07/15/18 07:04 Calcium 8.1 mg/dL (8.5-10.1) L 07/15/18 07:04 Total Bilirubin 1.3 mg/dL (0.2-1) H 07/15/18 07:04 AST 94 U/L (15-37) H 07/15/18 07:04 ALT 254 U/L (13-61) H 07/15/18 07:04 Alkaline Phosphatase 168 U/L (45-117) H 07/15/18 07:04 Total Protein 6.9 g/dl (6.4-8.2) 07/15/18 07:04 Albumin 3.4 g/dl (3.4-5.0) 07/15/18 07:04 CARDIAC ENZYMES Creatine Kinase 591 U/L (26-308) H 07/14/18 17:29 Troponin I < 0.02 ng/ml (0.00-0.05) 07/15/18 07:04 Current Medications Generic Name Dose Route Start Last Admin Trade Name Freq PRN Reason Stop Dose Admin Enoxaparin Sodium 40 mg 07/15/18 10:00 07/16/18 09:49 Lovenox - SQ 40 mg DAILY [facility] Administration Folic Acid 1 mg 07/15/18 10:00 07/16/18 09:50 Folic Acid - PO 1 mg DAILY [facility] Administration Insulin Aspart 1 vial 07/15/18 07:00 07/16/18 17:05 Novolog Vial Sliding Scale - SQ Not Given ACHS LISA Protocol Lisinopril 20 mg 07/14/18 22:00 07/16/18 09:50 Prinivil PO 20 mg BID LISA Administration Lorazepam 2 mg 07/15/18 00:14 Ativan Injection - IVPUSH Q6H PRN WITHDRAWAL(CONT SUBST) Metoprolol Succinate 50 mg 07/15/18 10:00 07/16/18 09:50 Toprol Xl - PO 50 mg DAILY LISA Administration Pantoprazole Sodium 40 mg 07/15/18 10:00 07/16/18 09:50 Protonix - PO 40 mg DAILY LISA Administration Thiamine HCl 100 mg 07/15/18 10:00 07/16/18 09:50 Vitamin B1 - PO 100 mg DAILY LISA Administration Home Medications Medication Instructions Recorded Atorvastatin Calcium [Lipitor] 10 mg PO DAILY 07/11/18 Lisinopril [Prinivil] 20 mg PO BID 07/11/18 Metoprolol Succinate [Toprol Xl] 50 mg PO DAILY 07/11/18 ASSESSMENT AND PLAN: Patient is a 63yo slovenian-speaking male with PMHx. of HTN, NIDDM, and HLD who comes into the ED c/o left sided chest pain. #Acute chest pain r/o ACS, 3 sets of troponin is negative, stress test in am, npo after midnight # Acute transaminitis due to alcoholism /hepatitis : continue to monitor , improving #EtoH Withdrawal: on thiamine and folic acid #DM: BGM ACHS, ISS ACHS #HTN: c/w home privinil and toprol #HLD: c/w home atrovastatin DVT px: Lovenox
[2018-07-17] MEDS: INSULIN SLIDING SCALE (NOVOLOG) 1 VIAL SQ SCH ×2 (06:01→12:35)
[2018-07-17 06:24] LABS: HEMATOCRIT 37.2 % (35.4-49); HEMOGLOBIN 12.9 GM/dL (11.7-16.9); MCH 31.8 pg (25.7-33.7); MCHC 34.7 g/dl (32.0-35.9); MEAN CELL VOLUME 91.7 fl (80-96); MEAN PLT VOLUME 9.4 fl (7.5-11.1); PLATELET COUNT 67 K/MM3 (134-434); RBC 4.06 M/mm3 (4.00-5.60); RDW 13.7 % (11.9-15.9); WHITE BLOOD COUNT 3.7 K/mm3 (4.0-10.0)
[2018-07-17 06:35] LABS: BLOOD UREA NITROGEN 23.6 mg/dL (7-18); MAGNESIUM 1.9 mg/dL (1.8-2.4); PHOSPHOROUS 2.9 mg/dL (2.5-4.9); POTASSIUM 3.8 mmol/L (3.5-5.1)
[2018-07-17] MEDS: FOLIC ACID 1 MG TABLET (FP) PO SCH (09:01)
[2018-07-17] MEDS: ENOXAPARIN NA (PORCINE) 40 MG/0.4 ML DISP.SYRIN SQ SCH (09:01)
[2018-07-17] MEDS: PANTOPRAZOLE 40 MG TABLET (FP) PO SCH (09:02)
[2018-07-17] MEDS: LISINOPRIL 20 MG TABLET (FP) PO SCH (09:02)
[2018-07-17] MEDS: THIAMINE HCL 100 MG TABLET (FP) PO SCH (09:04)
[2018-07-17] MEDS ORDERED: REGADENOSON 0.4 MG/5 ML PRE-FILLED SYRINGE IVPUSH ONE ×2 (11:25→12:00)
--- NOTE | 2018-07-17 12:47 | PN ---
Progress Note, Physician History of Present Illness: 63YOM with h/o HTN, HLD, NIDDM, COPD, EtOH use and hepatocellular disease ( diagnosed in the past few days) who was recently admitted for chest pain, negative troponins x2, non-ischemic EKG, and echo with LA dilatation, with elevated LFTs (AST/ALT 1006/1032), was on CIWA, cardiology and GI saw the patient in consult, but he left AMA. He returns with continued non-radiating mild-moderate left anterior chest pain which he notes is the same as prior and for which he has not taken any medications. Notes occasional sweats, and constant nausea, but denies SOB, vertigo, lightheadedness, headache, vomiting, diarrhea, constipation, or other new symptoms. Drank EtOH to excess today as well as yesterday. - Current Medication List Current Medications: Active Medications Enoxaparin Sodium (Lovenox -) 40 mg SQ DAILY [facility] Last Admin: 07/17/18 09:01 Dose: 40 mg Folic Acid (Folic Acid -) 1 mg PO DAILY [facility] Last Admin: 07/17/18 09:01 Dose: 1 mg Insulin Aspart (Novolog Vial Sliding Scale -) 1 vial SQ [facility]; Protocol Last Admin: 07/17/18 12:35 Dose: Not Given Lisinopril (Prinivil) 20 mg PO BID [facility] Last Admin: 07/17/18 09:02 Dose: 20 mg Lorazepam (Ativan Injection -) 2 mg IVPUSH Q6H PRN PRN Reason: WITHDRAWAL(CONT SUBST) Metoprolol Succinate (Toprol Xl -) 50 mg PO DAILY [facility] Last Admin: 07/17/18 12:38 Dose: 50 mg Pantoprazole Sodium (Protonix -) 40 mg PO DAILY [facility] Last Admin: 07/17/18 09:02 Dose: 40 mg Thiamine HCl (Vitamin B1 -) 100 mg PO DAILY [facility] Last Admin: 07/17/18 09:04 Dose: 100 mg - Objective Vital Signs: Vital Signs Temperature 98.0 F 07/17/18 05:41 Pulse Rate 56 L 07/17/18 12:35 Respiratory Rate 20 07/17/18 12:35 Blood Pressure 152/83 07/17/18 12:35 O2 Sat by Pulse Oximetry (%) 99 07/16/18 19:48 Eyes: Yes: WNL, Conjunctiva Clear, EOM Intact HENT: Yes: WNL, Atraumatic, Normocephalic Neck: Yes: WNL, Supple, Trachea Midline Cardiovascular: Yes: WNL, Regular Rate and Rhythm Respiratory: Yes: WNL, Regular, CTA Bilaterally Gastrointestinal: Yes: WNL, Normal Bowel Sounds Genitourinary: Yes: WNL Musculoskeletal: Yes: WNL Extremities: Yes: WNL Edema: No Integumentary: Yes: WNL Neurological: Yes: WNL, Alert, Oriented ...Motor Strength: WNL Psychiatric: Yes: WNL Labs: CBC, BMP 07/17/18 05:45 07/17/18 05:45 INR, PTT INR 1.12 (0.83-1.09) H 07/15/18 07:04 Assessment/Plan derek (1) Atypical chest pain Assessment/Plan: Pain denies pain on exertion; c/o abdominal pain; EKG: NSR; ?old IW and/or lateral wall infarct. Multiple CAD risks. Will get stress test once detox is completed. Code(s): R07.89 - OTHER CHEST PAIN (2) HTN (hypertension) Assessment/Plan: on metoprolol and lisinopril. F/u BP serially. ECHO: normal LVEF; mild LAE; normal wall thicknesses. Code(s): I10 - ESSENTIAL (PRIMARY) HYPERTENSION (3) Elevated LFTs Assessment/Plan: AST ajnd ALT markedly elevated on arrival. F/u serially as detox protocol continues. Code(s): R94.5 - ABNORMAL RESULTS OF LIVER FUNCTION STUDIES (4) Alcohol abuse Assessment/Plan: detox protocol. Code(s): F10.10 - ALCOHOL ABUSE, UNCOMPLICATED (5) COPD (chronic obstructive pulmonary disease) Assessment/Plan: by history Pt says he smoked only a little, and when very young CXR: no acute pathology F/u records. Code(s): J44.9 - CHRONIC OBSTRUCTIVE PULMONARY DISEASE, UNSPECIFIED (6) Hyperlipidemia Code(s): E78.5 - HYPERLIPIDEMIA, UNSPECIFIED (7) Diabetes Code(s): E11.9 - TYPE 2 DIABETES MELLITUS WITHOUT COMPLICATIONS
[2018-07-17 14:15] VITALS: BP 125/74; PULSE 63; TEMP 99.6
--- NOTE | 2018-07-17 15:51 | DS ---
Physical Exam: SUBJECTIVE: Patient seen and examined OBJECTIVE: Vital Signs Period Temp Pulse Resp BP Sys/De Dios Pulse Ox Last 24 Hr 98.0 F-99.6 F 52-63 18-20 107-155/68-83 99-99 PHYSICAL EXAM GENERAL: The patient is awake, alert, and fully oriented, in no acute distress. HEAD: Normal with no signs of trauma. EYES: PERRL, extraocular movements intact, sclera anicteric, conjunctiva clear. ENT: Ears normal, nares patent, oropharynx clear without exudates, moist mucous membranes. NECK: Trachea midline, full range of motion, supple. LUNGS: Breath sounds equal, clear to auscultation bilaterally, no wheezes, no crackles, no accessory muscle use. HEART: Regular rate and rhythm, S1, S2 without murmur, rub or gallop. ABDOMEN: Soft, nontender, nondistended, normoactive bowel sounds, no guarding, no rebound, no hepatosplenomegaly, no masses. EXTREMITIES: 2+ pulses, warm, well-perfused, no edema. NEUROLOGICAL: Cranial nerves II through XII grossly intact. Normal speech, gait not observed. PSYCH: Normal mood, normal affect. SKIN: Warm, dry, normal turgor, no rashes or lesions noted. LABS Laboratory Results - last 24 hr 07/16/18 07/16/18 07/17/18 17:03 21:41 05:32 WBC RBC Hgb Hct MCV MCH MCHC RDW Plt Count MPV Sodium Potassium Chloride Carbon Dioxide Anion Gap BUN Creatinine Est GFR (CKD-EPI)AfAm Est GFR (CKD-EPI)NonAf POC Glucometer 107 108 108 Random Glucose Calcium Phosphorus Magnesium 07/17/18 07/17/18 07/17/18 05:45 05:45 12:34 WBC 3.7 L RBC 4.06 Hgb 12.9 Hct 37.2 MCV 91.7 MCH 31.8 MCHC 34.7 RDW 13.7 Plt Count 67 L MPV 9.4 Sodium 143 Potassium 3.8 Chloride 111 H Carbon Dioxide 25 Anion Gap 8 BUN 23.6 H Creatinine 1.0 Est GFR (CKD-EPI)AfAm 93.73 Est GFR (CKD-EPI)NonAf 80.87 POC Glucometer 142 Random Glucose 94 Calcium 8.0 L Phosphorus 2.9 Magnesium 1.9 HOSPITAL COURSE: Date of Admission:07/14/18 Date of Discharge: 07/17/18 Discharge Summary Reason For Visit: CHEST PAIN,ELEVATED LIVER FUNCTIONS TESTS, Condition: Guarded - Instructions Disposition: AGAINST MEDICAL ADVICE - Home Medications Comprehensive Discharge Medication List: Ambulatory Orders Folic Acid 1 mg PO DAILY #30 tablet 01/12/18 Lisinopril [Prinivil] 10 mg PO DAILY #30 tablet 01/12/18 Metoprolol Tartrate 25 mg PO Q12H #30 tablet 01/12/18 Pravastatin Sodium [Pravachol -] 40 mg PO HS #30 tablet 01/12/18 Thiamine HCl [B-1] 100 mg PO DAILY #30 tablet 01/12/18 Aspirin 81 mg DAILY 03/13/18 Famotidine 20 mg PO Q12H 03/13/18 Atorvastatin Calcium [Lipitor] 10 mg PO DAILY 07/11/18 Lisinopril [Prinivil] 20 mg PO BID 07/11/18 Metoprolol Succinate [Toprol Xl] 50 mg PO DAILY 07/11/18 - Discharge Referral Referred to [facility] No
--- NOTE | 2018-07-17 16:03 | PN ---
Teaching Attending Note Name of Resident: Nathan Shah ATTENDING PHYSICIAN STATEMENT I saw and evaluated the patient. I reviewed the resident's note and discussed the case with the resident. I agree with the resident's findings and plan as documented. SUBJECTIVE: Patient went for stress test. OBJECTIVE: Vital Signs Temperature 99.6 F 07/17/18 14:00 Pulse Rate 63 07/17/18 14:00 Respiratory Rate 20 07/17/18 14:00 Blood Pressure 125/74 07/17/18 14:00 O2 Sat by Pulse Oximetry (%) 99 07/17/18 10:00 GENERAL: Awake, alert, and fully oriented, in no acute distress. HEAD: Normal with no signs of trauma. EYES: Pupils equal, round and reactive to light, extraocular movements intact, sclera anicteric, conjunctiva clear. LUNGS: Breath sounds equal, clear to auscultation bilaterally. No wheezes, and no crackles. No accessory muscle use. HEART: Regular rate and rhythm, normal S1 and S2 without murmur, rub or gallop. ABDOMEN: Soft, nontender, not distended, normoactive bowel sounds, no guarding, no rebound. EXTREMITIES: 2+ pulses, warm, well-perfused. No calf tenderness. No peripheral edema. NEUROLOGICAL: Cranial nerves II-X intact. Normal speech. PSYCHIATRIC: Cooperative. Good eye contact. Appropriate mood and affect. SKIN: Warm, dry, normal turgor, no rashes or lesions noted, normal capillary refill. CBCD WBC 3.7 K/mm3 (4.0-10.0) L 07/17/18 05:45 RBC 4.06 M/mm3 (4.00-5.60) 07/17/18 05:45 Hgb 12.9 GM/dL (11.7-16.9) 07/17/18 05:45 Hct 37.2 % (35.4-49) 07/17/18 05:45 MCV 91.7 fl (80-96) 07/17/18 05:45 MCHC 34.7 g/dl (32.0-35.9) 07/17/18 05:45 RDW 13.7 % (11.9-15.9) 07/17/18 05:45 Plt Count 67 K/MM3 (134-434) L 07/17/18 05:45 MPV 9.4 fl (7.5-11.1) 07/17/18 05:45 CMP Sodium 143 mmol/L (136-145) 07/17/18 05:45 Potassium 3.8 mmol/L (3.5-5.1) 07/17/18 05:45 Chloride 111 mmol/L (98-107) H 07/17/18 05:45 Carbon Dioxide 25 mmol/L (21-32) 07/17/18 05:45 Anion Gap 8 MMOL/L (8-16) 07/17/18 05:45 BUN 23.6 mg/dL (7-18) H 07/17/18 05:45 Creatinine 1.0 mg/dL (0.55-1.3) 07/17/18 05:45 Random Glucose 94 mg/dL (74-106) 07/17/18 05:45 Calcium 8.0 mg/dL (8.5-10.1) L 07/17/18 05:45 Total Bilirubin 1.3 mg/dL (0.2-1) H 07/15/18 07:04 AST 94 U/L (15-37) H 07/15/18 07:04 ALT 254 U/L (13-61) H 07/15/18 07:04 Alkaline Phosphatase 168 U/L (45-117) H 07/15/18 07:04 Total Protein 6.9 g/dl (6.4-8.2) 07/15/18 07:04 Albumin 3.4 g/dl (3.4-5.0) 07/15/18 07:04 CARDIAC ENZYMES Creatine Kinase 591 U/L (26-308) H 07/14/18 17:29 Troponin I < 0.02 ng/ml (0.00-0.05) 07/15/18 07:04 Home Medications Medication Instructions Recorded Folic Acid 1 mg PO DAILY #30 tablet 01/12/18 Lisinopril [Prinivil] 10 mg PO DAILY #30 tablet 01/12/18 Metoprolol Tartrate 25 mg PO Q12H #30 tablet 01/12/18 Pravastatin Sodium [Pravachol -] 40 mg PO HS #30 tablet 01/12/18 Thiamine HCl [B-1] 100 mg PO DAILY #30 tablet 01/12/18 Aspirin 81 mg DAILY 03/13/18 Famotidine 20 mg PO Q12H 03/13/18 Atorvastatin Calcium [Lipitor] 10 mg PO DAILY 07/11/18 Lisinopril [Prinivil] 20 mg PO BID 07/11/18 Metoprolol Succinate [Toprol Xl] 50 mg PO DAILY 07/11/18 ASSESSMENT AND PLAN: Patient is a 63yo nicaraguan-speaking male with PMHx. of HTN, NIDDM, and HLD who comes into the ED c/o left sided chest pain. #Acute chest pain 3 sets of troponin is negative, patient went for stress test , post stress test patient signed AMA. # Acute transaminitis due to alcoholism /hepatitis : improving #EtoH Withdrawal: on thiamine and folic acid #DM: BGM ACHS, ISS ACHS #HTN: c/w home privinil and toprol #HLD: c/w home atrovastatin DVT px: Lovenox patient signed AMA post stress test
== END 2018-07-17 15:12 | disposition left against medical advice (07) ==
LOC: JER 17:06 → JERBED 19:14 → MERGE 19:14 → JERBED 20:32 → UNDOADMIN 20:32 → J4W 21:43
PROVIDERS: ADMIT Internal Medicine; ATTEND Internal Medicine
PROC: 3E013GC Introduction of Other Therapeutic Substance into Subcutaneous Tissue, Percutaneous Approach (ICD-10-PCS; principal; 2018-07-14)
PROC: BF4CZZZ Ultrasonography of Hepatobiliary System, All (ICD-10-PCS; 2018-07-14)
PROC: BT43ZZZ Ultrasonography of Bilateral Kidneys (ICD-10-PCS; 2018-07-14)
DX: R07.9 Chest pain, unspecified (principal); R94.5 Abnormal results of liver function studies; F10.230 Alcohol dependence with withdrawal, uncomplicated; I25.10 Atherosclerotic heart disease of native coronary artery without angina pectoris; I49.9 Cardiac arrhythmia, unspecified; I10 Essential (primary) hypertension; E11.9 Type 2 diabetes mellitus without complications; E78.1 Pure hyperglyceridemia; E78.5 Hyperlipidemia, unspecified; E78.00 Pure hypercholesterolemia, unspecified; J44.9 Chronic obstructive pulmonary disease, unspecified; D69.6 Thrombocytopenia, unspecified; K70.9 Alcoholic liver disease, unspecified; F32.9 Major depressive disorder, single episode, unspecified; Z59.0 Homelessness
CPT/HCPCS: 36415; 71045-TC-FY; 71250-TC; 76705-TC; 76775; 78452-TC; 80048; 80053; 80307; 81003; 82550; 82553; 82962; 83690; 83735; 84100; 84484; 85025; 85027; 85610; 93005; 93010; 93017; 96372; 99284-25; A9502; G0378; J2785; J7030

== ENCOUNTER 2018-08-12 10:55 | Emergency (ER) | payer OTHER ==
[2018-08-12 11:05] VITALS: TEMP 98.3; BMI 30.7
[2018-08-12] MEDS ORDERED: FAMOTIDINE 20 MG/50 ML IVPB 20 MG/50 ML MG IVPB ONE ×2 (11:45→14:55)
[2018-08-12] MEDS ORDERED: SODIUM CHLORIDE 1,000 ML IV STA (11:45)
--- NOTE | 2018-08-12 11:45 | PDOC ---
History of Present Illness - General Chief Complaint: Chest Pain Stated Complaint: CHEST PAIN Time Seen by Provider: 08/12/18 11:26 History Source: Patient Exam Limitations: No Limitations - History of Present Illness Initial Comments: 63 yo M history HTN, HL, EtOH abuse presents with L sided chest pain since this morning. Pain is non-exertional, nonradiating. Denies SOB, leg swelling, recent illness. No other associated symptoms. He states he has been drinking heavily ( beer and hard liquor), wants to quit drinking. He has done detox in the past. Past History - Past Medical History Allergies/Adverse Reactions: Allergies Allergy/AdvReac Type Severity Reaction Status Date / Time No Known Drug Allergies Allergy Verified 03/11/18 04:05 Home Medications: Ambulatory Orders Aspirin 81 mg PO DAILY 03/13/18 Atorvastatin Calcium [Lipitor] 10 mg PO DAILY 07/11/18 Lisinopril [Prinivil] 20 mg PO BID 07/11/18 Metoprolol Succinate [Toprol Xl] 50 mg PO DAILY 07/11/18 Anemia: No Asthma: No Cancer: No Cardiac Disorders: No CVA: No COPD: Yes CHF: No Dementia: No Diabetes: Yes GI Disorders: No Disorders: No HTN: Yes Hypercholesterolemia: Yes Liver Disease: No Psychiatric Problems: Yes (DEPRESSION) Seizures: No Thyroid Disease: No - Surgical History Abdominal Surgery: Yes Appendectomy: Yes Cardiac Surgery: No Cholecystectomy: Yes GI Surgery: Yes (appendectomy) Lung Surgery: No Neurologic Surgery: No Orthopedic Surgery: No - Immunization History Td Vaccination: Yes Immunization Up to Date: No - Suicide/Smoking/Psychosocial Hx Smoking Status: Yes Smoking History: Never smoked Years of Tobacco Use: 0 Have you smoked in the past 12 months: No Number of Cigarettes Smoked Daily: 0 If you are a former smoker, when did you quit?: smoked for 13 years Cigars Per Day: 0 'Breaking Loose' booklet given: 06/12/12 Hx Alcohol Use: Yes Drug/Substance Use Hx: No Substance Use Type: None, Alcohol Hx Substance Use Treatment: No Review of Systems - Review of Systems Able to Perform ROS?: Yes Comments:: GENERAL/CONSTITUTIONAL: No fever or chills. No weakness. HEAD, EYES, EARS, NOSE AND THROAT: No change in vision. No ear pain or discharge. No sore throat. CARDIOVASCULAR: +Chest pain. No shortness of breath. RESPIRATORY: No cough, wheezing, or hemoptysis. GASTROINTESTINAL: No nausea, vomiting, diarrhea or constipation. GENITOURINARY: No dysuria, frequency, or change in urination. MUSCULOSKELETAL: No joint or muscle swelling or pain. No neck or back pain. SKIN: No rash. NEUROLOGIC: No headache, vertigo, loss of consciousness, or change in strength/ sensation. ENDOCRINE: No increased thirst. No abnormal weight change. HEMATOLOGIC/LYMPHATIC: No anemia, easy bleeding, or history of blood clots. ALLERGIC/IMMUNOLOGIC: No hives or skin allergy. *Physical Exam - Vital Signs Last Vital Signs Temp Pulse Resp BP Pulse Ox 98.3 F 80 18 156/100 99 08/12/18 10:59 08/12/18 10:59 08/12/18 10:59 08/12/18 10:59 08/12/18 10:59 - Physical Exam Comments: GENERAL: Awake, alert, and fully oriented, in no acute distress HEAD: No signs of trauma EYES: PERRLA, EOMI, sclera anicteric, conjunctiva clear ENT: Auricles normal inspection, hearing grossly normal, nares patent, oropharynx clear without exudates. Moist mucosa NECK: Normal ROM, supple, no lymphadenopathy, JVD, or masses LUNGS: Breath sounds equal, clear to auscultation bilaterally. No wheezes, and no crackles HEART: Regular rate and rhythm, normal S1 and S2, no murmurs, rubs or gallops ABDOMEN: Soft, nontender, normoactive bowel sounds. No guarding, no rebound. No masses EXTREMITIES: Normal range of motion, no edema. No clubbing or cyanosis. No cords, erythema, or tenderness NEUROLOGICAL: Cranial nerves II through XII grossly intact. Normal speech, normal gait. Motor and sensation intact SKIN: Warm, dry, normal turgor, no rashes or lesions noted. ED Treatment Course - LABORATORY CBC & Chemistry Diagram: 08/12/18 12:30 08/12/18 12:30 Medical Decision Making - Medical Decision Making 08/12/18 11:52 Pt presents with cp after heavily drinking. DDx includes ACS, GERD, pancreatitis. If workup is negative, will call [facility] for detox at his request. 08/12/18 14:27 Case d/w [facility], they have an available bed, will accept patient for detox. *DC/Admit/Observation/Transfer Diagnosis at time of Disposition: Alcohol abuse - Discharge Dispostion Disposition: HOME Condition at time of disposition: Stable Decision to Admit order: No - Referrals - Patient Instructions Printed Discharge Instructions: DI for Alcohol Abuse - Post Discharge Activity
[2018-08-12 12:45] LABS: BASO % 0.6 % (0-2.0); EOS % 0.1 % (0-4.5); HEMATOCRIT 39.2 % (35.4-49); HEMOGLOBIN 13.5 GM/dL (11.7-16.9); MCH 31.5 pg (25.7-33.7); MCHC 34.3 g/dl (32.0-35.9); MEAN CELL VOLUME 91.7 fl (80-96); MONO % 4.4 % (3.8-10.2); NEUT % 67.9 % (42.8-82.8); RBC 4.27 M/mm3 (4.00-5.60); RDW 14.7 % (11.9-15.9); WHITE BLOOD COUNT 4.5 K/mm3 (4.0-10.0)
[2018-08-12 12:55] LABS: PLATELET COUNT 108 K/MM3 (134-434)
[2018-08-12 13:35] LABS: ALBUMIN 3.5 g/dl (3.4-5.0); ALK PHOS 128 U/L (45-117); ANION GAP 11 MMOL/L (8-16); BILIRUBIN,TOTAL 0.7 mg/dL (0.2-1); BLOOD UREA NITROGEN 15.1 mg/dL (7-18); CHLORIDE 103 mmol/L (98-107); CO2 25 mmol/L (21-32); CREATININE 0.8 mg/dL (0.55-1.3); GLUCOSE,RANDOM 97 mg/dL (74-106); LIPASE 66 U/L (73-393); POTASSIUM 3.8 mmol/L (3.5-5.1); SGOT/AST 42 U/L (15-37); SGPT/ALT 36 U/L (13-61); SODIUM 139 mmol/L (136-145); TOT PROT 7.4 g/dl (6.4-8.2)
[2018-08-12] MEDS ORDERED: LISINOPRIL 20 MG TABLET (FP) PO ONE (14:52)
[2018-08-12] MEDS ORDERED: LISINOPRIL 20 MG TABLET (FP) ONE (14:59)
[2018-08-12] MEDS ORDERED: ACETAMINOPHEN 325 MG TABLET (FP) PO ONE (16:22)
[2018-08-12 16:29] VITALS: BP 170/84; PULSE 69
[2018-08-12] MEDS ORDERED: ACETAMINOPHEN 325 MG TABLET (FP) ONE (16:31)
--- NOTE | 2018-08-13 13:17 | EKG ---
Test Reason : Blood Pressure : / mmHG Vent. Rate : 077 BPM Atrial Rate : 077 BPM P-R Int : 200 ms QRS Dur : 116 ms QT Int : 450 ms P-R-T Axes : 030 -40 000 degrees QTc Int : 509 ms NORMAL SINUS RHYTHM LEFT ATRIAL ENLARGEMENT LEFT AXIS DEVIATION INFERIOR-POSTERIOR INFARCT (CITED ON OR BEFORE 16-AUG-2014) PROLONGED QT ABNORMAL ECG Confirmed by MD DAYA, HUNTER ([id number]) on 08/13/2018 1:16:43 PM Referred By: Confirmed By:HUNTER STAPLETON MD
== END 2018-08-12 16:35 | disposition home or self-care (01) ==
LOC: JER 10:55
PROC: 3E033GC Introduction of Other Therapeutic Substance into Peripheral Vein, Percutaneous Approach (ICD-10-PCS; principal; 2018-08-12)
DX: F10.10 Alcohol abuse, uncomplicated (principal); Y90.3 Blood alcohol level of 60-79 mg/100 ml; R07.9 Chest pain, unspecified; I10 Essential (primary) hypertension; E78.5 Hyperlipidemia, unspecified
CPT/HCPCS: 36415; 71045-TC-FY; 80053; 80307; 83690; 84484; 85025; 93005; 93010; 96365; 99283-25; J7030

== ENCOUNTER 2018-08-12 17:07 | Inpatient (IN) | payer OTHER ==
[2018-08-12 18:01] VITALS: BMI 29.7
--- NOTE | 2018-08-12 19:06 | HP ---
CIWA Score Nausea/Vomitin Muscle Tremors: 2 Anxiety: 2 Agitation: 2 Paroxysmal Sweats: 1-Minimal Palms Moist Orientation: 0-Oriented Tacttile Disturbances: 1-Very Mild Itch/Numbness Auditory Disturbances: 1-Very Mild Visual Disturbances: 0-None Headache: 2-Mild CIWA-Ar Total Score: 13 - Admission Criteria OASAS Guidelines: Admission for Medically Managed Detox: Requires at least one of the followin. CIWA greater than 12 2. Seizures within the past 24 hours 3. Delirium tremens within the past 24 hours 4. Hallucinations within the past 24 hours 5. Acute intervention needed for co occurring medical disorder 6. Acute intervention needed for co occurring psychiatric disorder 7. Severe withdrawal that cannot be handled at a lower level of care (continued vomiting, continued diarrhea, abnormal vital signs) requiring intravenous medication and/or fluids 8. Admission ROS [facility] - HPI Chief Complaint: i need help to stop drinking alcohol Allergies/Adverse Reactions: Allergies Allergy/AdvReac Type Severity Reaction Status Date / Time No Known Drug Allergies Allergy Verified 08/12/18 17:41 History of Present Illness: this 63 years old male with alcohol dependence,seeking detox,seen in er at [facility] to come to [facility] for detox, history of hypertension,hypercholesterolemia,dmtpe 2 diet control syncope alcohol related no seizure denied smoking no previous admission in detox before history of appendectomy,epigastric hernia repair Exam Limitations: No Limitations - Ebola screening Have you traveled outside of the country in the last 21 days: No (N) Have you had contact with anyone from an Ebola affected area: No Do you have a fever: No - Review of Systems Constitutional: Loss of Appetite, Malaise, Night Sweats, Changes in sleep, Weakness EENT: reports: Nose Congestion Respiratory: reports: No Symptoms reported Cardiac: reports: No Symptoms Reported GI: reports: Nausea, Poor Appetite, Abdominal cramping : reports: No Symptoms Reported Musculoskeletal: reports: Back Pain, Muscle Pain Integumentary: reports: Dryness Endocrine: reports: No Symptoms Reported Hematology: reports: No Symptoms Reported Psychiatric: reports: No Sypmtoms Reported, Judgement Intact, Mood/Affect Appropiate, Orientated x3 Other Systems: Reviewed and Negative Patient History - Patient Medical History Hx Anemia: No Hx Asthma: No Hx Chronic Obstructive Pulmonary Disease (COPD): No Hx Cancer: No Hx Cardiac Disorders: No Hx Congestive Heart Failure: No Hx Hypertension: Yes (on med) Hx Hypercholesterolemia: Yes (on med) Hx Pacemaker: No HX Cerebrovascular Accident: No Hx Seizures: No Hx Dementia: No Hx Diabetes: Yes (no medication,diet control) Hx Gastrointestinal Disorders: No Hx Liver Disease: No Hx Genitourinary Disorders: No Hx Renal Disease (ESRD): No Hx Thyroid Disease: No Hx Human Immunodeficiency Virus (HIV): No (01/24 negative) Hx Hepatitis C: No Hx Depression: No Hx Suicide Attempt: No Hx Bipolar Disorder: No Hx Schizophrenia: No Other Medical History: no sucidal,no homicidal - Patient Surgical History Past Surgical History: Yes Hx Neurologic Surgery: No Hx Cataract Extraction: No Hx Cardiac Surgery: No Hx Lung Surgery: No Hx Breast Surgery: No Hx Breast Biopsy: No Hx Abdominal Surgery: Yes (epigastric hernia) Hx Appendectomy: Yes Hx Cholecystectomy: Yes Hx Genitourinary Surgery: No Hx Section: No Hx Orthopedic Surgery: No Hx Hysterectomy: No Other Surgical History: hernia repair, cut leg on tractor(pt states had sx) Anesthesia Reaction: No - PPD History Previous Implant?: Yes Documented Results: Negative w/o proof Implanted On Prior [facility] Admission?: No PPD to be Administered?: No - Smoking Cessation Smoking history: Never smoked Have you smoked in the past 12 months: No Aproximately how many cigarettes per day: 0 If you are a former smoker, when did you quit?: smoked for 13 years Cigars Per Day: 0 Hx Chewing Tobacco Use: No - Substance & Tx. History Hx Alcohol Use: Yes Hx Substance Use: No Substance Use Type: Alcohol Hx Substance Use Treatment: No - Substances abused Alcohol Substance route: Oral Frequency: Daily Amount used: 12 can of cerveza/ beer. Age of first use: 16 Date of last use: 08/12/18 Family Disease History - Family Disease History Family Disease History: Diabetes: Father, Other: Brother (has swelling in legs) Admission Physical Exam BHS - Vital Signs Vital Signs: Vital Signs - 24 hr 08/12/18 08/12/18 17:45 18:42 Temperature 98.1 F 98.1 F Pulse Rate 60 60 Respiratory 20 20 Rate Blood Pressure 189/96 H 189/96 H - Physical General Appearance: Yes: Moderate Distress, Tremorous, Irritable, Sweating, Anxious HEENTM: Yes: Normal ENT Inspection, DAYAN, Pharynx Normal Respiratory: Yes: Lungs Clear, Normal Breath Sounds, No Respiratory Distress Neck: Yes: Within Normal Limits, Supple, Trachea in good position Breast: Yes: Within Normal Limits Cardiology: Yes: Within Normal Limits, Regular Rhythm, Regular Rate, S1, S2 Abdominal: Yes: Within Normal Limits, Surgical Scar (surgical scar in epigatriun ,right loer quadrat) Genitourinary: Yes: Within Normal Limits Back: Yes: Muscle Spasm Musculoskeletal: Yes: Back pain, Muscle Pain (scar in right leg) Extremities: Yes: Normal Range of Motion, Tremors, Other (scar in right leg) Neurological: Yes: cable respooler II-XII NML intact, Fully Oriented, Alert, Motor Strength 5/5 Integumentary: Yes: Dry Lymphatic: Yes: Within Normal Limits - Diagnostic (1) Alcohol dependence with uncomplicated withdrawal Current Visit: Yes Status: Acute (2) Essential hypertension Current Visit: Yes Status: Acute (3) DM2 (diabetes mellitus, type 2) Current Visit: Yes Status: Acute (4) History of appendectomy Current Visit: Yes Status: Acute (5) Incisional hernia Current Visit: Yes Status: Acute (6) Hyperlipidemia Current Visit: No Status: Acute Cleared for Admission S - Detox or Rehab [facility] Level of Care: Medically Managed Detox Regimen/Protocol: Librium Breathalyzer - Breathalyzer Breathalyzer: 0 Urine Drug Screen - Test Device Lot number: [id number] Expiration date: 06/06/20 - Control Is test valid?: Yes - Results Drug screen NEGATIVE: Yes Inpatient Rehab Admission - Rehab Decision to Admit Inpatient rehab admission?: No
[2018-08-12] MEDS ORDERED: MAGNESIUM HYDROX 2400MG/30ML ORAL SUSPENSION 30 ML CUP PO PRN (19:33)
[2018-08-12] MEDS ORDERED: chlordiazePOXIDE HCL 25 MG CAPSULE PO PRN (19:33)
[2018-08-12] MEDS ORDERED: MENTHOL/PHENOL 1 EACH UD MM PRN (19:33)
[2018-08-12] MEDS ORDERED: MAG HYDROX/AL HYDROX/SIMETH 30 ML UNIT-DOSE CUP PO PRN (19:33)
[2018-08-12] MEDS ORDERED: hydrOXYzine PAMOATE 25 MG CAPSULE (FP) PO PRN (19:33)
[2018-08-12] MEDS ORDERED: METHOCARBAMOL 500 MG TABLET PO PRN (19:33)
[2018-08-12] MEDS ORDERED: BISMUTH SUBSALICYLATE 524 MG/30 ML UD PO PRN (19:33)
[2018-08-12] MEDS ORDERED: ACETAMINOPHEN 325 MG TABLET (FP) PO PRN ×2 (19:33)
[2018-08-12] MEDS ORDERED: IBUPROFEN 400 MG TABLET (FP) PO PRN (19:33)
[2018-08-12] MEDS ORDERED: MAGNESIUM CITRATE 300 ML BOTTLE PO PRN (19:33)
[2018-08-12] MEDS ORDERED: MELATONIN 5 MG TABLETS PO PRN (22:00)
[2018-08-12] MEDS: ATORVASTATIN CA 10 MG TABLET (FP) PO SCH (23:10)
[2018-08-12] MEDS: THIAMINE HCL 100 MG TABLET (FP) PO SCH (23:10)
[2018-08-12] MEDS: chlordiazePOXIDE HCL 25 MG CAPSULE PO SCH (23:10)
[2018-08-12] MEDS: LISINOPRIL 20 MG TABLET (FP) PO SCH (23:10)
[2018-08-13] MEDS: chlordiazePOXIDE HCL 25 MG CAPSULE PO SCH ×4 (06:04→22:14)
--- NOTE | 2018-08-13 09:42 | PN ---
BHS CIWA - CIWA Score Nausea/Vomitin-No Nausea/No Vomiting Muscle Tremors: 3 Anxiety: 2 Agitation: 2 Paroxysmal Sweats: 1-Minimal Palms Moist Orientation: 1-Uncertain about Date Tacttile Disturbances: 1-Very Mild Itch/Numbness Auditory Disturbances: 0-None Visual Disturbances: 0-None Headache: 0-None Present CIWA-Ar Total Score: 10 BHS Progress Note (SOAP) Subjective: doing well with librium detox protocol tremor numbness of the fingers and toes tolerate breakfast well ambulating on hallway Objective: 08/13/18 09:43 Vital Signs Temperature 98.0 F 08/13/18 09:34 Pulse Rate 54 L 08/13/18 09:34 Respiratory Rate 18 08/13/18 09:34 Blood Pressure 153/82 08/13/18 09:34 O2 Sat by Pulse Oximetry (%) Laboratory Last Values POC Glucometer 101 UNITS (80-120) 08/13/18 06:07 08/13/18 09:43 lab pending knowledge diabetes self management Assessment: 08/13/18 09:44 alcohol withdrawal sx Plan: continue alcohol detox
[2018-08-13] MEDS: LISINOPRIL 20 MG TABLET (FP) PO SCH ×2 (10:05→22:14)
[2018-08-13] MEDS: PRENATAL VITAMINS W/ FOLIC ACID TABLET (FP) PO SCH (10:05)
[2018-08-13] MEDS: ASPIRIN 81 MG CHEWABLE TABLETS PO SCH (10:05)
[2018-08-13 10:59] LABS: ALBUMIN 3.4 g/dl (3.4-5.0); BILIRUBIN,TOTAL 0.8 mg/dL (0.2-1); BLOOD UREA NITROGEN 19.9 mg/dL (7-18); CALCIUM 8.1 mg/dL (8.5-10.1); POTASSIUM 3.2 mmol/L (3.5-5.1)
[2018-08-13 11:22] LABS: HEMATOCRIT 43.2 % (35.4-49); MCHC 33.7 g/dl (32.0-35.9); WHITE BLOOD COUNT 3.7 K/mm3 (4.0-10.0)
[2018-08-13 11:54] LABS: HEMOGLOBIN 14.5 GM/dL (11.7-16.9); MCH 31.6 pg (25.7-33.7); RDW 14.8 % (11.9-15.9)
[2018-08-13 11:56] LABS: PLATELET COUNT 101 K/MM3 (134-434)
[2018-08-13 11:57] LABS: EPI CELLS 0.4 /HPF (0-5/HPF); HYALINE CASTS 1 /lpf (0-8); PH,URINE 6.5 (5.0-8.0); URINE APPEARANCE CLEAR; URINE BACTERIA 1.2 /hpf (NEGATIVE); URINE BILIRUBIN NEGATIVE (NEGATIVE); URINE COLOR YELLOW; URINE GLUCOSE (UA) NEGATIVE (NEGATIVE); URINE KETONE NEGATIVE (NEGATIVE); URINE LEUK ESTERASE NEGATIVE (NEGATIVE); URINE NITRITE NEGATIVE (NEGATIVE); URINE PROTEIN 1+ (NEGATIVE); URINE RBC 41 /hpf (0-4); URINE WBC 0 /hpf (0-5)
[2018-08-13] MEDS: ATORVASTATIN CA 10 MG TABLET (FP) PO SCH (22:14)
[2018-08-13] MEDS: THIAMINE HCL 100 MG TABLET (FP) PO SCH (22:14)
[2018-08-14] MEDS: chlordiazePOXIDE HCL 25 MG CAPSULE PO SCH ×4 (05:57→22:07)
[2018-08-14] MEDS: ASPIRIN 81 MG CHEWABLE TABLETS PO SCH (10:04)
[2018-08-14] MEDS: LISINOPRIL 20 MG TABLET (FP) PO SCH ×2 (10:04→22:07)
[2018-08-14] MEDS: PRENATAL VITAMINS W/ FOLIC ACID TABLET (FP) PO SCH (10:04)
--- NOTE | 2018-08-14 10:57 | PN ---
[facility] CIWA - CIWA Score Nausea/Vomitin-No Nausea/No Vomiting Muscle Tremors: 3 Anxiety: 2 Agitation: 2 Paroxysmal Sweats: 1-Minimal Palms Moist Orientation: 0-Oriented Tacttile Disturbances: 1-Very Mild Itch/Numbness Auditory Disturbances: 0-None Visual Disturbances: 0-None Headache: 0-None Present CIWA-Ar Total Score: 9 BHS Progress Note (SOAP) Subjective: no headaches today feeling better today less tremor ambulating on hallway social with peers encourage to discuss aftercare with staff Objective: 08/14/18 11:03 Vital Signs Temperature 96 F L 08/14/18 09:03 Pulse Rate 60 08/14/18 09:03 Respiratory Rate 20 08/14/18 09:03 Blood Pressure 112/70 08/14/18 09:03 O2 Sat by Pulse Oximetry (%) Laboratory Last Values WBC 3.7 K/mm3 (4.0-10.0) L 08/13/18 07:42 RBC 4.60 M/mm3 (4.00-5.60) 08/13/18 07:42 Hgb 14.5 GM/dL (11.7-16.9) 08/13/18 07:42 Hct 43.2 % (35.4-49) 08/13/18 07:42 MCV 94.0 fl (80-96) 08/13/18 07:42 MCH 31.6 pg (25.7-33.7) 08/13/18 07:42 MCHC 33.7 g/dl (32.0-35.9) 08/13/18 07:42 RDW 14.8 % (11.9-15.9) 08/13/18 07:42 Plt Count 101 K/MM3 (134-434) L 08/13/18 07:42 MPV 9.0 fl (7.5-11.1) D 08/13/18 07:42 Sodium 141 mmol/L (136-145) 08/13/18 07:42 Potassium 3.2 mmol/L (3.5-5.1) L 08/13/18 07:42 Chloride 106 mmol/L (98-107) 08/13/18 07:42 Carbon Dioxide 29 mmol/L (21-32) 08/13/18 07:42 Anion Gap 6 MMOL/L (8-16) L 08/13/18 07:42 BUN 19.9 mg/dL (7-18) H 08/13/18 07:42 Creatinine 1.0 mg/dL (0.55-1.3) 08/13/18 07:42 Est GFR (CKD-EPI)AfAm 93.73 08/13/18 07:42 Est GFR (CKD-EPI)NonAf 80.87 08/13/18 07:42 POC Glucometer 181 UNITS (80-120) 08/14/18 06:56 Random Glucose 89 mg/dL (74-106) 08/13/18 07:42 Calcium 8.1 mg/dL (8.5-10.1) L 08/13/18 07:42 Total Bilirubin 0.8 mg/dL (0.2-1) 08/13/18 07:42 AST 33 U/L (15-37) 08/13/18 07:42 ALT 33 U/L (13-61) 08/13/18 07:42 Alkaline Phosphatase 135 U/L (45-117) H 08/13/18 07:42 Total Protein 7.0 g/dl (6.4-8.2) 08/13/18 07:42 Albumin 3.4 g/dl (3.4-5.0) 08/13/18 07:42 Urine Color Yellow 08/13/18 07:42 Urine Appearance Clear 08/13/18 07:42 Urine pH 6.5 (5.0-8.0) D 08/13/18 07:42 Ur Specific [place] 1.017 (1.010-1.035) 08/13/18 07:42 Urine Protein 1+ (NEGATIVE) H 08/13/18 07:42 Urine Glucose (UA) Negative (NEGATIVE) 08/13/18 07:42 Urine Ketones Negative (NEGATIVE) 08/13/18 07:42 Urine Blood 2+ (NEGATIVE) H 08/13/18 07:42 Urine Nitrite Negative (NEGATIVE) 08/13/18 07:42 Urine Bilirubin Negative (NEGATIVE) 08/13/18 07:42 Urine Urobilinogen 1.0 mg/dL (0.2-1.0) 08/13/18 07:42 Ur Leukocyte Esterase Negative (NEGATIVE) 08/13/18 07:42 Urine WBC (Auto) 0 /hpf (0-5) 08/13/18 07:42 Urine RBC (Auto) 41 /hpf (0-4) 08/13/18 07:42 Urine Casts (Auto) 1 /lpf (0-8) 08/13/18 07:42 U Epithel Cells (Auto) 0.4 /HPF (0-5/HPF) 08/13/18 07:42 Urine Bacteria (Auto) 1.2 /hpf (NEGATIVE) 08/13/18 07:42 RPR Titer Nonreactive (NONREACTIVE) 08/13/18 07:42 lab noted low K+ K+ supplement 40 meq x 2 doses repeat K+ 08/14/18 11:06 Assessment: 08/14/18 11:06 alcohol withdrawal sx Plan: continue alcohol detox
[2018-08-14] MEDS: POTASSIUM CHLORIDE ORAL LIQUID 20 MEQ/15 ML PO SCH ×2 (12:47→17:31)
[2018-08-14] MEDS: ATORVASTATIN CA 10 MG TABLET (FP) PO SCH (22:07)
[2018-08-14] MEDS: THIAMINE HCL 100 MG TABLET (FP) PO SCH (22:07)
[2018-08-15] MEDS ORDERED: chlordiazePOXIDE HCL 10 MG CAPSULE PO PRN
[2018-08-15] MEDS: chlordiazePOXIDE HCL 10 MG CAPSULE PO SCH ×4 (05:46→22:31)
[2018-08-15] MEDS: LISINOPRIL 20 MG TABLET (FP) PO SCH ×2 (10:01→22:31)
[2018-08-15] MEDS: PRENATAL VITAMINS W/ FOLIC ACID TABLET (FP) PO SCH (10:01)
[2018-08-15] MEDS: ASPIRIN 81 MG CHEWABLE TABLETS PO SCH (10:01)
--- NOTE | 2018-08-15 14:52 | PN ---
S CIWA - CIWA Score Nausea/Vomitin-No Nausea/No Vomiting Muscle Tremors: 2 Anxiety: 2 Agitation: 2 Paroxysmal Sweats: No Perspiration Orientation: 0-Oriented Tacttile Disturbances: 0-None Auditory Disturbances: 0-None Visual Disturbances: 0-None Headache: 1-Very Mild CIWA-Ar Total Score: 7 S Progress Note (SOAP) Subjective: social with peers in day room hesitate to discuss aftercare with staff encourage community support group Objective: 08/15/18 14:53 Vital Signs Temperature 97.4 F L 08/15/18 13:00 Pulse Rate 55 L 08/15/18 13:00 Respiratory Rate 18 08/15/18 13:00 Blood Pressure 130/72 08/15/18 13:00 O2 Sat by Pulse Oximetry (%) Laboratory Last Values WBC 3.7 K/mm3 (4.0-10.0) L 08/13/18 07:42 RBC 4.60 M/mm3 (4.00-5.60) 08/13/18 07:42 Hgb 14.5 GM/dL (11.7-16.9) 08/13/18 07:42 Hct 43.2 % (35.4-49) 08/13/18 07:42 MCV 94.0 fl (80-96) 08/13/18 07:42 MCH 31.6 pg (25.7-33.7) 08/13/18 07:42 MCHC 33.7 g/dl (32.0-35.9) 08/13/18 07:42 RDW 14.8 % (11.9-15.9) 08/13/18 07:42 Plt Count 101 K/MM3 (134-434) L 08/13/18 07:42 MPV 9.0 fl (7.5-11.1) D 08/13/18 07:42 Sodium 141 mmol/L (136-145) 08/13/18 07:42 Potassium 3.2 mmol/L (3.5-5.1) L 08/13/18 07:42 Chloride 106 mmol/L (98-107) 08/13/18 07:42 Carbon Dioxide 29 mmol/L (21-32) 08/13/18 07:42 Anion Gap 6 MMOL/L (8-16) L 08/13/18 07:42 BUN 19.9 mg/dL (7-18) H 08/13/18 07:42 Creatinine 1.0 mg/dL (0.55-1.3) 08/13/18 07:42 Est GFR (CKD-EPI)AfAm 93.73 08/13/18 07:42 Est GFR (CKD-EPI)NonAf 80.87 08/13/18 07:42 POC Glucometer 111 UNITS (80-120) 08/15/18 05:45 Random Glucose 89 mg/dL (74-106) 08/13/18 07:42 Calcium 8.1 mg/dL (8.5-10.1) L 08/13/18 07:42 Total Bilirubin 0.8 mg/dL (0.2-1) 08/13/18 07:42 AST 33 U/L (15-37) 08/13/18 07:42 ALT 33 U/L (13-61) 08/13/18 07:42 Alkaline Phosphatase 135 U/L (45-117) H 08/13/18 07:42 Total Protein 7.0 g/dl (6.4-8.2) 08/13/18 07:42 Albumin 3.4 g/dl (3.4-5.0) 08/13/18 07:42 Urine Color Yellow 08/13/18 07:42 Urine Appearance Clear 08/13/18 07:42 Urine pH 6.5 (5.0-8.0) D 08/13/18 07:42 Ur Specific [place] 1.017 (1.010-1.035) 08/13/18 07:42 Urine Protein 1+ (NEGATIVE) H 08/13/18 07:42 Urine Glucose (UA) Negative (NEGATIVE) 08/13/18 07:42 Urine Ketones Negative (NEGATIVE) 08/13/18 07:42 Urine Blood 2+ (NEGATIVE) H 08/13/18 07:42 Urine Nitrite Negative (NEGATIVE) 08/13/18 07:42 Urine Bilirubin Negative (NEGATIVE) 08/13/18 07:42 Urine Urobilinogen 1.0 mg/dL (0.2-1.0) 08/13/18 07:42 Ur Leukocyte Esterase Negative (NEGATIVE) 08/13/18 07:42 Urine WBC (Auto) 0 /hpf (0-5) 08/13/18 07:42 Urine RBC (Auto) 41 /hpf (0-4) 08/13/18 07:42 Urine Casts (Auto) 1 /lpf (0-8) 08/13/18 07:42 U Epithel Cells (Auto) 0.4 /HPF (0-5/HPF) 08/13/18 07:42 Urine Bacteria (Auto) 1.2 /hpf (NEGATIVE) 08/13/18 07:42 RPR Titer Nonreactive (NONREACTIVE) 08/13/18 07:42 lab noted low K+ repeat K+ pending continue K+ supplement repeat K+ 08/15/18 14:55 Assessment: 08/15/18 14:55 alcohol withdrawal sx 08/15/18 14:56 K+ supplement Plan: continue alcohol detox repeat K+
[2018-08-15] MEDS: POTASSIUM CHLORIDE TABS 20 MEQ TABLET.ER (FP) PO SCH ×2 (15:09→17:24)
[2018-08-15] MEDS: ATORVASTATIN CA 10 MG TABLET (FP) PO SCH (22:31)
[2018-08-15] MEDS: THIAMINE HCL 100 MG TABLET (FP) PO SCH (22:31)
[2018-08-16] MEDS: chlordiazePOXIDE HCL 10 MG CAPSULE PO SCH ×2 (06:01→17:06)
[2018-08-16] MEDS: ASPIRIN 81 MG CHEWABLE TABLETS PO SCH (09:53)
[2018-08-16] MEDS: PRENATAL VITAMINS W/ FOLIC ACID TABLET (FP) PO SCH (09:53)
[2018-08-16] MEDS: LISINOPRIL 20 MG TABLET (FP) PO SCH ×2 (09:53→22:10)
[2018-08-16] MEDS: POTASSIUM CHLORIDE TABS 20 MEQ TABLET.ER (FP) PO SCH (09:53)
--- NOTE | 2018-08-16 13:33 | PN ---
S CIWA - CIWA Score Nausea/Vomitin-No Nausea/No Vomiting Muscle Tremors: 2 Anxiety: 2 Agitation: 2 Paroxysmal Sweats: No Perspiration Orientation: 0-Oriented Tacttile Disturbances: 0-None Auditory Disturbances: 0-None Visual Disturbances: 0-None Headache: 0-None Present CIWA-Ar Total Score: 6 BHS Progress Note (SOAP) Subjective: feeling better social with peers in day room mild tremor no anxiety today encourage to discuss aftercare with staff Objective: 08/16/18 13:35 Vital Signs Temperature 98.2 F 08/16/18 09:11 Pulse Rate 58 L 08/16/18 13:14 Respiratory Rate 18 08/16/18 13:14 Blood Pressure 124/73 08/16/18 13:14 O2 Sat by Pulse Oximetry (%) Laboratory Last Values WBC 3.7 K/mm3 (4.0-10.0) L 08/13/18 07:42 RBC 4.60 M/mm3 (4.00-5.60) 08/13/18 07:42 Hgb 14.5 GM/dL (11.7-16.9) 08/13/18 07:42 Hct 43.2 % (35.4-49) 08/13/18 07:42 MCV 94.0 fl (80-96) 08/13/18 07:42 MCH 31.6 pg (25.7-33.7) 08/13/18 07:42 MCHC 33.7 g/dl (32.0-35.9) 08/13/18 07:42 RDW 14.8 % (11.9-15.9) 08/13/18 07:42 Plt Count 101 K/MM3 (134-434) L 08/13/18 07:42 MPV 9.0 fl (7.5-11.1) D 08/13/18 07:42 Sodium 141 mmol/L (136-145) 08/13/18 07:42 Potassium 3.9 mmol/L (3.5-5.1) 08/16/18 07:50 Chloride 106 mmol/L (98-107) 08/13/18 07:42 Carbon Dioxide 29 mmol/L (21-32) 08/13/18 07:42 Anion Gap 6 MMOL/L (8-16) L 08/13/18 07:42 BUN 19.9 mg/dL (7-18) H 08/13/18 07:42 Creatinine 1.0 mg/dL (0.55-1.3) 08/13/18 07:42 Est GFR (CKD-EPI)AfAm 93.73 08/13/18 07:42 Est GFR (CKD-EPI)NonAf 80.87 08/13/18 07:42 POC Glucometer 120 UNITS (80-120) 08/15/18 16:29 Random Glucose 89 mg/dL (74-106) 08/13/18 07:42 Calcium 8.1 mg/dL (8.5-10.1) L 08/13/18 07:42 Total Bilirubin 0.8 mg/dL (0.2-1) 08/13/18 07:42 AST 33 U/L (15-37) 08/13/18 07:42 ALT 33 U/L (13-61) 08/13/18 07:42 Alkaline Phosphatase 135 U/L (45-117) H 08/13/18 07:42 Total Protein 7.0 g/dl (6.4-8.2) 08/13/18 07:42 Albumin 3.4 g/dl (3.4-5.0) 08/13/18 07:42 Urine Color Yellow 08/13/18 07:42 Urine Appearance Clear 08/13/18 07:42 Urine pH 6.5 (5.0-8.0) D 08/13/18 07:42 Ur Specific [place] 1.017 (1.010-1.035) 08/13/18 07:42 Urine Protein 1+ (NEGATIVE) H 08/13/18 07:42 Urine Glucose (UA) Negative (NEGATIVE) 08/13/18 07:42 Urine Ketones Negative (NEGATIVE) 08/13/18 07:42 Urine Blood 2+ (NEGATIVE) H 08/13/18 07:42 Urine Nitrite Negative (NEGATIVE) 08/13/18 07:42 Urine Bilirubin Negative (NEGATIVE) 08/13/18 07:42 Urine Urobilinogen 1.0 mg/dL (0.2-1.0) 08/13/18 07:42 Ur Leukocyte Esterase Negative (NEGATIVE) 08/13/18 07:42 Urine WBC (Auto) 0 /hpf (0-5) 08/13/18 07:42 Urine RBC (Auto) 41 /hpf (0-4) 08/13/18 07:42 Urine Casts (Auto) 1 /lpf (0-8) 08/13/18 07:42 U Epithel Cells (Auto) 0.4 /HPF (0-5/HPF) 08/13/18 07:42 Urine Bacteria (Auto) 1.2 /hpf (NEGATIVE) 08/13/18 07:42 RPR Titer Nonreactive (NONREACTIVE) 08/13/18 07:42 TB (QFT) Incubation (.) 08/13/18 08:30 TB Test (QFT) Nil 0.10 IU/mL (.) 08/13/18 08:30 TB Test (QFT) Mitogen >10.00 IU/mL (.) 08/13/18 08:30 TB Test (QFT) Antigen 7.21 IU/mL (.) 08/13/18 08:30 TB Test (QFT) Positive (Negative) H 08/13/18 08:30 TB Positive Criteria (.) 08/13/18 08:30 lab noted 08/16/18 13:37 positive ppd negative chest x ray on 08/12/18 Assessment: 08/16/18 13:40 alcohol withdrawal sx Plan: continue alcohol detox
[2018-08-16] MEDS ORDERED: hydrOXYzine HCL 25 MG TABLET (FP) PO PRN (18:40)
[2018-08-16] MEDS: THIAMINE HCL 100 MG TABLET (FP) PO SCH (22:10)
[2018-08-16] MEDS: ATORVASTATIN CA 10 MG TABLET (FP) PO SCH (22:10)
[2018-08-17] MEDS ORDERED: chlordiazePOXIDE HCL 10 MG CAPSULE PO ONE (05:00)
[2018-08-17 07:01] VITALS: BP 122/74; PULSE 52; TEMP 97.4
--- NOTE | 2018-08-17 16:10 | DS ---
[facility] Detox Discharge Summary Admission Date: 08/12/18 Discharge Date: 08/17/18 - History Present History: Alcohol Dependence Additional Comments: 63 years old male admitted on 08/12/18 for alcohol withdrawal x medical history of hypertension hyperlipidemia gerd and obesity patient was doing well through out the librium detox regimen bp well controlled prefers manage lipid through dietary regimen at the nursing home agrees weight loss aftercare new focus - Physical Exam Results Vital Signs: Vital Signs Temperature 97.4 F L 08/17/18 07:01 Pulse Rate 52 L 08/17/18 07:01 Respiratory Rate 16 08/17/18 07:01 Blood Pressure 122/74 08/17/18 07:01 O2 Sat by Pulse Oximetry (%) Pertinent Admission Physical Exam Findings: alcohol withdrawal sx Laboratory Last Values WBC 3.7 K/mm3 (4.0-10.0) L 08/13/18 07:42 RBC 4.60 M/mm3 (4.00-5.60) 08/13/18 07:42 Hgb 14.5 GM/dL (11.7-16.9) 08/13/18 07:42 Hct 43.2 % (35.4-49) 08/13/18 07:42 MCV 94.0 fl (80-96) 08/13/18 07:42 MCH 31.6 pg (25.7-33.7) 08/13/18 07:42 MCHC 33.7 g/dl (32.0-35.9) 08/13/18 07:42 RDW 14.8 % (11.9-15.9) 08/13/18 07:42 Plt Count 101 K/MM3 (134-434) L 08/13/18 07:42 MPV 9.0 fl (7.5-11.1) D 08/13/18 07:42 Sodium 141 mmol/L (136-145) 08/13/18 07:42 Potassium 3.9 mmol/L (3.5-5.1) 08/16/18 07:50 Chloride 106 mmol/L (98-107) 08/13/18 07:42 Carbon Dioxide 29 mmol/L (21-32) 08/13/18 07:42 Anion Gap 6 MMOL/L (8-16) L 08/13/18 07:42 BUN 19.9 mg/dL (7-18) H 08/13/18 07:42 Creatinine 1.0 mg/dL (0.55-1.3) 08/13/18 07:42 Est GFR (CKD-EPI)AfAm 93.73 08/13/18 07:42 Est GFR (CKD-EPI)NonAf 80.87 08/13/18 07:42 POC Glucometer 105 UNITS (80-120) 08/17/18 05:24 Random Glucose 89 mg/dL (74-106) 08/13/18 07:42 Calcium 8.1 mg/dL (8.5-10.1) L 08/13/18 07:42 Total Bilirubin 0.8 mg/dL (0.2-1) 08/13/18 07:42 AST 33 U/L (15-37) 08/13/18 07:42 ALT 33 U/L (13-61) 08/13/18 07:42 Alkaline Phosphatase 135 U/L (45-117) H 08/13/18 07:42 Total Protein 7.0 g/dl (6.4-8.2) 08/13/18 07:42 Albumin 3.4 g/dl (3.4-5.0) 08/13/18 07:42 Urine Color Yellow 08/13/18 07:42 Urine Appearance Clear 08/13/18 07:42 Urine pH 6.5 (5.0-8.0) D 08/13/18 07:42 Ur Specific [place] 1.017 (1.010-1.035) 08/13/18 07:42 Urine Protein 1+ (NEGATIVE) H 08/13/18 07:42 Urine Glucose (UA) Negative (NEGATIVE) 08/13/18 07:42 Urine Ketones Negative (NEGATIVE) 08/13/18 07:42 Urine Blood 2+ (NEGATIVE) H 08/13/18 07:42 Urine Nitrite Negative (NEGATIVE) 08/13/18 07:42 Urine Bilirubin Negative (NEGATIVE) 08/13/18 07:42 Urine Urobilinogen 1.0 mg/dL (0.2-1.0) 08/13/18 07:42 Ur Leukocyte Esterase Negative (NEGATIVE) 08/13/18 07:42 Urine WBC (Auto) 0 /hpf (0-5) 08/13/18 07:42 Urine RBC (Auto) 41 /hpf (0-4) 08/13/18 07:42 Urine Casts (Auto) 1 /lpf (0-8) 08/13/18 07:42 U Epithel Cells (Auto) 0.4 /HPF (0-5/HPF) 08/13/18 07:42 Urine Bacteria (Auto) 1.2 /hpf (NEGATIVE) 08/13/18 07:42 RPR Titer Nonreactive (NONREACTIVE) 08/13/18 07:42 TB (QFT) Incubation (.) 08/13/18 08:30 TB Test (QFT) Nil 0.10 IU/mL (.) 08/13/18 08:30 TB Test (QFT) Mitogen >10.00 IU/mL (.) 08/13/18 08:30 TB Test (QFT) Antigen 7.21 IU/mL (.) 08/13/18 08:30 TB Test (QFT) Positive (Negative) H 08/13/18 08:30 TB Positive Criteria (.) 08/13/18 08:30 lab noted - Treatment Hospital Course: Detox Protocol Followed, Detoxed Safely, Responded well, Discharged Condition Good, Rehab Referral Accepted Patient has Accepted a Rehab Referral to: new focus - Medication Discharge Medications: Ambulatory Orders Aspirin 81 mg PO DAILY 03/13/18 Atorvastatin Calcium [Lipitor] 10 mg PO HS 07/11/18 Lisinopril [Prinivil] 20 mg PO BID 07/11/18 Metoprolol Succinate [Toprol Xl] 50 mg PO DAILY 07/11/18 - Diagnosis (1) Hepatic cirrhosis Status: Chronic Qualifiers: Hepatic cirrhosis type: alcoholic cirrhosis Ascites presence: without ascites Qualified Code(s): K70.30 - Alcoholic cirrhosis of liver without ascites (2) Positive PPD Status: Resolved (3) Alcohol dependence with uncomplicated withdrawal Status: Acute (4) Essential hypertension Status: Chronic (5) DM2 (diabetes mellitus, type 2) Status: Chronic Qualifiers: Diabetes mellitus terminal make up operator insulin use: unspecified terminal make up operator insulin use status Diabetes mellitus complication status: with other specified complication Qualified Code(s): E11.69 - Type 2 diabetes mellitus with other specified complication (6) COPD (chronic obstructive pulmonary disease) Status: Chronic Qualifiers: COPD type: emphysema Emphysema type: unspecified Qualified Code(s): J43.9 - Emphysema, unspecified (7) Hyperlipidemia Status: Chronic Qualifiers: Hyperlipidemia type: unspecified Qualified Code(s): E78.5 - Hyperlipidemia , unspecified (8) Arrhythmia Status: Chronic Qualifiers: Arrhythmia type: unspecified cardiac arrhythmia Qualified Code(s): I49.9 - Cardiac arrhythmia, unspecified (9) GERD (gastroesophageal reflux disease) Status: Chronic Qualifiers: Esophagitis presence: without esophagitis Qualified Code(s): K21.9 - Gastro -esophageal reflux disease without esophagitis (10) Obesity Status: Chronic Qualifiers: Obesity type: due to excess calories Obesity classification: unspecified obesity classification Serious obesity comorbidity presence: without serious comorbidity Qualified Code(s): E66.09 - Other obesity due to excess calories - AMA Did Patient Leave Against Medical Advice: No
== END 2018-08-17 09:17 | disposition home or self-care (01) | DRG 775 ==
LOC: YASAS 17:07 → Y3N 19:31
PROVIDERS: ADMIT Surgery; ATTEND Surgery
PROC: HZ2ZZZZ Detoxification Services for Substance Abuse Treatment (ICD-10-PCS; principal; 2018-08-12)
DX: F10.230 Alcohol dependence with withdrawal, uncomplicated (principal); I10 Essential (primary) hypertension; E78.5 Hyperlipidemia, unspecified; E78.00 Pure hypercholesterolemia, unspecified; E11.9 Type 2 diabetes mellitus without complications; K43.2 Incisional hernia without obstruction or gangrene; Z59.0 Homelessness
CPT/HCPCS: 36415; 71045-TC-FY; 80053; 80307; 81003; 82962; 83690; 84132; 84484; 85025; 85027; 86480; 86593; 93005; 93010; 96365; 99283-25; J7030

== ENCOUNTER 2018-10-23 21:34 | Inpatient (IN) | payer OTHER ==
[2018-10-23] MEDS ORDERED: ASPIRIN 81 MG CHEWABLE TABLETS PO ONE (22:00)
--- NOTE | 2018-10-23 22:00 | PDOC ---
Rapid Medical Evaluation Chief Complaint: Chest Pain Time Seen by Provider: 10/23/18 21:57 Medical Evaluation: Allergies Allergy/AdvReac Type Severity Reaction Status Date / Time No Known Drug Allergies Allergy Verified 08/12/18 17:41 10/23/18 21:57 I have performed a brief in-person evaluation of this patient. The patient presents with a chief complaint of: "blood pressure too high", been drinking for two days and therefore not taking BP meds, c/o chest pain since this am, SOB. hx HTN, HLD Pertinent physical exam findings: mild speech dyspnea, hypertensive I have ordered the following: ekg, labs The patient will proceed to the ED for further evaluation. Discharge Disposition - Diagnosis Chest pain - Referrals - Patient Instructions - Post Discharge Activity
[2018-10-23 22:24] LABS: BASO % 0.7 % (0-2.0); EOS % 0.9 % (0-4.5); HEMATOCRIT 45.2 % (35.4-49); HEMOGLOBIN 15.3 GM/dL (11.7-16.9); LYMPH % 27.1 % (8-40); MCHC 33.9 g/dl (32.0-35.9); MEAN CELL VOLUME 94.3 fl (80-96); MEAN PLT VOLUME 8.1 fl (7.5-11.1); MONO % 8.9 % (3.8-10.2); NEUT % 62.4 % (42.8-82.8); PLATELET COUNT 117 K/MM3 (134-434); RBC 4.79 M/mm3 (4.00-5.60); RDW 14.7 % (11.9-15.9); WHITE BLOOD COUNT 5.7 K/mm3 (4.0-10.0)
[2018-10-23 22:46] LABS: INR 1.13 (0.83-1.09); PROTHROMBIN TIME (PATIENT) 13.3 SEC (9.7-13.0)
[2018-10-23] MEDS ORDERED: ASPIRIN 81 MG CHEWABLE TABLETS ONE (22:49)
--- NOTE | 2018-10-23 23:00 | PDOC ---
Attending Attestation - Resident Resident Name: Jose Martin Rajan - ED Attending Attestation I have performed the following: I have examined & evaluated the patient, The case was reviewed & discussed with the resident, I agree w/resident's findings & plan, Exceptions are as noted - HPI HPI: 10/23/18 23:53 63 male presents with chest pain since 5 pm,he has a long-standing history of alcohol abuse, hypertension, hyperlipidemia, COPD 10/23/18 23:55 he states the pain started about 5 PM it was 8 out of 10 in severity, nonradiating and nothing seemed to make it worse or better 10/24/18 00:07 - Physicial Exam PE: 10/24/18 01:39 unless, well-developed 63-year-old male who presents with chest pain that started this afternoon about 5 Head normocephalic/atraumatic. Neck no JVD, no bruits lungs -clear to auscultation bilaterally CVS regular rate and rhythm S1, S2 Abdomen nontender. Skin warm and dry. Extremities chronic venous changes, varicose veins neuro axox3 - Medical Decision Making 10/24/18 01:41 repeat pt=451/95 pt given ASA,lopressor 10/24/18 01:43 pt wants etoh detox plan if 2rd trop is negative, send to [facility] detox in am
[2018-10-23 23:06] LABS: BILIRUBIN,TOTAL 0.7 mg/dL (0.2-1); BLOOD UREA NITROGEN 22.8 mg/dL (7-18); CALCIUM 8.7 mg/dL (8.5-10.1); CREATININE 1.1 mg/dL (0.55-1.3); MAGNESIUM 1.9 mg/dL (1.8-2.4); POTASSIUM 3.5 mmol/L (3.5-5.1); TOT PROT 8.5 g/dl (6.4-8.2)
[2018-10-23] MEDS ORDERED: MAGNESIUM SULF 50% (8.12 MEQ/2 ML-1 GM VIAL) IVPB ONE (23:40)
[2018-10-23] MEDS ORDERED: METOPROLOL TARTRATE 25 MG TABLET (FP) PO ONE (23:56)
[2018-10-24] MEDS ORDERED: MAGNESIUM SULF 50% (8.12 MEQ/2 ML-1 GM VIAL) ONE
[2018-10-24] MEDS ORDERED: METOPROLOL TARTRATE 25 MG TABLET (FP) ONE (00:01)
[2018-10-24] MEDS ORDERED: ATORVASTATIN CA 10 MG TABLET (FP) PO ONE (00:08)
[2018-10-24] MEDS ORDERED: LISINOPRIL 20 MG TABLET (FP) PO ONE (00:08)
--- NOTE | 2018-10-24 00:09 | PDOC ---
History of Present Illness - General Chief Complaint: Chest Pain Stated Complaint: CHEST PAIN Time Seen by Provider: 10/23/18 21:57 History Source: Patient - History of Present Illness Initial Comments: 10/24/18 03:13 Mr. Rosado is a 63 y/o [place] speaking man with hx etoh use disorder, HTN, HLD p /w 6 hours of chest pain. He reports that he often develops chest pain, chills, diaphoresis after he stops drinking. He reports drinking 12 beers today, and developing constant 8/10 non-radiating chest pain. He reports that previously he has attempted to continue drinking to avoid the chest pain, but that he vomited once today after his final beer and did not continue to drink afterwards. He reports that he is currently homeless and normally sleeps at a halfway. He reports having been in detox for etoh in the past, but later relapsed. He denies any prior seizures due to alcohol withdrawal or any previous hospital admissions due to alcohol withdrawal. He reports that he would be interested in returning to detox if possible. Past History - Past Medical History Allergies/Adverse Reactions: Allergies Allergy/AdvReac Type Severity Reaction Status Date / Time No Known Drug Allergies Allergy Verified 10/23/18 22:00 Home Medications: Ambulatory Orders Aspirin 81 mg PO DAILY 03/13/18 Atorvastatin Calcium [Lipitor] 10 mg PO HS 07/11/18 Lisinopril [Prinivil] 20 mg PO BID 07/11/18 Metoprolol Succinate [Toprol Xl] 50 mg PO DAILY 07/11/18 Anemia: No Asthma: No Cancer: No Cardiac Disorders: No CVA: No COPD: No CHF: No Dementia: No Diabetes: Yes GI Disorders: No Disorders: No HTN: Yes Hypercholesterolemia: Yes Kidney Stones: No Liver Disease: No Psychiatric Problems: Yes (DEPRESSION) Seizures: No Thyroid Disease: No - Surgical History Abdominal Surgery: Yes (epigastric hernia) Appendectomy: Yes Cardiac Surgery: No Cholecystectomy: Yes GI Surgery: Yes (appendectomy) Lung Surgery: No Neurologic Surgery: No Orthopedic Surgery: No - Reproductive History Testicular Surgery: No - Immunization History Td Vaccination: Yes Immunization Up to Date: No - Suicide/Smoking/Psychosocial Hx Smoking Status: Yes Smoking History: Never smoked Years of Tobacco Use: 0 Have you smoked in the past 12 months: No Number of Cigarettes Smoked Daily: 0 If you are a former smoker, when did you quit?: smoked for 13 years Cigars Per Day: 0 Information on smoking cessation initiated: No 'Breaking Loose' booklet given: 06/12/12 Hx Alcohol Use: Yes Drug/Substance Use Hx: No Substance Use Type: Alcohol Hx Substance Use Treatment: No Review of Systems - Review of Systems Able to Perform ROS?: Yes Comments:: 10/24/18 03:22 ROS: GENERAL/CONSTITUTIONAL: No fever or chills. No weakness. HEAD, EYES, EARS, NOSE AND THROAT: No change in vision. No ear pain or discharge. No sore throat. CARDIOVASCULAR: Chest pain. No shortness of breath RESPIRATORY: No cough, wheezing, or hemoptysis. GASTROINTESTINAL: No nausea, vomiting, diarrhea or constipation. GENITOURINARY: No dysuria, frequency, or change in urination. MUSCULOSKELETAL: No joint or muscle swelling or pain. No neck or back pain. SKIN: No rash NEUROLOGIC: No headache, vertigo, loss of consciousness, or change in strength/ sensation. ENDOCRINE: No increased thirst. No abnormal weight change HEMATOLOGIC/LYMPHATIC: No anemia, easy bleeding, or history of blood clots. ALLERGIC/IMMUNOLOGIC: No hives or skin allergy. *Physical Exam - Vital Signs Last Vital Signs Temp Pulse Resp BP Pulse Ox 98.5 F 89 17 174/104 H 100 10/23/18 21:57 10/23/18 21:57 10/23/18 21:57 10/23/18 21:57 10/23/18 21:57 - Physical Exam Comments: 10/24/18 03:22 PE: GENERAL: Awake, alert, and fully oriented, in no acute distress HEAD: No signs of trauma, normocephalic, atraumatic EYES: PERRLA, EOMI, sclera anicteric, conjunctiva clear ENT: Auricles normal inspection, hearing grossly normal, nares patent, oropharynx clear without exudates. Moist mucosa NECK: Normal ROM, supple, no lymphadenopathy, JVD, or masses LUNGS: No distress, speaks full sentences, clear to auscultation bilaterally HEART: Regular rate and rhythm, normal S1 and S2, no murmurs, rubs or gallops, peripheral pulses normal and equal bilaterally. ABDOMEN: Soft, nontender, normoactive bowel sounds. No guarding, no rebound. No masses EXTREMITIES : Normal inspection, Normal range of motion, no edema. No clubbing or cyanosis NEUROLOGICAL: Cranial nerves II through XII grossly intact. Normal speech, normal gait, no focal sensorimotor deficits SKIN: Warm, Dry, normal turgor, no rashes or lesions noted ED Treatment Course - LABORATORY CBC & Chemistry Diagram: 10/23/18 22:10 10/23/18 22:10 - ADDITIONAL ORDERS Additional order review: Laboratory Results 10/23/18 10/23/18 22:10 22:10 PT with INR 13.30 H INR 1.13 H Sodium 139 Potassium 3.5 Chloride 106 Carbon Dioxide 25 Anion Gap 8 BUN 22.8 H Creatinine 1.1 Est GFR (CKD-EPI)AfAm 83.53 Est GFR (CKD-EPI)NonAf 72.07 Random Glucose 116 H Calcium 8.7 Magnesium 1.9 Total Bilirubin 0.7 AST 126 H ALT 50 Alkaline Phosphatase 186 H Creatine Kinase 6382 H Creatine Kinase Index 0.1 CK-MB (CK-2) 8.5 H Troponin I 0.05 Total Protein 8.5 H Albumin 4.0 10/23/18 22:10 RBC 4.79 MCV 94.3 MCHC 33.9 RDW 14.7 MPV 8.1 Neutrophils % 62.4 Lymphocytes % 27.1 Monocytes % 8.9 D Eosinophils % 0.9 D Basophils % 0.7 - Medications Given in the ED: ED Medications Discontinued Medications Generic Name Dose Route Start Last Admin Trade Name Freq PRN Reason Stop Dose Admin Aspirin 162 mg 10/23/18 22:00 10/23/18 22:57 Asa - PO 10/23/18 22:01 162 mg ONCE ONE Administration Medical Decision Making - Medical Decision Making 10/24/18 03:19 63M with hx etoh use disorder, HTN, HLD p/w chest pain that began after 12 beers , which may represent withdrawal symptoms. ACS cannot be ruled out at this time. Plan: CBC CMP Cardiac profile (Troponin x2) EKG CXR EtOH level AM dispo to [facility] if beds available, if troponin x2 negative Dispo: Pending labs, imaging --- Lisinopril 20 mg, Metoprolol 25 mg ordered for HTN Lipitor 10 mg ordered Mag 1mg ordered --- Patient signed out to Dr. Mosquera. *DC/Admit/Observation/Transfer Diagnosis at time of Disposition: Chest pain - Referrals - Patient Instructions - Post Discharge Activity
[2018-10-24] MEDS ORDERED: LISINOPRIL 20 MG TABLET (FP) ONE (00:28)
[2018-10-24] MEDS ORDERED: ATORVASTATIN CA 20 MG TABLET (FP) ONE (00:28)
--- NOTE | 2018-10-24 02:45 | PDOC ---
*Physical Exam - Vital Signs Last Vital Signs Temp Pulse Resp BP Pulse Ox 98.5 F 60 18 160/87 99 10/23/18 21:57 10/24/18 02:01 10/24/18 02:01 10/24/18 02:01 10/24/18 02:01 ED Treatment Course - LABORATORY CBC & Chemistry Diagram: 10/23/18 22:10 10/23/18 22:10 - ADDITIONAL ORDERS Additional order review: Laboratory Results 10/24/18 10/24/18 10/23/18 02:00 00:09 22:10 PT with INR 13.30 H INR 1.13 H Sodium Potassium Chloride Carbon Dioxide Anion Gap BUN Creatinine Est GFR (CKD-EPI)AfAm Est GFR (CKD-EPI)NonAf Random Glucose Calcium Magnesium 2.3 Total Bilirubin AST ALT Alkaline Phosphatase Creatine Kinase Creatine Kinase Index CK-MB (CK-2) Troponin I Total Protein Albumin Alcohol, Quantitative < 3.0 10/23/18 22:10 PT with INR INR Sodium 139 Potassium 3.5 Chloride 106 Carbon Dioxide 25 Anion Gap 8 BUN 22.8 H Creatinine 1.1 Est GFR (CKD-EPI)AfAm 83.53 Est GFR (CKD-EPI)NonAf 72.07 Random Glucose 116 H Calcium 8.7 Magnesium 1.9 Total Bilirubin 0.7 AST 126 H ALT 50 Alkaline Phosphatase 186 H Creatine Kinase 6382 H Creatine Kinase Index 0.1 CK-MB (CK-2) 8.5 H Troponin I 0.05 Total Protein 8.5 H Albumin 4.0 Alcohol, Quantitative 10/23/18 22:10 RBC 4.79 MCV 94.3 MCHC 33.9 RDW 14.7 MPV 8.1 Neutrophils % 62.4 Lymphocytes % 27.1 Monocytes % 8.9 D Eosinophils % 0.9 D Basophils % 0.7 - Medications Given in the ED: ED Medications Discontinued Medications Generic Name Dose Route Start Last Admin Trade Name Freq PRN Reason Stop Dose Admin Aspirin 162 mg 10/23/18 22:00 10/23/18 22:57 Asa - PO 10/23/18 22:01 162 mg ONCE ONE Administration Atorvastatin Calcium 10 mg 10/24/18 00:08 10/24/18 00:32 Lipitor - PO 10/24/18 00:09 10 mg ONCE ONE Administration Lisinopril 20 mg 10/24/18 00:08 10/24/18 00:32 Prinivil PO 10/24/18 00:09 20 mg ONCE ONE Administration Magnesium Sulfate 1 gm 10/23/18 23:40 10/24/18 00:10 Magnesium Sulfate IVPB 10/23/18 23:41 1 gm ONCE ONE Administration Metoprolol Tartrate 25 mg 10/23/18 23:56 10/24/18 00:10 Lopressor - PO 10/23/18 23:57 25 mg ONCE ONE Administration Medical Decision Making - Medical Decision Making 10/24/18 04:16 Received on signout from Dr Rajan 63M with hx etoh use disorder, HTN, HLD p/w chest pain that began after 12 beers , which may represent withdrawal symptoms. ACS ruleout -signed out to followup labs and if normal to DC to [facility] 10/24/18 04:18 First trop 0.05 with 2nd trop elevated to 0.08 Also found to have elevated CK 6000s 10/24/18 04:21 will send for UA, utox, acetone serum, vbg IVF 2L to start will admit to tele for elevated trop and rhabdo *DC/Admit/Observation/Transfer Diagnosis at time of Disposition: Chest pain - Referrals - Patient Instructions - Post Discharge Activity
[2018-10-24] MEDS ORDERED: SODIUM CHLORIDE 2,000 ML IV STA (03:52)
[2018-10-24 04:28] LABS: VENOUS PC02 36.8 mmHg (38-52); VENOUS PH 7.45 (7.31-7.41); VENOUS PO2 67.8 mmHg (28-48)
[2018-10-24 04:30] LABS: EPI CELLS 0.3 /HPF (0-5/HPF); HYALINE CASTS 1 /lpf (0-8); PH,URINE 5.5 (5.0-8.0); URINE APPEARANCE CLEAR; URINE BACTERIA 0.5 /hpf (NEGATIVE); URINE BILIRUBIN NEGATIVE (NEGATIVE); URINE COLOR YELLOW; URINE GLUCOSE (UA) NEGATIVE (NEGATIVE); URINE KETONE NEGATIVE (NEGATIVE); URINE LEUK ESTERASE NEGATIVE (NEGATIVE); URINE NITRITE NEGATIVE (NEGATIVE); URINE PROTEIN 2+ (NEGATIVE); URINE RBC 14 /hpf (0-4); URINE WBC 0 /hpf (0-5)
[2018-10-24 04:39] LABS: COCAINE, UR NEGATIVE ng/ml (CUTOFF=300); METHADONE, UR NEGATIVE ng/ml (CUTOFF=300); OPIATES, URI NEGATIVE ng/ml (CUTOFF=300); PHENCYCLIDINE,URINE NEGATIVE ng/ml (CUTOFF=25); URINE AMPHETAMINES NEGATIVE ng/ml (CUTOFF=500); URINE BARBITURATES NEGATIVE ng/ml (CUTOFF=200); URINE BENZODIAZEPINES NEGATIVE ng/ml (CUTOFF=200)
--- NOTE | 2018-10-24 05:00 | PN ---
Teaching Attending Note Name of Resident: Kori Huynh ATTENDING PHYSICIAN STATEMENT I saw and evaluated the patient. I reviewed the resident's note and discussed the case with the resident. I agree with the resident's findings and plan as documented. SUBJECTIVE: Patient is a 63 year old man - group home resident - with PMH of Alcohol abuse, Hepatocellular disease, NIDDM, COPD, HTN and HLD who presents with 6 hours of chest pain. He reports that he often develops chest pain, chills, diaphoresis after he stops drinking. He reports drinking 12 beers today, and developing constant 8/10 non-radiating chest pain. He reports that previously he has attempted to continue drinking to avoid the chest pain, but that he vomited once today after his final beer and did not continue to drink afterwards. He reports that he is currently homeless and normally sleeps at a group home. He reports having been in detox for alcohol in the past, but later relapsed. He denies any prior seizures due to alcohol withdrawal or any previous hospital admissions due to alcohol withdrawal. He reports that he would be interested in returning to detox if possible. OBJECTIVE: Intoxicated Vital Signs Period Temp Pulse Resp BP Sys/De Dios Pulse Ox Last 24 Hr 98.5 F 60-89 17-20 160-176/87-104 99-100 HEENT: No Jaundice, eye redness or discharge, PERRLA, EOMI. Normocephalic, atraumatic. External ears are normal and hearing is grossly intact. No nasal discharge. Neck: Supple, nontender. No palpable adenopathy or thyromegaly. No JVD Chest: Good effort. Clear to auscultation and percussion. Heart: Regular. No S3, rub or murmur Abdomen: Not distended, soft, nontender and no HSM. No rebound or guarding. Normal bowel sounds. Ext: Peripheral pulses intact. No leg edema. Varicose veins. Skin: Warm and dry. No petechiae, rash or ecchymosis. Neuro: Alert. Oriented to person and place. CN 2-12 grossly intact. Sensation grossly intact in all four extremities and DTR are symmetric. Psych: Appropriate mood and affect. Good insight. Current Medications Generic Name Dose Route Start Last Admin Trade Name Freq PRN Reason Stop Dose Admin Sodium Chloride 2,000 mls @ 1,000 mls/hr 10/24/18 03:52 10/24/18 04:13 Normal Saline - IV 10/24/18 05:51 1,000 mls/hr ASDIR STA Administration Home Medications Medication Instructions Recorded Aspirin 81 mg PO DAILY 03/13/18 Atorvastatin Calcium [Lipitor] 10 mg PO HS 07/11/18 Lisinopril [Prinivil] 20 mg PO BID 07/11/18 Metoprolol Succinate [Toprol Xl] 50 mg PO DAILY 07/11/18 Abnormal Lab Results 10/23/18 10/23/18 10/23/18 22:10 22:10 22:10 Plt Count 117 L PT with INR 13.30 H INR 1.13 H VBG pH POC VBG pCO2 POC VBG pO2 VBG O2 Sat (Tatyana) VBG Base Excess BUN 22.8 H Random Glucose 116 H AST 126 H Alkaline Phosphatase 186 H Creatine Kinase 6382 H CK-MB (CK-2) 8.5 H Troponin I Total Protein 8.5 H Urine Protein Urine Blood 10/24/18 10/24/18 10/24/18 02:00 04:01 04:10 Plt Count PT with INR INR VBG pH 7.45 H POC VBG pCO2 36.8 L POC VBG pO2 67.8 H VBG O2 Sat (Tatyana) 94.8 H VBG Base Excess 2.1 H BUN Random Glucose AST Alkaline Phosphatase Creatine Kinase 6103 H CK-MB (CK-2) 6.8 H Troponin I 0.08 H Total Protein Urine Protein 2+ H Urine Blood 2+ H ASSESSMENT AND PLAN: 1. Chest pain/Rhabdomyolysis/Alcohol abuse - Now chest pain free and no acute abnormality on CXR. EKG shows NSR with first degree AV block, nonspecific T wave flattening, LAD and elevated troponin. Will admit to telemetry to rule out ACS, get ECHO and consult cardiology. Rhabdomyolysis likely due to alcohol and may explain the "hematuria" (?haptoglobin). Will continue IV NS after the banana bag. Repeat urinalysis and monitor platelet count. Implement CIWA ativan alcohol withdrawal protocol and do neurochecks. Implement seizure, fall and aspiration precautions. Treat with thiamine and folic acid and monitor electrolytes (Ca,Mg,K,P). Counseled patient about abstaining from alcohol. Will consult greenhouse specialist and refer to alcohol detox upon discharge. Will continue comprehensive care for all of patients comorbid conditions. 2. DM For now, we will hold the home diabetes drugs and implement sliding scale insulin regimen. Provide comprehensive diabetes care with patient teaching and counseling about the importance of adherence to prescribed diabetes regimen, euglycemia, eye care and foot care. 3. Obesity Counseled on the risks associated with obesity. Will provide patient all the necessary assistance, counseling and positive reinforcement to facilitate weight loss. Consult temp recruiter. 4. Hypertension - Restart suitable outpatient antihypertensive drugs when clinically appropriate. Revise regimen to ensure bipso-ett-asbvy excellent BP control and vocational guidance counselor patient on the injurious effects of uncontrolled hypertension. Nonpharmacologic measures to control hypertension like weight loss , salt restriction and exercise discussed. Importance of adherence to treatment regimen and attainment of normotension emphasized. 5. DVT prophylaxis - Lovenox 40 mg SQ q 24 hours. 6. Advance directives - Full code
--- NOTE | 2018-10-24 05:19 | PDOC ---
*Physical Exam - Vital Signs Last Vital Signs Temp Pulse Resp BP Pulse Ox 98.5 F 60 18 160/87 99 10/23/18 21:57 10/24/18 02:01 10/24/18 02:01 10/24/18 02:01 10/24/18 02:01 - Physical Exam General Appearance: Yes: Nourished Neck: positive: Trachea midline Respiratory/Chest: positive: Lungs Clear, Normal Breath Sounds. negative: Chest Tender Cardiovascular: positive: Regular Rhythm, Regular Rate, S1, S2 Gastrointestinal/Abdominal: positive: Normal Bowel Sounds, Flat, Soft. negative : Tender Musculoskeletal: positive: Normal Inspection Extremity: positive: Normal Capillary Refill Integumentary: positive: Normal Color, Dry, Warm Neurologic: positive: Fully Oriented, Alert, Normal Mood/Affect ED Treatment Course - LABORATORY CBC & Chemistry Diagram: 10/23/18 22:10 10/23/18 22:10 - ADDITIONAL ORDERS Additional order review: Laboratory Results 10/24/18 10/24/18 10/24/18 04:10 04:01 04:01 PT with INR INR VBG pH 7.45 H POC VBG pCO2 36.8 L POC VBG pO2 67.8 H VBG HCO3 25.4 VBG O2 Sat (Tatyana) 94.8 H VBG Base Excess 2.1 H Sodium Potassium Chloride Carbon Dioxide Anion Gap BUN Creatinine Est GFR (CKD-EPI)AfAm Est GFR (CKD-EPI)NonAf Random Glucose Calcium Magnesium Total Bilirubin AST ALT Alkaline Phosphatase Creatine Kinase Creatine Kinase Index CK-MB (CK-2) Troponin I Total Protein Albumin Urine Color Yellow Urine Appearance Clear Urine pH 5.5 Ur Specific [place] 1.021 Urine Protein 2+ H Urine Glucose (UA) Negative Urine Ketones Negative Urine Blood 2+ H Urine Nitrite Negative Urine Bilirubin Negative Urine Urobilinogen 1.0 Ur Leukocyte Esterase Negative Urine WBC (Auto) 0 Urine RBC (Auto) 14 Urine Casts (Auto) 1 U Epithel Cells (Auto) 0.3 Urine Bacteria (Auto) 0.5 Opiates Screen Negative Methadone Screen Negative Barbiturate Screen Negative Phencyclidine Screen Negative Ur Amphetamines Screen Negative MDMA (Ecstasy) Screen Negative Benzodiazepines Screen Negative Cocaine Screen Negative U Marijuana (THC) Screen Negative Alcohol, Quantitative 10/24/18 10/24/18 10/24/18 02:00 02:00 00:09 PT with INR INR VBG pH POC VBG pCO2 POC VBG pO2 VBG HCO3 VBG O2 Sat (Tatyana) VBG Base Excess Sodium Potassium Chloride Carbon Dioxide Anion Gap BUN Creatinine Est GFR (CKD-EPI)AfAm Est GFR (CKD-EPI)NonAf Random Glucose Calcium Magnesium 2.3 Total Bilirubin AST ALT Alkaline Phosphatase Creatine Kinase 6103 H Creatine Kinase Index 0.1 CK-MB (CK-2) 6.8 H Troponin I 0.08 H Total Protein Albumin Urine Color Urine Appearance Urine pH Ur Specific [place] Urine Protein Urine Glucose (UA) Urine Ketones Urine Blood Urine Nitrite Urine Bilirubin Urine Urobilinogen Ur Leukocyte Esterase Urine WBC (Auto) Urine RBC (Auto) Urine Casts (Auto) U Epithel Cells (Auto) Urine Bacteria (Auto) Opiates Screen Methadone Screen Barbiturate Screen Phencyclidine Screen Ur Amphetamines Screen MDMA (Ecstasy) Screen Benzodiazepines Screen Cocaine Screen U Marijuana (THC) Screen Alcohol, Quantitative < 3.0 10/23/18 10/23/18 22:10 22:10 PT with INR 13.30 H INR 1.13 H VBG pH POC VBG pCO2 POC VBG pO2 VBG HCO3 VBG O2 Sat (Tatyana) VBG Base Excess Sodium 139 Potassium 3.5 Chloride 106 Carbon Dioxide 25 Anion Gap 8 BUN 22.8 H Creatinine 1.1 Est GFR (CKD-EPI)AfAm 83.53 Est GFR (CKD-EPI)NonAf 72.07 Random Glucose 116 H Calcium 8.7 Magnesium 1.9 Total Bilirubin 0.7 AST 126 H ALT 50 Alkaline Phosphatase 186 H Creatine Kinase 6382 H Creatine Kinase Index 0.1 CK-MB (CK-2) 8.5 H Troponin I 0.05 Total Protein 8.5 H Albumin 4.0 Urine Color Urine Appearance Urine pH Ur Specific [place] Urine Protein Urine Glucose (UA) Urine Ketones Urine Blood Urine Nitrite Urine Bilirubin Urine Urobilinogen Ur Leukocyte Esterase Urine WBC (Auto) Urine RBC (Auto) Urine Casts (Auto) U Epithel Cells (Auto) Urine Bacteria (Auto) Opiates Screen Methadone Screen Barbiturate Screen Phencyclidine Screen Ur Amphetamines Screen MDMA (Ecstasy) Screen Benzodiazepines Screen Cocaine Screen U Marijuana (THC) Screen Alcohol, Quantitative 10/23/18 22:10 RBC 4.79 MCV 94.3 MCHC 33.9 RDW 14.7 MPV 8.1 Neutrophils % 62.4 Lymphocytes % 27.1 Monocytes % 8.9 D Eosinophils % 0.9 D Basophils % 0.7 - Medications Given in the ED: ED Medications Discontinued Medications Generic Name Dose Route Start Last Admin Trade Name Dany PRN Reason Stop Dose Admin Aspirin 162 mg 10/23/18 22:00 10/23/18 22:57 Asa - PO 10/23/18 22:01 162 mg ONCE ONE Administration Atorvastatin Calcium 10 mg 10/24/18 00:08 10/24/18 00:32 Lipitor - PO 10/24/18 00:09 10 mg ONCE ONE Administration Lisinopril 20 mg 10/24/18 00:08 10/24/18 00:32 Prinivil PO 10/24/18 00:09 20 mg ONCE ONE Administration Magnesium Sulfate 1 gm 10/23/18 23:40 10/24/18 00:10 Magnesium Sulfate IVPB 10/23/18 23:41 1 gm ONCE ONE Administration Metoprolol Tartrate 25 mg 10/23/18 23:56 10/24/18 00:10 Lopressor - PO 10/23/18 23:57 25 mg ONCE ONE Administration Medical Decision Making - Medical Decision Making 10/24/18 05:15 63 yo male h/o etoh abuse htn hld DM here with c/o chest pain. pt states he was binge drinking and suddenly felt chest pain. pt states he has had in the past. denies n/v no f/c no family h/o cad. pt has never had priro work up for chest pain. pt was signed out to me, pending repeat troponin, first set normal, . trop second noted to be elevated also pt in rhabdo. was given 2 L nS bolus. consider effects of statin, vs. other drug use. pt denies cocaine use. r/o acidosis. ketona and vbg ordered. will admit to telemetry 10/24/18 05:17 *DC/Admit/Observation/Transfer Diagnosis at time of Disposition: Chest pain - Referrals - Patient Instructions - Post Discharge Activity
[2018-10-24] MEDS ORDERED: SODIUM CHLORIDE 1,000 ML IV SCH ×2 (06:00→08:57)
[2018-10-24] MEDS ORDERED: LORazepam 0.5 MG TABLET PO PRN (06:03)
--- NOTE | 2018-10-24 06:16 | HP ---
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 He presented today with complaints of chest pain for the past 1 day, which began after a 2 week period of heavy alcohol consumption (10-12 beers per day). He states that the pain began shortly after his last drink at 5PM yesterday. It was sudden in onset, localized in his left chest, 8/10 in intensity, described as stabbing, intermittent in nature, and non-radiating. He complains of associated diffuse headache, but no nausea, vomiting, diarrhea, fevers or chills. The pain is neither pleuritic nor reproducible. He states that he is normally compliant with his meds, but has not been taking his antihypertensives for the past 2 weeks because he has been drinking. He lives in a alf, and does not have insurance. He states that he is able to afford his daily medications. ER course was notable for: (1) Lopressor 25mg PO, MgSO4 1 g (2) CXR normal (3) Trops 0.05 Recent Travel: None PAST MEDICAL HISTORY: HTN, HLD, COPD, and alcohol abuse PAST SURGICAL HISTORY: Hernia and appendix removal over 20 years ago Social History: Smoking: denies Alcohol: for the past 45 years Drugs: some marijuana use over 20 years ago, no heroin or cocaine use Family History: Allergies No Known Drug Allergies Allergy (Verified 10/23/18 22:00) HOME MEDICATIONS: Home Medications Medication Instructions Recorded Aspirin 81 mg PO DAILY 03/13/18 Atorvastatin Calcium [Lipitor] 10 mg PO HS 07/11/18 Lisinopril [Prinivil] 20 mg PO BID 07/11/18 Metoprolol Succinate [Toprol Xl] 50 mg PO DAILY 07/11/18 REVIEW OF SYSTEMS CONSTITUTIONAL: Absent: fever, chills, diaphoresis, generalized weakness, malaise, loss of appetite, weight change HEENT: Absent: rhinorrhea, nasal congestion, throat pain, throat swelling, difficulty swallowing, mouth swelling, ear pain, eye pain, visual changes CARDIOVASCULAR: chest pain Absent: chest pain, syncope, palpitations, irregular heart rate, lightheadedness , peripheral edema RESPIRATORY: Absent: cough, shortness of breath, dyspnea with exertion, orthopnea, wheezing, stridor, hemoptysis GASTROINTESTINAL: Absent: abdominal pain, abdominal distension, nausea, vomiting, diarrhea, constipation, melena, hematochezia GENITOURINARY: Absent: dysuria, frequency, urgency, hesitancy, hematuria, flank pain, genital pain MUSCULOSKELETAL: Absent: myalgia, arthralgia, joint swelling, back pain, neck pain SKIN: Absent: rash, itching, pallor HEMATOLOGIC/IMMUNOLOGIC: Absent: easy bleeding, easy bruising, lymphadenopathy, frequent infections ENDOCRINE: Absent: unexplained weight gain, unexplained weight loss, heat intolerance, cold intolerance NEUROLOGIC: headache Absent: headache, focal weakness or paresthesias, dizziness, unsteady gait, seizure, mental status changes, bladder or bowel incontinence PSYCHIATRIC: Absent: anxiety, depression, suicidal or homicidal ideation, hallucinations. PHYSICAL EXAMINATION Vital Signs - 24 hr 10/23/18 10/24/18 10/24/18 21:57 00:32 02:01 Temperature 98.5 F Pulse Rate 89 Pulse Rate [ 68 60 Apical] Respiratory 17 20 18 Rate Blood Pressure 174/104 H Blood Pressure 176/97 H 160/87 [Left Arm] O2 Sat by Pulse 100 99 99 Oximetry (%) CIWA:3 GENERAL: Awake, alert, and fully oriented, in no acute distress. HEAD: Normal with no signs of trauma. EYES: Pupils equal, round and reactive to light, extraocular movements intact, sclera anicteric, conjunctiva clear. No lid lag. EARS, NOSE, THROAT: Ears normal, nares patent, oropharynx clear without exudates. Moist mucous membranes. NECK: Normal range of motion, supple without lymphadenopathy, JVD, or masses. LUNGS: Breath sounds equal, clear to auscultation bilaterally. No wheezes, and no crackles. No accessory muscle use. HEART: decreased rate, regular rhythm, normal S1 and S2 without murmur, rub or gallop. ABDOMEN: Soft, nontender, not distended, normoactive bowel sounds, no guarding, no rebound, no masses. No hepatomegaly or splenomegaly. MUSCULOSKELETAL: Normal range of motion at all joints. No bony deformities or tenderness. No CVA tenderness. UPPER EXTREMITIES: 2+ pulses, warm, well-perfused. No cyanosis. No clubbing. No peripheral edema. LOWER EXTREMITIES: 2+ pulses, warm, well-perfused. No calf tenderness. No peripheral edema. NEUROLOGICAL: Cranial nerves II-XII intact. Normal speech. Normal gait. PSYCHIATRIC: Cooperative. Good eye contact. Appropriate mood and affect. SKIN: Warm, dry, normal turgor, no rashes or lesions noted, normal capillary refill. Laboratory Results - last 24 hr 10/23/18 10/23/18 10/23/18 22:10 22:10 22:10 WBC 5.7 RBC 4.79 Hgb 15.3 Hct 45.2 MCV 94.3 MCH 32.0 MCHC 33.9 RDW 14.7 Plt Count 117 L MPV 8.1 Absolute Neuts (auto) 3.6 Neutrophils % 62.4 Lymphocytes % 27.1 Monocytes % 8.9 D Eosinophils % 0.9 D Basophils % 0.7 Nucleated RBC % 0 PT with INR 13.30 H INR 1.13 H VBG pH POC VBG pCO2 POC VBG pO2 VBG HCO3 VBG O2 Sat (Tatyana) VBG Base Excess Sodium 139 Potassium 3.5 Chloride 106 Carbon Dioxide 25 Anion Gap 8 BUN 22.8 H Creatinine 1.1 Est GFR (CKD-EPI)AfAm 83.53 Est GFR (CKD-EPI)NonAf 72.07 Random Glucose 116 H Calcium 8.7 Magnesium 1.9 Total Bilirubin 0.7 AST 126 H ALT 50 Alkaline Phosphatase 186 H Creatine Kinase 6382 H Creatine Kinase Index 0.1 CK-MB (CK-2) 8.5 H Troponin I 0.05 Total Protein 8.5 H Albumin 4.0 Urine Color Urine Appearance Urine pH Ur Specific [place] Urine Protein Urine Glucose (UA) Urine Ketones Urine Blood Urine Nitrite Urine Bilirubin Urine Urobilinogen Ur Leukocyte Esterase Urine WBC (Auto) Urine RBC (Auto) Urine Casts (Auto) U Epithel Cells (Auto) Urine Bacteria (Auto) Opiates Screen Methadone Screen Barbiturate Screen Phencyclidine Screen Ur Amphetamines Screen MDMA (Ecstasy) Screen Benzodiazepines Screen Cocaine Screen U Marijuana (THC) Screen Alcohol, Quantitative Acetone, Qual 10/24/18 10/24/18 10/24/18 00:09 02:00 02:00 WBC RBC Hgb Hct MCV MCH MCHC RDW Plt Count MPV Absolute Neuts (auto) Neutrophils % Lymphocytes % Monocytes % Eosinophils % Basophils % Nucleated RBC % PT with INR INR VBG pH POC VBG pCO2 POC VBG pO2 VBG HCO3 VBG O2 Sat (Tatyana) VBG Base Excess Sodium Potassium Chloride Carbon Dioxide Anion Gap BUN Creatinine Est GFR (CKD-EPI)AfAm Est GFR (CKD-EPI)NonAf Random Glucose Calcium Magnesium 2.3 Total Bilirubin AST ALT Alkaline Phosphatase Creatine Kinase 6103 H Creatine Kinase Index 0.1 CK-MB (CK-2) 6.8 H Troponin I 0.08 H Total Protein Albumin Urine Color Urine Appearance Urine pH Ur Specific [place] Urine Protein Urine Glucose (UA) Urine Ketones Urine Blood Urine Nitrite Urine Bilirubin Urine Urobilinogen Ur Leukocyte Esterase Urine WBC (Auto) Urine RBC (Auto) Urine Casts (Auto) U Epithel Cells (Auto) Urine Bacteria (Auto) Opiates Screen Methadone Screen Barbiturate Screen Phencyclidine Screen Ur Amphetamines Screen MDMA (Ecstasy) Screen Benzodiazepines Screen Cocaine Screen U Marijuana (THC) Screen Alcohol, Quantitative < 3.0 Acetone, Qual 10/24/18 10/24/18 10/24/18 04:01 04:01 04:10 WBC RBC Hgb Hct MCV MCH MCHC RDW Plt Count MPV Absolute Neuts (auto) Neutrophils % Lymphocytes % Monocytes % Eosinophils % Basophils % Nucleated RBC % PT with INR INR VBG pH POC VBG pCO2 POC VBG pO2 VBG HCO3 VBG O2 Sat (Tatyana) VBG Base Excess Sodium Potassium Chloride Carbon Dioxide Anion Gap BUN Creatinine Est GFR (CKD-EPI)AfAm Est GFR (CKD-EPI)NonAf Random Glucose Calcium Magnesium Total Bilirubin AST ALT Alkaline Phosphatase Creatine Kinase Creatine Kinase Index CK-MB (CK-2) Troponin I Total Protein Albumin Urine Color Yellow Urine Appearance Clear Urine pH 5.5 Ur Specific [place] 1.021 Urine Protein 2+ H Urine Glucose (UA) Negative Urine Ketones Negative Urine Blood 2+ H Urine Nitrite Negative Urine Bilirubin Negative Urine Urobilinogen 1.0 Ur Leukocyte Esterase Negative Urine WBC (Auto) 0 Urine RBC (Auto) 14 Urine Casts (Auto) 1 U Epithel Cells (Auto) 0.3 Urine Bacteria (Auto) 0.5 Opiates Screen Negative Methadone Screen Negative Barbiturate Screen Negative Phencyclidine Screen Negative Ur Amphetamines Screen Negative MDMA (Ecstasy) Screen Negative Benzodiazepines Screen Negative Cocaine Screen Negative U Marijuana (THC) Screen Negative Alcohol, Quantitative Acetone, Qual Negative 10/24/18 04:10 WBC RBC Hgb Hct MCV MCH MCHC RDW Plt Count MPV Absolute Neuts (auto) Neutrophils % Lymphocytes % Monocytes % Eosinophils % Basophils % Nucleated RBC % PT with INR INR VBG pH 7.45 H POC VBG pCO2 36.8 L POC VBG pO2 67.8 H VBG HCO3 25.4 VBG O2 Sat (Tatyana) 94.8 H VBG Base Excess 2.1 H Sodium Potassium Chloride Carbon Dioxide Anion Gap BUN Creatinine Est GFR (CKD-EPI)AfAm Est GFR (CKD-EPI)NonAf Random Glucose Calcium Magnesium Total Bilirubin AST ALT Alkaline Phosphatase Creatine Kinase Creatine Kinase Index CK-MB (CK-2) Troponin I Total Protein Albumin Urine Color Urine Appearance Urine pH Ur Specific [place] Urine Protein Urine Glucose (UA) Urine Ketones Urine Blood Urine Nitrite Urine Bilirubin Urine Urobilinogen Ur Leukocyte Esterase Urine WBC (Auto) Urine RBC (Auto) Urine Casts (Auto) U Epithel Cells (Auto) Urine Bacteria (Auto) Opiates Screen Methadone Screen Barbiturate Screen Phencyclidine Screen Ur Amphetamines Screen MDMA (Ecstasy) Screen Benzodiazepines Screen Cocaine Screen U Marijuana (THC) Screen Alcohol, Quantitative Acetone, Qual ASSESSMENT/PLAN: This is a 63 year old male with PMH significant for HTN, HLD, COPD, and alcohol abuse. He presented today with complaints of chest pain for the past 1 day, which began after a 2 week period of heavy alcohol consumption (10-12 beers per day). He was found to have a BP of 174/104 on admission. #HTN - Resume home meds after confirming meds - Labetalol 25mg PO, MgSO4 1g, Lisinopril 20mg PO given in ER #Tropinemia - 0.05 -> 0.08 will continue to trend until downtrending - EKG shows bradycardia, no ST changes - ASA 162, Lipitor 10mg given in ER - CK and CKMB downtrending - Cardio (Dr. Headley) consulted #Alcohol abuse - Recent heavy use - Ativan protocol started (avoid Librium due to elevated AST) - CIWA 3 on examination - Echo ordered to check for cardiomyopathy - Dr. Taylor consulted - Seizure, fall precautions #Rhabdomyolisis - CK 6382 -> 6103, downtrending - UA Blood 2+, 14 RBCs - Continue to hydrate #Hyperglycemia - 116, mild elevation but given lack of consistent followup and comorbids, will monitor closely - HbA1c ordered #FEN - N/S - Mg, Phos ordered - Cholesterol/Fat/Na diet #DVT PE - Lovenox 40mg Visit type - Emergency Visit Emergency Visit: Yes ED Registration Date: 10/24/18 Care time: The patient presented to the Emergency Department on the above date and was hospitalized for further evaluation of their emergent condition. - New Patient This patient is new to me today: Yes Date on this admission: 10/24/18 - Critical Care Critical Care patient: No ATTENDING PHYSICIAN STATEMENT I saw and evaluated the patient. I reviewed the resident's note and discussed the case with the resident. I agree with the resident's findings and plan as documented. SUBJECTIVE: OBJECTIVE: ASSESSMENT AND PLAN:
[2018-10-24 09:31] LABS: BASO % 0.4 % (0-2.0); EOS % 2.1 % (0-4.5); HEMATOCRIT 40.2 % (35.4-49); HEMOGLOBIN 13.8 GM/dL (11.7-16.9); LYMPH % 32.9 % (8-40); MCH 32.3 pg (25.7-33.7); MCHC 34.4 g/dl (32.0-35.9); MEAN PLT VOLUME 8.3 fl (7.5-11.1); MONO % 10.3 % (3.8-10.2); NEUT % 54.3 % (42.8-82.8); PLATELET COUNT 93 K/MM3 (134-434); RBC 4.28 M/mm3 (4.00-5.60); RDW 14.6 % (11.9-15.9); WHITE BLOOD COUNT 3.5 K/mm3 (4.0-10.0)
[2018-10-24] MEDS: ENOXAPARIN NA (PORCINE) 40 MG/0.4 ML DISP.SYRIN SQ SCH (10:02)
[2018-10-24] MEDS ORDERED: ENOXAPARIN NA (PORCINE) 40 MG/0.4 ML DISP.SYRIN SQ ONE (10:02)
[2018-10-24 10:19] LABS: ALBUMIN 3.3 g/dl (3.4-5.0); BILIRUBIN,TOTAL 1.1 mg/dL (0.2-1); BLOOD UREA NITROGEN 17.2 mg/dL (7-18); CALCIUM 7.7 mg/dL (8.5-10.1); CREATININE 0.8 mg/dL (0.55-1.3); MAGNESIUM 1.8 mg/dL (1.8-2.4); PHOSPHOROUS 2.3 mg/dL (2.5-4.9); POTASSIUM 3.2 mmol/L (3.5-5.1); TOT PROT 7.1 g/dl (6.4-8.2)
--- NOTE | 2018-10-24 10:46 | EKG ---
Test Reason : Blood Pressure : / mmHG Vent. Rate : 060 BPM Atrial Rate : 060 BPM P-R Int : 218 ms QRS Dur : 122 ms QT Int : 472 ms P-R-T Axes : 034 -46 031 degrees QTc Int : 472 ms SINUS RHYTHM WITH 1ST DEGREE A-V BLOCK LEFT AXIS DEVIATION INFERIOR INFARCT (CITED ON OR BEFORE 16-AUG-2014) ABNORMAL ECG WHEN COMPARED WITH ECG OF 12-AUG-2018 10:50, NONSPECIFIC T WAVE ABNORMALITY HAS REPLACED INVERTED T WAVES IN INFERIOR LEADS Confirmed by MD Prabha, Dillan ([id number]) on 10/24/2018 10:45:59 AM Referred By: Confirmed By:Dillan Armando MD
--- NOTE | 2018-10-24 12:37 | ECHO ---
Version: 1 Name: ELIAS HUFF Exam: Adult Echocardiogram Study Date: 10/24/2018, 8:28 AM Age: 63 Years MMode/2D Measurements & Calculations IVSd: 0.91 cm LVIDs: 4.9 cm LVIDd: 6.2 cm LVPWd: 0.96 cm LVOT diam: 2.19 cm Ao root diam: 2.8 cm LA dimension: 4.5 cm Doppler Measurements & Calculations MV E max gil: 54.8 cm/sec Med E/e': 8.5 MV A max gil: 83.9 cm/sec Med Peak E' Gil: 6.5 cm/sec MV E/A: 0.65 Lat E/e': 10.6 Lat Peak E' Gil: 5.2 cm/sec MR max P.0 mmHg Ao max P.1 mmHg TATIANNA(I,D): 2.13 cm Ao mean P.7 mmHg LV V1 mean: 72.3 cm/sec Ao V2 max: 187.9 cm/sec LV V1 mean P.30 mmHg TR max gil: 219.0 cm/sec TR max P.6 mmHg Procedure A complete two-dimensional transthoracic echocardiogram was performed (2D, M-mode, Doppler and color flow Doppler). Left Ventricle The left ventricular size, thickness and function are normal. Ejection Fraction = 65%. E/A reversal consistent with but not diagnostic of poor LV compliance. There is inferior wall akinesis. Right Ventricle The right ventricle is normal in size and function. Atria The left atrium is mildly dilated. Right atrial size is normal. Mitral Valve The mitral valve is normal in structure and function. There is trace to mild mitral regurgitation. Tricuspid Valve The tricuspid valve is normal in structure and function. There is mild tricuspid regurgitation. Righ t ventricular systolic pressure is 25 mmhg. Aortic Valve The aortic valve is normal in structure and function. Pulmonic Valve The pulmonic valve is normal in structure and function. Trace pulmonic valvular regurgitation. Great Vessels The aortic root is normal size. Pericardium/Pleura There is no pericardial effusion. There is no pleural effusion. Summary Statements The left ventricular size, thickness and function are normal Ejection Fraction = 65%. There is inferior wall akinesis. The right ventricle is normal in size and function. The left atrium is mildly dilated. There is trace to mild mitral regurgitation. There is mild tricuspid regurgitation. Right ventricular systolic pressure is 25 mmhg. Trace pulmonic valvular regurgitation. MD Luis Fernando Muñoz 10/24/2018, 11:36 AM Ordering Physician: FRANCISCO JAVIER BURRIS Performed By: Bushra Dowell
--- NOTE | 2018-10-24 13:01 | EKG ---
Test Reason : Blood Pressure : / mmHG Vent. Rate : 062 BPM Atrial Rate : 062 BPM P-R Int : 204 ms QRS Dur : 122 ms QT Int : 506 ms P-R-T Axes : 026 -37 035 degrees QTc Int : 513 ms SINUS RHYTHM WITH OCCASIONAL PREMATURE VENTRICULAR COMPLEXES LEFT AXIS DEVIATION NON-SPECIFIC INTRA-VENTRICULAR CONDUCTION DELAY T WAVE ABNORMALITY, CONSIDER LATERAL ISCHEMIA ABNORMAL ECG WHEN COMPARED WITH ECG OF 24-OCT-2018 00:54, PREMATURE VENTRICULAR COMPLEXES ARE NOW PRESENT Confirmed by MD Prabha, Dillan ([id number]) on 10/24/2018 1:00:55 PM Referred By: Sidra FRANKLIN Confirmed By:Dillan Armando MD
[2018-10-24] MEDS: SODIUM CHLORIDE 1,000 ML IV SCH (14:34)
--- NOTE | 2018-10-24 14:34 | PN ---
Physical Exam: SUBJECTIVE: Patient seen and examined OBJECTIVE: Vital Signs Period Temp Pulse Resp BP Sys/De Dios Pulse Ox Last 24 Hr 98.2 F-98.7 F 54-89 16-20 160-185/87-104 95-100 GENERAL: The patient is awake, alert, and fully oriented, in no acute distress. HEAD: Normal with no signs of trauma. EYES: PERRL, extraocular movements intact, sclera anicteric, conjunctiva clear. No ptosis. ENT: Ears normal, nares patent, oropharynx clear without exudates, moist mucous membranes. NECK: Trachea midline, full range of motion, supple. LUNGS: Breath sounds equal, clear to auscultation bilaterally, no wheezes, no crackles, no accessory muscle use. HEART: Regular rate and rhythm, S1, S2 without murmur, rub or gallop. ABDOMEN: Soft, nontender, nondistended, normoactive bowel sounds, no guarding, no rebound, no hepatosplenomegaly, no masses. EXTREMITIES: 2+ pulses, warm, well-perfused, no edema. NEUROLOGICAL: Cranial nerves II through XII grossly intact. Normal speech, gait not observed. PSYCH: Normal mood, normal affect. SKIN: Warm, dry, normal turgor, no rashes or lesions noted Laboratory Results - last 24 hr 10/23/18 10/23/18 10/23/18 22:10 22:10 22:10 WBC 5.7 RBC 4.79 Hgb 15.3 Hct 45.2 MCV 94.3 MCH 32.0 MCHC 33.9 RDW 14.7 Plt Count 117 L MPV 8.1 Absolute Neuts (auto) 3.6 Neutrophils % 62.4 Lymphocytes % 27.1 Monocytes % 8.9 D Eosinophils % 0.9 D Basophils % 0.7 Nucleated RBC % 0 PT with INR 13.30 H INR 1.13 H VBG pH POC VBG pCO2 POC VBG pO2 VBG HCO3 VBG O2 Sat (Tatyana) VBG Base Excess Sodium 139 Potassium 3.5 Chloride 106 Carbon Dioxide 25 Anion Gap 8 BUN 22.8 H Creatinine 1.1 Est GFR (CKD-EPI)AfAm 83.53 Est GFR (CKD-EPI)NonAf 72.07 Random Glucose 116 H Hemoglobin A1c % Calcium 8.7 Phosphorus Magnesium 1.9 Total Bilirubin 0.7 AST 126 H ALT 50 Alkaline Phosphatase 186 H Creatine Kinase 6382 H Creatine Kinase Index 0.1 CK-MB (CK-2) 8.5 H Troponin I 0.05 Total Protein 8.5 H Albumin 4.0 Triglycerides Cholesterol Total LDL Cholesterol HDL Cholesterol TSH Urine Color Urine Appearance Urine pH Ur Specific [place] Urine Protein Urine Glucose (UA) Urine Ketones Urine Blood Urine Nitrite Urine Bilirubin Urine Urobilinogen Ur Leukocyte Esterase Urine WBC (Auto) Urine RBC (Auto) Urine Casts (Auto) U Epithel Cells (Auto) Urine Bacteria (Auto) Opiates Screen Methadone Screen Barbiturate Screen Phencyclidine Screen Ur Amphetamines Screen MDMA (Ecstasy) Screen Benzodiazepines Screen Cocaine Screen U Marijuana (THC) Screen Alcohol, Quantitative Acetone, Qual 10/24/18 10/24/18 10/24/18 00:09 02:00 02:00 WBC RBC Hgb Hct MCV MCH MCHC RDW Plt Count MPV Absolute Neuts (auto) Neutrophils % Lymphocytes % Monocytes % Eosinophils % Basophils % Nucleated RBC % PT with INR INR VBG pH POC VBG pCO2 POC VBG pO2 VBG HCO3 VBG O2 Sat (Tatyana) VBG Base Excess Sodium Potassium Chloride Carbon Dioxide Anion Gap BUN Creatinine Est GFR (CKD-EPI)AfAm Est GFR (CKD-EPI)NonAf Random Glucose Hemoglobin A1c % Calcium Phosphorus Magnesium 2.3 Total Bilirubin AST ALT Alkaline Phosphatase Creatine Kinase 6103 H Creatine Kinase Index 0.1 CK-MB (CK-2) 6.8 H Troponin I 0.08 H Total Protein Albumin Triglycerides Cholesterol Total LDL Cholesterol HDL Cholesterol TSH Urine Color Urine Appearance Urine pH Ur Specific [place] Urine Protein Urine Glucose (UA) Urine Ketones Urine Blood Urine Nitrite Urine Bilirubin Urine Urobilinogen Ur Leukocyte Esterase Urine WBC (Auto) Urine RBC (Auto) Urine Casts (Auto) U Epithel Cells (Auto) Urine Bacteria (Auto) Opiates Screen Methadone Screen Barbiturate Screen Phencyclidine Screen Ur Amphetamines Screen MDMA (Ecstasy) Screen Benzodiazepines Screen Cocaine Screen U Marijuana (THC) Screen Alcohol, Quantitative < 3.0 Acetone, Qual 10/24/18 10/24/18 10/24/18 04:01 04:01 04:10 WBC RBC Hgb Hct MCV MCH MCHC RDW Plt Count MPV Absolute Neuts (auto) Neutrophils % Lymphocytes % Monocytes % Eosinophils % Basophils % Nucleated RBC % PT with INR INR VBG pH POC VBG pCO2 POC VBG pO2 VBG HCO3 VBG O2 Sat (Tatyana) VBG Base Excess Sodium Potassium Chloride Carbon Dioxide Anion Gap BUN Creatinine Est GFR (CKD-EPI)AfAm Est GFR (CKD-EPI)NonAf Random Glucose Hemoglobin A1c % Calcium Phosphorus Magnesium Total Bilirubin AST ALT Alkaline Phosphatase Creatine Kinase Creatine Kinase Index CK-MB (CK-2) Troponin I Total Protein Albumin Triglycerides Cholesterol Total LDL Cholesterol HDL Cholesterol TSH Urine Color Yellow Urine Appearance Clear Urine pH 5.5 Ur Specific [place] 1.021 Urine Protein 2+ H Urine Glucose (UA) Negative Urine Ketones Negative Urine Blood 2+ H Urine Nitrite Negative Urine Bilirubin Negative Urine Urobilinogen 1.0 Ur Leukocyte Esterase Negative Urine WBC (Auto) 0 Urine RBC (Auto) 14 Urine Casts (Auto) 1 U Epithel Cells (Auto) 0.3 Urine Bacteria (Auto) 0.5 Opiates Screen Negative Methadone Screen Negative Barbiturate Screen Negative Phencyclidine Screen Negative Ur Amphetamines Screen Negative MDMA (Ecstasy) Screen Negative Benzodiazepines Screen Negative Cocaine Screen Negative U Marijuana (THC) Screen Negative Alcohol, Quantitative Acetone, Qual Negative 10/24/18 10/24/18 10/24/18 04:10 05:50 08:30 WBC 3.5 L RBC 4.28 Hgb 13.8 Hct 40.2 MCV 94.0 MCH 32.3 MCHC 34.4 RDW 14.6 Plt Count 93 L D MPV 8.3 Absolute Neuts (auto) 1.9 Neutrophils % 54.3 Lymphocytes % 32.9 D Monocytes % 10.3 H Eosinophils % 2.1 D Basophils % 0.4 Nucleated RBC % 0 PT with INR INR VBG pH 7.45 H POC VBG pCO2 36.8 L POC VBG pO2 67.8 H VBG HCO3 25.4 VBG O2 Sat (Tatyana) 94.8 H VBG Base Excess 2.1 H Sodium Potassium Chloride Carbon Dioxide Anion Gap BUN Creatinine Est GFR (CKD-EPI)AfAm Est GFR (CKD-EPI)NonAf Random Glucose Hemoglobin A1c % Calcium Phosphorus Magnesium Total Bilirubin AST ALT Alkaline Phosphatase Creatine Kinase Creatine Kinase Index CK-MB (CK-2) Troponin I 0.08 H Total Protein Albumin Triglycerides Cholesterol Total LDL Cholesterol HDL Cholesterol TSH Urine Color Urine Appearance Urine pH Ur Specific [place] Urine Protein Urine Glucose (UA) Urine Ketones Urine Blood Urine Nitrite Urine Bilirubin Urine Urobilinogen Ur Leukocyte Esterase Urine WBC (Auto) Urine RBC (Auto) Urine Casts (Auto) U Epithel Cells (Auto) Urine Bacteria (Auto) Opiates Screen Methadone Screen Barbiturate Screen Phencyclidine Screen Ur Amphetamines Screen MDMA (Ecstasy) Screen Benzodiazepines Screen Cocaine Screen U Marijuana (THC) Screen Alcohol, Quantitative Acetone, Qual 10/24/18 10/24/18 08:30 08:30 WBC RBC Hgb Hct MCV MCH MCHC RDW Plt Count MPV Absolute Neuts (auto) Neutrophils % Lymphocytes % Monocytes % Eosinophils % Basophils % Nucleated RBC % PT with INR INR VBG pH POC VBG pCO2 POC VBG pO2 VBG HCO3 VBG O2 Sat (Tatyana) VBG Base Excess Sodium 139 Potassium 3.2 L Chloride 107 Carbon Dioxide 26 Anion Gap 6 L BUN 17.2 Creatinine 0.8 Est GFR (CKD-EPI)AfAm 111.74 Est GFR (CKD-EPI)NonAf 96.41 Random Glucose 168 H Hemoglobin A1c % 4.7 Calcium 7.7 L Phosphorus 2.3 L Magnesium 1.8 Total Bilirubin 1.1 H AST 117 H ALT 41 Alkaline Phosphatase 137 H Creatine Kinase 5487 H Creatine Kinase Index 0.0 CK-MB (CK-2) 5.1 H Troponin I 0.06 H Total Protein 7.1 Albumin 3.3 L Triglycerides 62 Cholesterol 158 Total LDL Cholesterol 72 HDL Cholesterol 79 H TSH 3.75 H D Urine Color Urine Appearance Urine pH Ur Specific [place] Urine Protein Urine Glucose (UA) Urine Ketones Urine Blood Urine Nitrite Urine Bilirubin Urine Urobilinogen Ur Leukocyte Esterase Urine WBC (Auto) Urine RBC (Auto) Urine Casts (Auto) U Epithel Cells (Auto) Urine Bacteria (Auto) Opiates Screen Methadone Screen Barbiturate Screen Phencyclidine Screen Ur Amphetamines Screen MDMA (Ecstasy) Screen Benzodiazepines Screen Cocaine Screen U Marijuana (THC) Screen Alcohol, Quantitative Acetone, Qual Active Medications Generic Name Dose Route Start Last Admin Trade Name Freq PRN Reason Stop Dose Admin Enoxaparin Sodium 40 mg 10/24/18 10:00 10/24/18 10:02 Lovenox - SQ 40 mg DAILY LISA Administration Sodium Chloride 1,000 mls @ 150 mls/hr 10/24/18 13:46 10/24/18 14:34 Normal Saline - IV 150 mls/hr ASDIR LISA Administration Lorazepam 0.5 mg 10/27/18 05:00 Ativan - PO 10/27/18 23:01 Q6H LISA Lorazepam 0.5 mg 10/27/18 00:00 Ativan - PO 10/28/18 00:00 Q4H PRN Symptoms of Withdrawal Lorazepam 0.5 mg 10/28/18 05:00 Ativan - PO 10/28/18 05:01 ONCE ONE Lorazepam 1 mg 10/26/18 05:00 Ativan - PO 10/26/18 23:01 0500,1100,1700,2300 LSIA Lorazepam 1 mg 10/24/18 06:03 Ativan - PO 10/26/18 23:59 Q4H PRN Symptoms of Withdrawal ASSESSMENT/PLAN: ATTENDING PHYSICIAN STATEMENT I saw and evaluated the patient. I reviewed the resident's note and discussed the case with the resident. I agree with the resident's findings and plan as documented. SUBJECTIVE: OBJECTIVE: ASSESSMENT AND PLAN:
[2018-10-25 03:56] VITALS: BMI 33.1
[2018-10-25 06:17] LABS: HEMOGLOBIN 13.8 GM/dL (11.7-16.9); WHITE BLOOD COUNT 3.4 K/mm3 (4.0-10.0)
[2018-10-25 06:37] LABS: ALBUMIN 3.1 g/dl (3.4-5.0); BILIRUBIN,TOTAL 1.4 mg/dL (0.2-1); BLOOD UREA NITROGEN 16.3 mg/dL (7-18); CALCIUM 7.7 mg/dL (8.5-10.1); CREATININE 0.8 mg/dL (0.55-1.3); MAGNESIUM 1.7 mg/dL (1.8-2.4); PHOSPHOROUS 2.4 mg/dL (2.5-4.9); POTASSIUM 3.1 mmol/L (3.5-5.1); TOT PROT 6.6 g/dl (6.4-8.2)
[2018-10-25 06:48] LABS: BASO % 0.4 % (0-2.0); EOS % 3.4 % (0-4.5); LYMPH % 37.1 % (8-40); MCH 32.4 pg (25.7-33.7); MCHC 34.6 g/dl (32.0-35.9); MEAN CELL VOLUME 93.7 fl (80-96); MEAN PLT VOLUME 8.4 fl (7.5-11.1); MONO % 8.1 % (3.8-10.2); PLATELET COUNT 87 K/MM3 (134-434); RBC 4.27 M/mm3 (4.00-5.60); RDW 14.8 % (11.9-15.9)
[2018-10-25] MEDS ORDERED: POTASSIUM CHLORIDE TABS 20 MEQ TABLET.ER (FP) PO ONE (08:00)
[2018-10-25] MEDS ORDERED: NAPH,MB-DB/K PH,MBDB POWDER PACKET PO ONE (08:00)
[2018-10-25] MEDS ORDERED: MAGNESIUM OXIDE 400 MG TABLET (FP) PO ONE (08:00)
--- NOTE | 2018-10-25 08:35 | CON.CARD ---
Consult Consult Specialty:: cardiology Reason for Consultation:: CAD risks; chest pain - History of Present Illness Chief Complaint: Pt A&Ox3; admits to drinking alcohol heavily recently History of Present Illness: 63 male presents with chest pain since 5 pm. He has a long-standing history of alcohol abuse (including within the past 2 weeks), CAD (07/26 Lexiscan stress MIBI: significant area of inferolateral infarct with small area periinfarct ischemia), hypertension, hyperlipidemia, overweight, COPD, ? past hx cocaine; denies marijuana use. Denies cigarettes. he states the pain started about 5 PM it was 8 out of 10 in severity, nonradiating and nothing seemed to make it worse or better; it has lasted for hours. 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: No: Alzheimer's, CVA, Dementia, Migraine, Multiple Sclerosis, Peripheral Neuropathy, Parkinson's, Seizure, Syncope, TIA, Vertigo, Other Cardio/Vascular: Yes: CAD, HTN, Hyperlipdemia Pulmonary: Yes: COPD Gastrointestinal: No: Ascites, Cancer, Constipation, Crohn's Disease, Diverticulitis, Diverticulosis, Esophageal Varices, Gastritis, GERD, GI Bleed, Hemorrhoids, Hiatal Hernia, Inflamatory Bowel Disease, Irritable Bowel Disease, Pancreatitis, Peptic Ulcer Disease, Ulcerative Colitis, Other Renal/: No: Renal Inusuff Heme/Onc: No: Anemia Psych: Yes: Addictions (alcohol) - Past Surgical History Past Surgical History: Yes: Hernia Repair, Appendectomy - Alcohol/Substance Use Hx Alcohol Use: Yes Number of Drinks Daily: 5 (25 oz cans) History of Substance Use: reports: Cocaine - Smoking History Smoking history: Never smoked Have you smoked in the past 12 months: No Aproximately how many cigarettes per day: 0 If you are a former smoker, when did you quit?: smoked for 13 years - Social History Usual Living Arrangement: Other (jail) ADL: Independent 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 History of Recent Travel: No Home Medications - Allergies Allergies/Adverse Reactions: Allergies Allergy/AdvReac Type Severity Reaction Status Date / Time No Known Drug Allergies Allergy Verified 10/23/18 22:00 - Home Medications Home Medications: Ambulatory Orders Aspirin 81 mg PO DAILY 03/13/18 Atorvastatin Calcium [Lipitor] 10 mg PO HS 07/11/18 Lisinopril [Prinivil] 10 mg PO DAILY 30 Days #30 tablet 10/27/18 Metoprolol Succinate [Toprol XL -] 12.5 mg PO DAILY 30 Days #30 tab.sr.24h 10/27 Family Disease History - Family Disease History Family Disease History: Diabetes: Father, Other: Brother (has swelling in legs) Review of Systems - Review of Systems Constitutional: reports: No Symptoms Eyes: reports: No Symptoms HENT: reports: No Symptoms Neck: reports: No Symptoms Cardiovascular: reports: Chest Pain Respiratory: reports: No Symptoms Gastrointestinal: reports: No Symptoms Genitourinary: reports: No Symptoms Breasts: reports: No Symptoms Reported Musculoskeletal: reports: No Symptoms Integumentary: reports: No Symptoms Neurological: reports: Unsteady Gait Endocrine: reports: No Symptoms Hematology/Lymphatic: reports: No Symptoms Psychiatric: reports: Other - Risk Factors Known Risk Factors: Yes: Age, Gender, Hypercholesterolemia, Hypertension, Other (alcoholism; ? cocaine) Vital Signs: Vital Signs Temperature 98.6 F 10/25/18 06:00 Pulse Rate 56 L 10/25/18 06:00 Respiratory Rate 18 10/25/18 06:00 Blood Pressure 140/78 10/25/18 06:00 O2 Sat by Pulse Oximetry (%) 99 10/25/18 00:30 Constitutional: Yes: Obese Eyes: Yes: WNL HENT: Yes: WNL Neck: Yes: WNL Respiratory: Yes: WNL Gastrointestinal: Yes: WNL Renal/: No: Anuria Cardiovascular: Yes: Regular Rate and Rhythm JVD: No Carotid Bruit: No PMI: Non-Displaced Heart Sounds: Yes: S1, S2, S4 Murmur: Yes: Systolic Murmur, Grade 1 Musculoskeletal: Yes: Joint Stiffness Extremities: Yes: WNL Edema: No Peripheral Pulses WNL: Yes Integumentary: Yes: WNL Neurological: Yes: Tremors ...Motor Strength: WNL Psychiatric: Yes: Alert, Oriented, Other - Other Data Labs, Other Data: CBC, BMP 10/25/18 05:33 10/25/18 05:33 INR, PTT INR 1.13 (0.83-1.09) H 10/23/18 22:10 Troponin, BNP 10/24/18 08:30 Troponin I 0.06 H Troponin, BNP 10/24/18 08:30 Troponin I 0.06 H Imaging - Results Chest X-ray: Image Reviewed (degenerative changes; no acute process) EKG: Image Reviewed Problem List - Problems (1) Acute on chronic alcoholic liver disease Code(s): K70.9 - ALCOHOLIC LIVER DISEASE, UNSPECIFIED (2) Atypical chest pain Assessment/Plan: TNI mildly increased; f/u serially. EKG: normal sinus rhythm; nonspecific IVCD; occasional APCs. Telemetry: NSR: periods of sinus bradycardia. ECHO: normal LVEF Stress Lexiscan MIBI 07/2018: significant area of inferolateral infarct, with small area periinfarct ischemia. Start lisinopril. F/u lipids and TSH. F/u on telemetry; EKG in am. Code(s): R07.89 - OTHER CHEST PAIN (3) CAD (coronary artery disease) Code(s): I25.10 - ATHSCL HEART DISEASE OF [place] CORONARY ARTERY W/O ANG PCTRS Qualifiers: Coronary Disease-Associated Artery/Lesion type: unspecified vessel or lesion type [place] vs. transplanted heart: [place] heart Associated angina: with unstable angina Qualified Code(s): I25.110 - Atherosclerotic heart disease of [place] coronary artery with unstable angina pectoris (4) Hypertension Assessment/Plan: Start lisinopril. F/u BUN/Cr, electrolytes (K, Mg, PO4 require repletion). Code(s): I10 - ESSENTIAL (PRIMARY) HYPERTENSION Qualifiers: Hypertension type: essential hypertension Qualified Code(s): I10 - Essential (primary) hypertension (5) Hyperlipidemia Code(s): E78.5 - HYPERLIPIDEMIA, UNSPECIFIED Qualifiers: Hyperlipidemia type: unspecified Qualified Code(s): E78.5 - Hyperlipidemia , unspecified (6) Hypomagnesemia Assessment/Plan: Replete, and keep Mg 2.0-2.4 Keep K 4.0-4.5 Keep Po4 2.5-4.9. Lisinopril has been ordered. Code(s): E83.42 - HYPOMAGNESEMIA (7) Obesity Code(s): E66.9 - OBESITY, UNSPECIFIED Qualifiers: Obesity type: due to excess calories Obesity classification: unspecified obesity classification Serious obesity comorbidity presence: without serious comorbidity Qualified Code(s): E66.09 - Other obesity due to excess calories (8) Alcoholism Assessment/Plan: f/u for detox protocol, rehabilitation. Code(s): F10.20 - ALCOHOL DEPENDENCE, UNCOMPLICATED (9) Elevated troponin Code(s): R74.8 - ABNORMAL LEVELS OF OTHER SERUM ENZYMES
[2018-10-25] MEDS: ENOXAPARIN NA (PORCINE) 40 MG/0.4 ML DISP.SYRIN SQ SCH (09:59)
[2018-10-25] MEDS ORDERED: LISINOPRIL 5 MG TABLET (FP) PO SCH (10:00)
--- NOTE | 2018-10-25 12:12 | PN ---
Teaching Attending Note Name of Resident: Tom Hutchinson ATTENDING PHYSICIAN STATEMENT I saw and evaluated the patient. I reviewed the resident's note and discussed the case with the resident. I agree with the resident's findings and plan as documented. SUBJECTIVE:asymptomatic. states his CP has resolved. states he had stress test earlier this year. is intermittently compliant with his medications due to social restraints. denies Cp, SOb, fever, chills, N/V/C/D OBJECTIVE: Last Vital Signs Temp Pulse Resp BP Pulse Ox 98.2 F 60 18 147/77 99 10/25/18 09:58 10/25/18 09:58 10/25/18 09:58 10/25/18 09:58 10/25/18 00:30 General NAD CV S1 s2 RRR no murmur/rub/gallop Lungs CTA B/L no wheezing/rales/rhonchi Abdomen soft NT/ND Extremities no tremor no edema ASSESSMENT AND PLAN: 63yo m wtih PMHDM, HTN, dyslipidemia and continuous ETOH dependence presented to the ER with CP and found to have rhabdo 1. Acute rhabdo-doubt this is from statin as pt is not consistently taking it. CPK is trending down with IVF hydration. cont to trend. 2. CP- having mild tropinemia but flat trend likely more related to degree of rhabdo. echo done showing WMA however is poor candidate for intervention at this time due to lack of compliance. will optimize medications and stress importance of compliance. asa/lisinopril/betablocker/statin (once rhabdo has been treated). once compliance can be demonstrated can follow up [facility] cardio for stress test and possible cath. some hesitancy with starting asa given ETOH use and risk for falls however pt did not present with fall neither endorses falling often. will stress risks/benefits of medication 3. Acute ETOH withdrawal- CIWA 0. on ativan protocol. appears comfortable. discussed [facility] and declining transfer there to complete detox. discussed inpatient rehab once medically cleared which patient is also declining. discussed outpatient programs and need to abstain from drinking. 4. hypokalemia- kcl po. can add to IVF 5. hypomagnesemia- Mg po 6. hypophosphatemia- neutraphos 7. Transaminitis- likely due to ETOH but can be from rhabdo. trend for now. advised ETOH cessation 8. DVT ppx- lovenox 9. can d/c cardiac monitoring
--- NOTE | 2018-10-25 13:32 | PN ---
Physical Exam: SUBJECTIVE: 63 y/o male PMH HTN, HLD, COPD, and alcohol abuse whom came to the ED c/o chest pain and found to have levated CK, admitted for rhabdomyolysis. Pt seen at bedside today eating breakfast. He has no complaints. Pt slept well and has been passing stool and urine w/o concern. He denies PARMAR, CP, SOB, NVFD. Discussed going to [facility] for detox and pt states he would prefer not to go. 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 This is also the reason he has been drinking higher vol of alcohol more acutely. OBJECTIVE: Vital Signs Period Temp Pulse Resp BP Sys/De Dios Pulse Ox Last 24 Hr 97.6 F-98.9 F 55-60 16-20 140-161/72-97 95-99 GENERAL: Awake, alert, and fully oriented, in no acute distress. HEAD: Normal with no signs of trauma. EYES: Pupils equal, round and reactive to light, extraocular movements intact, sclera anicteric, conjunctiva clear. No lid lag. EARS, NOSE, THROAT: Ears normal, nares patent, oropharynx clear without exudates. Moist mucous membranes. NECK: Normal range of motion, supple without lymphadenopathy, JVD, or masses. LUNGS: Breath sounds equal, clear to auscultation bilaterally. No wheezes, and no crackles. No accessory muscle use. HEART: decreased rate, regular rhythm, normal S1 and S2 without murmur, rub or gallop. ABDOMEN: Soft, nontender, not distended, normoactive bowel sounds, no guarding, no rebound, no masses. No hepatomegaly or splenomegaly. MUSCULOSKELETAL: Normal range of motion at all joints. No bony deformities or tenderness. No CVA tenderness. UPPER EXTREMITIES: 2+ pulses, warm, well-perfused. No cyanosis. No clubbing. No peripheral edema. LOWER EXTREMITIES: 2+ pulses, warm, well-perfused. No calf tenderness. No peripheral edema. NEUROLOGICAL: Cranial nerves II-XII intact. Normal speech. Normal gait. PSYCHIATRIC: Cooperative. Good eye contact. Appropriate mood and affect. SKIN: Warm, dry, normal turgor, no rashes or lesions noted, normal capillary refill. Laboratory Results - last 24 hr 10/24/18 10/25/18 10/25/18 15:00 05:33 05:33 WBC 3.4 L RBC 4.27 Hgb 13.8 Hct 40.0 MCV 93.7 MCH 32.4 MCHC 34.6 RDW 14.8 Plt Count 87 L MPV 8.4 Absolute Neuts (auto) 1.7 Neutrophils % 51.0 Lymphocytes % 37.1 Monocytes % 8.1 Eosinophils % 3.4 Basophils % 0.4 Nucleated RBC % 0 Sodium 141 Potassium 3.1 L Chloride 109 H Carbon Dioxide 25 Anion Gap 7 L BUN 16.3 Creatinine 0.8 Est GFR (CKD-EPI)AfAm 111.74 Est GFR (CKD-EPI)NonAf 96.41 Random Glucose 93 Calcium 7.7 L Phosphorus 2.4 L Magnesium 1.7 L Total Bilirubin 1.4 H AST 110 H ALT 41 Alkaline Phosphatase 122 H Creatine Kinase 5282 H Creatine Kinase Index 0.0 CK-MB (CK-2) 4.2 H Total Protein 6.6 Albumin 3.1 L Free T4 0.98 10/25/18 05:33 WBC RBC Hgb Hct MCV MCH MCHC RDW Plt Count MPV Absolute Neuts (auto) Neutrophils % Lymphocytes % Monocytes % Eosinophils % Basophils % Nucleated RBC % Sodium Potassium Chloride Carbon Dioxide Anion Gap BUN Creatinine Est GFR (CKD-EPI)AfAm Est GFR (CKD-EPI)NonAf Random Glucose Calcium Phosphorus Magnesium Total Bilirubin AST ALT Alkaline Phosphatase Creatine Kinase 3789 H Creatine Kinase Index 0.0 CK-MB (CK-2) 2.6 Total Protein Albumin Free T4 Active Medications Aspirin (Ecotrin -) 81 mg PO DAILY [facility] Enoxaparin Sodium (Lovenox -) 40 mg SQ DAILY [facility] Last Admin: 10/25/18 09:59 Dose: 40 mg Sodium Chloride (Normal Saline -) 1,000 mls @ 150 mls/hr IV ASDIR [facility] Last Admin: 10/25/18 15:20 Dose: 150 mls/hr Lisinopril (Prinivil) 5 mg PO DAILY [facility] Last Admin: 10/25/18 09:59 Dose: 5 mg Lorazepam (Ativan -) 0.5 mg PO Q6H [facility] Stop: 10/27/18 23:01 Lorazepam (Ativan -) 0.5 mg PO Q4H PRN PRN Reason: Symptoms of Withdrawal Stop: 10/28/18 00:00 Lorazepam (Ativan -) 0.5 mg PO ONCE ONE Stop: 10/28/18 05:01 Lorazepam (Ativan -) 1 mg PO 0500,1100,1700,2300 [facility] Stop: 10/26/18 23:01 Lorazepam (Ativan -) 1 mg PO Q4H PRN PRN Reason: Symptoms of Withdrawal Stop: 10/26/18 23:59 Metoprolol Succinate (Toprol Xl -) 25 mg PO DAILY [facility] Last Admin: 10/25/18 15:21 Dose: 25 mg ASSESSMENT/PLAN: 63 y/o male PMH HTN, HLD, COPD, and alcohol abuse whom came to the ED c/o chest pain and found to have levated CK, admitted for rhabdomyolysis. # Rhabdomyolysis - No h/o cocaine use and utox NEG - CPK trending down; peak 5,487 and today it is 3,789 - Cont. IVF # Chest pain - Troponemia on admission that peaked at 0.08 and last was 0.06 - Echo: NL LVEF, significant area of inferolateral infarct, with small area of periinfarct ischemia - Medically optimize with asa/lisinopril/betablocker/statin # Acute ETOH withdrawal- CIWA 0 - On ativan protocol - Declining transfer to [facility] and declining transfer there to complete detox. # Hypokalemia - Kcl po. given - If low will add to IVF # Hypomagnesemia - Mg ox po given # Hypophosphatemia - Neutraphos given # F/E/N - NS - Cont to monitor electrolytes and CK - Low sodium diet # DVT prophylaxis - Lovenox # Disposition - Medical floor Tom Hutchinson MD Visit type - Emergency Visit Emergency Visit: No - New Patient This patient is new to me today: No - Critical Care Critical Care patient: No - Discharge Referral Referred to [facility] Med P.C.: No ATTENDING PHYSICIAN STATEMENT I saw and evaluated the patient. I reviewed the resident's note and discussed the case with the resident. I agree with the resident's findings and plan as documented. SUBJECTIVE: OBJECTIVE: ASSESSMENT AND PLAN:
[2018-10-25] MEDS ORDERED: metoPROLOL SUCCINATE 25 MG TAB.SR.24H (FP) PO SCH (14:00)
--- NOTE | 2018-10-25 15:07 | EKG ---
Test Reason : Blood Pressure : / mmHG Vent. Rate : 057 BPM Atrial Rate : 057 BPM P-R Int : 212 ms QRS Dur : 110 ms QT Int : 486 ms P-R-T Axes : 027 -42 -18 degrees QTc Int : 473 ms SINUS BRADYCARDIA WITH 1ST DEGREE A-V BLOCK LEFT AXIS DEVIATION INFERIOR-POSTERIOR INFARCT (CITED ON OR BEFORE 24-OCT-2018) T WAVE ABNORMALITY, CONSIDER LATERAL ISCHEMIA ABNORMAL ECG WHEN COMPARED WITH ECG OF 24-OCT-2018 11:24, T WAVE INVERSION NOW EVIDENT IN INFERIOR LEADS Confirmed by RADHA COX, RAEGAN ([id number]) on 10/25/2018 3:07:12 PM Referred By: RAKESH LÓPEZ DRATRIUM HEALTHDevin Confirmed By:RAEGAN GARCIA MD
--- NOTE | 2018-10-25 15:07 | EKG ---
Test Reason : Blood Pressure : / mmHG Vent. Rate : 091 BPM Atrial Rate : 091 BPM P-R Int : 214 ms QRS Dur : 108 ms QT Int : 414 ms P-R-T Axes : 034 -41 008 degrees QTc Int : 509 ms SINUS RHYTHM WITH 1ST DEGREE A-V BLOCK LEFT AXIS DEVIATION INFERIOR-POSTERIOR INFARCT (CITED ON OR BEFORE 16-AUG-2014) PROLONGED QT ABNORMAL ECG WHEN COMPARED WITH ECG OF 12-AUG-2018 10:50, ST ELEVATION NOW PRESENT IN INFERIOR LEADS Confirmed by RADHA COX, RAEGAN ([id number]) on 10/25/2018 3:06:55 PM Referred By: Confirmed By:RAEGAN GARCIA MD
--- NOTE | 2018-10-25 15:08 | EKG ---
Test Reason : Blood Pressure : / mmHG Vent. Rate : 055 BPM Atrial Rate : 055 BPM P-R Int : 214 ms QRS Dur : 122 ms QT Int : 486 ms P-R-T Axes : 032 -39 087 degrees QTc Int : 464 ms SINUS BRADYCARDIA WITH 1ST DEGREE A-V BLOCK LEFT AXIS DEVIATION INFERIOR INFARCT , AGE UNDETERMINED T WAVE ABNORMALITY, CONSIDER LATERAL ISCHEMIA ABNORMAL ECG WHEN COMPARED WITH ECG OF 24-OCT-2018 11:03, PREMATURE VENTRICULAR COMPLEXES ARE NO LONGER PRESENT NONSPECIFIC T WAVE ABNORMALITY NO LONGER EVIDENT IN INFERIOR LEADS Confirmed by RADHA COX, RAEGAN ([id number]) on 10/25/2018 3:08:02 PM Referred By: Confirmed By:RAEGAN GARCIA MD
[2018-10-25] MEDS: SODIUM CHLORIDE 1,000 ML IV SCH (15:20)
[2018-10-26] MEDS: LORazepam 0.5 MG TABLET PO SCH ×4 (05:31→22:45)
[2018-10-26 06:25] LABS: BASO % 0.5 % (0-2.0); HEMATOCRIT 40.2 % (35.4-49); LYMPH % 36.8 % (8-40); MCH 32.5 pg (25.7-33.7); MCHC 34.7 g/dl (32.0-35.9); MEAN CELL VOLUME 93.7 fl (80-96); MEAN PLT VOLUME 8.5 fl (7.5-11.1); NEUT % 49.7 % (42.8-82.8); PLATELET COUNT 86 K/MM3 (134-434); RBC 4.29 M/mm3 (4.00-5.60); RDW 14.9 % (11.9-15.9); WHITE BLOOD COUNT 3.7 K/mm3 (4.0-10.0)
[2018-10-26 07:09] LABS: ALBUMIN 3.2 g/dl (3.4-5.0); BILIRUBIN,TOTAL 0.8 mg/dL (0.2-1); BLOOD UREA NITROGEN 18.3 mg/dL (7-18); CALCIUM 8.3 mg/dL (8.5-10.1); CREATININE 0.8 mg/dL (0.55-1.3); MAGNESIUM 1.6 mg/dL (1.8-2.4); PHOSPHOROUS 2.7 mg/dL (2.5-4.9); POTASSIUM 3.4 mmol/L (3.5-5.1); TOT PROT 6.7 g/dl (6.4-8.2)
[2018-10-26] MEDS ORDERED: MAGNESIUM OXIDE 400 MG TABLET (FP) PO ONE ×2 (07:13→13:45)
[2018-10-26] MEDS ORDERED: LISINOPRIL 10 MG TABLET (FP) PO SCH (07:55)
[2018-10-26] MEDS: KCL 10 MEQ IVPB 10 MEQ/100 ML INFUS.BAG IVPB SCH ×2 (08:37→10:13)
[2018-10-26] MEDS: ENOXAPARIN NA (PORCINE) 40 MG/0.4 ML DISP.SYRIN SQ SCH (10:13)
[2018-10-26] MEDS: ASPIRIN COATED 81 MG TABLET.EC PO SCH (10:13)
--- NOTE | 2018-10-26 12:42 | PN ---
Teaching Attending Note Name of Resident: Tom Hutchinson ATTENDING PHYSICIAN STATEMENT I saw and evaluated the patient. I reviewed the resident's note and discussed the case with the resident. I agree with the resident's findings and plan as documented. SUBJECTIVE:c/o frequent urination keeping him up at night. denies Cp, SOB, fever, chills, n/V/C/d OBJECTIVE: Last Vital Signs Temp Pulse Resp BP Pulse Ox 99.6 F 60 19 153/92 98 10/26/18 08:30 10/26/18 08:30 10/26/18 08:30 10/26/18 08:30 10/25/18 22:00 General NAD CV S1 s2 RRR no murmur/rub/gallop Lungs CTA B/L no wheezing/rales/rhonchi Abdomen soft NT/ND Extremities no tremor no edema ASSESSMENT AND PLAN: [address] [facility] PMHDM, HTN, dyslipidemia and continuous ETOH dependence presented to the ER with CP and found to have rhabdo 1. Acute rhabdo-doubt this is from statin as pt is not consistently taking it. CPK is trending down. can reduce IVF so patient does not have to urinate in the night and hold overnight. repeat CPK in AM if contineus to trend down can keep IVF off. encourage po intake of water. 2. CP- having mild tropinemia but flat trend likely more related to degree of rhabdo. echo done showing WMA however is poor candidate for intervention at this time due to lack of compliance. will optimize medications and stress importance of compliance. asa/lisinopril/betablocker/statin (once rhabdo has been treated). once compliance can be demonstrated can follow up [facility] cardio for stress test and possible cath. some hesitancy with starting asa given ETOH use and risk for falls however pt did not present with fall neither endorses falling often. will stress risks/benefits of medication 3. Acute ETOH withdrawal- CIWA 0. on ativan protocol. appears comfortable. discussed [facility] and declining transfer there to complete detox. discussed inpatient rehab once medically cleared which patient is also declining. discussed outpatient programs and need to abstain from drinking. 4. hypokalemia- kcl po. can add to IVF 5. hypomagnesemia- Mg po 6. hypophosphatemia- neutraphos 7. Transaminitis- likely due to ETOH but can be from rhabdo. trend for now. advised ETOH cessation 8. DVT ppx- lovenox 9. can d/c cardiac monitoring. anticipate discharge in next 24H
[2018-10-26] MEDS ORDERED: SODIUM CHLORIDE 1,000 ML IV SCH ×2 (12:56→13:45)
[2018-10-26] MEDS ORDERED: NAPH,MB-DB/K PH,MBDB POWDER PACKET PO ONE (13:45)
[2018-10-26] MEDS ORDERED: POTASSIUM CHLORIDE TABS 20 MEQ TABLET.ER (FP) PO ONE (13:45)
[2018-10-26] MEDS: metoPROLOL SUCCINATE 25 MG TAB.SR.24H (FP) PO SCH (16:44)
--- NOTE | 2018-10-26 16:58 | PN ---
Physical Exam: SUBJECTIVE: 63 y/o male PMH HTN, HLD, COPD, and alcohol abuse whom came to the ED c/o chest pain and found to have levated CK, admitted for rhabdomyolysis. 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 This is also the reason he has been drinking higher vol of alcohol more acutely. Overnight pt refused NS 2/2 c/o of sleeplessness d/t recurrent need to urinate. Need for fluids in setting of rhabdomyolysis explained and compromise achieved with pt to have fluids through out day and held for part of night. Pt seen at bedside today OOB rest in chair. He has no complaints outside of frequent boluses of NS and frequent urination. He has been passing stool and urine w/o concern. He denies PARMAR, CP, SOB, NVFD. OBJECTIVE: Vital Signs Period Temp Pulse Resp BP Sys/De Dios Pulse Ox Last 24 Hr 97.7 F-99.6 F 53-65 18-20 140-158/80-92 97-98 GENERAL: Awake, alert, and fully oriented, in no acute distress. Kiswahili speaking only. HEAD: Normal with no signs of trauma. EYES: Pupils equal, round and reactive to light, extraocular movements intact, sclera anicteric, conjunctiva clear. No lid lag. EARS, NOSE, THROAT: Ears normal, nares patent, oropharynx clear without exudates. Moist mucous membranes. NECK: Normal range of motion, supple without lymphadenopathy, JVD, or masses. LUNGS: Breath sounds equal, clear to auscultation bilaterally. No wheezes, and no crackles. No accessory muscle use. HEART: decreased rate, regular rhythm, normal S1 and S2 without murmur, rub or gallop. ABDOMEN: Soft, nontender, not distended, normoactive bowel sounds, no guarding, no rebound, no masses. No hepatomegaly or splenomegaly. MUSCULOSKELETAL: Normal range of motion at all joints. No bony deformities or tenderness. No CVA tenderness. UPPER EXTREMITIES: 2+ pulses, warm, well-perfused. No cyanosis. No clubbing. No peripheral edema. LOWER EXTREMITIES: 2+ pulses, warm, well-perfused. No calf tenderness. No peripheral edema. NEUROLOGICAL: Cranial nerves II-XII intact. Normal speech. Normal gait. PSYCHIATRIC: Cooperative. Good eye contact. Appropriate mood and affect. SKIN: Warm, dry, normal turgor, no rashes or lesions noted, normal capillary refill. Laboratory Results - last 24 hr 10/26/18 10/26/18 05:20 05:20 WBC 3.7 L RBC 4.29 Hgb 14.0 Hct 40.2 MCV 93.7 MCH 32.5 MCHC 34.7 RDW 14.9 Plt Count 86 L MPV 8.5 Absolute Neuts (auto) 1.8 Neutrophils % 49.7 Lymphocytes % 36.8 Monocytes % 9.0 Eosinophils % 4.0 Basophils % 0.5 Nucleated RBC % 0 Sodium 140 Potassium 3.4 L Chloride 110 H Carbon Dioxide 24 Anion Gap 7 L BUN 18.3 H Creatinine 0.8 Est GFR (CKD-EPI)AfAm 111.74 Est GFR (CKD-EPI)NonAf 96.41 Random Glucose 94 Calcium 8.3 L Phosphorus 2.7 Magnesium 1.6 L Total Bilirubin 0.8 AST 98 H ALT 51 Alkaline Phosphatase 150 H Creatine Kinase 2180 H Creatine Kinase Index 0.1 CK-MB (CK-2) 2.6 Total Protein 6.7 Albumin 3.2 L Active Medications Aspirin (Ecotrin -) 81 mg PO DAILY [facility] Last Admin: 10/26/18 10:13 Dose: 81 mg Enoxaparin Sodium (Lovenox -) 40 mg SQ DAILY [facility] Last Admin: 10/26/18 10:13 Dose: 40 mg Sodium Chloride (Normal Saline -) 1,000 mls @ 100 mls/hr IV ASDIR [facility] Stop: 10/26/18 23:44 Last Admin: 10/26/18 14:13 Dose: 100 mls/hr Lisinopril (Prinivil) 10 mg PO DAILY [facility] Last Admin: 10/26/18 10:13 Dose: 10 mg Lorazepam (Ativan -) 0.5 mg PO Q6H [facility] Stop: 10/27/18 23:01 Lorazepam (Ativan -) 0.5 mg PO Q4H PRN PRN Reason: Symptoms of Withdrawal Stop: 10/28/18 00:00 Lorazepam (Ativan -) 0.5 mg PO ONCE ONE Stop: 10/28/18 05:01 Lorazepam (Ativan -) 1 mg PO 0500,1100,1700,2300 [facility] Stop: 10/26/18 23:01 Last Admin: 10/26/18 17:48 Dose: 1 mg Lorazepam (Ativan -) 1 mg PO Q4H PRN PRN Reason: Symptoms of Withdrawal Stop: 10/26/18 23:59 Metoprolol Succinate (Toprol Xl -) 12.5 mg PO DAILY [facility] Last Admin: 10/26/18 16:44 Dose: Not Given ASSESSMENT/PLAN: 63 y/o male PMH HTN, HLD, COPD, and alcohol abuse whom came to the ED c/o chest pain and found to have elevated CK, admitted for rhabdomyolysis. # Rhabdomyolysis - No h/o cocaine use and utox NEG - CPK trending down; peak 5,487 and today it is 2,180 - Cont. IVF # Chest pain - Troponemia on admission that peaked at 0.08 and last was 0.06 - Echo: NL LVEF, significant area of inferolateral infarct, with small area of periinfarct ischemia - Medically optimize with asa/lisinopril/betablocker/statin - Periods of bradycardia. Metroprolol held today. Consider d/c on half current dosing # Acute ETOH withdrawal- CIWA 0 - Will complete ativan protocol tomorrow - Declining transfer to [facility] and declining transfer there to complete detox # Transaminitis - Most likely d/t etoh - Educated pt on importance of etoh cessation # Hypokalemia - Kcl po and IV given # Hypomagnesemia - Mg ox po given # Hypophosphatemia - Neutraphos given # F/E/N - NS - Cont to monitor electrolytes and CK - Low sodium diet # DVT prophylaxis - Lovenox # Disposition - Anticipate d/c tomorrow Tom Hutchinson MD Visit type - Emergency Visit Emergency Visit: No - New Patient This patient is new to me today: No - Critical Care Critical Care patient: No - Discharge Referral Referred to [facility] Med P.C.: No ATTENDING PHYSICIAN STATEMENT I saw and evaluated the patient. I reviewed the resident's note and discussed the case with the resident. I agree with the resident's findings and plan as documented. SUBJECTIVE: OBJECTIVE: ASSESSMENT AND PLAN:
[2018-10-26] MEDS ORDERED: PT OWN MED DRAWER 7, Y5N ONE (18:15)
[2018-10-27] MEDS ORDERED: LORazepam 0.5 MG TABLET PO PRN
[2018-10-27] MEDS: LORazepam 0.5 MG TABLET PO SCH ×2 (05:45→10:29)
[2018-10-27 07:55] LABS: BASO % 0.3 % (0-2.0); EOS % 3.1 % (0-4.5); HEMATOCRIT 43.8 % (35.4-49); LYMPH % 30.8 % (8-40); MCH 32.3 pg (25.7-33.7); MCHC 34.3 g/dl (32.0-35.9); MEAN CELL VOLUME 94.1 fl (80-96); MEAN PLT VOLUME 8.8 fl (7.5-11.1); MONO % 8.4 % (3.8-10.2); NEUT % 57.4 % (42.8-82.8); PLATELET COUNT 89 K/MM3 (134-434); RBC 4.65 M/mm3 (4.00-5.60); RDW 14.9 % (11.9-15.9)
[2018-10-27 07:57] LABS: ALBUMIN 3.6 g/dl (3.4-5.0); BILIRUBIN,TOTAL 0.6 mg/dL (0.2-1); BLOOD UREA NITROGEN 19.6 mg/dL (7-18); CALCIUM 8.8 mg/dL (8.5-10.1); CREATININE 0.9 mg/dL (0.55-1.3); MAGNESIUM 1.9 mg/dL (1.8-2.4); POTASSIUM 3.9 mmol/L (3.5-5.1); TOT PROT 7.6 g/dl (6.4-8.2)
--- NOTE | 2018-10-27 08:53 | PN ---
Progress Note, Physician Chief Complaint: Pt A&Ox3; ambulating slowly back and forth in the hallway; no chest pain, dyspnea, or palpitations. History of Present Illness: 63 male presents with chest pain since 5 pm. He has a long-standing history of alcohol abuse (including within the past 2 weeks), CAD (07/26 Lexiscan stress MIBI: significant area of inferolateral infarct with small area periinfarct ischemia), hypertension, hyperlipidemia, overweight, COPD, ? past hx cocaine; denies marijuana use. Denies cigarettes. he states the pain started about 5 PM it was 8 out of 10 in severity, nonradiating and nothing seemed to make it worse or better; it has lasted for hours. - Current Medication List Current Medications: Active Medications Aspirin (Ecotrin -) 81 mg PO DAILY [facility] Last Admin: 10/26/18 10:13 Dose: 81 mg Enoxaparin Sodium (Lovenox -) 40 mg SQ DAILY [facility] Last Admin: 10/26/18 10:13 Dose: 40 mg Lisinopril (Prinivil) 10 mg PO DAILY [facility] Last Admin: 10/26/18 10:13 Dose: 10 mg Lorazepam (Ativan -) 0.5 mg PO Q6H [facility] Stop: 10/27/18 23:01 Last Admin: 10/27/18 05:45 Dose: 0.5 mg Lorazepam (Ativan -) 0.5 mg PO Q4H PRN PRN Reason: Symptoms of Withdrawal Stop: 10/28/18 00:00 Lorazepam (Ativan -) 0.5 mg PO ONCE ONE Stop: 10/28/18 05:01 Metoprolol Succinate (Toprol Xl -) 12.5 mg PO DAILY [facility] Last Admin: 10/26/18 16:44 Dose: Not Given - Objective Vital Signs: Vital Signs Temperature 97.6 F 10/27/18 06:00 Pulse Rate 58 L 10/27/18 06:00 Respiratory Rate 18 10/27/18 06:00 Blood Pressure 156/88 10/27/18 06:00 O2 Sat by Pulse Oximetry (%) 99 10/26/18 21:00 Constitutional: Yes: No Distress Eyes: Yes: WNL Cardiovascular: Yes: S1, S2, S4 Gastrointestinal: Yes: WNL ...Rectal Exam: Yes: Deferred Genitourinary: No: Anuria Breast(s): Yes: WNL Musculoskeletal: Yes: Muscle Weakness Extremities: Yes: Cool Edema: No Peripheral Pulses WNL: Yes Integumentary: Yes: WNL Neurological: Yes: Alert, Oriented, Weakness Psychiatric: Yes: Other (alcoholism) Labs: CBC, BMP 10/27/18 06:20 10/27/18 06:20 INR, PTT INR 1.13 (0.83-1.09) H 10/23/18 22:10 - ....Imaging Other: Image Reviewed (telemetrya: NSR) Problem List - Problems (1) Acute on chronic alcoholic liver disease Code(s): K70.9 - ALCOHOLIC LIVER DISEASE, UNSPECIFIED (2) Atypical chest pain Assessment/Plan: TNI mildly increased 0.05-->0.08-->0.06. EKG: normal sinus rhythm; nonspecific IVCD; mild STT changes inferiorly; occasional APCs. Telemetry: NSR: periods of sinus bradycardia. ECHO: normal LVEF Stress Lexiscan MIBI 07/2018: significant area of inferolateral infarct, with small area periinfarct ischemia. lisinorpil increased for HTN, CAD. Statin: keep LDL cholesterol < 70 mg/dl. (f/u LFT elevation0. Consider further evaluation of coronary arteries. Code(s): R07.89 - OTHER CHEST PAIN (3) CAD (coronary artery disease) Code(s): I25.10 - ATHSCL HEART DISEASE OF [place] CORONARY ARTERY W/O ANG PCTRS Qualifiers: Coronary Disease-Associated Artery/Lesion type: unspecified vessel or lesion type [place] vs. transplanted heart: [place] heart Associated angina: with unstable angina Qualified Code(s): I25.110 - Atherosclerotic heart disease of [place] coronary artery with unstable angina pectoris (4) Hypertension Assessment/Plan: Increase lisinopril to 20 mg daily. F/u BUN/Cr, electrolytes (K, Mg, PO4 require repletion). Serial BP and HR checks. Code(s): I10 - ESSENTIAL (PRIMARY) HYPERTENSION Qualifiers: Hypertension type: essential hypertension Qualified Code(s): I10 - Essential (primary) hypertension (5) Hyperlipidemia Code(s): E78.5 - HYPERLIPIDEMIA, UNSPECIFIED Qualifiers: Hyperlipidemia type: unspecified Qualified Code(s): E78.5 - Hyperlipidemia , unspecified (6) Hypomagnesemia Code(s): E83.42 - HYPOMAGNESEMIA (7) Obesity Code(s): E66.9 - OBESITY, UNSPECIFIED Qualifiers: Obesity type: due to excess calories Obesity classification: unspecified obesity classification Serious obesity comorbidity presence: without serious comorbidity Qualified Code(s): E66.09 - Other obesity due to excess calories (8) Alcoholism Code(s): F10.20 - ALCOHOL DEPENDENCE, UNCOMPLICATED (9) Elevated troponin Assessment/Plan: Mildly elevated TNI serially. EKG: Code(s): R74.8 - ABNORMAL LEVELS OF OTHER SERUM ENZYMES
[2018-10-27 09:52] VITALS: BP 153/85; PULSE 57; TEMP 98
[2018-10-27] MEDS ORDERED: LISINOPRIL 20 MG TABLET (FP) PO SCH (10:00)
[2018-10-27] MEDS: ASPIRIN COATED 81 MG TABLET.EC PO SCH (10:24)
[2018-10-27] MEDS: ENOXAPARIN NA (PORCINE) 40 MG/0.4 ML DISP.SYRIN SQ SCH (10:24)
[2018-10-27] MEDS: metoPROLOL SUCCINATE 25 MG TAB.SR.24H (FP) PO SCH (11:36)
--- NOTE | 2018-10-27 12:08 | PN ---
Teaching Attending Note Name of Resident: Tom Hutchinson ATTENDING PHYSICIAN STATEMENT I saw and evaluated the patient. I reviewed the resident's note and discussed the case with the resident. I agree with the resident's findings and plan as documented. SUBJECTIVE:asymptomatic. denies Cp, SOB, fever, chills, N/V/C/D OBJECTIVE: Last Vital Signs Temp Pulse Resp BP Pulse Ox 98.0 F 57 L 16 153/85 99 10/27/18 09:51 10/27/18 09:51 10/27/18 09:51 10/27/18 09:51 10/26/18 21:00 General NAD CV S1 s2 RRR no murmur/rub/gallop Lungs CTA B/L no wheezing/rales/rhonchi Abdomen soft NT/ND Extremities no tremor no edema ASSESSMENT AND PLAN: 63yo m wtih PMHDM, HTN, dyslipidemia and continuous ETOH dependence presented to the ER with CP and found to have rhabdo 1. Acute rhabdo-doubt this is from statin as pt is not consistently taking it. CPK is trending down. off IVF 2. CP- having mild tropinemia but flat trend likely more related to degree of rhabdo. echo done showing WMA however is poor candidate for intervention at this time due to lack of compliance. will optimize medications and stress importance of compliance. will need to hold beta ambar for sinus lucretia noted on monitor. possible start in future. stressed importance of medication compliance and need for follow up as he does have cardiac disease that would require cath if able to comply with medications. will increase lisinopril to optimize BP 3. Acute ETOH withdrawal- CIWA 0. on ativan protocol. will complete today. refusing inpatient rehab. discussed importance of abstinence. a 4. hypokalemia-resolved 5. hypomagnesemia- resolved 6. hypophosphatemia- resolved 7. Transaminitis- likely due to ETOH but can be from rhabdo. trend for now. advised ETOH cessation 8. DVT ppx- lovenox 9. [facility]. stressed importance of follow up and compliance
--- NOTE | 2018-10-27 13:44 | DS ---
Physical Exam: SUBJECTIVE: Patient seen and examined OBJECTIVE: Vital Signs Period Temp Pulse Resp BP Sys/De Dios Pulse Ox Last 24 Hr 97.6 F-98.8 F 53-65 16-20 138-178/80-99 99-99 PHYSICAL EXAM GENERAL: The patient is awake, alert, and fully oriented, in no acute distress. HEAD: Normal with no signs of trauma. EYES: PERRL, extraocular movements intact, sclera anicteric, conjunctiva clear. ENT: Ears normal, nares patent, oropharynx clear without exudates, moist mucous membranes. NECK: Trachea midline, full range of motion, supple. LUNGS: Breath sounds equal, clear to auscultation bilaterally, no wheezes, no crackles, no accessory muscle use. HEART: Regular rate and rhythm, S1, S2 without murmur, rub or gallop. ABDOMEN: Soft, nontender, nondistended, normoactive bowel sounds, no guarding, no rebound, no hepatosplenomegaly, no masses. EXTREMITIES: 2+ pulses, warm, well-perfused, no edema. NEUROLOGICAL: Cranial nerves II through XII grossly intact. Normal speech, gait not observed. PSYCH: Normal mood, normal affect. SKIN: Warm, dry, normal turgor, no rashes or lesions noted. LABS Laboratory Results - last 24 hr 10/27/18 10/27/18 10/27/18 06:20 06:20 11:38 WBC 4.0 RBC 4.65 Hgb 15.0 Hct 43.8 MCV 94.1 MCH 32.3 MCHC 34.3 RDW 14.9 Plt Count 89 L MPV 8.8 Absolute Neuts (auto) 2.3 Neutrophils % 57.4 Lymphocytes % 30.8 Monocytes % 8.4 Eosinophils % 3.1 Basophils % 0.3 Nucleated RBC % 0 Sodium 140 Potassium 3.9 Chloride 107 Carbon Dioxide 25 Anion Gap 7 L BUN 19.6 H Creatinine 0.9 Est GFR (CKD-EPI)AfAm 106.46 Est GFR (CKD-EPI)NonAf 91.86 Random Glucose 96 Calcium 8.8 Phosphorus 3.0 Magnesium 1.9 Total Bilirubin 0.6 AST 92 H ALT 60 Alkaline Phosphatase 169 H Creatine Kinase 1111 H Creatine Kinase Index 0.2 CK-MB (CK-2) 2.8 Total Protein 7.6 Albumin 3.6 HOSPITAL COURSE: Date of Admission:10/24/18 Date of Discharge: 10/27/18 Discharge Summary Reason For Visit: RHABDOMYOLYSIS, ELEVATED TROPONIN LEVEL Current Active Problems Alcoholism (Acute) Chest pain (Acute) Elevated troponin (Acute) Condition: Good - Instructions Diet, Activity, Other Instructions: YOUR VISIT You came to the hospital because you were experiencing chest pain. You were admitted to the hospital for care of these symptoms. You were seen by a waste machine operator. It was found that you had worsening of your chronic illnesses. MEDICATIONS Please continue to take your home medications as prescribed. You have *NEW* mediations. - Aspirin 81 mg once a day by mouth - Simvastatin 10 mg every night by mouth - Lisinopril 10 mg once a day by mouth ADDITIONAL CARE Make sure to keep well hydrated. Please make an appointment to see a primary care provider 1 week from today. Since you do not have one, you can call to schedule an appointment at the [facility] residents' clinic, located at [address] [place] [address]. If you would like to continue seeing Dr. Tom Hutchinson, please ask for a Tuesday morning appointment. Please make and appointment to see a waste machine operator 1 week from today. If you do not have one, a referral to Dr. Martinez has been provided. You will require blood work within 2-3 weeks after discharge (BMP, hepatic panel ). You are strongly advised to stop drinking alcohol, as this will worsen your medical conditions. Consider following with an AA program to assist in your abstinence. ADDITIONAL INFORMATION Please call [phone] or come directly to the emergency department if you experience unusual headache, vision change, shortness of breath, chest pain, numbness, tingling, loss of alertness/awareness, loss of function, unusual bleeding or any alarming symptoms. Referrals: Justino Venegas MD [Staff Physician] - Freddie Martinez MD [Staff Physician] - Disposition: HOME - Home Medications Comprehensive Discharge Medication List: Ambulatory Orders Aspirin 81 mg PO DAILY 03/13/18 Atorvastatin Calcium [Lipitor] 10 mg PO HS 07/11/18 Lisinopril [Prinivil] 10 mg PO DAILY 30 Days #30 tablet 10/27/18 - Discharge Referral Referred to [facility] No ATTENDING PHYSICIAN STATEMENT I saw and evaluated the patient. I reviewed the resident's note and discussed the case with the resident. I agree with the resident's findings and plan as documented. SUBJECTIVE: OBJECTIVE: ASSESSMENT AND PLAN:
--- NOTE | 2018-10-27 14:17 | EKG ---
Test Reason : Blood Pressure : / mmHG Vent. Rate : 056 BPM Atrial Rate : 056 BPM P-R Int : 228 ms QRS Dur : 118 ms QT Int : 462 ms P-R-T Axes : 036 -43 031 degrees QTc Int : 445 ms SINUS BRADYCARDIA WITH 1ST DEGREE A-V BLOCK LEFT AXIS DEVIATION INFERIOR-POSTERIOR INFARCT (CITED ON OR BEFORE 24-OCT-2018) T WAVE ABNORMALITY, CONSIDER LATERAL ISCHEMIA ABNORMAL ECG WHEN COMPARED WITH ECG OF 25-OCT-2018 09:48, NO SIGNIFICANT CHANGE WAS FOUND Confirmed by ROBER TEIXEIRA MD ([id number]) on 10/27/2018 2:16:35 PM Referred By: RENE BORDEN Confirmed By:ROBER TEIXEIRA MD
[2018-10-28] MEDS ORDERED: LORazepam 0.5 MG TABLET PO ONE (05:00)
== END 2018-10-27 16:29 | disposition home or self-care (01) | DRG 775 ==
LOC: JER 21:34 → JERBED 10-24 04:28 → J4S 10-25 00:58
PROVIDERS: ADMIT Internal Medicine; ATTEND Internal Medicine
DX: F10.230 Alcohol dependence with withdrawal, uncomplicated (principal); M62.82 Rhabdomyolysis; R07.89 Other chest pain; E83.42 Hypomagnesemia; E87.6 Hypokalemia; E83.39 Other disorders of phosphorus metabolism; E11.65 Type 2 diabetes mellitus with hyperglycemia; I10 Essential (primary) hypertension; E78.5 Hyperlipidemia, unspecified; J44.9 Chronic obstructive pulmonary disease, unspecified; E11.9 Type 2 diabetes mellitus without complications; E66.9 Obesity, unspecified; I25.10 Atherosclerotic heart disease of native coronary artery without angina pectoris; R74.8 Abnormal levels of other serum enzymes; Z68.33 Body mass index [BMI] 33.0-33.9, adult; R74.0 Nonspecific elevation of levels of transaminase and lactic acid dehydrogenase [LDH]; Z59.0 Homelessness
CPT/HCPCS: 36415; 71046-TC-FY; 80053; 80061; 80307; 81003; 82009; 82550; 82553; 82803; 83036; 83721; 83735; 84100; 84439; 84443; 84484; 85025; 85610; 93005; 93010; 93306-TC; 99285-25; J7030

== ENCOUNTER 2018-11-22 15:41 | Inpatient (IN) | payer OTHER ==
--- NOTE | 2018-11-22 15:55 | PDOC ---
Rapid Medical Evaluation Time Seen by Provider: 11/22/18 15:54 Medical Evaluation: Allergies Allergy/AdvReac Type Severity Reaction Status Date / Time No Known Drug Allergies Allergy Verified 10/23/18 22:00 11/22/18 15:54 I have performed a brief in-person evaluation of this patient. The patient presents with a chief complaint of: chest pain, headache, shortness of breath, dizziness Pertinent physical exam findings:stable and in NAD, non-focal I have ordered the following:labs,ekg The patient will proceed to the ED for further evaluation.
[2018-11-22 15:56] VITALS: BMI 29.6
[2018-11-22 16:27] LABS: BASO % 0.7 % (0-2.0); EOS % 0.3 % (0-4.5); HEMATOCRIT 45.3 % (35.4-49); HEMOGLOBIN 15.5 GM/dL (11.7-16.9); LYMPH % 32.8 % (8-40); MCH 31.3 pg (25.7-33.7); MCHC 34.3 g/dl (32.0-35.9); MEAN CELL VOLUME 91.4 fl (80-96); MEAN PLT VOLUME 7.6 fl (7.5-11.1); MONO % 6.9 % (3.8-10.2); NEUT % 59.3 % (42.8-82.8); PLATELET COUNT 69 K/MM3 (134-434); RBC 4.96 M/mm3 (4.00-5.60); RDW 13.8 % (11.9-15.9)
--- NOTE | 2018-11-22 16:39 | PDOC ---
History of Present Illness - General Chief Complaint: Chest Pain Stated Complaint: CHEST PAIN Time Seen by Provider: 11/22/18 15:54 History Source: Patient Exam Limitations: No Limitations - History of Present Illness Initial Comments: 11/22/18 16:36 63 yo male PMH HTN, HLD, COPD, and alcohol abuse presents to the ED with 1 day of non exertional CP. Pain is bilateral chest described as dull, non radiating and non exertional. Pt lives in a group home, chronic alcoholic, drinks 12 beers a a day but only was able to drink 4 today due to nausea. Pt also admits to shakiness today. Recent admission for electrolyte abn and rhabdo after cheif complaint of CP. Pt denies SOB, back pain, abdominal pain, recent travel, calf tenderness 1 Past History - Past Medical History Allergies/Adverse Reactions: Allergies Allergy/AdvReac Type Severity Reaction Status Date / Time No Known Drug Allergies Allergy Verified 02/17/19 19:33 Home Medications: Ambulatory Orders Aspirin 81 mg PO DAILY 14 Days #14 tab.chew 12/23/18 Atorvastatin Calcium [Lipitor] 10 mg PO HS 14 Days #14 tablet 12/23/18 Metoprolol Succinate [Toprol Xl] 50 mg PO DAILY 14 Days #14 tab.er.24h 12/23/18 Anemia: No Asthma: No Cancer: No Cardiac Disorders: No CVA: No COPD: No CHF: No Dementia: No Diabetes: Yes GI Disorders: No Disorders: No HTN: Yes Hypercholesterolemia: Yes Kidney Stones: No Liver Disease: No Psychiatric Problems: Yes (DEPRESSION) Seizures: No Thyroid Disease: No - Surgical History Abdominal Surgery: Yes (epigastric hernia) Appendectomy: Yes Cardiac Surgery: No Cholecystectomy: Yes GI Surgery: Yes (appendectomy) Lung Surgery: No Neurologic Surgery: No Orthopedic Surgery: No - Reproductive History Testicular Surgery: No - Immunization History Td Vaccination: Yes Immunization Up to Date: No - Psycho Social/Smoking Cessation Hx Smoking Status: Yes Smoking History: Never smoked Years of Tobacco Use: 0 Have you smoked in the past 12 months: No Number of Cigarettes Smoked Daily: 0 If you are a former smoker, when did you quit?: smoked for 13 years Cigars Per Day: 0 'Breaking Loose' booklet given: 06/12/12 Hx Alcohol Use: No Drug/Substance Use Hx: No Substance Use Type: Alcohol Hx Substance Use Treatment: No Review of Systems - Review of Systems Constitutional: No: Chills, Fever Respiratory: No: Shortness of Breath Cardiac (ROS): Yes: Chest Pain. No: Edema ABD/GI: Yes: Nausea. No: Constipated, Diarrhea, Vomiting : No: Burning, Dysuria, Frequency, Flank Pain Musculoskeletal: No: Back Pain Neurological: Yes: Headache. No: Numbness, Paresthesia, Weakness *Physical Exam - Vital Signs Last Vital Signs Temp Pulse Resp BP Pulse Ox 98.4 F 91 H 18 174/115 H 97 11/22/18 15:50 11/22/18 15:50 11/22/18 15:50 11/22/18 15:50 11/22/18 15:50 - Physical Exam General Appearance: Yes: Nourished, Appropriately Dressed, Apparent Distress ( tremors) HEENT: positive: EOMI, DAYAN, Normal Voice, Hearing Grossly Normal Neck: positive: Supple. negative: Carotid bruit Respiratory/Chest: positive: Lungs Clear, Normal Breath Sounds. negative: Crackles, Rales, Rhonchi, Stridor, Wheezing Cardiovascular: positive: Regular Rhythm, Regular Rate, S1, S2. negative: Edema , JVD, Murmur Vascular Pulses: Dorsalis-Pedis (R): 4+, Doralis-Pedis (L): 4+ Gastrointestinal/Abdominal: positive: Flat, Soft. negative: Pulsatile Mass, Protuberent, Distended, Guarding, Rebound, Tenderness Musculoskeletal: negative: CVA Tenderness Extremity: positive: Normal Capillary Refill, Normal Inspection, Other (tremors) Integumentary: positive: Normal Color, Dry, Warm Neurologic: positive: Fully Oriented, Alert, Normal Mood/Affect ED Treatment Course - LABORATORY CBC & Chemistry Diagram: 11/23/18 07:00 11/23/18 07:00 - ADDITIONAL ORDERS Additional order review: Laboratory Results 11/22/18 11/22/18 16:05 16:05 Magnesium Cancelled Creatine Kinase Cancelled Troponin I Cancelled 11/22/18 16:05 RBC 4.96 MCV 91.4 MCHC 34.3 RDW 13.8 MPV 7.6 D Neutrophils % 59.3 Lymphocytes % 32.8 Monocytes % 6.9 Eosinophils % 0.3 D Basophils % 0.7 Medical Decision Making - Medical Decision Making 63 yo male PMH HTN, HLD, COPD, and alcohol abuse presents to the ED with 1 day of non exertional CP. Pain is bilateral chest described as dull, non radiating and non exertional. Pt lives in a group home, chronic alcoholic, drinks 12 beers a a day but only was able to drink 4 today due to nausea. Pt also admits to BoatSetterkiness today. Recent admission for electrolyte abn and rhabdo after cheif complaint of CP. Pt denies SOB, back pain, abdominal pain, recent travel, calf tenderness Heart score 3, pt presented with CP, will admit to tele obs Trop neg Pt accepted for admission Discharge - Discharge Information Problems reviewed: Yes Clinical Impression/Diagnosis: Chest pain Qualifiers: Chest pain type: unspecified Qualified Code(s): R07.9 - Chest pain, unspecified Disposition: AGAINST MEDICAL ADVICE - Follow up/Referral - Patient Discharge Instructions - Post Discharge Activity
[2018-11-22 16:46] LABS: INR 1.1 (0.83-1.09)
[2018-11-22 16:47] LABS: ALBUMIN 3.8 g/dl (3.4-5.0); BLOOD UREA NITROGEN 16.2 mg/dL (7-18); CALCIUM 8.2 mg/dL (8.5-10.1); MAGNESIUM 1.7 mg/dL (1.8-2.4); POTASSIUM 3.4 mmol/L (3.5-5.1)
[2018-11-22] MEDS ORDERED: chlordiazePOXIDE HCL 25 MG CAPSULE PO ONE (17:53)
[2018-11-22] MEDS ORDERED: FOLIC ACID INJECTION - 1 MG, THIAMINE HCL 100 MG, MULTIVIT INJECTION ADULT 10 ML in SOD... IVPB ONE ×2 (17:54→21:55)
[2018-11-22] MEDS ORDERED: MAGNESIUM CITRATE 300 ML BOTTLE PO ONE (18:09)
--- NOTE | 2018-11-22 18:13 | PDOC ---
Documentation entered by Dede Beltrán SCRIBE, acting as scribe for Eva Shankar MD. Eva Shankar MD: This documentation has been prepared by the Jerel augustin Adrianna, SCRIBE, under my direction and personally reviewed by me in its entirety. I confirm that the documentation accurately reflects all work, treatment, procedures, and medical decision making performed by me. Attending Attestation - Resident Resident Name: Aneudy Guajardo - ED Attending Attestation I have performed the following: I have examined & evaluated the patient, The case was reviewed & discussed with the resident, I agree w/resident's findings & plan, Exceptions are as noted - HPI HPI: 11/22/18 18:09 Mr. Alonzo Gates is a 63-year-old male with a history of? Diet-controlled diabetes, hypertension, hyperlipidemia, alcohol abuse who presents emergency department with a complaint of chest pain. Patient states that he has been binge drinking, upwards of 12 beers per day. When he does not drink he does become shaky, no prior history of seizures Today he was unable to drink as much as he typically drinks secondary to chest pain. He describes his chest pain as pressure, it occurred after he began to feel nauseous. Chest pain is not exertional. No shortness of breath No palpitations No prior history of coronary artery disease. No cough Today patient was only able to drink 4 beers, last drink was approximately 2 PM - Physicial Exam PE: 11/22/18 18:10 GENERAL: The patient is in no acute distress. ENT: Ears normal, nares patent, oropharynx clear without exudates. Moist mucous membranes. + Tongue fasciculations NECK: Normal range of motion, supple LUNGS: Breath sounds equal, clear to auscultation bilaterally. No wheezes, and no crackles. HEART:Regular rate and rhythm, normal S1 and S2 without murmur, rub or gallop. ABDOMEN: Soft, nontender, normoactive bowel sounds. EXTREMITIES: Normal range of motion, no edema, no tremulousness noted NEUROLOGICAL: Cranial nerves II through XII grossly intact. Normal speech. No focal neurological deficits. SKIN: Warm, Dry, normal turgor, no rashes or lesions noted. - Medical Decision Making 11/22/18 18:11 Laboratory Tests 11/22/18 11/22/18 11/22/18 16:05 16:05 16:05 WBC 5.0 Hgb 15.5 Hct 45.3 Plt Count 69 L D INR 1.10 H BUN 16.2 Creatinine 1.0 Magnesium 1.7 L Creatine Kinase 305 Creatine Kinase Index 1.7 CK-MB (CK-2) 5.2 H Troponin I 0.02 Chest x-ray: 11/22/18 18:12 HEART score = 3 We will plan to place in observation Patient given Librium, banana bag, magnesium Clinical impression: Chest pain, initial presentation Early alcohol withdrawal, initial presentation Heart Score/ECG Review - History History: Slightly suspicious - Electrocardiogram EKG: Normal - Age Age: 45-65 - Risk Factors Risk Factors Heart Score: Yes Hx Hypercholesterolemia, Yes Hx Hypertension, Yes Hx Obesity Based on the list above the patient has:: >/=3 risk factors or Hx atherosclerotic disease - Troponin Troponin: </= normal limit - Score Heart Score - Total: 3
[2018-11-22] MEDS ORDERED: chlordiazePOXIDE HCL 25 MG CAPSULE ONE (19:11)
[2018-11-22] MEDS ORDERED: POTASSIUM CHLORIDE TABS 20 MEQ TABLET.ER (FP) PO ONE ×2 (19:18→19:42)
[2018-11-22] MEDS ORDERED: MAGNESIUM SULF 50% (8.12 MEQ/2 ML-1 GM VIAL) IVPB ONE (19:18)
[2018-11-22] MEDS ORDERED: MAGNESIUM 1GM/D5W - 1 GM/100 ML IVPB IVPB ONE (19:42)
--- NOTE | 2018-11-22 20:53 | PN ---
Teaching Attending Note Name of Resident: Moriah Gao ATTENDING PHYSICIAN STATEMENT I saw and evaluated the patient. I reviewed the resident's note and discussed the case with the resident. I agree with the resident's findings and plan as documented. SUBJECTIVE: 63 yo male PMH HTN, HLD, COPD, and alcohol abuse presents to the ED with 1 day of non exertional CP. Pain is bilateral chest described as dull, non radiating and non exertional. Pt lives in a [facility], chronic alcoholic, drinks 12 beers a a day but only was able to drink 4 today due to nausea. OBJECTIVE: Last Vital Signs Temp Pulse Resp BP Pulse Ox 98.4 F 77 18 166/90 97 11/22/18 15:50 11/22/18 19:07 11/22/18 19:07 11/22/18 20:08 11/22/18 19:07 gen- nad , aaox3 heent -at, nc cv-s1+s2+rrr chest clear abdomen -obese, nt, bs ext- no pedal edema Abnormal Lab Results 11/22/18 11/22/18 11/22/18 16:05 16:05 16:05 Plt Count 69 L D INR 1.10 H Potassium 3.4 L Random Glucose 117 H Calcium 8.2 L Magnesium 1.7 L AST 71 H Alkaline Phosphatase 218 H CK-MB (CK-2) 5.2 H imaging reviewed ekg reviewed ASSESSMENT AND PLAN: #chest pain - slight ckmb elevation. Doubt actual acs at this time although patient certainly has risk factors and should be observed. Previously evaluated by cardiology, recent cardiac stress test 07/26 showed inferior-post wall infarct. recent echo performed -tele-obs -trend trop -consider cardiology evaluation -already had recent echo/cardiac stress test -asa -statin #ETOH abuse -ciwa protocol -thiamine -folate -urine toxicology -iv fluid hydration #Thrombocytopenia -chronic, may be secondary to chronic etoh abuse vs splenomegally that pt has noted to have on abd u/s. Recent viral hepatitis panel was negative. -trend plt #electrolyte disturbances -hypomag/kalemia -supplement mg, k #transaminitis - may be from etoh abuse -liver u/s #dvt ppx - scds, no heparin due to thrombocytopenia
[2018-11-22] MEDS ORDERED: LORazepam 1 MG TABLET PO PRN (21:59)
--- NOTE | 2018-11-22 23:30 | HP ---
CHIEF COMPLAINT: chest pain PCP: none HISTORY OF PRESENT ILLNESS: 63 y.o. M PMH HTN, HLD, COPD, EtOH abuse presenting for chest pain. The chest pain started 1 day ago and occurred at rest. It is located substernally. The pain is dull 8/10, does not radiate, and feels like a pressure in his chest. No alleviating/ exacerbating factors. The patient is a chronic alcoholic and drinks 12 beers daily but the pain only allowed him to have 4 beers today. On ROS, patient endorses some nausea but denies SOB/ PARMAR/ fevers/ chills/V/D/ tremors/ weight changes/ myalgias. ER course was notable for: (1) librium 50mg (2) 1 banana bag (3) Mag 300mL PO Recent Travel: denies PAST MEDICAL HISTORY: as per HPI PAST SURGICAL HISTORY: hernia repair, appendectomy Social History: lives in a skilled nursing Smoking: denies Alcohol: drinks 12 beers daily for the past 40 years Drugs: cocaine, marijuana many years ago not currently Allergies No Known Drug Allergies Allergy (Verified 11/22/18 15:56) HOME MEDICATIONS: Home Medications Medication Instructions Recorded Aspirin 81 mg PO DAILY 03/13/18 Atorvastatin Calcium [Lipitor] 10 mg PO HS 07/11/18 Lisinopril [Prinivil] 10 mg PO DAILY 30 Days #30 tablet 10/27/18 Acetaminophen/Diphenhydramine 1 tab PO HS 11/22/18 [Tylenol Pm Ex-Strength Caplet] Metoprolol Succinate [Toprol Xl] 50 mg PO DAILY 11/22/18 Thiamine HCl [Vitamin B1] 100 mg PO DAILY 11/22/18 PHYSICAL EXAMINATION Vital Signs - 24 hr 11/22/18 11/22/18 11/22/18 15:50 19:07 20:08 Temperature 98.4 F Pulse Rate 91 H Pulse Rate [ 77 Right Radial] Respiratory 18 18 Rate Blood Pressure 174/115 H Blood Pressure 167/106 H 166/90 [Left Arm] O2 Sat by Pulse 97 97 Oximetry (%) 11/22/18 21:30 Temperature 98.8 F Pulse Rate 72 Pulse Rate [ Right Radial] Respiratory 18 Rate Blood Pressure 168/85 Blood Pressure [Left Arm] O2 Sat by Pulse 97 Oximetry (%) GENERAL: Awake, alert, and fully oriented, in no acute distress. HEENT: NCAT. PERRLA. LUNGS: Breath sounds equal, clear to auscultation bilaterally. No wheezes, and no crackles. No accessory muscle use. HEART: Regular rate and rhythm, normal S1 and S2 without murmur, rub or gallop. ABDOMEN: Soft, nontender, not distended, normoactive bowel sounds, no guarding. No organomegaly. EXTR: 2+ pulses present b/l UE & LE. No edema. Varicose veins present LLE. Dry skin b/l LE. NEURO: No tremors or tongue fasciculations. Laboratory Results - last 24 hr 11/22/18 11/22/18 11/22/18 16:05 16:05 16:05 WBC 5.0 RBC 4.96 Hgb 15.5 Hct 45.3 MCV 91.4 MCH 31.3 MCHC 34.3 RDW 13.8 Plt Count 69 L D MPV 7.6 D Absolute Neuts (auto) 3.0 Neutrophils % 59.3 Lymphocytes % 32.8 Monocytes % 6.9 Eosinophils % 0.3 D Basophils % 0.7 Nucleated RBC % 0 PT with INR INR Sodium 136 Potassium 3.4 L Chloride 102 Carbon Dioxide 23 Anion Gap 11 BUN 16.2 Creatinine 1.0 Est GFR (CKD-EPI)AfAm 93.73 Est GFR (CKD-EPI)NonAf 80.87 Random Glucose 117 H Calcium 8.2 L Magnesium 1.7 L Total Bilirubin 1.0 AST 71 H ALT 51 Alkaline Phosphatase 218 H Creatine Kinase Cancelled 305 Creatine Kinase Index 1.7 CK-MB (CK-2) 5.2 H Troponin I Cancelled 0.02 Total Protein 8.0 Albumin 3.8 11/22/18 11/22/18 16:05 16:05 WBC RBC Hgb Hct MCV MCH MCHC RDW Plt Count MPV Absolute Neuts (auto) Neutrophils % Lymphocytes % Monocytes % Eosinophils % Basophils % Nucleated RBC % PT with INR 13.00 INR 1.10 H Sodium Potassium Chloride Carbon Dioxide Anion Gap BUN Creatinine Est GFR (CKD-EPI)AfAm Est GFR (CKD-EPI)NonAf Random Glucose Calcium Magnesium Cancelled Total Bilirubin AST ALT Alkaline Phosphatase Creatine Kinase Creatine Kinase Index CK-MB (CK-2) Troponin I Total Protein Albumin ASSESSMENT/PLAN: 63 y.o. M PMH HTN, HLD, COPD, EtOH abuse presenting for chest pain. #Chest pain -EKG reviewed, no chanegs from prior study -CKMB on upper limit of normal-- downtrended on repeat -Trop neg x2, trend -C/w aspirin & atorvastatin -Recent echo 10/24/18: EF 65%, inferior wall akinesis, LA mildly dilated, trace to mild MR, mild TR, trace pulm valve regurg -Recent stress test 07/14/18- inferolateral wall ischemia noted -Previously seen by Dr. Headley -Monitor on telemetry #EtOH abuse -No signs of WD at this time -Banana bag -Ativan protocol -CIWA score 1; c/w CIWA protocol -Thiamine, folic acid, multivitamins -F/u U-tox, EtOH levels -Aspiration/ seizure/ fall precautions #Transaminitis -Abd U/S 2017 shows fatty liver, splenomegaly -likely 2/2 EtOH abuse -F/u RUQ U/S -Hep B negative as of July 2018 #Chronic thrombocytopenia -Abd U/S 2017 shows fatty liver, splenomegaly -Likely 2/2 EtOH abuse -Hep B negative as of July 2018 #HTN -C/w ASA, lisinopril, metoprolol (home meds) #HLD -c/w atorvastatin- home med #COPD -Well controlled -Recommend f/u with PCP and pulm on discharge #FEN -S/p 2x Banana bags -Monitor lytes -Na controlled diet #DVT PPX -No heparin, pt thrombocytopenic Visit type - Emergency Visit Emergency Visit: Yes ED Registration Date: 11/22/18 Care time: The patient presented to the Emergency Department on the above date and was hospitalized for further evaluation of their emergent condition. - New Patient This patient is new to me today: Yes Date on this admission: 11/23/18 - Critical Care Critical Care patient: No ATTENDING PHYSICIAN STATEMENT I saw and evaluated the patient. I reviewed the resident's note and discussed the case with the resident. I agree with the resident's findings and plan as documented. SUBJECTIVE: OBJECTIVE: ASSESSMENT AND PLAN:
[2018-11-23] MEDS ORDERED: LORazepam 1 MG TABLET PO SCH (05:00)
[2018-11-23 06:52] LABS: COCAINE, UR NEGATIVE ng/ml (CUTOFF=300); METHADONE, UR NEGATIVE ng/ml (CUTOFF=300); OPIATES, URI NEGATIVE ng/ml (CUTOFF=300); PHENCYCLIDINE,URINE NEGATIVE ng/ml (CUTOFF=25); URINE AMPHETAMINES NEGATIVE ng/ml (CUTOFF=500); URINE BARBITURATES NEGATIVE ng/ml (CUTOFF=200); URINE BENZODIAZEPINES NEGATIVE ng/ml (CUTOFF=200)
[2018-11-23 07:57] LABS: HEMATOCRIT 42.8 % (35.4-49); HEMOGLOBIN 14.9 GM/dL (11.7-16.9); MCH 32.2 pg (25.7-33.7); MCHC 34.9 g/dl (32.0-35.9); MEAN PLT VOLUME 8.4 fl (7.5-11.1); PLATELET COUNT 54 K/MM3 (134-434); RBC 4.65 M/mm3 (4.00-5.60); RDW 13.7 % (11.9-15.9); WHITE BLOOD COUNT 3.7 K/mm3 (4.0-10.0)
[2018-11-23 08:30] LABS: ALBUMIN 3.2 g/dl (3.4-5.0); BILIRUBIN,TOTAL 2.6 mg/dL (0.2-1); BLOOD UREA NITROGEN 15.8 mg/dL (7-18); CALCIUM 8.3 mg/dL (8.5-10.1); CREATININE 0.9 mg/dL (0.55-1.3); MAGNESIUM 1.9 mg/dL (1.8-2.4); PHOSPHOROUS 2.4 mg/dL (2.5-4.9); POTASSIUM 3.5 mmol/L (3.5-5.1); TOT PROT 7.1 g/dl (6.4-8.2)
[2018-11-23] MEDS ORDERED: LISINOPRIL 10 MG TABLET (FP) PO SCH (10:00)
[2018-11-23] MEDS ORDERED: ASPIRIN 81 MG CHEWABLE TABLETS PO SCH (10:00)
[2018-11-23] MEDS ORDERED: ENOXAPARIN NA (PORCINE) 40 MG/0.4 ML DISP.SYRIN SQ SCH (10:00)
[2018-11-23] MEDS ORDERED: THIAMINE HCL 100 MG TABLET (FP) PO SCH (10:00)
[2018-11-23] MEDS ORDERED: FOLIC ACID 1 MG TABLET (FP) PO SCH (10:00)
[2018-11-23] MEDS ORDERED: MULTIVITAMINS (DAILY MVI) TABLET (FP) PO SCH (10:00)
--- NOTE | 2018-11-23 13:41 | DS ---
Physical Exam: SUBJECTIVE: Patient seen and examined OBJECTIVE: Vital Signs Period Temp Pulse Resp BP Sys/De Dios Pulse Ox Last 24 Hr 98 F-98.8 F 63-91 18-19 138-182/85-115 97-99 PHYSICAL EXAM GENERAL: The patient is awake, alert, in no acute distress. HEAD: Normal with no signs of trauma. EYES: sclera anicteric, conjunctiva clear. ENT: Ears normal, nares patent, moist mucous membranes. NECK: Trachea midline, full range of motion, supple. LUNGS: Breath sounds equal, clear to auscultation bilaterally, no wheezes, no crackles, no accessory muscle use. HEART: Regular rate and rhythm, S1, S2 without murmur, rub or gallop. ABDOMEN: Soft, nontender, nondistended, normoactive bowel sounds, no guarding, no rebound. EXTREMITIES: 2+ pulses, warm, well-perfused, no edema. NEUROLOGICAL: Normal speech, gait not observed. CIWA 1(mild tremors to touch) SKIN: Warm, dry, normal turgor, no rashes or lesions noted LABS Laboratory Results - last 24 hr 11/22/18 11/22/18 11/22/18 16:05 16:05 16:05 WBC 5.0 RBC 4.96 Hgb 15.5 Hct 45.3 MCV 91.4 MCH 31.3 MCHC 34.3 RDW 13.8 Plt Count 69 L D MPV 7.6 D Absolute Neuts (auto) 3.0 Neutrophils % 59.3 Lymphocytes % 32.8 Monocytes % 6.9 Eosinophils % 0.3 D Basophils % 0.7 Nucleated RBC % 0 PT with INR INR Sodium 136 Potassium 3.4 L Chloride 102 Carbon Dioxide 23 Anion Gap 11 BUN 16.2 Creatinine 1.0 Est GFR (CKD-EPI)AfAm 93.73 Est GFR (CKD-EPI)NonAf 80.87 Random Glucose 117 H Calcium 8.2 L Phosphorus Magnesium 1.7 L Total Bilirubin 1.0 AST 71 H ALT 51 Alkaline Phosphatase 218 H Creatine Kinase Cancelled 305 Creatine Kinase Index 1.7 CK-MB (CK-2) 5.2 H Troponin I Cancelled 0.02 Total Protein 8.0 Albumin 3.8 Opiates Screen Methadone Screen Barbiturate Screen Phencyclidine Screen Ur Amphetamines Screen MDMA (Ecstasy) Screen Benzodiazepines Screen Cocaine Screen U Marijuana (THC) Screen Alcohol, Quantitative 10/16/19 10/16/19 10/16/19 16:05 16:05 22:01 WBC RBC Hgb Hct MCV MCH MCHC RDW Plt Count MPV Absolute Neuts (auto) Neutrophils % Lymphocytes % Monocytes % Eosinophils % Basophils % Nucleated RBC % PT with INR 13.00 INR 1.10 H Sodium Potassium Chloride Carbon Dioxide Anion Gap BUN Creatinine Est GFR (CKD-EPI)AfAm Est GFR (CKD-EPI)NonAf Random Glucose Calcium Phosphorus Magnesium Cancelled Total Bilirubin AST ALT Alkaline Phosphatase Creatine Kinase 267 Creatine Kinase Index 1.5 CK-MB (CK-2) 4.2 H Troponin I 0.03 Total Protein Albumin Opiates Screen Methadone Screen Barbiturate Screen Phencyclidine Screen Ur Amphetamines Screen MDMA (Ecstasy) Screen Benzodiazepines Screen Cocaine Screen U Marijuana (THC) Screen Alcohol, Quantitative 11/23/18 11/23/18 11/23/18 06:10 07:00 07:00 WBC 3.7 L RBC 4.65 Hgb 14.9 Hct 42.8 MCV 92.0 MCH 32.2 MCHC 34.9 RDW 13.7 Plt Count 54 L D MPV 8.4 D Absolute Neuts (auto) Neutrophils % Lymphocytes % Monocytes % Eosinophils % Basophils % Nucleated RBC % PT with INR INR Sodium 139 Potassium 3.5 Chloride 104 Carbon Dioxide 30 Anion Gap 5 L BUN 15.8 Creatinine 0.9 Est GFR (CKD-EPI)AfAm 106.46 Est GFR (CKD-EPI)NonAf 91.86 Random Glucose 92 Calcium 8.3 L Phosphorus 2.4 L Magnesium 1.9 Total Bilirubin 2.6 H AST 59 H ALT 45 Alkaline Phosphatase 162 H Creatine Kinase 180 Creatine Kinase Index 1.5 CK-MB (CK-2) 2.83 Troponin I 0.02 Total Protein 7.1 Albumin 3.2 L Opiates Screen Negative Methadone Screen Negative Barbiturate Screen Negative Phencyclidine Screen Negative Ur Amphetamines Screen Negative MDMA (Ecstasy) Screen Negative Benzodiazepines Screen Negative Cocaine Screen Negative U Marijuana (THC) Screen Negative Alcohol, Quantitative 11/23/18 09:18 WBC RBC Hgb Hct MCV MCH MCHC RDW Plt Count MPV Absolute Neuts (auto) Neutrophils % Lymphocytes % Monocytes % Eosinophils % Basophils % Nucleated RBC % PT with INR INR Sodium Potassium Chloride Carbon Dioxide Anion Gap BUN Creatinine Est GFR (CKD-EPI)AfAm Est GFR (CKD-EPI)NonAf Random Glucose Calcium Phosphorus Magnesium Total Bilirubin AST ALT Alkaline Phosphatase Creatine Kinase Creatine Kinase Index CK-MB (CK-2) Troponin I Total Protein Albumin Opiates Screen Methadone Screen Barbiturate Screen Phencyclidine Screen Ur Amphetamines Screen MDMA (Ecstasy) Screen Benzodiazepines Screen Cocaine Screen U Marijuana (THC) Screen Alcohol, Quantitative < 3.0 HOSPITAL COURSE: Date of Admission:11/22/18 Date of Discharge: 11/23/18 63 y.o. M PMH HTN, HLD, COPD, EtOH abuse presenting for chest pain x1d w/a PARMAR. Symptoms have resolved. EKG(11/22/18) showed 1st degree AV block, Left anterior fasciular block, old lateral infarct -- unchanged from Oct 2018. Recent echo : EF 65%, inferior wall akinesis, LA mildly dilated, trace to mild MR, mild TR, trace pulm valve regurg. Recent stress test 07/14/18 with inferolateral wall ischemia noted. Labs showed CKMB 5.2-> 4.2 -> 2.83 Trop, and neg x3(0.02, 0.03, 0.02). CXR showed an enlarged ascending aorta(~4cm), to be fu as outpt. Had transaminitis, thought 2/2 EtOH usage as RUQ showed a fatty liver. Hep B neg from July 2018. Had a chronic thrombocytopenia. Tele unremarkable. Stable for D/C. Will pursue rehab in the [place]. . Minutes to complete discharge: 20 Discharge Summary Problems reviewed: Yes Reason For Visit: ALCOHOL ABUSE - Instructions Diet, Activity, Other Instructions: You were evaluated in the hospital for chest pain. EKG and labwork findings did not suggest an active heart issue. It was determined that you were stable for discharge home Please see the physicians below for follow-up: -PCP: to discuss your low platelets, fatty liver, chronic alcohol usage; Labwork (CBC) in one week. -Cardiothoracic surgery(Dr Mccloud): to further manage the 4cm Ascending thoracic aorta aneurysm Medications: -NEW medications: --multivitamins --thiamine HCl[VITAMIN B1] --folic acid -continue with your normal home medications Additional Instructions: -diet: please take a heart healthy low fat, low sugar, high fiber diet -resume regular activity as tolerated. Avoid falls as you are increased risk of bleeding -avoid alcohol, drugs(eg. cocaine, marijuana, etc) -please seek treatment at a Drug-detoxification facility([facility] -- Dr Nallely Taylor or other)if you want to quit Alcohol Please seek immediate medical evaluation or go the Emergency Department if you experience: -severe pain in the mid-chest, palpitations, trouble breathing, fainting -severe tremors, seizures -bloody nausea, vomiting Referrals: Baljit Mccloud MD [Staff Physician] - Nallely Taylor DO [Staff Physician] - Disposition: ELOPED - Home Medications Comprehensive Discharge Medication List: Ambulatory Orders Aspirin 81 mg PO DAILY 03/13/18 Atorvastatin Calcium [Lipitor] 10 mg PO HS 07/11/18 Lisinopril [Prinivil] 10 mg PO DAILY 30 Days #30 tablet 10/27/18 Acetaminophen/Diphenhydramine [Tylenol Pm Ex-Strength Caplet] 1 tab PO HS Metoprolol Succinate [Toprol Xl] 50 mg PO DAILY 11/22/18 Thiamine HCl [Vitamin B1 -] 100 mg PO DAILY 11/22/18 Folic Acid - 1 mg PO DAILY #30 tablet 11/23/18 Multivitamins [Multivit ([facility] Formul[facility])] 1 tab PO DAILY #30 tab 11/23/18 Thiamine HCl [Vitamin B1 -] 100 mg PO DAILY #30 tablet 11/23/18 This patient is new to me today: No Emergency Visit: No Critical Care patient: No - Discharge Referral Referred to [facility] No ATTENDING PHYSICIAN STATEMENT I saw and evaluated the patient. I reviewed the resident's note and discussed the case with the resident. I agree with the resident's findings and plan as documented. SUBJECTIVE: OBJECTIVE: ASSESSMENT AND PLAN:
--- NOTE | 2018-11-23 15:25 | PN ---
Physical Exam: SUBJECTIVE: Patient seen and examined. O/N: SVT lasting a few seconds on tele Denies PARMAR, chest pain, SOB, nausea. Says that presenting CP has completely resolved. Last EtOH was 2pm the day before OBJECTIVE: Vital Signs Period Temp Pulse Resp BP Sys/De Dios Pulse Ox Last 24 Hr 98 F-98.8 F 63-91 18-19 138-182/85-115 97-99 GENERAL: The patient is awake, alert, in no acute distress. HEAD: Normal with no signs of trauma. EYES: sclera anicteric, conjunctiva clear. ENT: Ears normal, nares patent, moist mucous membranes. NECK: Trachea midline, full range of motion, supple. LUNGS: Breath sounds equal, clear to auscultation bilaterally, no wheezes, no crackles, no accessory muscle use. HEART: Regular rate and rhythm, S1, S2 without murmur, rub or gallop. ABDOMEN: Soft, nontender, nondistended, normoactive bowel sounds, no guarding, no rebound. EXTREMITIES: 2+ pulses, warm, well-perfused, no edema. NEUROLOGICAL: Normal speech, gait not observed. CIWA 1(mild tremors to touch) SKIN: Warm, dry, normal turgor, no rashes or lesions noted Laboratory Results - last 24 hr 11/22/18 11/22/18 11/22/18 16:05 16:05 16:05 WBC 5.0 RBC 4.96 Hgb 15.5 Hct 45.3 MCV 91.4 MCH 31.3 MCHC 34.3 RDW 13.8 Plt Count 69 L D MPV 7.6 D Absolute Neuts (auto) 3.0 Neutrophils % 59.3 Lymphocytes % 32.8 Monocytes % 6.9 Eosinophils % 0.3 D Basophils % 0.7 Nucleated RBC % 0 PT with INR INR Sodium 136 Potassium 3.4 L Chloride 102 Carbon Dioxide 23 Anion Gap 11 BUN 16.2 Creatinine 1.0 Est GFR (CKD-EPI)AfAm 93.73 Est GFR (CKD-EPI)NonAf 80.87 Random Glucose 117 H Calcium 8.2 L Phosphorus Magnesium 1.7 L Total Bilirubin 1.0 AST 71 H ALT 51 Alkaline Phosphatase 218 H Creatine Kinase Cancelled 305 Creatine Kinase Index 1.7 CK-MB (CK-2) 5.2 H Troponin I Cancelled 0.02 Total Protein 8.0 Albumin 3.8 Opiates Screen Methadone Screen Barbiturate Screen Phencyclidine Screen Ur Amphetamines Screen MDMA (Ecstasy) Screen Benzodiazepines Screen Cocaine Screen U Marijuana (THC) Screen Alcohol, Quantitative 11/22/18 11/22/18 11/22/18 16:05 16:05 22:01 WBC RBC Hgb Hct MCV MCH MCHC RDW Plt Count MPV Absolute Neuts (auto) Neutrophils % Lymphocytes % Monocytes % Eosinophils % Basophils % Nucleated RBC % PT with INR 13.00 INR 1.10 H Sodium Potassium Chloride Carbon Dioxide Anion Gap BUN Creatinine Est GFR (CKD-EPI)AfAm Est GFR (CKD-EPI)NonAf Random Glucose Calcium Phosphorus Magnesium Cancelled Total Bilirubin AST ALT Alkaline Phosphatase Creatine Kinase 267 Creatine Kinase Index 1.5 CK-MB (CK-2) 4.2 H Troponin I 0.03 Total Protein Albumin Opiates Screen Methadone Screen Barbiturate Screen Phencyclidine Screen Ur Amphetamines Screen MDMA (Ecstasy) Screen Benzodiazepines Screen Cocaine Screen U Marijuana (THC) Screen Alcohol, Quantitative 11/23/18 11/23/18 11/23/18 06:10 07:00 07:00 WBC 3.7 L RBC 4.65 Hgb 14.9 Hct 42.8 MCV 92.0 MCH 32.2 MCHC 34.9 RDW 13.7 Plt Count 54 L D MPV 8.4 D Absolute Neuts (auto) Neutrophils % Lymphocytes % Monocytes % Eosinophils % Basophils % Nucleated RBC % PT with INR INR Sodium 139 Potassium 3.5 Chloride 104 Carbon Dioxide 30 Anion Gap 5 L BUN 15.8 Creatinine 0.9 Est GFR (CKD-EPI)AfAm 106.46 Est GFR (CKD-EPI)NonAf 91.86 Random Glucose 92 Calcium 8.3 L Phosphorus 2.4 L Magnesium 1.9 Total Bilirubin 2.6 H AST 59 H ALT 45 Alkaline Phosphatase 162 H Creatine Kinase 180 Creatine Kinase Index 1.5 CK-MB (CK-2) 2.83 Troponin I 0.02 Total Protein 7.1 Albumin 3.2 L Opiates Screen Negative Methadone Screen Negative Barbiturate Screen Negative Phencyclidine Screen Negative Ur Amphetamines Screen Negative MDMA (Ecstasy) Screen Negative Benzodiazepines Screen Negative Cocaine Screen Negative U Marijuana (THC) Screen Negative Alcohol, Quantitative 11/23/18 09:18 WBC RBC Hgb Hct MCV MCH MCHC RDW Plt Count MPV Absolute Neuts (auto) Neutrophils % Lymphocytes % Monocytes % Eosinophils % Basophils % Nucleated RBC % PT with INR INR Sodium Potassium Chloride Carbon Dioxide Anion Gap BUN Creatinine Est GFR (CKD-EPI)AfAm Est GFR (CKD-EPI)NonAf Random Glucose Calcium Phosphorus Magnesium Total Bilirubin AST ALT Alkaline Phosphatase Creatine Kinase Creatine Kinase Index CK-MB (CK-2) Troponin I Total Protein Albumin Opiates Screen Methadone Screen Barbiturate Screen Phencyclidine Screen Ur Amphetamines Screen MDMA (Ecstasy) Screen Benzodiazepines Screen Cocaine Screen U Marijuana (THC) Screen Alcohol, Quantitative < 3.0 Active Medications Generic Name Dose Route Start Last Admin Trade Name Freq PRN Reason Stop Dose Admin Aspirin 81 mg 11/23/18 10:00 11/23/18 09:42 Asa - PO 81 mg DAILY LISA Administration Atorvastatin Calcium 10 mg 11/23/18 22:00 Lipitor - PO HS LISA Folic Acid 1 mg 11/23/18 10:00 11/23/18 09:42 Folic Acid - PO 1 mg DAILY LISA Administration Lisinopril 10 mg 11/23/18 10:00 11/23/18 09:42 Prinivil PO 10 mg DAILY LISA Administration Metoprolol Succinate 50 mg 11/23/18 14:45 Toprol Xl - PO DAILY LISA Multivitamins/Minerals/Vitamin C 1 tab 11/23/18 10:00 11/23/18 09:42 Tab-A-Vit - PO 1 tab DAILY LISA Administration Thiamine HCl 100 mg 11/23/18 10:00 11/23/18 09:42 Vitamin B1 - PO 100 mg DAILY LISA Administration Vital Signs Temp 98 F 11/23/18 10:00 Pulse 71 11/23/18 10:00 Resp 18 11/23/18 10:15 BP 182/105 H 11/23/18 10:00 Pulse Ox 99 11/23/18 10:15 Intake & Output 11/22/18 11/23/18 11/23/18 23:59 11:59 23:59 Intake Total 200 1100 Balance 200 1100 Weight 90.718 kg Intake: IV 1000 s/l 1000 Oral 200 100 Other: Voiding Method Urinal Toilet Toilet # Unmeasured Voids Void 2 2 Height 5 ft 8.9 in Body Mass Index (BMI) 29.6 ASSESSMENT/PLAN: 63 y.o. M PMH HTN, HLD, COPD, EtOH abuse presenting for chest pain x1d w/a PARMAR. 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 > Recent echo 10/24/18: EF 65%, inferior wall akinesis, LA mildly dilated, trace to mild MR, mild TR, trace pulm valve regurg > Recent stress test 07/14/18- inferolateral wall ischemia noted > CKMB 5.2-> 4.2 -> 2.83 > Trop neg x3(0.02, 0.03, 0.02) - cw aspirin & atorvastatin - tele monitor #enlarged thoracic aorta > CXR(11/22/18): neg path of lungs, ascending aorta measuring 4cm - can be fu as outpatient #chronic EtOH usage disorder -- pt interested in EtOH cessation but prefers [facility] detox instead of [facility] > UDS -- all neg > EtOH -- neg > CIWA 1 -Ativan protocol -Banana bag -Thiamine, folic acid, multivitamins -Aspiration/ seizure/ fall precautions #Transaminitis -- likely 2/2 chronic EtOH usage disorder > AST/ALT : 71/51, 59/45 > US RUQ(11/23/18): heterogenous liver(fatty liver) - Hep B negative as of July 2018 - fu as outpt #Chronic thrombocytopenia -- likely 2/2 fatty liver > platelet baseline 40-100k > plt 69 ->54 - monitor #HTN -C/w ASA, lisinopril, metoprolol (home med but hasn't taken since June-July 2018) #HLD -c/w atorvastatin- (home med but hasn't taken since June-July 2018) #COPD -Well controlled -Recommend f/u with PCP and pulm on discharge #FEN -S/p 2x Banana bags -Monitor lytes -Na controlled diet #DVT PPX -No heparin, pt thrombocytopenic Visit type - Emergency Visit Emergency Visit: No - New Patient This patient is new to me today: No - Critical Care Critical Care patient: No ATTENDING PHYSICIAN STATEMENT I saw and evaluated the patient. I reviewed the resident's note and discussed the case with the resident. I agree with the resident's findings and plan as documented. SUBJECTIVE: OBJECTIVE: ASSESSMENT AND PLAN:
[2018-11-23 15:31] VITALS: BP 157/107; PULSE 79; TEMP 98.6
--- NOTE | 2018-11-23 15:35 | PN ---
Teaching Attending Note Name of Resident: Adryan Chavez ATTENDING PHYSICIAN STATEMENT I saw and evaluated the patient. I reviewed the resident's note and discussed the case with the resident. I agree with the resident's findings and plan as documented with exceptions below. SUBJECTIVE: patient seen and examined,no further chest pain. OBJECTIVE: Vital Signs Period Temp Pulse Resp BP Sys/De Dios Pulse Ox Last 24 Hr 98 F-98.8 F 63-91 18-20 138-182/85-115 97-99 Intake & Output 11/20/18 11/21/18 11/22/18 11/23/18 23:59 23:59 23:59 23:59 Intake Total 200 1100 Balance 200 1100 Weight 200 lb General: flushed face, no acute distress neck: soft CVS:S1S2 regular Chest: no rales or wheezing, no chest wall tenderness Abdomen:soft, obese, NT Extremities: mild tremors Home Medications Medication Instructions Recorded Aspirin 81 mg PO DAILY 03/13/18 Atorvastatin Calcium [Lipitor] 10 mg PO HS 07/11/18 Lisinopril [Prinivil] 10 mg PO DAILY 30 Days #30 tablet 10/27/18 Acetaminophen/Diphenhydramine 1 tab PO HS 11/22/18 [Tylenol Pm Ex-Strength Caplet] Metoprolol Succinate [Toprol Xl] 50 mg PO DAILY 11/22/18 Thiamine HCl [Vitamin B1 -] 100 mg PO DAILY 11/22/18 Folic Acid - 1 mg PO DAILY #30 tablet 11/23/18 Multivitamins [Multivit ([facility] 1 tab PO DAILY #30 tab 11/23/18 Formulary)] Thiamine HCl [Vitamin B1 -] 100 mg PO DAILY #30 tablet 11/23/18 Active Medications Aspirin (Asa -) 81 mg PO DAILY [facility] Last Admin: 11/23/18 09:42 Dose: 81 mg Atorvastatin Calcium (Lipitor -) 10 mg PO [facility] Folic Acid (Folic Acid -) 1 mg PO DAILY [facility] Last Admin: 11/23/18 09:42 Dose: 1 mg Lisinopril (Prinivil) 10 mg PO DAILY [facility] Last Admin: 11/23/18 09:42 Dose: 10 mg Metoprolol Succinate (Toprol Xl -) 50 mg PO DAILY [facility] Last Admin: 11/23/18 15:03 Dose: 50 mg Multivitamins/Minerals/Vitamin C (Tab-A-Vit -) 1 tab PO DAILY [facility] Last Admin: 11/23/18 09:42 Dose: 1 tab Thiamine HCl (Vitamin B1 -) 100 mg PO DAILY [facility] Last Admin: 11/23/18 09:42 Dose: 100 mg Laboratory Results - last 24 hr 11/22/18 11/22/18 11/22/18 16:05 16:05 16:05 WBC 5.0 RBC 4.96 Hgb 15.5 Hct 45.3 MCV 91.4 MCH 31.3 MCHC 34.3 RDW 13.8 Plt Count 69 L D MPV 7.6 D Absolute Neuts (auto) 3.0 Neutrophils % 59.3 Lymphocytes % 32.8 Monocytes % 6.9 Eosinophils % 0.3 D Basophils % 0.7 Nucleated RBC % 0 PT with INR INR Sodium 136 Potassium 3.4 L Chloride 102 Carbon Dioxide 23 Anion Gap 11 BUN 16.2 Creatinine 1.0 Est GFR (CKD-EPI)AfAm 93.73 Est GFR (CKD-EPI)NonAf 80.87 Random Glucose 117 H Calcium 8.2 L Phosphorus Magnesium 1.7 L Total Bilirubin 1.0 AST 71 H ALT 51 Alkaline Phosphatase 218 H Creatine Kinase Cancelled 305 Creatine Kinase Index 1.7 CK-MB (CK-2) 5.2 H Troponin I Cancelled 0.02 Total Protein 8.0 Albumin 3.8 Opiates Screen Methadone Screen Barbiturate Screen Phencyclidine Screen Ur Amphetamines Screen MDMA (Ecstasy) Screen Benzodiazepines Screen Cocaine Screen U Marijuana (THC) Screen Alcohol, Quantitative 11/22/18 11/22/18 11/22/18 16:05 16:05 22:01 WBC RBC Hgb Hct MCV MCH MCHC RDW Plt Count MPV Absolute Neuts (auto) Neutrophils % Lymphocytes % Monocytes % Eosinophils % Basophils % Nucleated RBC % PT with INR 13.00 INR 1.10 H Sodium Potassium Chloride Carbon Dioxide Anion Gap BUN Creatinine Est GFR (CKD-EPI)AfAm Est GFR (CKD-EPI)NonAf Random Glucose Calcium Phosphorus Magnesium Cancelled Total Bilirubin AST ALT Alkaline Phosphatase Creatine Kinase 267 Creatine Kinase Index 1.5 CK-MB (CK-2) 4.2 H Troponin I 0.03 Total Protein Albumin Opiates Screen Methadone Screen Barbiturate Screen Phencyclidine Screen Ur Amphetamines Screen MDMA (Ecstasy) Screen Benzodiazepines Screen Cocaine Screen U Marijuana (THC) Screen Alcohol, Quantitative 11/23/18 11/23/18 11/23/18 06:10 07:00 07:00 WBC 3.7 L RBC 4.65 Hgb 14.9 Hct 42.8 MCV 92.0 MCH 32.2 MCHC 34.9 RDW 13.7 Plt Count 54 L D MPV 8.4 D Absolute Neuts (auto) Neutrophils % Lymphocytes % Monocytes % Eosinophils % Basophils % Nucleated RBC % PT with INR INR Sodium 139 Potassium 3.5 Chloride 104 Carbon Dioxide 30 Anion Gap 5 L BUN 15.8 Creatinine 0.9 Est GFR (CKD-EPI)AfAm 106.46 Est GFR (CKD-EPI)NonAf 91.86 Random Glucose 92 Calcium 8.3 L Phosphorus 2.4 L Magnesium 1.9 Total Bilirubin 2.6 H AST 59 H ALT 45 Alkaline Phosphatase 162 H Creatine Kinase 180 Creatine Kinase Index 1.5 CK-MB (CK-2) 2.83 Troponin I 0.02 Total Protein 7.1 Albumin 3.2 L Opiates Screen Negative Methadone Screen Negative Barbiturate Screen Negative Phencyclidine Screen Negative Ur Amphetamines Screen Negative MDMA (Ecstasy) Screen Negative Benzodiazepines Screen Negative Cocaine Screen Negative U Marijuana (THC) Screen Negative Alcohol, Quantitative 11/23/18 09:18 WBC RBC Hgb Hct MCV MCH MCHC RDW Plt Count MPV Absolute Neuts (auto) Neutrophils % Lymphocytes % Monocytes % Eosinophils % Basophils % Nucleated RBC % PT with INR INR Sodium Potassium Chloride Carbon Dioxide Anion Gap BUN Creatinine Est GFR (CKD-EPI)AfAm Est GFR (CKD-EPI)NonAf Random Glucose Calcium Phosphorus Magnesium Total Bilirubin AST ALT Alkaline Phosphatase Creatine Kinase Creatine Kinase Index CK-MB (CK-2) Troponin I Total Protein Albumin Opiates Screen Methadone Screen Barbiturate Screen Phencyclidine Screen Ur Amphetamines Screen MDMA (Ecstasy) Screen Benzodiazepines Screen Cocaine Screen U Marijuana (THC) Screen Alcohol, Quantitative < 3.0 ASSESSMENT AND PLAN: 63 yom with PMhx of HTN, HLD, COPD, and alcohol abuse admitted with chest pain. -Atypical chest pain, ?in the setting of dyspepsia/gastritis from ETOH use -Hypertensive urgency -HTN -HLD -COPD Plan: Telemetry with no events, ACS ruled out. Continue lisinopril, resume toprol XL ASA/statin/folate/thiamine. Monitor for withdrawal. D/c to [facility] in 24 hours if BP improved and agreable to detox. Discussed with patient and social work.
--- NOTE | 2018-11-23 17:08 | DS ---
Physical Exam: SUBJECTIVE: Patient seen and examined OBJECTIVE: Vital Signs Period Temp Pulse Resp BP Sys/De Dios Pulse Ox Last 24 Hr 98 F-98.8 F 63-79 18-20 138-182/85-107 97-99 PHYSICAL EXAM GENERAL: The patient is awake, alert, in no acute distress. HEAD: Normal with no signs of trauma. EYES: sclera anicteric, conjunctiva clear. ENT: Ears normal, nares patent, moist mucous membranes. NECK: Trachea midline, full range of motion, supple. LUNGS: Breath sounds equal, clear to auscultation bilaterally, no wheezes, no crackles, no accessory muscle use. HEART: Regular rate and rhythm, S1, S2 without murmur, rub or gallop. ABDOMEN: Soft, nontender, nondistended, normoactive bowel sounds, no guarding, no rebound. EXTREMITIES: 2+ pulses, warm, well-perfused, no edema. NEUROLOGICAL: Normal speech, gait not observed. CIWA 1(mild tremors to touch) SKIN: Warm, dry, normal turgor, no rashes or lesions noted LABS Laboratory Results - last 24 hr 11/22/18 11/22/18 11/23/18 16:05 22:01 06:10 WBC RBC Hgb Hct MCV MCH MCHC RDW Plt Count MPV Sodium Potassium Chloride Carbon Dioxide Anion Gap BUN Creatinine Est GFR (CKD-EPI)AfAm Est GFR (CKD-EPI)NonAf Random Glucose Calcium Phosphorus Magnesium Total Bilirubin AST ALT Alkaline Phosphatase Creatine Kinase 267 Creatine Kinase Index 1.7 1.5 CK-MB (CK-2) 5.2 H 4.2 H Troponin I 0.03 Total Protein Albumin Opiates Screen Negative Methadone Screen Negative Barbiturate Screen Negative Phencyclidine Screen Negative Ur Amphetamines Screen Negative MDMA (Ecstasy) Screen Negative Benzodiazepines Screen Negative Cocaine Screen Negative U Marijuana (THC) Screen Negative Alcohol, Quantitative 11/23/18 11/23/18 11/23/18 07:00 07:00 09:18 WBC 3.7 L RBC 4.65 Hgb 14.9 Hct 42.8 MCV 92.0 MCH 32.2 MCHC 34.9 RDW 13.7 Plt Count 54 L D MPV 8.4 D Sodium 139 Potassium 3.5 Chloride 104 Carbon Dioxide 30 Anion Gap 5 L BUN 15.8 Creatinine 0.9 Est GFR (CKD-EPI)AfAm 106.46 Est GFR (CKD-EPI)NonAf 91.86 Random Glucose 92 Calcium 8.3 L Phosphorus 2.4 L Magnesium 1.9 Total Bilirubin 2.6 H AST 59 H ALT 45 Alkaline Phosphatase 162 H Creatine Kinase 180 Creatine Kinase Index 1.5 CK-MB (CK-2) 2.83 Troponin I 0.02 Total Protein 7.1 Albumin 3.2 L Opiates Screen Methadone Screen Barbiturate Screen Phencyclidine Screen Ur Amphetamines Screen MDMA (Ecstasy) Screen Benzodiazepines Screen Cocaine Screen U Marijuana (THC) Screen Alcohol, Quantitative < 3.0 HOSPITAL COURSE: 63 y.o. M PMH HTN, HLD, COPD, EtOH abuse presenting for chest pain x1d w/a PARMAR. Symptoms have resolved. Neg troponins x3. EKG showing 1st degree AVB. CXR showing incidental enlarged thoracic aorta ~4cm; to be fu as outpatient. RUQ US showing fatty liver. Tele w/o notable findings. Was still Hypertensive to SBP 180s. Given additional metroprolol 50mg. Patient Eloped prior to BP recheck. Security notified. Date of Admission:11/23/18 Date of Discharge: 11/23/18 Minutes to complete discharge: 20 Discharge Summary Problems reviewed: Yes Reason For Visit: ALCOHOL ABUSE - Instructions Diet, Activity, Other Instructions: You were evaluated in the hospital for chest pain. EKG and labwork findings did not suggest an active heart issue. It was determined that you were stable for discharge home Please see the physicians below for follow-up: -PCP: to discuss your low platelets, fatty liver, chronic alcohol usage; Labwork (CBC) in one week. -Cardiothoracic surgery(Dr Mccloud): to further manage the 4cm Ascending thoracic aorta aneurysm Medications: -NEW medications: --multivitamins --thiamine HCl[VITAMIN B1] --folic acid -continue with your normal home medications Additional Instructions: -diet: please take a heart healthy low fat, low sugar, high fiber diet -resume regular activity as tolerated. Avoid falls as you are increased risk of bleeding -avoid alcohol, drugs(eg. cocaine, marijuana, etc) -please seek treatment at a Drug-detoxification facility([facility] -- Dr Nallely Taylor or other)if you want to quit Alcohol Please seek immediate medical evaluation or go the Emergency Department if you experience: -severe pain in the mid-chest, palpitations, trouble breathing, fainting -severe tremors, seizures -bloody nausea, vomiting Referrals: Baljit Mccloud MD [Staff Physician] - Nallely Taylor DO [Staff Physician] - Disposition: ELOPED - Home Medications Comprehensive Discharge Medication List: Ambulatory Orders Aspirin 81 mg PO DAILY 03/13/18 Atorvastatin Calcium [Lipitor] 10 mg PO HS 07/11/18 Lisinopril [Prinivil] 10 mg PO DAILY 30 Days #30 tablet 10/27/18 Acetaminophen/Diphenhydramine [Tylenol Pm Ex-Strength Caplet] 1 tab PO HS Metoprolol Succinate [Toprol Xl] 50 mg PO DAILY 11/22/18 Thiamine HCl [Vitamin B1 -] 100 mg PO DAILY 11/22/18 Folic Acid - 1 mg PO DAILY #30 tablet 11/23/18 Multivitamins [Multivit ([facility] Formulary)] 1 tab PO DAILY #30 tab 11/23/18 Thiamine HCl [Vitamin B1 -] 100 mg PO DAILY #30 tablet 11/23/18 This patient is new to me today: No Emergency Visit: No Critical Care patient: No - Discharge Referral Referred to [facility] No ATTENDING PHYSICIAN STATEMENT I saw and evaluated the patient. I reviewed the resident's note and discussed the case with the resident. I agree with the resident's findings and plan as documented. SUBJECTIVE: OBJECTIVE: ASSESSMENT AND PLAN:
[2018-11-23] MEDS ORDERED: ATORVASTATIN CA 10 MG TABLET (FP) PO SCH (22:00)
[2018-11-24] MEDS ORDERED: LORazepam 0.5 MG TABLET PO PRN
[2018-11-24] MEDS ORDERED: LORazepam 0.5 MG TABLET PO SCH (05:00)
--- NOTE | 2018-11-24 12:57 | EKG ---
Test Reason : Blood Pressure : / mmHG Vent. Rate : 084 BPM Atrial Rate : 084 BPM P-R Int : 242 ms QRS Dur : 120 ms QT Int : 424 ms P-R-T Axes : 033 -52 031 degrees QTc Int : 501 ms SINUS RHYTHM WITH 1ST DEGREE A-V BLOCK LEFT ANTERIOR FASCICULAR BLOCK POSSIBLE LATERAL INFARCT , AGE UNDETERMINED NON-SPECIFIC INTRA-VENTRICULAR CONDUCTION DELAY Confirmed by ROBER TEIXEIRA MD ([id number]) on 11/24/2018 12:57:17 PM Referred By: Confirmed By:ROBER TEIXEIRA MD
[2018-11-25] MEDS ORDERED: LORazepam 0.5 MG TABLET PO ONE (05:00)
== END 2018-11-23 15:55 | disposition left against medical advice (07) | DRG 199 ==
LOC: JER 15:41 → INTOOBSV 19:45 → JERBED 19:45 → J4W 20:40 → OBSVTOIN 11-23 15:08
PROVIDERS: ADMIT Internal Medicine; ATTEND Hospitalist
PROC: HZ2ZZZZ Detoxification Services for Substance Abuse Treatment (ICD-10-PCS; principal; 2018-11-22)
DX: I16.0 Hypertensive urgency (principal); R07.89 Other chest pain; J44.9 Chronic obstructive pulmonary disease, unspecified; I10 Essential (primary) hypertension; E78.5 Hyperlipidemia, unspecified; F32.9 Major depressive disorder, single episode, unspecified; E83.42 Hypomagnesemia; E87.6 Hypokalemia; K76.0 Fatty (change of) liver, not elsewhere classified; R16.1 Splenomegaly, not elsewhere classified; F10.10 Alcohol abuse, uncomplicated; Y90.0 Blood alcohol level of less than 20 mg/100 ml; I71.2 Thoracic aortic aneurysm, without rupture; I44.0 Atrioventricular block, first degree; I44.4 Left anterior fascicular block
CPT/HCPCS: 36415; 71046-TC-FY; 76705-TC; 80053; 80307; 82550; 82553; 83735; 84100; 84484; 85025; 85027; 85610; 93005; 93010; 97116-GP; 97161-GP; 99285-25; G0378; G0480; J7030

== ENCOUNTER 2018-12-18 12:20 | Inpatient (IN) | payer OTHER ==
--- NOTE | 2018-12-18 13:04 | PDOC ---
Rapid Medical Evaluation Chief Complaint: Chest Pain Medical Evaluation: Allergies Allergy/AdvReac Type Severity Reaction Status Date / Time No Known Drug Allergies Allergy Verified 12/18/18 12:40 Vital Signs Temp Pulse Resp BP Pulse Ox 98.1 F 85 18 148/95 96 12/18/18 12:40 12/18/18 12:40 12/18/18 12:40 12/18/18 12:40 12/18/18 12:40 12/18/18 13:06 Pt with PMH of alcoholism presents for chest pain starting today. He states that his last drink was at 11am. Exam: alcohol on the breath. Gait stable, NAD Orders: labs, EKG, alcohol/utox Pt to proceed to the ER for further evaluation Discharge Disposition - Diagnosis Chest pain - Discharge Dispostion Last Admission D/C Date: 11/23/18 - Referrals - Patient Instructions - Post Discharge Activity
--- NOTE | 2018-12-18 13:46 | PDOC ---
History of Present Illness <Jim Simmons - Last Filed: 12/18/18 18:06> - History of Present Illness Initial Comments: 12/18/18 13:41 HPI: 63 y/o non-domiciled M with hx of HTN, HLD, COPD, alcohol abuse, 4cm thoracic aortic aneurysm presenting with chest pain since 11am (~3hrs ago). He states he has been drinking heavily and after his last drink at 11am he started feeling left sided chest pain with radiation to his epigastrium and left arm as well as SOB, palpitations, and PARMAR. The pain is sharp in nature and constant. Pain is not exertional in nature and is the same at rest as well as with activity. He also reports 4epsidoes of NBNB emesis since his last drink; reports eating breakfast and having good appetite. He denies fever, cough, dysuria, problem with BM. He states he has had 10 cans of beer this morning and has been drinking heavily for the past 3 months since he left detox at [address] [place] [id number]; he reports he is interested in detox again. Of note he also reports tremulousness PMHx: as noted above ROS: as noted SHx: Denies tobacco use; significant alcohol use; no rec drugs Allergies: NKDA ROS: GENERAL/CONSTITUTIONAL: No fever or chills. No weakness. HEAD, EYES, EARS, NOSE AND THROAT: No change in vision. No ear pain or discharge. No sore throat. CARDIOVASCULAR: +chest pain & shortness of breath RESPIRATORY: No cough, wheezing, or hemoptysis. GASTROINTESTINAL: +nausea, vomiting; nodiarrhea or constipation. GENITOURINARY: No dysuria, frequency, or change in urination. MUSCULOSKELETAL: No joint or muscle swelling or pain. No neck or back pain. SKIN: No rash NEUROLOGIC: No vertigo, loss of consciousness, or change in strength/sensation. ENDOCRINE: No increased thirst. No abnormal weight change HEMATOLOGIC/LYMPHATIC: No anemia, easy bleeding, or history of blood clots. ALLERGIC/IMMUNOLOGIC: No hives or skin allergy. PE: GENERAL: Awake, alert, and fully oriented, no acute distress HEAD: No signs of trauma, normocephalic, atraumatic EYES: EOMI, sclera anicteric, conjunctiva clear ENT: tongue fasiculations, Auricles normal inspection, hearing grossly normal, nares patent, oropharynx clear without exudates. Moist mucosa NECK: Normal ROM, no lymphadenopathy LUNGS: No increased work of breathing, symmetrical chest rise, clear to auscultation bilaterally, no wheezes, crackles or rhonchi HEART: Regular rate and rhythm, normal S1 and S2, no murmurs, peripheral pulses 2+ and equal bilaterally. ABDOMEN: Soft, nondistended, nontender, normoactive bowel sounds. No guarding, no rebound. No masses. No CVAT EXTREMITIES: Normal inspection, Normal range of motion, no edema. No clubbing or cyanosis. NEUROLOGICAL: Cranial nerves II through XII grossly intact. Normal speech, normal gait, no focal sensorimotor deficits, normal FTN SKIN: Warm, Dry, normal turgor, no rashes or lesions noted <Stefani Mosquera - Last Filed: 12/18/18 18:40> - General Chief Complaint: Chest Pain Stated Complaint: CHEST PAIN Time Seen by Provider: 12/18/18 13:06 Past History <Jim Simmons - Last Filed: 12/18/18 18:06> - Past Medical History Anemia: No Asthma: No Cancer: No Cardiac Disorders: No CVA: No COPD: No CHF: No Dementia: No Diabetes: Yes GI Disorders: No Disorders: No HTN: Yes Hypercholesterolemia: Yes Kidney Stones: No Liver Disease: No Psychiatric Problems: Yes (DEPRESSION) Seizures: No Thyroid Disease: No - Surgical History Abdominal Surgery: Yes (epigastric hernia) Appendectomy: Yes Cardiac Surgery: No Cholecystectomy: Yes GI Surgery: Yes (appendectomy) Lung Surgery: No Neurologic Surgery: No Orthopedic Surgery: No - Reproductive History Testicular Surgery: No - Immunization History Td Vaccination: Yes Immunization Up to Date: No - Psycho Social/Smoking Cessation Hx Smoking Status: Yes Smoking History: Former smoker Years of Tobacco Use: 0 Have you smoked in the past 12 months: No Number of Cigarettes Smoked Daily: 0 If you are a former smoker, when did you quit?: smoked for 13 years Cigars Per Day: 0 Information on smoking cessation initiated: No 'Breaking Loose' booklet given: 06/12/12 Hx Alcohol Use: Yes (daily x 3 months, last drink 11 am today) Drug/Substance Use Hx: No Substance Use Type: Alcohol Hx Substance Use Treatment: No <Stefani Mosquera - Last Filed: 12/18/18 18:40> - Past Medical History Allergies/Adverse Reactions: Allergies Allergy/AdvReac Type Severity Reaction Status Date / Time No Known Drug Allergies Allergy Verified 12/18/18 12:40 Home Medications: Ambulatory Orders Aspirin 81 mg PO DAILY 03/13/18 Atorvastatin Calcium [Lipitor] 10 mg PO HS 07/11/18 Lisinopril [Prinivil] 10 mg PO DAILY 30 Days #30 tablet 10/27/18 Acetaminophen/Diphenhydramine [Tylenol Pm Ex-Strength Caplet] 1 tab PO HS Metoprolol Succinate [Toprol Xl] 50 mg PO DAILY 11/22/18 Thiamine HCl [Vitamin B1 -] 100 mg PO DAILY 11/22/18 Folic Acid - 1 mg PO DAILY #30 tablet 11/23/18 Multivitamins [Multivit ([facility] Formulary)] 1 tab PO DAILY #30 tab 11/23/18 Thiamine HCl [Vitamin B1 -] 100 mg PO DAILY #30 tablet 11/23/18 *Physical Exam - Vital Signs Last Vital Signs Temp Pulse Resp BP Pulse Ox 98.1 F 85 18 148/95 96 12/18/18 12:40 12/18/18 12:40 12/18/18 12:40 12/18/18 12:40 12/18/18 12:40 <Jim Simmons - Last Filed: 12/18/18 18:06> - Vital Signs Last Vital Signs Temp Pulse Resp BP Pulse Ox 98.1 F 85 18 148/95 96 12/18/18 12:40 12/18/18 12:40 12/18/18 12:40 12/18/18 12:40 12/18/18 12:40 <Stefani Mosquera - Last Filed: 12/18/18 18:40> Heart Score/ECG Review - History History: Moderately suspicious - Electrocardiogram EKG: Non specific repolarization disturbance - Age Age: 45-65 - Risk Factors Risk Factors Heart Score: Yes Hx Hypercholesterolemia, Yes Hx Hypertension Based on the list above the patient has:: 1-2 risk factors - Troponin Troponin: </= normal limit - Score Heart Score - Total: 4 <Jim Simmons - Last Filed: 12/18/18 18:06> ED Treatment Course - LABORATORY CBC & Chemistry Diagram: 12/18/18 14:19 12/18/18 14:19 - ADDITIONAL ORDERS Additional order review: Laboratory Results 12/18/18 12/18/18 12/18/18 14:30 14:19 14:19 PT with INR 12.80 INR 1.08 PTT (Actin FS) 34.0 Sodium 136 Potassium 3.9 Chloride 104 Carbon Dioxide 21 Anion Gap 11 BUN 23.6 H Creatinine 1.0 Est GFR (CKD-EPI)AfAm 93.73 Est GFR (CKD-EPI)NonAf 80.87 Random Glucose 110 H Calcium 8.0 L Magnesium 2.1 Total Bilirubin 0.8 AST 74 H ALT 47 Alkaline Phosphatase 223 H Creatine Kinase 262 Creatine Kinase Index 1.4 CK-MB (CK-2) 3.9 H Troponin I 0.02 Total Protein 7.8 Albumin 3.4 Total Amylase 82 Lipase 187 Urine Color Urine Appearance Urine pH Ur Specific [place] Urine Protein Urine Glucose (UA) Urine Ketones Urine Blood Urine Nitrite Urine Bilirubin Urine Urobilinogen Ur Leukocyte Esterase Urine WBC (Auto) Urine RBC (Auto) Urine Casts (Auto) U Epithel Cells (Auto) Urine Bacteria (Auto) Opiates Screen Methadone Screen Barbiturate Screen Phencyclidine Screen Ur Amphetamines Screen MDMA (Ecstasy) Screen Benzodiazepines Screen Cocaine Screen U Marijuana (THC) Screen Alcohol, Quantitative 163.6 H 12/18/18 12/18/18 14:14 14:14 PT with INR INR PTT (Actin FS) Sodium Potassium Chloride Carbon Dioxide Anion Gap BUN Creatinine Est GFR (CKD-EPI)AfAm Est GFR (CKD-EPI)NonAf Random Glucose Calcium Magnesium Total Bilirubin AST ALT Alkaline Phosphatase Creatine Kinase Creatine Kinase Index CK-MB (CK-2) Troponin I Total Protein Albumin Total Amylase Lipase Urine Color Yellow Urine Appearance Clear Urine pH 5.0 Ur Specific [place] 1.017 Urine Protein 2+ H Urine Glucose (UA) Negative Urine Ketones Negative Urine Blood 2+ H Urine Nitrite Negative Urine Bilirubin Negative Urine Urobilinogen 0.2 Ur Leukocyte Esterase Negative Urine WBC (Auto) 0 Urine RBC (Auto) 2 Urine Casts (Auto) 4 U Epithel Cells (Auto) 0.6 Urine Bacteria (Auto) 2.7 Opiates Screen Negative Methadone Screen Negative Barbiturate Screen Negative Phencyclidine Screen Negative Ur Amphetamines Screen Negative MDMA (Ecstasy) Screen Negative Benzodiazepines Screen Negative Cocaine Screen Negative U Marijuana (THC) Screen Negative Alcohol, Quantitative 12/18/18 14:19 RBC 4.67 MCV 93.7 MCHC 33.7 RDW 15.3 D MPV 7.3 L D Neutrophils % 52.6 Lymphocytes % 38.4 Monocytes % 8.2 Eosinophils % 0.4 Basophils % 0.4 - Medications Given in the ED: ED Medications Discontinued Medications Generic Name Dose Route Start Last Admin Trade Name Dany PRN Reason Stop Dose Admin Al Hydroxide/Mg Hydroxide 30 ml 12/18/18 14:05 12/18/18 14:53 Mylanta Oral Suspension - PO 12/18/18 14:06 30 ml ONCE ONE Administration Chlordiazepoxide HCl 50 mg 12/18/18 14:21 12/18/18 14:59 Librium - PO 12/18/18 14:22 50 mg ONCE ONE Administration Famotidine/Sodium Chloride 20 mg in 50 mls @ 100 mls/hr 12/18/18 14:05 14:53 Pepcid 20 Mg Premixed Ivpb - IVPB 12/18/18 14:34 100 mls/hr ONCE ONE Administration Ondansetron HCl 4 mg 12/18/18 14:05 12/18/18 14:59 Zofran Injection IVPUSH 12/18/18 14:06 4 mg ONCE ONE Administration <Jim Simmons - Last Filed: 12/18/18 18:06> - LABORATORY CBC & Chemistry Diagram: 12/18/18 14:19 12/18/18 14:19 <Stefani Mosquera - Last Filed: 12/18/18 18:40> Medical Decision Making - Medical Decision Making 12/18/18 15:00 63 y/o non-domiciled M with hx of HTN, HLD, COPD, alcohol abuse, 4cm thoracic aortic aneurysm presenting with chest pain since 11am (~3hrs ago) associated with tremulousness, SOB, emesis. BP 148/95, AF. VS notable for tongue fasciculations. DDx includes ASC, dissection, alcohol withdrawal -cbc, cmp, cardiac profile, ekg, cxr, lipase, amylase, ua, ucx, alcohol level, urine tox, CTA chest -banana bag, librium, maalox, zofran, pepcid 12/18/18 18:39 labs unremarkable cxr with no acute pathology CTA pending read discussed with Dr Ojeda; patient will be admitted to [facility] for chest pain workup <Stefani Mosquera - Last Filed: 12/18/18 18:40> Discharge <Jim Simmons - Last Filed: 12/18/18 18:06> - Discharge Information Problems reviewed: Yes - Admission Yes <Stefani Mosquera - Last Filed: 12/18/18 18:40> - Discharge Information Clinical Impression/Diagnosis: Chest pain Qualifiers: Chest pain type: unspecified Qualified Code(s): R07.9 - Chest pain, unspecified
[2018-12-18] MEDS ORDERED: FOLIC ACID INJECTION - 1 MG, THIAMINE HCL 100 MG, MULTIVIT INJECTION ADULT 10 ML in SOD... IVPB ONE (14:05)
[2018-12-18] MEDS ORDERED: ONDANSETRON 4 MG/2 ML VIAL IVPUSH ONE (14:05)
[2018-12-18] MEDS ORDERED: FAMOTIDINE 20 MG/50 ML IVPB 20 MG/50 ML MG IVPB ONE ×2 (14:05→14:49)
[2018-12-18] MEDS ORDERED: MAG HYDROX/AL HYDROX/SIMETH 30 ML UNIT-DOSE CUP PO ONE (14:05)
[2018-12-18] MEDS ORDERED: chlordiazePOXIDE HCL 25 MG CAPSULE PO ONE (14:21)
[2018-12-18 14:50] LABS: BASO % 0.4 % (0-2.0); EOS % 0.4 % (0-4.5); HEMATOCRIT 43.8 % (35.4-49); HEMOGLOBIN 14.7 GM/dL (11.7-16.9); LYMPH % 38.4 % (8-40); MCH 31.5 pg (25.7-33.7); MCHC 33.7 g/dl (32.0-35.9); MEAN CELL VOLUME 93.7 fl (80-96); MEAN PLT VOLUME 7.3 fl (7.5-11.1); MONO % 8.2 % (3.8-10.2); NEUT % 52.6 % (42.8-82.8); PLATELET COUNT 99 K/MM3 (134-434); RBC 4.67 M/mm3 (4.00-5.60); RDW 15.3 % (11.9-15.9); WHITE BLOOD COUNT 4.1 K/mm3 (4.0-10.0)
[2018-12-18] MEDS ORDERED: MAG HYDROX/AL HYDROX/SIMETH 30 ML UNIT-DOSE CUP ONE (14:51)
[2018-12-18] MEDS ORDERED: chlordiazePOXIDE HCL 25 MG CAPSULE ONE ×2 (14:55→23:19)
[2018-12-18] MEDS ORDERED: ONDANSETRON 4 MG/2 ML VIAL ONE (14:55)
--- NOTE | 2018-12-18 15:17 | PDOC ---
Documentation entered by Baljit Santana SCRIBE, acting as scribe for Bonilla Call MD. Bonilla aCll MD: This documentation has been prepared by the Max augustin Daniel, SCRIBE, under my direction and personally reviewed by me in its entirety. I confirm that the documentation accurately reflects all work, treatment, procedures, and medical decision making performed by me. Attending Attestation - Resident Resident Name: Stefani Mosquera - HPI HPI: 12/18/18 14:01 The patient is a 63 year old male with a past medical history of HTN, HLD, alcohol abuse, COPD, and 4 cm thoracic aortic aneurysm here today for evaluation of chest pain. The patient reports that his chest pain began around 11 AM today which was also the time of his last drink. The patient reports that he drank 10 beers today and has been drinking daily for the past 3 months. He notes that his chest pain radiates to his left arm and epigastrum and notes associated shortness of breath. Patient denies headache, lightheadedness. Denies fever, chills. Denies nausea, vomiting, diarrhea. Allergies: NKDA - Physicial Exam PE: 12/18/18 15:01 GENERAL: +smells of alcohol. The patient is awake, alert, and fully oriented, in no acute distress. HEAD: Normal with no signs of trauma. EYES: Pupils equal, round and reactive to light, extraocular movements intact, sclera anicteric, conjunctiva clear with no pallor. ENT: Ears normal, nares patent, oropharynx clear without exudates. Moist mucous membranes. NECK: Normal range of motion, supple without lymphadenopathy, JVD, or masses. LUNGS: Breath sounds equal, clear to auscultation bilaterally. No wheeze/ crackles. HEART: +occasional early beats. Regular rate, normal S1 and S2 without murmur or rub. ABDOMEN: Soft/nontender/nondistended. BS wnl. No guarding or rebound. No palpable masses. No hepatosplenomegaly. EXTREMITIES: Normal range of motion, no edema. No clubbing or cyanosis. No cords, erythema, or tenderness. NEUROLOGICAL: Cranial nerves II through XII grossly intact. Normal speech, normal gait. No active tremors. PSYCH: Normal mood, normal affect. SKIN: +venous stasis changes around the ankles bilaterally. Warm, Dry, normal turgor, no rashes or lesions noted. - Medical Decision Making 12/18/18 15:10 63-year-old male with history of hypertension, high cholesterol, CAD with inf lesion on nuclear stress 07/26, thoracic aneurysm presents with chest pain since this morning, hemodynamically stable here with signs and symptoms of early withdrawal from alcohol. Labs, EKG Chest x-ray --> CT chest given aneurysm history Withdrawal prophylaxis telemetry admission, requesting detox once medically cleared Heart Score/ECG Review #1 ECG reviewed & interpreted by me at: 12:26 General ECG Interpretation: Sinus Rhythm (with APCs), Normal Rate (82), Normal Intervals (qtc 462), No acute ischemic changes (Q wave inferiorly and V6) Compared to previous ECG there are: No significant change (c/w 11/22/18)
[2018-12-18 15:18] LABS: INR 1.08 (0.83-1.09); PROTHROMBIN TIME (PATIENT) 12.8 SEC (9.7-13.0)
[2018-12-18 15:27] LABS: ALBUMIN 3.4 g/dl (3.4-5.0); BILIRUBIN,TOTAL 0.8 mg/dL (0.2-1); BLOOD UREA NITROGEN 23.6 mg/dL (7-18); POTASSIUM 3.9 mmol/L (3.5-5.1); TOT PROT 7.8 g/dl (6.4-8.2)
[2018-12-18 15:28] LABS: MAGNESIUM 2.1 mg/dL (1.8-2.4)
[2018-12-18 15:47] LABS: EPI CELLS 0.6 /HPF (0-5/HPF); HYALINE CASTS 4 /lpf (0-8); URINE APPEARANCE CLEAR; URINE BACTERIA 2.7 /hpf (NEGATIVE); URINE BILIRUBIN NEGATIVE (NEGATIVE); URINE COLOR YELLOW; URINE GLUCOSE (UA) NEGATIVE (NEGATIVE); URINE KETONE NEGATIVE (NEGATIVE); URINE LEUK ESTERASE NEGATIVE (NEGATIVE); URINE NITRITE NEGATIVE (NEGATIVE); URINE PROTEIN 2+ (NEGATIVE); URINE RBC 2 /hpf (0-4); URINE UROBILINOGEN 0.2 mg/dL (0.2-1.0); URINE WBC 0 /hpf (0-5)
[2018-12-18 16:33] LABS: COCAINE, UR NEGATIVE ng/ml (CUTOFF=300); METHADONE, UR NEGATIVE ng/ml (CUTOFF=300); OPIATES, URI NEGATIVE ng/ml (CUTOFF=300); PHENCYCLIDINE,URINE NEGATIVE ng/ml (CUTOFF=25); URINE AMPHETAMINES NEGATIVE ng/ml (CUTOFF=500); URINE BARBITURATES NEGATIVE ng/ml (CUTOFF=200); URINE BENZODIAZEPINES NEGATIVE ng/ml (CUTOFF=200)
--- NOTE | 2018-12-18 18:51 | HP ---
Admitting History and Physical - Primary Care Physician PCP: Rajan Ojeda - Admission History of Present Illness: 63 y/o non-domiciled M with hx of HTN, HLD, COPD, alcohol abuse, 4cm thoracic aortic aneurysm presenting with chest pain since 11am (~3hrs ago). He states he has been drinking heavily and after his last drink at 11am he started feeling left sided chest pain with radiation to his epigastrium and left arm as well as SOB, palpitations, and PARMAR. The pain is sharp in nature and constant. Pain is not exertional in nature and is the same at rest as well as with activity. He also reports 4epsidoes of NBNB emesis since his last drink; reports eating breakfast and having good appetite. He denies fever, cough, dysuria, problem with BM. He states he has had 10 cans of beer this morning and has been drinking heavily for the past 3 months since he left detox at [address] [place] [address]; he reports he is interested in detox again. Of note he also reports tremulousness - Past Medical History DYE FEEDER: No: Alzheimer's, CVA, Dementia, Migraine, Multiple Sclerosis, Peripheral Neuropathy, Parkinson's, Seizure, Syncope, TIA, Vertigo, Other Cardiovascular: Yes: CAD, HTN, Hyperlipdemia Pulmonary: Yes: COPD Gastrointestinal: No: Ascites, Cancer, Constipation, Crohn's Disease, Diverticulitis, Diverticulosis, Esophageal Varices, Gastritis, GERD, GI Bleed, Hemorrhoids, Hiatal Hernia, Inflamatory Bowel Disease, Irritable Bowel Disease, Pancreatitis, Peptic Ulcer Disease, Ulcerative Colitis, Other Psych: Yes: Addictions (alcohol) - Past Surgical History Past Surgical History: Yes: Hernia Repair, Appendectomy - Smoking History Smoking history: Former smoker Have you smoked in the past 12 months: No Aproximately how many cigarettes per day: 0 If you are a former smoker, when did you quit?: smoked for 13 years - Alcohol/Substance Use Hx Alcohol Use: Yes (daily x 3 months, last drink 11 am today) Number of Drinks Daily: 5 (25 oz cans) History of Substance Use: reports: Cocaine - Social History ADL: Independent 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 History of Recent Travel: No Home Medications - Allergies Allergies/Adverse Reactions: Allergies Allergy/AdvReac Type Severity Reaction Status Date / Time No Known Drug Allergies Allergy Verified 12/18/18 12:40 - Home Medications Home Medications: Ambulatory Orders Aspirin 81 mg PO DAILY 03/13/18 Atorvastatin Calcium [Lipitor] 10 mg PO HS 07/11/18 Acetaminophen/Diphenhydramine [Tylenol Pm Ex-Strength Caplet] 1 tab PO HS Metoprolol Succinate [Toprol Xl] 50 mg PO DAILY 11/22/18 Thiamine HCl [Vitamin B1 -] 100 mg PO DAILY 11/22/18 Lisinopril [Prinivil] 20 mg PO BID 12/19/18 Review of Systems - Review of Systems Cardiovascular: reports: Chest Pain Physical Examination Vital Signs: Vital Signs Temperature 98.1 F 12/18/18 12:40 Pulse Rate 85 12/18/18 12:40 Respiratory Rate 18 12/18/18 12:40 Blood Pressure 148/95 12/18/18 12:40 O2 Sat by Pulse Oximetry (%) 96 12/18/18 12:40 Constitutional: Yes: No Distress HENT: Yes: Atraumatic Neck: Yes: Supple Cardiovascular: Yes: Regular Rate and Rhythm Respiratory: Yes: CTA Bilaterally Gastrointestinal: Yes: Normal Bowel Sounds Extremities: Yes: WNL Edema: No Neurological: Yes: Alert, Oriented Labs: CBC, BMP 12/18/18 14:19 12/18/18 14:19 Problem List - Problems (1) Chest pain Assessment/Plan: tele monitoring fu troponins cardiology consult Code(s): R07.9 - CHEST PAIN, UNSPECIFIED Qualifiers: Chest pain type: unspecified Qualified Code(s): R07.9 - Chest pain, unspecified (2) Acute on chronic alcoholic liver disease Code(s): K70.9 - ALCOHOLIC LIVER DISEASE, UNSPECIFIED (3) Alcohol abuse Code(s): F10.10 - ALCOHOL ABUSE, UNCOMPLICATED (4) Alcohol dependence with uncomplicated withdrawal Code(s): F10.230 - ALCOHOL DEPENDENCE WITH WITHDRAWAL, UNCOMPLICATED (5) HTN (hypertension) Assessment/Plan: on meds monitor Code(s): I10 - ESSENTIAL (PRIMARY) HYPERTENSION Qualifiers: Hypertension type: essential hypertension Qualified Code(s): I10 - Essential (primary) hypertension Assessment/Plan Laboratory Tests 12/18/18 12/18/18 12/18/18 14:14 14:14 14:19 WBC RBC Hgb Hct MCV MCH MCHC RDW Plt Count MPV Absolute Neuts (auto) Neutrophils % Lymphocytes % Monocytes % Eosinophils % Basophils % Nucleated RBC % PT with INR INR PTT (Actin FS) Sodium Potassium Chloride Carbon Dioxide Anion Gap BUN Creatinine Est GFR (CKD-EPI)AfAm Est GFR (CKD-EPI)NonAf Random Glucose Calcium Magnesium Total Bilirubin AST ALT Alkaline Phosphatase Creatine Kinase 262 Creatine Kinase Index 1.4 CK-MB (CK-2) 3.9 H Troponin I 0.02 Total Protein Albumin Total Amylase Lipase Urine Color Yellow Urine Appearance Clear Urine pH 5.0 Ur Specific [place] 1.017 Urine Protein 2+ H Urine Glucose (UA) Negative Urine Ketones Negative Urine Blood 2+ H Urine Nitrite Negative Urine Bilirubin Negative Urine Urobilinogen 0.2 Ur Leukocyte Esterase Negative Urine WBC (Auto) 0 Urine RBC (Auto) 2 Urine Casts (Auto) 4 U Epithel Cells (Auto) 0.6 Urine Bacteria (Auto) 2.7 Opiates Screen Negative Methadone Screen Negative Barbiturate Screen Negative Phencyclidine Screen Negative Ur Amphetamines Screen Negative MDMA (Ecstasy) Screen Negative Benzodiazepines Screen Negative Cocaine Screen Negative U Marijuana (THC) Screen Negative Alcohol, Quantitative 12/18/18 12/18/18 12/18/18 14:19 14:19 14:30 WBC 4.1 RBC 4.67 Hgb 14.7 Hct 43.8 MCV 93.7 MCH 31.5 MCHC 33.7 RDW 15.3 D Plt Count 99 L D MPV 7.3 L D Absolute Neuts (auto) 2.2 Neutrophils % 52.6 Lymphocytes % 38.4 Monocytes % 8.2 Eosinophils % 0.4 Basophils % 0.4 Nucleated RBC % 0 PT with INR 12.80 INR 1.08 PTT (Actin FS) 34.0 Sodium 136 Potassium 3.9 Chloride 104 Carbon Dioxide 21 Anion Gap 11 BUN 23.6 H Creatinine 1.0 Est GFR (CKD-EPI)AfAm 93.73 Est GFR (CKD-EPI)NonAf 80.87 Random Glucose 110 H Calcium 8.0 L Magnesium 2.1 Total Bilirubin 0.8 AST 74 H ALT 47 Alkaline Phosphatase 223 H Creatine Kinase Creatine Kinase Index CK-MB (CK-2) Troponin I Total Protein 7.8 Albumin 3.4 Total Amylase 82 Lipase 187 Urine Color Urine Appearance Urine pH Ur Specific [place] Urine Protein Urine Glucose (UA) Urine Ketones Urine Blood Urine Nitrite Urine Bilirubin Urine Urobilinogen Ur Leukocyte Esterase Urine WBC (Auto) Urine RBC (Auto) Urine Casts (Auto) U Epithel Cells (Auto) Urine Bacteria (Auto) Opiates Screen Methadone Screen Barbiturate Screen Phencyclidine Screen Ur Amphetamines Screen MDMA (Ecstasy) Screen Benzodiazepines Screen Cocaine Screen U Marijuana (THC) Screen Alcohol, Quantitative 163.6 H Active Medications Generic Name Dose Route Start Last Admin Trade Name Freq PRN Reason Stop Dose Admin Atorvastatin Calcium 10 mg 12/18/18 22:00 Lipitor - PO HS [facility] Chlordiazepoxide HCl 50 mg 12/18/18 23:00 Librium - PO H0I-UFD [facility] Folic Acid 1 mg 12/19/18 10:00 Folic Acid - PO DAILY [facility] Heparin Sodium (Porcine) 5,000 unit 12/18/18 22:00 Heparin - SQ BID [facility] Folic Acid 1 mg/ Thiamine HCl 1,000 mls @ 125 mls/hr 12/18/18 14:05 12/18/18 15:05 100 mg/ Multivitamins/Minerals IVPB 12/18/18 22:04 125 mls/hr 10 ml/ Sodium Chloride ONCE ONE Administration Lisinopril 10 mg 12/19/18 10:00 Prinivil PO DAILY [facility] Metoprolol Succinate 50 mg 12/19/18 10:00 Toprol Xl - PO DAILY [facility] Multivitamins/Minerals/Vitamin C 1 tab 12/19/18 10:00 Tab-A-Vit - PO DAILY [facility] Pantoprazole Sodium 40 mg 12/18/18 19:00 Protonix - PO DAILY [facility] Thiamine HCl 100 mg 12/19/18 10:00 Vitamin B1 - PO DAILY [facility]
[2018-12-18] MEDS: PANTOPRAZOLE 40 MG TABLET (FP) PO SCH (19:58)
[2018-12-18] MEDS ORDERED: HEPARIN NA (PORCINE) 5,000 UNITS/ML 1ML VIAL ONE (23:17)
[2018-12-18] MEDS ORDERED: ATORVASTATIN CA 10 MG TABLET (FP) ONE (23:17)
[2018-12-18] MEDS: ATORVASTATIN CA 10 MG TABLET (FP) PO SCH (23:23)
[2018-12-18] MEDS: HEPARIN NA (PORCINE) 5,000 UNITS/ML 1ML VIAL SQ SCH (23:23)
[2018-12-18] MEDS: chlordiazePOXIDE HCL 25 MG CAPSULE PO SCH (23:23)
[2018-12-19] MEDS: LISINOPRIL 10 MG TABLET (FP) PO SCH ×3 (01:48→21:14)
[2018-12-19 02:19] VITALS: BMI 28.4
[2018-12-19] MEDS: chlordiazePOXIDE HCL 25 MG CAPSULE PO SCH ×4 (06:20→23:28)
[2018-12-19] MEDS ORDERED: FLU VACCINE QUAD 60 MCG/0.5 ML (MDV 19-20) IM ONE (09:00)
--- NOTE | 2018-12-19 09:31 | CONSULT ---
Consult Detox [facility] Reason for Current Admission/Consult: Alcohol Dependence with multiple medical problems. Referred by:: Bernardo Ojeda - History History of Present Illness: 63 y/o non-domiciled M with hx of HTN, HLD, COPD, alcohol abuse, 4cm thoracic aortic aneurysm presenting with chest pain since 11am (~3hrs ago). He states he has been drinking heavily and after his last drink at 11am he started feeling left sided chest pain with radiation to his epigastrium and left arm as well as SOB, palpitations, and PARMAR. The pain is sharp in nature and constant. Pain is not exertional in nature and is the same at rest as well as with activity. He also reports 4epsidoes of NBNB emesis since his last drink; reports eating breakfast and having good appetite. He denies fever, cough, dysuria, problem with BM. He states he has had 10 cans of beer this morning and has been drinking heavily for the past 3 months since he left detox at [address] [place] [address]; he reports he is interested in detox again. Of note, he was reported to have some tremulousness. PMH:CAD, HTN, Hyperlipdemia, and COPD Meds: Aspirin 81 mg PO DAILY 03/13/18 Atorvastatin Calcium [Lipitor] 10 mg PO HS 07/11/18 Lisinopril [Prinivil] 10 mg PO DAILY 30 Days #30 tablet 10/27/18 Acetaminophen/Diphenhydramine [Tylenol Pm Ex-Strength Caplet] 1 tab PO HS Metoprolol Succinate [Toprol Xl] 50 mg PO DAILY 11/22/18 Thiamine HCl [Vitamin B1 -] 100 mg PO DAILY 11/22/18 Folic Acid - 1 mg PO DAILY #30 tablet 11/23/18 Multivitamins [Multivit ([facility] Formulary)] 1 tab PO DAILY #30 tab 11/23/18 - History Source History Provided By: Patient, Medical Record Limitations to Obtaining History: No Limitations - Alcohol/Substance Use Hx Alcohol Use: Yes (daily x 3 months, last drink 11 am today) Hx Substance Use Treatment: Yes (multiple detoxes at [facility]) - Current Drug/Alcohol Use Alcohol Route: Oral Frequency: Daily Amount used: 6 pack beers daily Age of first use: 27 Date of Last Use: 11/11/19 - Past Medical History COMPLIANCE REVIEW OFFICER: No: Alzheimer's, CVA, Dementia, Migraine, Multiple Sclerosis, Peripheral Neuropathy, Parkinson's, Seizure, Syncope, TIA, Vertigo, Other Cardio/Vascular: Yes: CAD, HTN, Hyperlipdemia Pulmonary: Yes: COPD Gastrointestinal: No: Ascites, Cancer, Constipation, Crohn's Disease, Diverticulitis, Diverticulosis, Esophageal Varices, Gastritis, GERD, GI Bleed, Hemorrhoids, Hiatal Hernia, Inflamatory Bowel Disease, Irritable Bowel Disease, Pancreatitis, Peptic Ulcer Disease, Ulcerative Colitis, Other Psych: Yes: Addictions (alcohol) - Past Surgical History Past Surgical History: Yes: Hernia Repair, Appendectomy - Significant Medical Findings: Patient alert, oriented X 3. He is well known to [facility] and upon discharge relapsed right away. He also has multiple medical problems and is non-compliant with medications for HTN, CAD, HLD and COPD. He admits to being non-compliant with medications. P/E: Vitals stable Cor: S1, S2 no abnormal heart sounds Lungs: Clear to Auscultation B/L Abd: Benign, + BS, Non-tender Ext: No edema. CIWA Score - CIWA Score Nausea/Vomitin-No Nausea/No Vomiting Muscle Tremors: None Anxiety: 0-No Anxiety, at Ease Agitation: 0-Normal Activity Paroxysmal Sweats: No Perspiration Orientation: 0-Oriented Tacttile Disturbances: 0-None Auditory Disturbances: 0-None Visual Disturbances: 0-None Headache: 0-None Present CIWA-Ar Total Score: 0 Assessment Plan - Plan Plan: Alcohol Dependence: Uncomplicated and not in withdrawals at this time. It appears that this admission was more of medical issue of non-compliance with medications. CIWA is 0 and he seems too comfortable to need librium detox protocol. Once his medical issues are resolved, he can enter rehabilitation at [facility]. Librium detox protocol is not necessary. Will recommend that he enter rehab upon discharge. Dr. Mckenna - Medication Detox Regimen/Protocol: Not Applicable
[2018-12-19] MEDS ORDERED: LISINOPRIL 10 MG TABLET (FP) PO SCH ×2 (10:00)
--- NOTE | 2018-12-19 11:31 | EKG ---
Test Reason : Blood Pressure : / mmHG Vent. Rate : 082 BPM Atrial Rate : 082 BPM P-R Int : 206 ms QRS Dur : 122 ms QT Int : 396 ms P-R-T Axes : 029 -46 046 degrees QTc Int : 462 ms SINUS RHYTHM WITH PREMATURE ATRIAL COMPLEXES WITH ABERRANT CONDUCTION LEFT AXIS DEVIATION RIGHT BUNDLE BRANCH BLOCK POSSIBLE LATERAL INFARCT (CITED ON OR BEFORE 27-OCT-2018) INFERIOR INFARCT , AGE UNDETERMINED ABNORMAL ECG WHEN COMPARED WITH ECG OF 22-NOV-2018 15:41, ABERRANT CONDUCTION IS NOW PRESENT TX INTERVAL HAS DECREASED Confirmed by MD Prabha, Dillan ([id number]) on 12/19/2018 11:30:51 AM Referred By: Confirmed By:Dillan Armando MD
--- NOTE | 2018-12-19 11:36 | ECHO ---
Version: 1 Name: ELIAS HUFF Exam: Adult Echocardiogram Study Date: 12/19/2018, 9:57 AM Age: 63 Years MMode/2D Measurements & Calculations IVSd: 1.11 cm LVIDs: 3.3 cm LVIDd: 4.8 cm LVPWd: 1.25 cm LVOT diam: 2.38 cm Ao root diam: 2.8 cm LA dimension: 3.3 cm Doppler Measurements & Calculations MV E max gil: 41.0 cm/sec Med E/e': 13.1 MV A max gil: 71.6 cm/sec Med Peak E' Gli: 3.1 cm/sec MV E/A: 0.57 Lat E/e': 10.3 Lat Peak E' Gil: 4.0 cm/sec Ao max P.4 mmHg Ao V2 max: 152.7 cm/sec Procedure A complete two-dimensional transthoracic echocardiogram was performed (2D, M-mode, Doppler and color flow Doppler). Left Ventricle The left ventricle is normal in size. There is borderline concentric left ventricular hypertrophy. E jection Fraction = 50%. Left ventricular systolic function is low normal. E/A reversal consistent with but n ot diagnostic of poor LV compliance. There is inferior wall akinesis. Right Ventricle The right ventricle is normal in size and function. Atria Normal left and right atrial size and function. Mitral Valve The mitral valve is normal in structure and function. There is trace mitral regurgitation. Tricuspid Valve The tricuspid valve is normal in structure and function. There is trace tricuspid regurgitation. The re was insufficient TR detected to calculate RV systolic pressure. Aortic Valve There is mild aortic valve thickening. Trace aortic regurgitation. Pulmonic Valve The pulmonic valve is normal in structure and function. Trace pulmonic valvular regurgitation. Great Vessels The aortic root is normal size. Pericardium/Pleura There is no pericardial effusion. There is no pleural effusion. Summary Statements The left ventricle is normal in size. There is borderline concentric left ventricular hypertrophy. There is inferior wall akinesis. Left ventricular systolic function is low normal. Ejection Fraction = 50%. There is trace mitral regurgitation. Trace aortic regurgitation. Trace pulmonic valvular regurgitation. MD Luis Fernando Muñoz 12/19/2018, 11:35 AM Ordering Physician: Rajan Toussaint Referring Physician: RAJAN TOUSSAINT Performed By: Kasey Montes De Oca
[2018-12-19] MEDS: PANTOPRAZOLE 40 MG TABLET (FP) PO SCH (11:46)
[2018-12-19] MEDS: FOLIC ACID 1 MG TABLET (FP) PO SCH (11:46)
[2018-12-19] MEDS: MULTIVITAMINS (DAILY MVI) TABLET (FP) PO SCH (11:46)
[2018-12-19] MEDS: THIAMINE HCL 100 MG TABLET (FP) PO SCH (11:47)
[2018-12-19] MEDS: HEPARIN NA (PORCINE) 5,000 UNITS/ML 1ML VIAL SQ SCH ×2 (11:48→21:13)
--- NOTE | 2018-12-19 13:51 | CON.CARD ---
Consult Consult Specialty:: Cardiology Referred by:: Hospitalist Reason for Consultation:: Cardiac evaluation - History of Present Illness Chief Complaint: Chest pain, SOB and palpitations History of Present Illness: Patient is a 63 year old male with underlying history of HTN, hypercholesterolemia, COPD and ETOH intoxication who presents with mid sternal chest and epigastric discomfort radiating to left arm. He also complained of shortness of breath and palpitations. Currently, he appears asymptomatic. He denies paroxysmal nocturnal dyspnea or orthopnea. He denies fever or chills. He denies nausea, vomiting, diarrhea or abdominal pain. He denies dizziness, but had complained of headache. He has been to detox in the past for ETOH abuse. - History Source History Provided By: Patient, Medical Record Limitations to Obtaining History: Language Barrier - Past Medical History Cardio/Vascular: Yes: HTN, Hyperlipdemia Pulmonary: Yes: COPD Psych: Yes: Addictions (alcohol) - Past Surgical History Past Surgical History: Yes: Hernia Repair, Appendectomy - Alcohol/Substance Use Hx Alcohol Use: Yes (daily x 3 months, last drink 11 am today) Number of Drinks Daily: 5 (25 oz cans) History of Substance Use: reports: Cocaine - Smoking History Smoking history: Former smoker Have you smoked in the past 12 months: No Aproximately how many cigarettes per day: 0 If you are a former smoker, when did you quit?: smoked for 13 years - Social History Usual Living Arrangement: Other ([facility]) ADL: Independent 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 History of Recent Travel: No Home Medications - Allergies Allergies/Adverse Reactions: Allergies Allergy/AdvReac Type Severity Reaction Status Date / Time No Known Drug Allergies Allergy Verified 12/18/18 12:40 - Home Medications Home Medications: Ambulatory Orders Aspirin 81 mg PO DAILY 03/13/18 Atorvastatin Calcium [Lipitor] 10 mg PO HS 07/11/18 Acetaminophen/Diphenhydramine [Tylenol Pm Ex-Strength Caplet] 1 tab PO HS Metoprolol Succinate [Toprol Xl] 50 mg PO DAILY 11/22/18 Thiamine HCl [Vitamin B1 -] 100 mg PO DAILY 11/22/18 Lisinopril [Prinivil] 20 mg PO BID 12/19/18 Family Medical History Family Hx Respiratory Disorders: Grandmother (paternal) Other Family History: Diabetes Mellitus Review of Systems - Review of Systems Constitutional: denies: Chills, Fever Cardiovascular: reports: Chest Pain, Palpitations, Shortness of Breath Respiratory: reports: SOB, SOB on Exertion. denies: Cough, Hemoptysis, Orthopnea, PND, Wheezing Gastrointestinal: denies: Abdominal Pain, Constipation, Diarrhea, Melena, Nausea , Rectal Bleeding, Vomiting Genitourinary: denies: Dysuria, Hematuria Musculoskeletal: denies: Back Pain, Joint Pain Neurological: reports: Headache. denies: Dizziness, Seizure, Syncope Vital Signs: Vital Signs Temperature 98.5 F 12/19/18 09:00 Pulse Rate 73 12/19/18 09:00 Respiratory Rate 18 12/19/18 09:00 Blood Pressure 152/82 12/19/18 09:00 O2 Sat by Pulse Oximetry (%) 96 12/19/18 09:00 Eyes: Yes: PERRL HENT: Yes: Atraumatic Neck: Yes: Supple Respiratory: Yes: CTA Bilaterally Gastrointestinal: Yes: Normal Bowel Sounds, Soft. No: Tenderness Cardiovascular: Yes: Regular Rate and Rhythm JVD: No PMI: Non-Displaced Heart Sounds: Yes: S1, S2 Edema: No - Other Data Labs, Other Data: CBC, BMP 12/18/18 14:19 12/18/18 14:19 INR, PTT INR 1.08 (0.83-1.09) 12/18/18 14:30 Troponin, BNP 12/18/18 12/18/18 14:19 19:51 Troponin I 0.02 0.03 Sinus rhythm with RBBB, APC Imaging - Results Chest X-ray: Report Reviewed (Unremarkable) Cat Scan: Report Reviewed (Chest CT no aneurysm. Presence of pulmonary nodule and anterior mediastinal LN) EKG: Report Reviewed Problem List - Problems (1) Acute on chronic alcoholic liver disease Code(s): K70.9 - ALCOHOLIC LIVER DISEASE, UNSPECIFIED (2) Alcohol dependence with uncomplicated withdrawal Code(s): F10.230 - ALCOHOL DEPENDENCE WITH WITHDRAWAL, UNCOMPLICATED (3) Atypical chest pain Code(s): R07.89 - OTHER CHEST PAIN (4) CAD (coronary artery disease) Code(s): I25.10 - ATHSCL HEART DISEASE OF [place] CORONARY ARTERY W/O ANG PCTRS Qualifiers: Coronary Disease-Associated Artery/Lesion type: unspecified vessel or lesion type [place] vs. transplanted heart: [place] heart Associated angina: with unstable angina Qualified Code(s): I25.110 - Atherosclerotic heart disease of [place] coronary artery with unstable angina pectoris (5) Diabetes Code(s): E11.9 - TYPE 2 DIABETES MELLITUS WITHOUT COMPLICATIONS (6) HTN (hypertension) Code(s): I10 - ESSENTIAL (PRIMARY) HYPERTENSION Qualifiers: Hypertension type: essential hypertension Qualified Code(s): I10 - Essential (primary) hypertension (7) Hyperlipidemia Code(s): E78.5 - HYPERLIPIDEMIA, UNSPECIFIED Qualifiers: Hyperlipidemia type: pure hypercholesterolemia Qualified Code(s): E78.00 - Pure hypercholesterolemia, unspecified; E78.0 - Pure hypercholesterolemia Assessment/Plan 1. Chest pain syndrome, atypical 2. ETOH intoxication for detox and substance abuse 3. HTN 4. Hypercholesterolemia 5. COPD PLAN: 1. Detox to prevent withdrawl 2. Continue Toprol XL 50 mg QD, Prinivil 10 mg QD and Lipitor 10 mg QHS 3. Echocardiography to assess LV/RV and valvular function 4. Further cardiac work up if remains symptomatic otherwise treat substance abuse Bhargav Basilio MD
--- NOTE | 2018-12-19 16:03 | PN ---
Progress Note, Physician - Current Medication List Current Medications: Active Medications Atorvastatin Calcium (Lipitor -) 10 mg PO HS [facility] Last Admin: 12/18/18 23:23 Dose: 10 mg Chlordiazepoxide HCl (Librium -) 50 mg PO [id number] [facility] Last Admin: 12/19/18 11:46 Dose: 50 mg Folic Acid (Folic Acid -) 1 mg PO DAILY [facility] Last Admin: 12/19/18 11:46 Dose: 1 mg Heparin Sodium (Porcine) (Heparin -) 5,000 unit SQ BID [facility] Last Admin: 12/19/18 11:48 Dose: 5,000 unit Lisinopril (Prinivil) 10 mg PO BID [facility] Last Admin: 12/19/18 11:47 Dose: Not Given Metoprolol Succinate (Toprol Xl -) 50 mg PO DAILY [facility] Last Admin: 12/19/18 11:46 Dose: 50 mg Multivitamins/Minerals/Vitamin C (Tab-A-Vit -) 1 tab PO DAILY [facility] Last Admin: 12/19/18 11:46 Dose: 1 tab Pantoprazole Sodium (Protonix -) 40 mg PO DAILY [facility] Last Admin: 12/19/18 11:46 Dose: 40 mg Thiamine HCl (Vitamin B1 -) 100 mg PO DAILY [facility] Last Admin: 12/19/18 11:47 Dose: 100 mg - Objective Vital Signs: Vital Signs Temperature 98.5 F 12/19/18 14:33 Pulse Rate 68 12/19/18 14:33 Respiratory Rate 18 12/19/18 14:33 Blood Pressure 129/75 12/19/18 14:33 O2 Sat by Pulse Oximetry (%) 96 12/19/18 09:00 Constitutional: Yes: No Distress HENT: Yes: Atraumatic Neck: Yes: Supple Cardiovascular: Yes: Regular Rate and Rhythm Respiratory: Yes: CTA Bilaterally Gastrointestinal: Yes: Normal Bowel Sounds Extremities: Yes: WNL Neurological: Yes: Alert, Oriented Labs: CBC, BMP 12/18/18 14:19 12/18/18 14:19 INR, PTT INR 1.08 (0.83-1.09) 12/18/18 14:30 Problem List - Problems (1) Chest pain Assessment/Plan: tele monitoring fu troponins cardiology consult Code(s): R07.9 - CHEST PAIN, UNSPECIFIED Qualifiers: Chest pain type: unspecified Qualified Code(s): R07.9 - Chest pain, unspecified (2) Acute on chronic alcoholic liver disease Assessment/Plan: on librium protocol detox onsul dc to [facility] detox unit in [facility] Code(s): K70.9 - ALCOHOLIC LIVER DISEASE, UNSPECIFIED (3) Alcohol abuse Code(s): F10.10 - ALCOHOL ABUSE, UNCOMPLICATED (4) Alcohol dependence with uncomplicated withdrawal Code(s): F10.230 - ALCOHOL DEPENDENCE WITH WITHDRAWAL, UNCOMPLICATED (5) HTN (hypertension) Code(s): I10 - ESSENTIAL (PRIMARY) HYPERTENSION Qualifiers: Hypertension type: essential hypertension Qualified Code(s): I10 - Essential (primary) hypertension
[2018-12-19] MEDS: ATORVASTATIN CA 10 MG TABLET (FP) PO SCH (21:14)
[2018-12-20] MEDS: chlordiazePOXIDE HCL 25 MG CAPSULE PO SCH (05:38)
[2018-12-20 08:50] VITALS: BP 142/88; PULSE 70; TEMP 98
[2018-12-20] MEDS: HEPARIN NA (PORCINE) 5,000 UNITS/ML 1ML VIAL SQ SCH (09:07)
[2018-12-20] MEDS: MULTIVITAMINS (DAILY MVI) TABLET (FP) PO SCH (09:07)
[2018-12-20] MEDS: FOLIC ACID 1 MG TABLET (FP) PO SCH (09:07)
[2018-12-20] MEDS: PANTOPRAZOLE 40 MG TABLET (FP) PO SCH (09:07)
[2018-12-20] MEDS: LISINOPRIL 10 MG TABLET (FP) PO SCH (09:08)
[2018-12-20] MEDS: THIAMINE HCL 100 MG TABLET (FP) PO SCH (09:08)
--- NOTE | 2018-12-20 12:19 | EKG ---
Test Reason : Blood Pressure : / mmHG Vent. Rate : 085 BPM Atrial Rate : 085 BPM P-R Int : 194 ms QRS Dur : 112 ms QT Int : 386 ms P-R-T Axes : 018 -49 019 degrees QTc Int : 459 ms SINUS RHYTHM WITH PREMATURE ATRIAL COMPLEXES LEFT AXIS DEVIATION LATERAL INFARCT (CITED ON OR BEFORE 22-NOV-2018) INFERIOR-POSTERIOR INFARCT (CITED ON OR BEFORE 24-OCT-2018) ABNORMAL ECG WHEN COMPARED WITH ECG OF 18-DEC-2018 12:26, RIGHT BUNDLE BRANCH BLOCK IS NO LONGER PRESENT QUESTIONABLE CHANGE IN INITIAL FORCES OF LATERAL LEADS Confirmed by RAEGAN GARCIA MD ([id number]) on 12/20/2018 12:18:35 PM Referred By: Confirmed By:RAEGAN GARCIA MD
--- NOTE | 2018-12-20 17:49 | DS ---
Physical Examination Vital Signs: Vital Signs Temperature 98 F 12/20/18 08:49 Pulse Rate 70 12/20/18 08:49 Respiratory Rate 18 12/20/18 08:49 Blood Pressure 142/88 12/20/18 08:49 O2 Sat by Pulse Oximetry (%) 98 12/20/18 09:00 Constitutional: Yes: No Distress HENT: Yes: Atraumatic Neck: Yes: Supple Cardiovascular: Yes: Regular Rate and Rhythm Respiratory: Yes: CTA Bilaterally Gastrointestinal: Yes: Normal Bowel Sounds Extremities: Yes: WNL Edema: No Neurological: Yes: Alert, Oriented Labs: CBC, BMP 12/18/18 14:19 12/18/18 14:19 Discharge Summary Problems reviewed: Yes Reason For Visit: ALCOHOL ABUSE CHEST PAIN Current Active Problems Acute on chronic alcoholic liver disease (Acute) Alcohol dependence with uncomplicated withdrawal (Acute) CAD (coronary artery disease) (Acute) Diabetes (Acute) HTN (hypertension) (Acute) History of appendectomy (Acute) Hypertension (Acute) (HFpEF) heart failure with preserved ejection fraction (Chronic) Hypercholesteremia (Chronic) Obesity (Chronic) Condition: Fair - Instructions Disposition: I.P. ALCOHOL/SUBS ABUSE REHAB - Home Medications Comprehensive Discharge Medication List: Ambulatory Orders Aspirin 81 mg PO DAILY 03/13/18 Atorvastatin Calcium [Lipitor] 10 mg PO HS 07/11/18 Acetaminophen/Diphenhydramine [Tylenol Pm Ex-Strength Caplet] 1 tab PO HS Metoprolol Succinate [Toprol Xl] 50 mg PO DAILY 11/22/18 Thiamine HCl [Vitamin B1 -] 100 mg PO DAILY 11/22/18 Lisinopril [Prinivil] 20 mg PO BID 12/19/18 [facility]
== END 2018-12-20 10:10 | disposition other institution (70) | DRG 198 ==
LOC: JER 12:20 → JERBED 18:40 → J4W 12-19 00:15
PROVIDERS: ADMIT Internal Medicine; ATTEND Internal Medicine
DX: R07.89 Other chest pain (principal); I25.10 Atherosclerotic heart disease of native coronary artery without angina pectoris; I71.2 Thoracic aortic aneurysm, without rupture; F10.230 Alcohol dependence with withdrawal, uncomplicated; I10 Essential (primary) hypertension; E78.5 Hyperlipidemia, unspecified; J44.9 Chronic obstructive pulmonary disease, unspecified; Z87.891 Personal history of nicotine dependence; K70.9 Alcoholic liver disease, unspecified; E66.9 Obesity, unspecified; Z68.28 Body mass index [BMI] 28.0-28.9, adult
CPT/HCPCS: 36415; 71046-TC-FY; 71275-TC; 80053; 80307; 81003; 82150; 82550; 82553; 83690; 83735; 84484; 85025; 85610; 85730; 93005; 93010; 93306-TC; 99284-25; J1644; J7030; Q2036

== ENCOUNTER 2018-12-20 10:51 | Inpatient (IN) | payer OTHER ==
[2018-12-20 11:06] VITALS: BMI 30.1
--- NOTE | 2018-12-20 11:50 | HP ---
CIWA Score Nausea/Vomitin-Mild Nausea/No Vomiting Muscle Tremors: 3 Anxiety: 3 Agitation: 3 Paroxysmal Sweats: 1-Minimal Palms Moist Orientation: 1-Uncertain about Date Tacttile Disturbances: 0-None Auditory Disturbances: 0-None Visual Disturbances: 0-None Headache: 2-Mild CIWA-Ar Total Score: 14 - Admission Criteria OASAS Guidelines: Admission for Medically Managed Detox: Requires at least one of the followin. CIWA greater than 12 2. Seizures within the past 24 hours 3. Delirium tremens within the past 24 hours 4. Hallucinations within the past 24 hours 5. Acute intervention needed for co occurring medical disorder 6. Acute intervention needed for co occurring psychiatric disorder 7. Severe withdrawal that cannot be handled at a lower level of care (continued vomiting, continued diarrhea, abnormal vital signs) requiring intravenous medication and/or fluids 8. Admitting History and Physical - Admission Chief Complaint: Patient was admitted to rule out cardiac cause on 12/18/18 and cleared after starting of Librium while hospitalized 2 days in telemetry unit. History of Present Illness: Patient is a 63 year old male with underlying history of HTN, hypercholesterolemia, COPD and ETOH intoxication who presents with mid sternal chest and epigastric discomfort radiating to left arm. He also complained of shortness of breath and palpitations. Currently, he appears asymptomatic. He denies paroxysmal nocturnal dyspnea or orthopnea. He denies fever or chills. He denies nausea, vomiting, diarrhea or abdominal pain. He denies dizziness, but had complained of headache. He has been to detox in the past for ETOH abuse. History Source: Patient Limitations to Obtaining History: Language Barrier - Past Medical History [employer]ANT: No: Alzheimer's, CVA, Dementia, Migraine, Multiple Sclerosis, Peripheral Neuropathy, Parkinson's, Seizure, Syncope, TIA, Vertigo, Other Cardiovascular: Yes: CAD, HTN, Hyperlipdemia Pulmonary: Yes: COPD Gastrointestinal: No: Ascites, Cancer, Constipation, Crohn's Disease, Diverticulitis, Diverticulosis, Esophageal Varices, Gastritis, GERD, GI Bleed, Hemorrhoids, Hiatal Hernia, Inflamatory Bowel Disease, Irritable Bowel Disease, Pancreatitis, Peptic Ulcer Disease, Ulcerative Colitis, Other Psych: Yes: Addictions (alcohol) - Past Surgical History Past Surgical History: Yes: Hernia Repair, Appendectomy - Smoking History Smoking history: Former smoker Have you smoked in the past 12 months: No Aproximately how many cigarettes per day: 0 If you are a former smoker, when did you quit?: smoked for 13 years - Alcohol/Substance Use Hx Alcohol Use: Yes (daily x 3 months, last drink 11 am today) Number of Drinks Daily: 5 (25 oz cans) History of Substance Use: reports: Cocaine - Social History Usual Living Arrangement: Yes: Assisted Living Do you think of yourself as: Straight/Heterosexual ADL: Independent 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 History of Recent Travel: No Admission ROS [facility] Allergies/Adverse Reactions: Allergies Allergy/AdvReac Type Severity Reaction Status Date / Time No Known Drug Allergies Allergy Verified 12/18/18 12:40 Exam Limitations: Language Barrier - Ebola screening Have you traveled outside of the country in the last 21 days: No Have you had contact with anyone from an Ebola affected area: No Have you been sick,other than usual withdrawal symptoms: No Do you have a fever: No - Review of Systems Constitutional: Chills EENT: reports: No Symptoms Reported Respiratory: reports: No Symptoms reported Cardiac: reports: No Symptoms Reported GI: reports: No Symptoms Reported : reports: No Symptoms Reported Musculoskeletal: reports: No Symptoms Reported Integumentary: reports: No Symptoms Reported Neuro: reports: No Symptoms reported Endocrine: reports: No Symptoms Reported Hematology: reports: No Symptoms Reported Psychiatric: reports: No Sypmtoms Reported Other Systems: Reviewed and Negative Patient History - Patient Medical History Hx Anemia: No Hx Asthma: No Hx Chronic Obstructive Pulmonary Disease (COPD): No Hx Cancer: No Hx Cardiac Disorders: No Hx Congestive Heart Failure: No Hx Hypertension: Yes Hx Hypercholesterolemia: Yes Hx Pacemaker: No HX Cerebrovascular Accident: No Hx Seizures: No Hx Dementia: No Hx Diabetes: Yes Hx Gastrointestinal Disorders: No Hx Liver Disease: No Hx Genitourinary Disorders: No Hx Sexually Transmitted Disorders: No Hx Renal Disease (ESRD): No Hx Thyroid Disease: No Hx Human Immunodeficiency Virus (HIV): No (01/24 negative) Hx Hepatitis C: No Hx Depression: No Hx Suicide Attempt: No Hx Bipolar Disorder: No Hx Schizophrenia: No - Patient Surgical History Past Surgical History: Yes Hx Neurologic Surgery: No Hx Cataract Extraction: No Hx Cardiac Surgery: No Hx Lung Surgery: No Hx Breast Surgery: No Hx Breast Biopsy: No Hx Abdominal Surgery: Yes (epigastric hernia) Hx Appendectomy: Yes Hx Cholecystectomy: Yes Hx Genitourinary Surgery: No Hx Section: No Hx Orthopedic Surgery: No Hx Hysterectomy: No Other Surgical History: hernia repair, cut leg on tractor(pt states had sx) Anesthesia Reaction: No - Smoking Cessation Smoking history: Former smoker Have you smoked in the past 12 months: No Aproximately how many cigarettes per day: 0 If you are a former smoker, when did you quit?: smoked for 13 years Cigars Per Day: 0 Hx Chewing Tobacco Use: No Initiated information on smoking cessation: No - Substances abused Alcohol Substance route: Oral Frequency: Daily Amount used: 12 can of cerveza/ beer. Age of first use: 16 Date of last use: 12/19/18 Admission Physical Exam S - Vital Signs Vital Signs: Vital Signs - 24 hr 12/20/18 11:02 Temperature 98.3 F Pulse Rate 67 Respiratory 20 Rate Blood Pressure 162/94 - Physical General Appearance: Yes: No Apparent Distress, Appropriately Dressed, Disheveled HEENTM: Yes: EOMI, Hearing grossly Normal, Normal ENT Inspection, Normocephalic , Normal Voice, DAYAN, Pharynx Normal, Tm's normal Respiratory: Yes: Chest Non-Tender, Lungs Clear, Normal Breath Sounds, No Respiratory Distress, No Accessory Muscle Use Neck: Yes: No masses,lesions,Nodules, Supple, Trachea in good position Breast: Yes: Within Normal Limits Cardiology: Yes: Regular Rhythm, Regular Rate, S1, S2 Abdominal: Yes: Normal Bowel Sounds, Non Tender, Flat, Soft Genitourinary: Yes: Within Normal Limits Back: Yes: Normal Inspection Musculoskeletal: Yes: full range of Motion, Gait Steady, Pelvis Stable Extremities: Yes: Normal Capillary Refill, Normal Inspection, Normal Range of Motion, Non-Tender Neurological: Yes: grader marker II-XII NML intact, Fully Oriented, Alert, Motor Strength 5/5, Normal Mood/Affect Integumentary: Yes: Normal Color, Warm Lymphatic: Yes: Within Normal Limits - Diagnostic (1) Acute on chronic alcoholic liver disease Current Visit: Yes Status: Acute (2) Alcohol dependence with uncomplicated withdrawal Current Visit: Yes Status: Acute (3) CAD (coronary artery disease) Current Visit: Yes Status: Acute Qualifiers: Coronary Disease-Associated Artery/Lesion type: unspecified vessel or lesion type [place] vs. transplanted heart: [place] heart Associated angina: with unstable angina Qualified Code(s): I25.110 - Atherosclerotic heart disease of [place] coronary artery with unstable angina pectoris (4) Diabetes Current Visit: Yes Status: Acute (5) HTN (hypertension) Current Visit: Yes Status: Acute Qualifiers: Hypertension type: essential hypertension Qualified Code(s): I10 - Essential (primary) hypertension (6) History of appendectomy Current Visit: Yes Status: Acute (7) Hypertension Current Visit: Yes Status: Acute Qualifiers: Hypertension type: essential hypertension Qualified Code(s): I10 - Essential (primary) hypertension (8) (HFpEF) heart failure with preserved ejection fraction Current Visit: Yes Status: Chronic (9) Hypercholesteremia Current Visit: Yes Status: Chronic (10) Obesity Current Visit: Yes Status: Chronic Qualifiers: Obesity type: due to excess calories Obesity classification: unspecified obesity classification Serious obesity comorbidity presence: without serious comorbidity Qualified Code(s): E66.09 - Other obesity due to excess calories (11) Acute coronary syndrome Current Visit: Yes Status: Resolved Screened but not Admitted - Documentation of Visit Screened but not Admitted: No Breathalyzer - Breathalyzer Breathalyzer: 0 Urine Drug Screen - Test Device Lot number: [id number] Expiration date: 09/06/20 - Control Is test valid?: Yes - Results Drug screen NEGATIVE: No Urine drug screen results: BZO-Benzodiazepines Inpatient Rehab Admission - Rehab Decision to Admit Inpatient rehab admission?: No
[2018-12-20] MEDS ORDERED: MENTHOL/PHENOL 1 EACH UD MM PRN (11:57)
[2018-12-20] MEDS ORDERED: MAGNESIUM CITRATE 300 ML BOTTLE PO PRN (11:57)
[2018-12-20] MEDS ORDERED: chlordiazePOXIDE HCL 10 MG CAPSULE PO PRN (11:57)
[2018-12-20] MEDS ORDERED: MAGNESIUM HYDROX 2400MG/30ML ORAL SUSPENSION 30 ML CUP PO PRN (11:57)
[2018-12-20] MEDS ORDERED: ACETAMINOPHEN 325 MG TABLET (FP) PO PRN ×2 (11:57)
[2018-12-20] MEDS ORDERED: METHOCARBAMOL 500 MG TABLET PO PRN (11:57)
[2018-12-20] MEDS ORDERED: IBUPROFEN 400 MG TABLET (FP) PO PRN (11:57)
[2018-12-20] MEDS ORDERED: hydrOXYzine PAMOATE 25 MG CAPSULE (FP) PO PRN (11:57)
[2018-12-20] MEDS ORDERED: BISMUTH SUBSALICYLATE 524 MG/30 ML UD PO PRN (11:57)
[2018-12-20] MEDS ORDERED: MAG HYDROX/AL HYDROX/SIMETH 30 ML UNIT-DOSE CUP PO PRN (11:57)
[2018-12-20] MEDS: chlordiazePOXIDE HCL 25 MG CAPSULE PO SCH ×2 (13:30→22:41)
[2018-12-20 17:51] LABS: HEMATOCRIT 43.2 % (35.4-49); HEMOGLOBIN 14.5 GM/dL (11.7-16.9); MCH 32.3 pg (25.7-33.7); MCHC 33.6 g/dl (32.0-35.9); PLATELET COUNT 60 K/MM3 (134-434); RDW 15.2 % (11.9-15.9); WHITE BLOOD COUNT 3.2 K/mm3 (4.0-10.0)
[2018-12-20 18:01] LABS: ALBUMIN 3.6 g/dl (3.4-5.0); BILIRUBIN,TOTAL 1.4 mg/dL (0.2-1); BLOOD UREA NITROGEN 24.5 mg/dL (7-18); CALCIUM 8.5 mg/dL (8.5-10.1); CREATININE 1.1 mg/dL (0.55-1.3); POTASSIUM 3.5 mmol/L (3.5-5.1); TOT PROT 7.5 g/dl (6.4-8.2)
[2018-12-20] MEDS: LISINOPRIL 20 MG TABLET (FP) PO SCH (22:41)
[2018-12-20] MEDS: ATORVASTATIN CA 10 MG TABLET (FP) PO SCH (22:41)
[2018-12-20] MEDS: THIAMINE HCL 100 MG TABLET (FP) PO SCH (22:41)
[2018-12-21] MEDS: chlordiazePOXIDE HCL 25 MG CAPSULE PO SCH ×3 (06:48→22:39)
[2018-12-21] MEDS: ASPIRIN 81 MG CHEWABLE TABLETS PO SCH (09:35)
[2018-12-21] MEDS: LISINOPRIL 20 MG TABLET (FP) PO SCH ×2 (09:35→22:39)
[2018-12-21] MEDS: PRENATAL VITAMINS W/ FOLIC ACID TABLET (FP) PO SCH (09:35)
--- NOTE | 2018-12-21 14:23 | PN ---
[facility] CIWA - CIWA Score Nausea/Vomitin-Mild Nausea/No Vomiting Muscle Tremors: 3 Anxiety: 3 Agitation: 2 Paroxysmal Sweats: 2 Orientation: 1-Uncertain about Date Tacttile Disturbances: 1-Very Mild Itch/Numbness Auditory Disturbances: 0-None Visual Disturbances: 0-None Headache: 0-None Present CIWA-Ar Total Score: 13 S Progress Note (SOAP) Subjective: 63 years old male admitted on 12/20/18 for alcohol withdrawal sx management treated with librium detox regimen tremor trouble sleep at night anxiety prefers to rest in bed today Objective: 12/21/18 14:22 Vital Signs Temperature 98.1 F 12/21/18 13:13 Pulse Rate 65 12/21/18 13:13 Respiratory Rate 18 12/21/18 13:13 Blood Pressure 137/84 12/21/18 13:13 O2 Sat by Pulse Oximetry (%) Laboratory Last Values WBC 3.2 K/mm3 (4.0-10.0) L 12/20/18 12:15 RBC 4.50 M/mm3 (4.00-5.60) 12/20/18 12:15 Hgb 14.5 GM/dL (11.7-16.9) 12/20/18 12:15 Hct 43.2 % (35.4-49) 12/20/18 12:15 MCV 96.0 fl (80-96) 12/20/18 12:15 MCH 32.3 pg (25.7-33.7) 12/20/18 12:15 MCHC 33.6 g/dl (32.0-35.9) 12/20/18 12:15 RDW 15.2 % (11.9-15.9) 12/20/18 12:15 Plt Count 60 K/MM3 (134-434) L D 12/20/18 12:15 MPV 9.0 fl (7.5-11.1) D 12/20/18 12:15 Sodium 138 mmol/L (136-145) 12/20/18 12:15 Potassium 3.5 mmol/L (3.5-5.1) 12/20/18 12:15 Chloride 107 mmol/L (98-107) 12/20/18 12:15 Carbon Dioxide 24 mmol/L (21-32) 12/20/18 12:15 Anion Gap 7 MMOL/L (8-16) L 12/20/18 12:15 BUN 24.5 mg/dL (7-18) H 12/20/18 12:15 Creatinine 1.1 mg/dL (0.55-1.3) 12/20/18 12:15 Est GFR (CKD-EPI)AfAm 83.53 12/20/18 12:15 Est GFR (CKD-EPI)NonAf 72.07 12/20/18 12:15 POC Glucometer 153 UNITS (80-120) 12/20/18 12:39 Random Glucose 123 mg/dL (74-106) H 12/20/18 12:15 Calcium 8.5 mg/dL (8.5-10.1) 12/20/18 12:15 Total Bilirubin 1.4 mg/dL (0.2-1) H 12/20/18 12:15 AST 69 U/L (15-37) H 12/20/18 12:15 ALT 48 U/L (13-61) 12/20/18 12:15 Alkaline Phosphatase 237 U/L (45-117) H 12/20/18 12:15 Total Protein 7.5 g/dl (6.4-8.2) 12/20/18 12:15 Albumin 3.6 g/dl (3.4-5.0) 12/20/18 12:15 RPR Titer Nonreactive (NONREACTIVE) 12/20/18 12:15 lab noted Assessment: 12/21/18 14:38 alcohol withdrawal sx management Plan: continue librium detox regimen
[2018-12-21] MEDS: ATORVASTATIN CA 10 MG TABLET (FP) PO SCH (22:39)
[2018-12-21] MEDS: THIAMINE HCL 100 MG TABLET (FP) PO SCH (22:39)
[2018-12-22] MEDS: chlordiazePOXIDE 5 MG CAPSULE PO SCH ×3 (05:01→22:15)
[2018-12-22] MEDS: PRENATAL VITAMINS W/ FOLIC ACID TABLET (FP) PO SCH (09:58)
[2018-12-22] MEDS: LISINOPRIL 20 MG TABLET (FP) PO SCH ×2 (09:58→22:15)
[2018-12-22] MEDS: ASPIRIN 81 MG CHEWABLE TABLETS PO SCH (09:58)
--- NOTE | 2018-12-22 12:09 | PN ---
S CIWA - CIWA Score Nausea/Vomitin-Mild Nausea/No Vomiting Muscle Tremors: 2 Anxiety: 2 Agitation: 2 Paroxysmal Sweats: No Perspiration Orientation: 0-Oriented Tacttile Disturbances: 1-Very Mild Itch/Numbness Auditory Disturbances: 0-None Visual Disturbances: 0-None Headache: 1-Very Mild CIWA-Ar Total Score: 9 S Progress Note (SOAP) Subjective: alert,irritable,anxious,interrupted sleep,tremor Objective: 12/22/18 12:08 Vital Signs Temperature 99.3 F 12/22/18 09:12 Pulse Rate 71 12/22/18 09:12 Respiratory Rate 20 12/22/18 09:12 Blood Pressure 131/79 12/22/18 09:12 O2 Sat by Pulse Oximetry (%) Laboratory Last Values WBC 3.2 K/mm3 (4.0-10.0) L 12/20/18 12:15 RBC 4.50 M/mm3 (4.00-5.60) 12/20/18 12:15 Hgb 14.5 GM/dL (11.7-16.9) 12/20/18 12:15 Hct 43.2 % (35.4-49) 12/20/18 12:15 MCV 96.0 fl (80-96) 12/20/18 12:15 MCH 32.3 pg (25.7-33.7) 12/20/18 12:15 MCHC 33.6 g/dl (32.0-35.9) 12/20/18 12:15 RDW 15.2 % (11.9-15.9) 12/20/18 12:15 Plt Count 60 K/MM3 (134-434) L D 12/20/18 12:15 MPV 9.0 fl (7.5-11.1) D 12/20/18 12:15 Sodium 138 mmol/L (136-145) 12/20/18 12:15 Potassium 3.5 mmol/L (3.5-5.1) 12/20/18 12:15 Chloride 107 mmol/L (98-107) 12/20/18 12:15 Carbon Dioxide 24 mmol/L (21-32) 12/20/18 12:15 Anion Gap 7 MMOL/L (8-16) L 12/20/18 12:15 BUN 24.5 mg/dL (7-18) H 12/20/18 12:15 Creatinine 1.1 mg/dL (0.55-1.3) 12/20/18 12:15 Est GFR (CKD-EPI)AfAm 83.53 12/20/18 12:15 Est GFR (CKD-EPI)NonAf 72.07 12/20/18 12:15 POC Glucometer 153 UNITS (80-120) 12/20/18 12:39 Random Glucose 123 mg/dL (74-106) H 12/20/18 12:15 Calcium 8.5 mg/dL (8.5-10.1) 12/20/18 12:15 Total Bilirubin 1.4 mg/dL (0.2-1) H 12/20/18 12:15 AST 69 U/L (15-37) H 12/20/18 12:15 ALT 48 U/L (13-61) 12/20/18 12:15 Alkaline Phosphatase 237 U/L (45-117) H 12/20/18 12:15 Total Protein 7.5 g/dl (6.4-8.2) 12/20/18 12:15 Albumin 3.6 g/dl (3.4-5.0) 12/20/18 12:15 RPR Titer Nonreactive (NONREACTIVE) 12/20/18 12:15 Assessment: 12/22/18 12:09 withdrawal symptom Plan: continue detox librium regimen
[2018-12-22] MEDS: THIAMINE HCL 100 MG TABLET (FP) PO SCH (22:15)
[2018-12-22] MEDS: ATORVASTATIN CA 10 MG TABLET (FP) PO SCH (22:15)
[2018-12-22] MEDS: MELATONIN 5 MG TABLETS PO PRN (22:17)
[2018-12-23] MEDS ORDERED: chlordiazePOXIDE HCL 10 MG CAPSULE PO PRN
[2018-12-23] MEDS: chlordiazePOXIDE HCL 10 MG CAPSULE PO SCH ×3 (05:23→22:09)
[2018-12-23] MEDS: LISINOPRIL 20 MG TABLET (FP) PO SCH ×2 (10:21→22:09)
[2018-12-23] MEDS: PRENATAL VITAMINS W/ FOLIC ACID TABLET (FP) PO SCH (10:21)
[2018-12-23] MEDS: ASPIRIN 81 MG CHEWABLE TABLETS PO SCH (10:21)
--- NOTE | 2018-12-23 11:04 | PN ---
[facility] CIWA - CIWA Score Nausea/Vomitin-No Nausea/No Vomiting Muscle Tremors: None Anxiety: 2 Agitation: 0-Normal Activity Paroxysmal Sweats: 2 Orientation: 0-Oriented Tacttile Disturbances: 0-None Auditory Disturbances: 0-None Visual Disturbances: 0-None Headache: 0-None Present CIWA-Ar Total Score: 4 [facility] Progress Note (SOAP) Subjective: c/o sweats and anxiety. Objective: 12/23/18 11:01 Vital Signs 12/23/18 12/23/18 12/23/18 03:30 06:32 09:11 Temperature 98.4 F 98 F Pulse Rate 63 67 Respiratory 18 18 20 Rate Blood Pressure 130/77 137/84 Assessment: 12/23/18 11:01 AOX3, in no acute respiratory distress. Full ROM, ambulating in the unit. Withdrawal symptoms. For D/C tomorrow. Plan: continue detox. D/C in AM. 14days supply on Home meds sent to pt's preferred pharmacy. Pt is encouraged to follow-up with his pmd after d/c.
[2018-12-23] MEDS: THIAMINE HCL 100 MG TABLET (FP) PO SCH (22:09)
[2018-12-23] MEDS: ATORVASTATIN CA 10 MG TABLET (FP) PO SCH (22:09)
[2018-12-23] MEDS: MELATONIN 5 MG TABLETS PO PRN (22:09)
[2018-12-24] MEDS ORDERED: chlordiazePOXIDE HCL 10 MG CAPSULE PO ONE (05:00)
[2018-12-24 09:47] VITALS: BP 131/76; PULSE 61; TEMP 98.6
--- NOTE | 2018-12-24 12:01 | DS ---
[facility] Detox Discharge Summary Admission Date: 12/20/18 Discharge Date: 12/24/18 - History Present History: Alcohol Dependence Additional Comments: 63 years old male amitted on 12/20/18 for alcohol withdrawal sx management treated with librium detox regimen patient tolerated well respiratory clear lung bilaterally on auscultation skin warm and dry abdomen soft round obese no rebound tenderness - Physical Exam Results Vital Signs: Vital Signs Temperature 98.6 F 12/24/18 09:46 Pulse Rate 61 12/24/18 09:46 Respiratory Rate 18 12/24/18 09:46 Blood Pressure 131/76 12/24/18 09:46 O2 Sat by Pulse Oximetry (%) Pertinent Admission Physical Exam Findings: alcohol withdrawal sx Laboratory Last Values WBC 3.2 K/mm3 (4.0-10.0) L 12/20/18 12:15 RBC 4.50 M/mm3 (4.00-5.60) 12/20/18 12:15 Hgb 14.5 GM/dL (11.7-16.9) 12/20/18 12:15 Hct 43.2 % (35.4-49) 12/20/18 12:15 MCV 96.0 fl (80-96) 12/20/18 12:15 MCH 32.3 pg (25.7-33.7) 12/20/18 12:15 MCHC 33.6 g/dl (32.0-35.9) 12/20/18 12:15 RDW 15.2 % (11.9-15.9) 12/20/18 12:15 Plt Count 60 K/MM3 (134-434) L D 12/20/18 12:15 MPV 9.0 fl (7.5-11.1) D 12/20/18 12:15 Sodium 138 mmol/L (136-145) 12/20/18 12:15 Potassium 3.5 mmol/L (3.5-5.1) 12/20/18 12:15 Chloride 107 mmol/L (98-107) 12/20/18 12:15 Carbon Dioxide 24 mmol/L (21-32) 12/20/18 12:15 Anion Gap 7 MMOL/L (8-16) L 12/20/18 12:15 BUN 24.5 mg/dL (7-18) H 12/20/18 12:15 Creatinine 1.1 mg/dL (0.55-1.3) 12/20/18 12:15 Est GFR (CKD-EPI)AfAm 83.53 12/20/18 12:15 Est GFR (CKD-EPI)NonAf 72.07 12/20/18 12:15 POC Glucometer 145 UNITS (80-120) 12/23/18 16:32 Random Glucose 123 mg/dL (74-106) H 12/20/18 12:15 Calcium 8.5 mg/dL (8.5-10.1) 12/20/18 12:15 Total Bilirubin 1.4 mg/dL (0.2-1) H 12/20/18 12:15 AST 69 U/L (15-37) H 12/20/18 12:15 ALT 48 U/L (13-61) 12/20/18 12:15 Alkaline Phosphatase 237 U/L (45-117) H 12/20/18 12:15 Total Protein 7.5 g/dl (6.4-8.2) 12/20/18 12:15 Albumin 3.6 g/dl (3.4-5.0) 12/20/18 12:15 RPR Titer Nonreactive (NONREACTIVE) 12/20/18 12:15 lab noted - Treatment Hospital Course: Detox Protocol Followed, Detoxed Safely, Responded well, Discharged Condition Good, Rehab Referral Accepted Patient has Accepted a Rehab Referral to: [facility] / [place] - Medication Discharge Medications: Ambulatory Orders Acetaminophen/Diphenhydramine [Tylenol Pm Ex-Strength Caplet] 1 tab PO HS Aspirin 81 mg PO DAILY 14 Days #14 tab.chew 12/23/18 Atorvastatin Calcium [Lipitor] 10 mg PO HS 14 Days #14 tablet 12/23/18 Lisinopril [Prinivil] 20 mg PO DAILY 14 Days #14 tablet 12/23/18 Metoprolol Succinate [Toprol Xl] 50 mg PO DAILY 14 Days #14 tab.er.24h 12/23/18 Thiamine HCl [Vitamin B1 -] 100 mg PO DAILY 14 Days #14 tablet 12/23/18 - Diagnosis (1) Alcohol dependence with uncomplicated withdrawal Current Visit: Yes Status: Acute (2) HTN (hypertension) Current Visit: Yes Status: Chronic Qualifiers: Hypertension type: essential hypertension Qualified Code(s): I10 - Essential (primary) hypertension (3) (HFpEF) heart failure with preserved ejection fraction Current Visit: Yes Status: Chronic Qualifiers: Heart failure chronicity: unspecified Qualified Code(s): I50.30 - Unspecified diastolic (congestive) heart failure (4) Hypercholesteremia Current Visit: Yes Status: Chronic (5) Obesity Current Visit: Yes Status: Chronic Qualifiers: Obesity type: due to excess calories Obesity classification: unspecified obesity classification Serious obesity comorbidity presence: without serious comorbidity Qualified Code(s): E66.09 - Other obesity due to excess calories (6) Acute coronary syndrome Current Visit: Yes Status: Resolved (7) Arrhythmia Current Visit: Yes Status: Chronic Qualifiers: Arrhythmia type: unspecified cardiac arrhythmia Qualified Code(s): I49.9 - Cardiac arrhythmia, unspecified (8) COPD (chronic obstructive pulmonary disease) Current Visit: Yes Status: Chronic Qualifiers: COPD type: emphysema Emphysema type: unspecified Qualified Code(s): J43.9 - Emphysema, unspecified (9) DM2 (diabetes mellitus, type 2) Current Visit: Yes Status: Chronic Qualifiers: Diabetes mellitus penitentiary insulin use: unspecified penitentiary insulin use status Diabetes mellitus complication status: with other specified complication Qualified Code(s): E11.69 - Type 2 diabetes mellitus with other specified complication (10) Essential hypertension Current Visit: Yes Status: Chronic (11) GERD (gastroesophageal reflux disease) Current Visit: Yes Status: Chronic Qualifiers: Esophagitis presence: without esophagitis Qualified Code(s): K21.9 - Gastro -esophageal reflux disease without esophagitis (12) Hepatic cirrhosis Current Visit: Yes Status: Chronic Qualifiers: Hepatic cirrhosis type: alcoholic cirrhosis Ascites presence: without ascites Qualified Code(s): K70.30 - Alcoholic cirrhosis of liver without ascites (13) Positive PPD Current Visit: Yes Status: Resolved - AMA Did Patient Leave Against Medical Advice: No CIWA Score - CIWA Score Nausea/Vomitin-No Nausea/No Vomiting Muscle Tremors: None Anxiety: 1-Mildly Anxious Agitation: 0-Normal Activity Paroxysmal Sweats: 1-Minimal Palms Moist Orientation: 0-Oriented Tacttile Disturbances: 0-None Auditory Disturbances: 0-None Visual Disturbances: 0-None Headache: 0-None Present CIWA-Ar Total Score: 2
== END 2018-12-24 10:04 | disposition home or self-care (01) | DRG 775 ==
LOC: YASAS 10:51 → Y3N 12:32
PROVIDERS: ADMIT Allergy & Immunology; ATTEND Allergy & Immunology
PROC: HZ2ZZZZ Detoxification Services for Substance Abuse Treatment (ICD-10-PCS; principal; 2018-12-20)
DX: F10.230 Alcohol dependence with withdrawal, uncomplicated (principal); I50.30 Unspecified diastolic (congestive) heart failure; I11.0 Hypertensive heart disease with heart failure; I25.10 Atherosclerotic heart disease of native coronary artery without angina pectoris; I49.9 Cardiac arrhythmia, unspecified; K70.30 Alcoholic cirrhosis of liver without ascites; E78.00 Pure hypercholesterolemia, unspecified; J44.9 Chronic obstructive pulmonary disease, unspecified; E11.69 Type 2 diabetes mellitus with other specified complication; K21.9 Gastro-esophageal reflux disease without esophagitis; R76.11 Nonspecific reaction to tuberculin skin test without active tuberculosis; R07.89 Other chest pain; E66.9 Obesity, unspecified; Z68.30 Body mass index [BMI] 30.0-30.9, adult; Z79.4 Long term (current) use of insulin; Z87.891 Personal history of nicotine dependence
CPT/HCPCS: 36415; 80053; 82962; 85027; 86593

== ENCOUNTER 2019-02-17 13:55 | Emergency (ER) | payer OTHER ==
--- NOTE | 2019-02-17 14:39 | PDOC ---
History of Present Illness - General Chief Complaint: Chest Pain Stated Complaint: WITHDRAWAL Time Seen by Provider: 02/17/19 14:26 History Source: Patient Exam Limitations: No Limitations - History of Present Illness Initial Comments: 02/17/19 14:38 HPI: 64yo undomiciled M PMH HTN, HLD, COPD, alcohol abuse s/p [facility], 4cm thoracic aortic aneurysm presenting with chest pain since 11am (~3hrs ago). He states he has been drinking heavily, more than usual, but only one beer this morning. Endorses non-exertional, sharp, constant, left sided chest pain with radiation to his epigastrium as well as SOB, diaphoresis. Also endorsing abdominal bulge in region of prior ventral hernia repair. Denies fever, cough, dysuria, problem with BM. PMHx: as noted above ROS: as noted SHx: Denies tobacco use; significant alcohol use; no rec drugs Allergies: NKDA Past History - Travel Traveled outside of the country in the last 30 days: No Close contact w/someone who was outside of country & ill: No - Past Medical History Allergies/Adverse Reactions: Allergies Allergy/AdvReac Type Severity Reaction Status Date / Time No Known Drug Allergies Allergy Verified 12/18/18 12:40 Home Medications: Ambulatory Orders Aspirin 81 mg PO DAILY 14 Days #14 tab.chew 12/23/18 Atorvastatin Calcium [Lipitor] 10 mg PO HS 14 Days #14 tablet 12/23/18 Metoprolol Succinate [Toprol Xl] 50 mg PO DAILY 14 Days #14 tab.er.24h 12/23/18 Thiamine HCl [Vitamin B1 -] 100 mg PO DAILY 14 Days #14 tablet 12/23/18 Anemia: No Asthma: No Cancer: No Cardiac Disorders: Yes (Hx of CAD) CVA: No COPD: Yes CHF: No Dementia: No Diabetes: Yes (BGM 153mg/dl) GI Disorders: No Disorders: No HTN: Yes Hypercholesterolemia: Yes Kidney Stones: No Liver Disease: No Psychiatric Problems: Yes (DEPRESSION) Seizures: No Thyroid Disease: No - Surgical History Abdominal Surgery: Yes (epigastric hernia) Appendectomy: Yes Cardiac Surgery: No Cholecystectomy: Yes GI Surgery: Yes (appendectomy) Lung Surgery: No Neurologic Surgery: No Orthopedic Surgery: No - Reproductive History Testicular Surgery: No - Immunization History Td Vaccination: Yes Immunization Up to Date: No - Psycho Social/Smoking Cessation Hx Smoking Status: Yes Smoking History: Current every day smoker Years of Tobacco Use: 0 Have you smoked in the past 12 months: Yes Number of Cigarettes Smoked Daily: 0 If you are a former smoker, when did you quit?: smoked for 13 years Cigars Per Day: 0 Information on smoking cessation initiated: No 'Breaking Loose' booklet given: 06/12/12 Hx Alcohol Use: No Drug/Substance Use Hx: No Substance Use Type: Alcohol Hx Substance Use Treatment: Yes Review of Systems - Review of Systems Able to Perform ROS?: Yes Is the patient limited Ukrainian proficient: Yes *Physical Exam - Vital Signs Last Vital Signs Temp Pulse Resp BP Pulse Ox 98.3 F 103 H 16 186/117 H 96 02/17/19 13:57 02/17/19 13:57 02/17/19 13:57 02/17/19 13:57 02/17/19 13:57 - Physical Exam 02/17/19 14:51 Vitals reviewed, tachycardic, hypertensive GEN: Diaphoretic, appears stated age, uncomfortable. AAOx3. HEENT: NCAT, EOMI, PERRL. Sclera anicteric, noninjected. No facial asymmetry. Moist mucous membranes. Normal voice. Trachea midline. +Tongue fasciculation CV: Tachycardic, NSR, S1/S2, no murmurs / rubs / gallops appreciated. LUNG: CTAB, normal work of breathing. No wheezes, rales, rhonchi. No cough. Speaking full sentences. GI: Soft, NTND, +BS, no guarding, no rebound. No masses. Neg CVAT b/l. +Large ventral hernia (reducible) with overlying scar from prior repair with palpable suture? material superficially EXTREMITIES: 2+ distal pulses. No LE edema. No obvious deformities of all extremities. +Tremulous SKIN: Warm, sweaty, no rashes appreciated, non-jaundiced. PSYCH: Normal mood and affect. Cooperative and appropriate. NEURO: CN grossly intact. Moving all extremities well. Normal strength and sensation grossly. ED Treatment Course - LABORATORY CBC & Chemistry Diagram: 02/17/19 14:45 02/17/19 14:45 Medical Decision Making - Medical Decision Making 02/17/19 14:52 64yo undomiciled M PMH HTN, HLD, COPD, alcohol abuse s/p [facility], 4cm thoracic aortic aneurysm presenting with chest pain since this morning. Exam notable for tachycardia, diaphoresis. DDX: Withdrawal, r/o ACS. - CBC, CMP, CP, ETOH level - EKG, CXR 02/17/19 15:44 - No leukocytosis or enemia - Negative troponin - Mild hypokalemia, otherwise normal electrolytes - Alcohol 19 02/17/19 15:46 - EKG with NSR with premature atrial complexes, LAD, no acute ischemic changes compare with prior 02/17/19 16:17 - Patient endorsing tremulousness, nausea, tongue fasciculation on exam - Librium 50, Banana Bag, Zofran - Patient requesting Detox at [facility] (last d/c on 12/24/18) 02/17/19 16:28 - [facility] MANAGER ADVANCED said to send patient over - D/c banana bag Dispo: Discharge to [facility] for Admission 02/17/19 16:52 - Vitals stable, active withdrawal, security to [facility] Discharge - Discharge Information Problems reviewed: Yes Clinical Impression/Diagnosis: Atypical chest pain, Alcohol use disorder, Alcohol dependence with uncomplicated withdrawal Condition: Stable Disposition: HOME - Admission No - Follow up/Referral Referrals: [facility] [place] [Provider Group] - Patient Discharge Instructions Patient Printed Discharge Instructions: DI for Atypical Chest Pain, DI for Alcohol Abuse, DI for Drug or Alcohol Withdrawal Additional Instructions: Please proceed to [facility] for detox. Follow the instructions of the providers at the facility. Return to the ED for any new or concerning symptoms. Good luck on your road to recovery! Contine con [facility] para la desintoxicacin. Siga las instrucciones de los proveedores en la instalacin. Regrese al servicio de urgencias por cualquier sntoma nuevo o preocupante. [place] suerte en tu chana hacia la recuperacin! Print Language: LITHUANIAN - Post Discharge Activity
[2019-02-17] MEDS ORDERED: FAMOTIDINE 20 MG/50 ML IVPB 20 MG/50 ML MG IVPB ONE ×2 (15:03→15:29)
[2019-02-17] MEDS ORDERED: MAG HYDROX/AL HYDROX/SIMETH 30 ML UNIT-DOSE CUP PO ONE (15:03)
--- NOTE | 2019-02-17 15:10 | EKG ---
Test Reason : Blood Pressure : / mmHG Vent. Rate : 096 BPM Atrial Rate : 096 BPM P-R Int : 198 ms QRS Dur : 110 ms QT Int : 380 ms P-R-T Axes : 034 -48 -02 degrees QTc Int : 480 ms SINUS RHYTHM WITH PREMATURE ATRIAL COMPLEXES WITH ABERRANT CONDUCTION LEFT AXIS DEVIATION INFERIOR-POSTERIOR INFARCT (CITED ON OR BEFORE 24-OCT-2018) ABNORMAL ECG WHEN COMPARED WITH ECG OF 18-DEC-2018 14:43, CRITERIA FOR LATERAL INFARCT ARE NO LONGER PRESENT Confirmed by RAEGAN GARCIA MD ([id number]) on 02/17/2019 3:10:06 PM Referred By: Confirmed By:RAEGAN GARCIA MD
[2019-02-17 15:24] LABS: BASO % 0.4 % (0-2.0); EOS % 0.2 % (0-4.5); HEMATOCRIT 45.3 % (35.4-49); HEMOGLOBIN 15.6 GM/dL (11.7-16.9); LYMPH % 29.7 % (8-40); MCH 32.3 pg (25.7-33.7); MCHC 34.5 g/dl (32.0-35.9); MEAN CELL VOLUME 93.5 fl (80-96); MEAN PLT VOLUME 8.1 fl (7.5-11.1); MONO % 8.7 % (3.8-10.2); PLATELET COUNT 114 K/MM3 (134-434); RBC 4.85 M/mm3 (4.00-5.60); RDW 14.4 % (11.9-15.9); WHITE BLOOD COUNT 4.8 K/mm3 (4.0-10.0)
[2019-02-17] MEDS ORDERED: MAG HYDROX/AL HYDROX/SIMETH 30 ML UNIT-DOSE CUP ONE (15:29)
[2019-02-17 15:41] LABS: ALBUMIN 3.6 g/dl (3.4-5.0); BLOOD UREA NITROGEN 17.6 mg/dL (7-18); CALCIUM 8.7 mg/dL (8.5-10.1); CREATININE 1.3 mg/dL (0.55-1.3); POTASSIUM 3.4 mmol/L (3.5-5.1); TOT PROT 7.9 g/dl (6.4-8.2)
--- NOTE | 2019-02-17 15:51 | PDOC ---
Attending Attestation - Resident Resident Name: Brayden Woodall - ED Attending Attestation I have performed the following: I have examined & evaluated the patient, The case was reviewed & discussed with the resident, I agree w/resident's findings & plan, Exceptions are as noted - HPI HPI: 02/17/19 16:50 Mr. Alonzo Gates is a 64-year-old undomiciled male with a history of hypertension, hyperlipidemia, 4cm thoracic aortic aneurysm, alcohol abuse who presents emergency department with a complaint of chest pain. Pt presents with a complaint of chest pain that began at 11am. He admits to drinking more heavily than usual Pt reports non-exertional, sharp, constant, left sided chest pain with radiation to his epigastrium When he does not drink he does become shaky, no prior history of seizures Today he was unable to drink as much as he typically drinks secondary to chest pain. He describes his chest pain as pressure, it occurred after he began to feel nauseous. Chest pain is not exertional. No shortness of breath No palpitations No prior history of coronary artery disease. No cough Denies fever, cough, dysuria, problem with BM. PMHx: as noted above ROS: as noted SHx: Denies tobacco use; significant alcohol use; no rec drugs Allergies: NKDA 02/17/19 16:51 - Physicial Exam PE: 02/17/19 15:50 GENERAL: The patient is in no acute distress. ENT: Ears normal, nares patent, oropharynx clear without exudates. Moist mucous membranes. + Tongue fasciculations NECK: Normal range of motion, supple LUNGS: Breath sounds equal, clear to auscultation bilaterally. No wheezes, and no crackles. HEART:Regular rate and rhythm, normal S1 and S2 without murmur, rub or gallop. ABDOMEN: Soft, nontender, no epigastric tenderness normoactive bowel sounds. EXTREMITIES: Normal range of motion, no edema, no tremulousness noted NEUROLOGICAL: Cranial nerves II through XII grossly intact. Normal speech. No focal neurological deficits. SKIN: Warm, Dry, normal turgor, no rashes or lesions noted. 02/17/19 17:02 - Medical Decision Making 02/17/19 17:02 64-year-old male presenting to the emergency department of chest pain which is typical for him in the setting of excessive alcohol use Patient denies fevers chills Patient was given treatment for gastritis with improvement in all of his symptoms 02/17/19 17:03 Laboratory Tests 02/17/19 02/17/19 02/17/19 14:45 14:45 14:45 WBC 4.8 Hgb 15.6 Hct 45.3 Plt Count 114 L D BUN 17.6 Creatinine 1.3 Creatine Kinase 190 Creatine Kinase Index 1.6 CK-MB (CK-2) 3.2 Troponin I < 0.02 Alcohol, Quantitative 19.0 H Patient given Librium and Ativan for mild withdrawal symptoms EKG: Sinus rhythm, rate of 96 bpm, left axis deviation, PAC, no ST elevations or depression, T waves are upright T wave inversion in lead III, aVF Patient is amenable to detox program Call placed to [place] [facility] They will accept him Clinical impression: Alcohol abuse, repeat presentation Gastritis, repeat presentation Alcohol withdrawal, repeat presentation
[2019-02-17] MEDS ORDERED: ONDANSETRON 4 MG/2 ML VIAL IVPUSH ONE (16:16)
[2019-02-17] MEDS ORDERED: FOLIC ACID INJECTION - 1 MG, THIAMINE HCL 100 MG, MULTIVIT INJECTION ADULT 10 ML in SOD... IVPB ONE (16:16)
[2019-02-17] MEDS ORDERED: chlordiazePOXIDE HCL 25 MG CAPSULE PO ONE (16:16)
[2019-02-17] MEDS ORDERED: chlordiazePOXIDE HCL 25 MG CAPSULE ONE (16:32)
[2019-02-17] MEDS ORDERED: ONDANSETRON 4 MG/2 ML VIAL ONE (16:33)
[2019-02-17 16:49] VITALS: BP 168/78; PULSE 84; TEMP 98.9
== END 2019-02-17 17:40 | disposition home or self-care (01) ==
LOC: JER 13:55
PROC: 3E033GC Introduction of Other Therapeutic Substance into Peripheral Vein, Percutaneous Approach (ICD-10-PCS; principal; 2019-02-17)
PROC: 3E033GC Introduction of Other Therapeutic Substance into Peripheral Vein, Percutaneous Approach (ICD-10-PCS; 2019-02-17)
DX: F10.230 Alcohol dependence with withdrawal, uncomplicated (principal); R07.9 Chest pain, unspecified; I25.10 Atherosclerotic heart disease of native coronary artery without angina pectoris; I10 Essential (primary) hypertension; E11.9 Type 2 diabetes mellitus without complications; E78.5 Hyperlipidemia, unspecified; J44.9 Chronic obstructive pulmonary disease, unspecified; I71.2 Thoracic aortic aneurysm, without rupture; F32.9 Major depressive disorder, single episode, unspecified; F17.210 Nicotine dependence, cigarettes, uncomplicated; Z90.49 Acquired absence of other specified parts of digestive tract; Z59.0 Homelessness
CPT/HCPCS: 36415; 71045-TC-FY; 80053; 80307; 82550; 82553; 83690; 84484; 85025; 93005; 93010; 96365; 96375; 99283-25; J7030

== ENCOUNTER 2019-02-17 17:58 | Inpatient (IN) | payer OTHER ==
[2019-02-17 19:47] VITALS: BMI 34.3
--- NOTE | 2019-02-17 20:29 | HP ---
CIWA Score Nausea/Vomitin-Mild Nausea/No Vomiting Muscle Tremors: 4-Moderate,w/Arms Extend Anxiety: 4-Mod. Anxious/Guarded Agitation: 0-Normal Activity Paroxysmal Sweats: 3 Orientation: 0-Oriented Tacttile Disturbances: 0-None Auditory Disturbances: 0-None Visual Disturbances: 0-None Headache: 2-Mild CIWA-Ar Total Score: 14 - Admission Criteria OASAS Guidelines: Admission for Medically Managed Detox: Requires at least one of the followin. CIWA greater than 12 2. Seizures within the past 24 hours 3. Delirium tremens within the past 24 hours 4. Hallucinations within the past 24 hours 5. Acute intervention needed for co occurring medical disorder 6. Acute intervention needed for co occurring psychiatric disorder 7. Severe withdrawal that cannot be handled at a lower level of care (continued vomiting, continued diarrhea, abnormal vital signs) requiring intravenous medication and/or fluids 8. Patient presents the following: CIWA greater than 12, Acute intervention needed for co-occurring med or psych disorder (s/p [facility] eval for c.p. and acute withdrawal sx's) Admission Criteria Met: Admission criteria met Admitting History and Physical - Past Medical History GRAVITY MANAGER: No: Alzheimer's, CVA, Dementia, Migraine, Multiple Sclerosis, Peripheral Neuropathy, Parkinson's, Seizure, Syncope, TIA, Vertigo, Other Cardiovascular: Yes: CAD, HTN, Hyperlipdemia Pulmonary: Yes: COPD Gastrointestinal: No: Ascites, Cancer, Constipation, Crohn's Disease, Diverticulitis, Diverticulosis, Esophageal Varices, Gastritis, GERD, GI Bleed, Hemorrhoids, Hiatal Hernia, Inflamatory Bowel Disease, Irritable Bowel Disease, Pancreatitis, Peptic Ulcer Disease, Ulcerative Colitis, Other Psych: Yes: Addictions (alcohol) - Past Surgical History Past Surgical History: Yes: Hernia Repair, Appendectomy - Smoking History Smoking history: Current every day smoker Have you smoked in the past 12 months: Yes Aproximately how many cigarettes per day: 0 If you are a former smoker, when did you quit?: smoked for 13 years - Alcohol/Substance Use Hx Alcohol Use: No Number of Drinks Daily: 5 (25 oz cans) History of Substance Use: reports: Cocaine - Social History ADL: Independent 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 CLIENT IS REFERRED BY [facility] AFTER PRESENTING THERE WITH C/O WITHDRAWAL SX'S AND C.P.. HE WAS SEEN STABILIZED WITH LIBRIUM AND ATIVAN. MEDICALLY CLEARED FOR DETOX AND REFERRED. CLIENT IS KNOWN TO PROGRAM LAST HERE 12/2018. SEE ER NOTE BELOW History of Present Illness - General Chief Complaint: Chest Pain Stated Complaint: WITHDRAWAL Time Seen by Provider: 02/17/19 14:26 History Source: Patient Exam Limitations: No Limitations - History of Present Illness Initial Comments: 02/17/19 14:38 HPI: 64yo undomiciled M PMH HTN, HLD, COPD, alcohol abuse s/p [facility], 4cm thoracic aortic aneurysm presenting with chest pain since 11am (~3hrs ago). He states he has been drinking heavily, more than usual, but only one beer this morning. Endorses non-exertional, sharp, constant, left sided chest pain with radiation to his epigastrium as well as SOB, diaphoresis. Also endorsing abdominal bulge in region of prior ventral hernia repair. Denies fever, cough, dysuria, problem with BM. PMHx: as noted above ROS: as noted SHx: Denies tobacco use; significant alcohol use; no rec drugs Allergies: NKDA Past History - Travel Traveled outside of the country in the last 30 days: No Close contact w/someone who was outside of country & ill: No - Past Medical History Allergies/Adverse Reactions: Allergies Allergy/AdvReac Type Severity Reaction Status Date / Time No Known Drug Allergies Allergy Verified 12/18/18 12:40 Home Medications: Ambulatory Orders Aspirin 81 mg PO DAILY 14 Days #14 tab.chew 12/23/18 Atorvastatin Calcium [Lipitor] 10 mg PO HS 14 Days #14 tablet 12/23/18 Metoprolol Succinate [Toprol Xl] 50 mg PO DAILY 14 Days #14 tab.er.24h 12/23/18 Thiamine HCl [Vitamin B1 -] 100 mg PO DAILY 14 Days #14 tablet 12/23/18 Anemia: No Asthma: No Cancer: No Cardiac Disorders: Yes (Hx of CAD) CVA: No COPD: Yes CHF: No Dementia: No Diabetes: Yes (BGM 153mg/dl) GI Disorders: No Disorders: No HTN: Yes Hypercholesterolemia: Yes Kidney Stones: No Liver Disease: No Psychiatric Problems: Yes (DEPRESSION) Seizures: No Thyroid Disease: No - Surgical History Abdominal Surgery: Yes (epigastric hernia) Appendectomy: Yes Cardiac Surgery: No Cholecystectomy: Yes GI Surgery: Yes (appendectomy) Lung Surgery: No Neurologic Surgery: No Orthopedic Surgery: No - Reproductive History Testicular Surgery: No - Immunization History Td Vaccination: Yes Immunization Up to Date: No - Psycho Social/Smoking Cessation Hx Smoking Status: Yes Smoking History: Current every day smoker Years of Tobacco Use: 0 Have you smoked in the past 12 months: Yes Number of Cigarettes Smoked Daily: 0 If you are a former smoker, when did you quit?: smoked for 13 years Cigars Per Day: 0 Information on smoking cessation initiated: No 'Breaking Loose' booklet given: 06/12/12 Hx Alcohol Use: No Drug/Substance Use Hx: No Substance Use Type: Alcohol Hx Substance Use Treatment: Yes Review of Systems - Review of Systems Able to Perform ROS?: Yes Is the patient limited Tajik proficient: Yes *Physical Exam - Vital Signs Last Vital Signs Temp Pulse Resp BP Pulse Ox 98.3 F 103 H 16 186/117 H 96 02/17/19 13:57 02/17/19 13:57 02/17/19 13:57 02/17/19 13:57 02/17/19 13:57 - Physical Exam 02/17/19 14:51 Vitals reviewed, tachycardic, hypertensive GEN: Diaphoretic, appears stated age, uncomfortable. AAOx3. HEENT: NCAT, EOMI, PERRL. Sclera anicteric, noninjected. No facial asymmetry. Moist mucous membranes. Normal voice. Trachea midline. +Tongue fasciculation CV: Tachycardic, NSR, S1/S2, no murmurs / rubs / gallops appreciated. LUNG: CTAB, normal work of breathing. No wheezes, rales, rhonchi. No cough. Speaking full sentences. GI: Soft, NTND, +BS, no guarding, no rebound. No masses. Neg CVAT b/l. +Large ventral hernia (reducible) with overlying scar from prior repair with palpable suture? material superficially EXTREMITIES: 2+ distal pulses. No LE edema. No obvious deformities of all extremities. +Tremulous SKIN: Warm, sweaty, no rashes appreciated, non-jaundiced. PSYCH: Normal mood and affect. Cooperative and appropriate. NEURO: CN grossly intact. Moving all extremities well. Normal strength and sensation grossly. - Medical Decision Making 02/17/19 14:52 64yo undomiciled M PMH HTN, HLD, COPD, alcohol abuse s/p [facility], 4cm thoracic aortic aneurysm presenting with chest pain since this morning. Exam notable for tachycardia, diaphoresis. DDX: Withdrawal, r/o ACS. - CBC, CMP, CP, ETOH level - EKG, CXR 02/17/19 15:44 - No leukocytosis or enemia - Negative troponin - Mild hypokalemia, otherwise normal electrolytes - Alcohol 19 02/17/19 15:46 - EKG with NSR with premature atrial complexes, LAD, no acute ischemic changes compare with prior 02/17/19 16:17 - Patient endorsing tremulousness, nausea, tongue fasciculation on exam - Librium 50, Banana Bag, Zofran - Patient requesting Detox at [facility] (last d/c on 12/24/18) 02/17/19 16:28 - [facility] PACKING ATTENDANT said to send patient over - D/c banana bag Dispo: Discharge to [facility] for Admission 02/17/19 16:52 - Vitals stable, active withdrawal, security to [facility] Discharge - Discharge Information Problems reviewed: Yes Clinical Impression/Diagnosis: Atypical chest pain, Alcohol use disorder, Alcohol dependence with uncomplicated withdrawal Condition: Stable Disposition: HOME Exam Limitations: Language Barrier (TURKMEN SPEAKING) - Ebola screening Have you traveled outside of the country in the last 21 days: No Have you had contact with anyone from an Ebola affected area: No Have you been sick,other than usual withdrawal symptoms: No Do you have a fever: No - Review of Systems Constitutional: Chills, Night Sweats EENT: reports: No Symptoms Reported Respiratory: reports: No Symptoms reported Cardiac: reports: No Symptoms Reported GI: reports: No Symptoms Reported : reports: No Symptoms Reported Musculoskeletal: reports: Back Pain Integumentary: reports: Sweating Neuro: reports: Headache Endocrine: reports: No Symptoms Reported Hematology: reports: No Symptoms Reported Psychiatric: reports: Orientated x3, Depressed (DENIES SI) Other Systems: Reviewed and Negative Patient History - Patient Medical History Hx Anemia: No Hx Asthma: No Hx Chronic Obstructive Pulmonary Disease (COPD): No Hx Cancer: No Hx Cardiac Disorders: Yes (Hx of CAD) Hx Congestive Heart Failure: No Hx Hypertension: Yes Hx Hypercholesterolemia: Yes Hx Pacemaker: No HX Cerebrovascular Accident: No Hx Seizures: No Hx Dementia: No Hx Diabetes: No Hx Gastrointestinal Disorders: No Hx Liver Disease: No Hx Genitourinary Disorders: No Hx Sexually Transmitted Disorders: No Hx Renal Disease (ESRD): No Hx Thyroid Disease: No Hx Human Immunodeficiency Virus (HIV): No Hx Hepatitis C: No Hx Depression: Yes Hx Suicide Attempt: No Hx Bipolar Disorder: No Hx Schizophrenia: No Other Medical History: AORTIC ANURYSM - Patient Surgical History Past Surgical History: Yes Hx Neurologic Surgery: No Hx Cataract Extraction: No Hx Cardiac Surgery: No Hx Lung Surgery: No Hx Breast Surgery: No Hx Breast Biopsy: No Hx Abdominal Surgery: Yes (epigastric hernia) Hx Appendectomy: Yes Hx Cholecystectomy: Yes Hx Genitourinary Surgery: No Hx Section: No Hx Orthopedic Surgery: No Hx Hysterectomy: No Other Surgical History: hernia repair, cut leg on tractor(pt states had sx) Anesthesia Reaction: No - PPD History Previous Implant?: No Implanted On Prior [facility] Admission?: No Date: 02/17/19 Results: NEG CXR PPD to be Administered?: No - Smoking Cessation Smoking history: Former smoker Have you smoked in the past 12 months: No Aproximately how many cigarettes per day: 0 If you are a former smoker, when did you quit?: smoked for 13 years Cigars Per Day: 0 Hx Chewing Tobacco Use: No Initiated information on smoking cessation: No - Substance & Tx. History Hx Alcohol Use: Yes Hx Substance Use: Yes Substance Use Type: Alcohol Hx Substance Use Treatment: Yes ([facility]) - Substances abused Alcohol Substance route: Oral Frequency: Daily Amount used: 12 can of cerveza/ beer. Age of first use: 16 Date of last use: 02/17/19 Admission Physical Exam [facility] - Vital Signs Vital Signs: Vital Signs - 24 hr 02/17/19 02/17/19 19:42 19:58 Temperature 98.4 F 98.4 F Pulse Rate 94 H 94 H Respiratory 19 19 Rate Blood Pressure 157/102 H 157/102 H - Physical General Appearance: Yes: Moderate Distress, Sweating, Anxious HEENTM: Yes: EOMI, Normocephalic, Normal Voice, DAYAN, Pharynx Normal, Other ( tongue fasiculations) Respiratory: Yes: Chest Non-Tender, Lungs Clear, Normal Breath Sounds, No Respiratory Distress, No Accessory Muscle Use Neck: Yes: No masses,lesions,Nodules, Supple, Trachea in good position Breast: Yes: Breasts Symetrical Cardiology: Yes: Regular Rhythm, Regular Rate, S1, S2 Abdominal: Yes: Normal Bowel Sounds, Non Tender, Soft, Protuberent, Other ( ventral hernia) Genitourinary: Yes: Within Normal Limits Back: Yes: Normal Inspection Musculoskeletal: Yes: Gait Steady Extremities: Yes: Normal Range of Motion, Non-Tender, Tremors (felt) Neurological: Yes: Fully Oriented, Alert, Motor Strength 5/5, Depressed Affect Integumentary: Yes: Warm, Moist Lymphatic: Yes: Within Normal Limits - Diagnostic (1) Alcohol dependence with uncomplicated withdrawal Current Visit: Yes Status: Acute (2) CAD (coronary artery disease) Current Visit: Yes Status: Chronic Qualifiers: Coronary Disease-Associated Artery/Lesion type: unspecified vessel or lesion type [place] vs. transplanted heart: [place] heart Associated angina: with unstable angina Qualified Code(s): I25.110 - Atherosclerotic heart disease of [place] coronary artery with unstable angina pectoris (3) COPD (chronic obstructive pulmonary disease) Current Visit: Yes Status: Chronic Qualifiers: COPD type: emphysema Emphysema type: unspecified Qualified Code(s): J43.9 - Emphysema, unspecified (4) Essential hypertension Current Visit: Yes Status: Chronic (5) GERD (gastroesophageal reflux disease) Current Visit: Yes Status: Chronic Qualifiers: Esophagitis presence: without esophagitis Qualified Code(s): K21.9 - Gastro -esophageal reflux disease without esophagitis (6) HTN (hypertension) Current Visit: Yes Status: Chronic Qualifiers: Hypertension type: essential hypertension Qualified Code(s): I10 - Essential (primary) hypertension (7) Hepatic cirrhosis Current Visit: Yes Status: Chronic Qualifiers: Hepatic cirrhosis type: alcoholic cirrhosis Ascites presence: unspecified Qualified Code(s): K70.30 - Alcoholic cirrhosis of liver without ascites (8) Hyperlipidemia Current Visit: Yes Status: Chronic Qualifiers: Hyperlipidemia type: pure hypercholesterolemia Qualified Code(s): E78.00 - Pure hypercholesterolemia, unspecified; E78.0 - Pure hypercholesterolemia (9) Fasciculation of tongue Current Visit: Yes Status: Acute (10) Ventral hernia Current Visit: Yes Status: Chronic (11) Obesity Current Visit: Yes Status: Chronic Qualifiers: Obesity type: due to excess calories Obesity classification: unspecified obesity classification Serious obesity comorbidity presence: without serious comorbidity Qualified Code(s): E66.09 - Other obesity due to excess calories Cleared for Admission [facility] - Detox or Rehab [facility] Level of Care: Medically Managed Detox Regimen/Protocol: Librium Claeared for Rehab Admission: No Breathalyzer - Breathalyzer Breathalyzer: 0 Urine Drug Screen - Test Device Lot number: [id number] Expiration date: 09/05/20 - Control Is test valid?: Yes - Results Drug screen NEGATIVE: No Urine drug screen results: BZO-Benzodiazepines Inpatient Rehab Admission - Rehab Decision to Admit Inpatient rehab admission?: No
[2019-02-17] MEDS ORDERED: METHOCARBAMOL 500 MG TABLET PO PRN (20:47)
[2019-02-17] MEDS ORDERED: chlordiazePOXIDE HCL 25 MG CAPSULE PO PRN (20:47)
[2019-02-17] MEDS ORDERED: MAGNESIUM HYDROX 2400MG/30ML ORAL SUSPENSION 30 ML CUP PO PRN (20:47)
[2019-02-17] MEDS ORDERED: MAGNESIUM CITRATE 300 ML BOTTLE PO PRN (20:47)
[2019-02-17] MEDS ORDERED: IBUPROFEN 400 MG TABLET (FP) PO PRN (20:47)
[2019-02-17] MEDS ORDERED: DICYCLOMINE HCL 10 MG CAPSULE PO PRN (20:47)
[2019-02-17] MEDS ORDERED: hydrOXYzine PAMOATE 25 MG CAPSULE (FP) PO PRN (20:47)
[2019-02-17] MEDS ORDERED: guaiFENesin 200 MG/10 ML 10 ML UNIT-DOSE CUPS PO PRN (20:47)
[2019-02-17] MEDS ORDERED: MAG HYDROX/AL HYDROX/SIMETH 30 ML UNIT-DOSE CUP PO PRN (20:47)
[2019-02-17] MEDS ORDERED: ACETAMINOPHEN 325 MG TABLET (FP) PO PRN ×2 (20:47)
[2019-02-17] MEDS ORDERED: P-EPHED 60MG/TRIPROLIDI 2.5MG TABLET PO PRN (20:47)
[2019-02-17] MEDS ORDERED: MENTHOL/PHENOL 1 EACH UD MM PRN (20:47)
[2019-02-17] MEDS ORDERED: BISMUTH SUBSALICYLATE 524 MG/30 ML UD PO PRN (20:47)
[2019-02-17] MEDS ORDERED: ONDANSETRON *ODT* 4 MG TABLET SL PRN (20:47)
[2019-02-17] MEDS ORDERED: cloNIDine HCL 0.1 MG TABLET PO ONE (20:50)
[2019-02-17] MEDS: ATORVASTATIN CA 10 MG TABLET (FP) PO SCH (21:58)
[2019-02-17] MEDS: THIAMINE HCL 100 MG TABLET (FP) PO SCH (21:58)
[2019-02-17] MEDS: chlordiazePOXIDE HCL 25 MG CAPSULE PO SCH (21:59)
[2019-02-18] MEDS: chlordiazePOXIDE HCL 25 MG CAPSULE PO SCH ×4 (05:22→22:07)
--- NOTE | 2019-02-18 09:34 | CONSULT ---
[facility] Psychiatric Consult - Data Date of interview: 02/18/19 Admission source: [facility] Identifying data: Mr Rosado is 64 years old [place]-born male, father of 2 children, unemployed with nource of income, homeless seeking detox treatment for alcohol Substance Abuse History: Reports history of alcohol use. Refer to addiction counselor's summary for further information Medical History: Significant for COPD, hypertension, dyslipidemia, coronary artery disease, thoracic aortic aneurysm, obesity, PPD+, history of appendectomy and epigastric hernia repair Psychiatric History: Denies history of previous psychiatric treatment Physical/Sexual Abuse/Trauma History: Denies history of abuse as a child or DV relationship Mental Status Exam - Mental Status Exam Alert and Oriented to: Time, Place, Person Cognitive Function: Fair Patient Appearance: Well Groomed Mood: Hopeful, Euthymic Patient Behavior: Cooperative Speech Pattern: Clear Voice Loudness: Normal Thought Process: Intact, Goal Oriented Thought Disorder: Not Present Hallucinations: Denies Suicidal Ideation: Denies Homicidal Ideation: Denies Insight/Judgement: Poor Sleep: Well Appetite: Good Muscle strength/Tone: Normal Gait/Station: Normal Psychiatric Findings - Problem List ([place] 1, 2,3) (1) Alcohol dependence with uncomplicated withdrawal Current Visit: Yes Status: Acute (2) CAD (coronary artery disease) Current Visit: Yes Status: Chronic Qualifiers: Coronary Disease-Associated Artery/Lesion type: unspecified vessel or lesion type [place] vs. transplanted heart: [place] heart Associated angina: with unstable angina Qualified Code(s): I25.110 - Atherosclerotic heart disease of [place] coronary artery with unstable angina pectoris (3) COPD (chronic obstructive pulmonary disease) Current Visit: Yes Status: Chronic Qualifiers: COPD type: emphysema Emphysema type: unspecified Qualified Code(s): J43.9 - Emphysema, unspecified (4) Essential hypertension Current Visit: Yes Status: Chronic (5) Hyperlipidemia Current Visit: Yes Status: Chronic Qualifiers: Hyperlipidemia type: pure hypercholesterolemia Qualified Code(s): E78.00 - Pure hypercholesterolemia, unspecified; E78.0 - Pure hypercholesterolemia (6) GERD (gastroesophageal reflux disease) Current Visit: Yes Status: Chronic Qualifiers: Esophagitis presence: without esophagitis Qualified Code(s): K21.9 - Gastro -esophageal reflux disease without esophagitis (7) Hepatic cirrhosis Current Visit: Yes Status: Chronic Qualifiers: Hepatic cirrhosis type: alcoholic cirrhosis Ascites presence: unspecified Qualified Code(s): K70.30 - Alcoholic cirrhosis of liver without ascites (8) Obesity Current Visit: Yes Status: Chronic Qualifiers: Obesity type: due to excess calories Obesity classification: unspecified obesity classification Serious obesity comorbidity presence: without serious comorbidity Qualified Code(s): E66.09 - Other obesity due to excess calories (9) Ventral hernia Current Visit: Yes Status: Chronic (10) History of appendectomy Current Visit: No Status: Resolved (11) Positive PPD Current Visit: No Status: Chronic - Initial Treatment Plan Initial Treatment Plan: Continue inpatient detoxification
[2019-02-18] MEDS: PRENATAL VITAMINS W/ FOLIC ACID TABLET (FP) PO SCH (10:08)
[2019-02-18] MEDS: ASPIRIN 81 MG CHEWABLE TABLETS PO SCH (10:08)
[2019-02-18 13:12] LABS: HYALINE CASTS 12 /lpf (0-8); URINE APPEARANCE CLEAR; URINE BACTERIA 1.5 /hpf (NEGATIVE); URINE BILIRUBIN NEGATIVE (NEGATIVE); URINE COLOR YELLOW; URINE GLUCOSE (UA) NEGATIVE (NEGATIVE); URINE KETONE NEGATIVE (NEGATIVE); URINE LEUK ESTERASE NEGATIVE (NEGATIVE); URINE NITRITE NEGATIVE (NEGATIVE); URINE PROTEIN 2+ (NEGATIVE); URINE RBC 2 /hpf (0-4); URINE UROBILINOGEN 0.2 mg/dL (0.2-1.0); URINE WBC 1 /hpf (0-5)
--- NOTE | 2019-02-18 14:35 | PN ---
S CIWA - CIWA Score Nausea/Vomitin-No Nausea/No Vomiting Muscle Tremors: 3 Anxiety: 4-Mod. Anxious/Guarded Agitation: 2 Paroxysmal Sweats: 1-Minimal Palms Moist Orientation: 0-Oriented Tacttile Disturbances: 0-None Auditory Disturbances: 0-None Visual Disturbances: 1-Very Mild Sensitivity Headache: 1-Very Mild CIWA-Ar Total Score: 12 BHS Progress Note (SOAP) Subjective: 64 years old male admitted on 02/17/19 for alcohol withdrawal sx management treated with librium detox regimen ate breakfast and lunch resting in bed feeling tired prefers to stay in bed today Objective: 02/18/19 14:34 Vital Signs Temperature 97.1 F L 02/18/19 13:34 Pulse Rate 62 02/18/19 13:34 Respiratory Rate 18 02/18/19 13:34 Blood Pressure 147/87 02/18/19 13:34 O2 Sat by Pulse Oximetry (%) Laboratory Last Values Urine Color Yellow 02/18/19 07:15 Urine Appearance Clear 02/18/19 07:15 Urine pH 5.0 (5.0-8.0) 02/18/19 07:15 Ur Specific [place] 1.024 (1.010-1.035) 02/18/19 07:15 Urine Protein 2+ (NEGATIVE) H 02/18/19 07:15 Urine Glucose (UA) Negative (NEGATIVE) 02/18/19 07:15 Urine Ketones Negative (NEGATIVE) 02/18/19 07:15 Urine Blood 1+ (NEGATIVE) H 02/18/19 07:15 Urine Nitrite Negative (NEGATIVE) 02/18/19 07:15 Urine Bilirubin Negative (NEGATIVE) 02/18/19 07:15 Urine Urobilinogen 0.2 mg/dL (0.2-1.0) 02/18/19 07:15 Ur Leukocyte Esterase Negative (NEGATIVE) 02/18/19 07:15 Urine WBC (Auto) 1 /hpf (0-5) 02/18/19 07:15 Urine RBC (Auto) 2 /hpf (0-4) 02/18/19 07:15 Urine Casts (Auto) 12 /lpf (0-8) 02/18/19 07:15 U Epithel Cells (Auto) 1.0 /HPF (0-5/HPF) 02/18/19 07:15 Urine Bacteria (Auto) 1.5 /hpf (NEGATIVE) 02/18/19 07:15 lab noted Assessment: 02/18/19 14:35 alcohol withdrawal Plan: librium regimen
[2019-02-18] MEDS: THIAMINE HCL 100 MG TABLET (FP) PO SCH (22:07)
[2019-02-18] MEDS: ATORVASTATIN CA 10 MG TABLET (FP) PO SCH (22:07)
[2019-02-18] MEDS: MELATONIN 5 MG TABLETS PO PRN (22:08)
[2019-02-19] MEDS: chlordiazePOXIDE HCL 25 MG CAPSULE PO SCH ×4 (05:04→22:02)
--- NOTE | 2019-02-19 09:18 | PN ---
S CIWA - CIWA Score Nausea/Vomitin-No Nausea/No Vomiting Muscle Tremors: 1-None Visible, but [place] Anxiety: 3 Agitation: 2 Paroxysmal Sweats: 2 Orientation: 1-Uncertain about Date Tacttile Disturbances: 0-None Auditory Disturbances: 0-None Visual Disturbances: 1-Very Mild Sensitivity Headache: 2-Mild CIWA-Ar Total Score: 12 BHS Progress Note (SOAP) Subjective: 64 years old male admmitted on 02/17/19 for alcohol withdrawal sx management treating with librium detox regimen long history of hypertension treated with metoprolol and lisinopril c/o mild headache with bp elevation begin lisinopril 20 mg po daily Objective: 02/19/19 09:22 Vital Signs Temperature 97.2 F L 02/19/19 09:13 Pulse Rate 64 02/19/19 09:13 Respiratory Rate 18 02/19/19 09:13 Blood Pressure 152/83 02/19/19 09:13 O2 Sat by Pulse Oximetry (%) Laboratory Last Values Urine Color Yellow 02/18/19 07:15 Urine Appearance Clear 02/18/19 07:15 Urine pH 5.0 (5.0-8.0) 02/18/19 07:15 Ur Specific [place] 1.024 (1.010-1.035) 02/18/19 07:15 Urine Protein 2+ (NEGATIVE) H 02/18/19 07:15 Urine Glucose (UA) Negative (NEGATIVE) 02/18/19 07:15 Urine Ketones Negative (NEGATIVE) 02/18/19 07:15 Urine Blood 1+ (NEGATIVE) H 02/18/19 07:15 Urine Nitrite Negative (NEGATIVE) 02/18/19 07:15 Urine Bilirubin Negative (NEGATIVE) 02/18/19 07:15 Urine Urobilinogen 0.2 mg/dL (0.2-1.0) 02/18/19 07:15 Ur Leukocyte Esterase Negative (NEGATIVE) 02/18/19 07:15 Urine WBC (Auto) 1 /hpf (0-5) 02/18/19 07:15 Urine RBC (Auto) 2 /hpf (0-4) 02/18/19 07:15 Urine Casts (Auto) 12 /lpf (0-8) 02/18/19 07:15 U Epithel Cells (Auto) 1.0 /HPF (0-5/HPF) 02/18/19 07:15 Urine Bacteria (Auto) 1.5 /hpf (NEGATIVE) 02/18/19 07:15 Laboratory Last Values 02/19/19 09:25 lab see ER 02/17/19 report Assessment: 02/19/19 09:25 alcohol withdrawal 02/19/19 09:26 hypertension Plan: librium regimen lisinopril
[2019-02-19] MEDS: PRENATAL VITAMINS W/ FOLIC ACID TABLET (FP) PO SCH (10:11)
[2019-02-19] MEDS: ASPIRIN 81 MG CHEWABLE TABLETS PO SCH (10:11)
[2019-02-19] MEDS: LISINOPRIL 20 MG TABLET (FP) PO SCH (22:02)
[2019-02-19] MEDS: ATORVASTATIN CA 10 MG TABLET (FP) PO SCH (22:02)
[2019-02-19] MEDS: THIAMINE HCL 100 MG TABLET (FP) PO SCH (22:02)
[2019-02-19] MEDS: MELATONIN 5 MG TABLETS PO PRN (22:03)
[2019-02-20] MEDS ORDERED: chlordiazePOXIDE HCL 10 MG CAPSULE PO PRN
[2019-02-20] MEDS: chlordiazePOXIDE HCL 10 MG CAPSULE PO SCH ×4 (05:47→22:10)
[2019-02-20] MEDS: PRENATAL VITAMINS W/ FOLIC ACID TABLET (FP) PO SCH (10:14)
[2019-02-20] MEDS: ASPIRIN 81 MG CHEWABLE TABLETS PO SCH (10:56)
[2019-02-20] MEDS: ATORVASTATIN CA 10 MG TABLET (FP) PO SCH (22:10)
[2019-02-20] MEDS: THIAMINE HCL 100 MG TABLET (FP) PO SCH (22:10)
[2019-02-20] MEDS: LISINOPRIL 20 MG TABLET (FP) PO SCH (22:10)
[2019-02-21] MEDS: chlordiazePOXIDE HCL 10 MG CAPSULE PO SCH ×2 (05:40→17:53)
--- NOTE | 2019-02-21 09:36 | PN ---
S CIWA - CIWA Score Nausea/Vomitin-Mild Nausea/No Vomiting Muscle Tremors: 2 Anxiety: 2 Agitation: 2 Paroxysmal Sweats: No Perspiration Orientation: 0-Oriented Tacttile Disturbances: 1-Very Mild Itch/Numbness Auditory Disturbances: 0-None Visual Disturbances: 0-None Headache: 2-Mild CIWA-Ar Total Score: 10 BHS Progress Note (SOAP) Subjective: alert,irritable,anxious,interrupted sleep,tremor Objective: 02/21/19 09:34 Vital Signs Temperature 98.2 F 02/21/19 09:05 Pulse Rate 77 02/21/19 09:05 Respiratory Rate 02/21/19 09:05 Blood Pressure 158/89 02/21/19 09:05 O2 Sat by Pulse Oximetry (%) Assessment: 02/21/19 09:36 withdrawal symptom Plan: continue detox librium regimen
--- NOTE | 2019-02-21 09:40 | PN ---
[facility] CIWA - CIWA Score Nausea/Vomitin-Mild Nausea/No Vomiting Muscle Tremors: 2 Anxiety: 2 Agitation: 2 Paroxysmal Sweats: No Perspiration Orientation: 0-Oriented Tacttile Disturbances: 1-Very Mild Itch/Numbness Auditory Disturbances: 0-None Visual Disturbances: 0-None Headache: 1-Very Mild CIWA-Ar Total Score: 9 S Progress Note (SOAP) Subjective: alert,irritable,anxious,interrupted sleep,tremor Objective: 02/21/19 09:38 t99.9,p68,r18,bp 134/70 Assessment: 02/21/19 09:39 withdrawal symptom Plan: continue detox librium regimen
[2019-02-21] MEDS: ASPIRIN 81 MG CHEWABLE TABLETS PO SCH (10:50)
[2019-02-21] MEDS: PRENATAL VITAMINS W/ FOLIC ACID TABLET (FP) PO SCH (10:50)
[2019-02-21] MEDS: ATORVASTATIN CA 10 MG TABLET (FP) PO SCH (22:22)
[2019-02-21] MEDS: LISINOPRIL 20 MG TABLET (FP) PO SCH (22:22)
[2019-02-21] MEDS: MELATONIN 5 MG TABLETS PO PRN (22:22)
[2019-02-21] MEDS: THIAMINE HCL 100 MG TABLET (FP) PO SCH (22:22)
[2019-02-22] MEDS ORDERED: chlordiazePOXIDE HCL 10 MG CAPSULE PO ONE (05:00)
[2019-02-22 09:08] VITALS: BP 140/83; PULSE 71; TEMP 98.6
--- NOTE | 2019-02-22 11:24 | DS ---
[facility] Detox Discharge Summary Admission Date: 02/17/19 Discharge Date: 02/22/19 - History Present History: Alcohol Dependence Additional Comments: 64 years old male admitted on 02/17/19 for alcohol withdrawal sx management treated with librium detox regimen patient completed detox regimen and tolerated well alert oriented x 3 respiratory clear lungs bilaterally on auscultation skin warm and dry abdomen soft obese no rebound tenderness - Physical Exam Results Vital Signs: Vital Signs Temperature 98.6 F 02/22/19 09:08 Pulse Rate 71 02/22/19 09:08 Respiratory Rate 18 02/22/19 09:08 Blood Pressure 140/83 02/22/19 09:08 O2 Sat by Pulse Oximetry (%) Pertinent Admission Physical Exam Findings: alcohol withdrawal Laboratory Last Values Urine Color Yellow 02/18/19 07:15 Urine Appearance Clear 02/18/19 07:15 Urine pH 5.0 (5.0-8.0) 02/18/19 07:15 Ur Specific [place] 1.024 (1.010-1.035) 02/18/19 07:15 Urine Protein 2+ (NEGATIVE) H 02/18/19 07:15 Urine Glucose (UA) Negative (NEGATIVE) 02/18/19 07:15 Urine Ketones Negative (NEGATIVE) 02/18/19 07:15 Urine Blood 1+ (NEGATIVE) H 02/18/19 07:15 Urine Nitrite Negative (NEGATIVE) 02/18/19 07:15 Urine Bilirubin Negative (NEGATIVE) 02/18/19 07:15 Urine Urobilinogen 0.2 mg/dL (0.2-1.0) 02/18/19 07:15 Ur Leukocyte Esterase Negative (NEGATIVE) 02/18/19 07:15 Urine WBC (Auto) 1 /hpf (0-5) 02/18/19 07:15 Urine RBC (Auto) 2 /hpf (0-4) 02/18/19 07:15 Urine Casts (Auto) 12 /lpf (0-8) 02/18/19 07:15 U Epithel Cells (Auto) 1.0 /HPF (0-5/HPF) 02/18/19 07:15 Urine Bacteria (Auto) 1.5 /hpf (NEGATIVE) 02/18/19 07:15 lab noted - Treatment Hospital Course: Detox Protocol Followed, Detoxed Safely, Responded well, Discharged Condition Good, Rehab Referral Accepted Patient has Accepted [facility] Referral [facility] - Medication Discharge Medications: Ambulatory Orders Aspirin 81 mg PO DAILY 14 Days #14 tab.chew 12/23/18 Atorvastatin Calcium [Lipitor] 10 mg PO HS 14 Days #14 tablet 12/23/18 Metoprolol Succinate [Toprol Xl] 50 mg PO DAILY 14 Days #14 tab.er.24h 12/23/18 - Diagnosis (1) Alcohol dependence with uncomplicated withdrawal Status: Acute (2) Diabetes Status: Chronic Qualifiers: Diabetes mellitus type: type 2 Diabetes mellitus [place] insulin use: unspecified intermediate insulin use status Diabetes mellitus complication status : without complication Qualified Code(s): E11.9 - Type 2 diabetes mellitus without complications (3) Hypertension Status: Chronic Qualifiers: Hypertension type: essential hypertension Qualified Code(s): I10 - Essential (primary) hypertension (4) Arrhythmia Status: Chronic Qualifiers: Arrhythmia type: unspecified cardiac arrhythmia Qualified Code(s): I49.9 - Cardiac arrhythmia, unspecified (5) CAD (coronary artery disease) Status: Chronic Qualifiers: Coronary Disease-Associated Artery/Lesion type: unspecified vessel or lesion type [place] vs. transplanted heart: [place] heart Associated angina: with unstable angina Qualified Code(s): I25.110 - Atherosclerotic heart disease of [place] coronary artery with unstable angina pectoris (6) COPD (chronic obstructive pulmonary disease) Status: Chronic Qualifiers: COPD type: emphysema Emphysema type: unspecified Qualified Code(s): J43.9 - Emphysema, unspecified (7) DM2 (diabetes mellitus, type 2) Status: Chronic Qualifiers: Diabetes mellitus [place] insulin use: unspecified [place] insulin use status Diabetes mellitus complication status: with other specified complication Qualified Code(s): E11.69 - Type 2 diabetes mellitus with other specified complication (8) Essential hypertension Status: Chronic (9) GERD (gastroesophageal reflux disease) Status: Chronic Qualifiers: Esophagitis presence: without esophagitis Qualified Code(s): K21.9 - Gastro -esophageal reflux disease without esophagitis (10) HTN (hypertension) Status: Chronic Qualifiers: Hypertension type: essential hypertension Qualified Code(s): I10 - Essential (primary) hypertension (11) Hepatic cirrhosis Status: Chronic Qualifiers: Hepatic cirrhosis type: alcoholic cirrhosis Ascites presence: unspecified Qualified Code(s): K70.30 - Alcoholic cirrhosis of liver without ascites (12) Hypercholesteremia Status: Chronic (13) Hyperlipidemia Status: Chronic Qualifiers: Hyperlipidemia type: pure hypercholesterolemia Qualified Code(s): E78.00 - Pure hypercholesterolemia, unspecified; E78.0 - Pure hypercholesterolemia (14) Obesity Status: Chronic Qualifiers: Obesity type: due to excess calories Obesity classification: unspecified obesity classification Serious obesity comorbidity presence: without serious comorbidity Qualified Code(s): E66.09 - Other obesity due to excess calories (15) Positive PPD Status: Resolved - AMA Did Patient Leave Against Medical Advice: No CIWA Score - CIWA Score Nausea/Vomitin-No Nausea/No Vomiting Muscle Tremors: 1-None Visible, but [place] Anxiety: 1-Mildly Anxious Agitation: 1-Slight > Activity Paroxysmal Sweats: No Perspiration Orientation: 0-Oriented Tacttile Disturbances: 0-None Auditory Disturbances: 0-None Visual Disturbances: 0-None Headache: 1-Very Mild CIWA-Ar Total Score: 4
== END 2019-02-22 08:49 | disposition home or self-care (01) | DRG 775 ==
LOC: YASAS 17:58 → Y6N 20:36 → Y3N 21:14
PROVIDERS: ADMIT Allergy & Immunology; ATTEND Allergy & Immunology
PROC: HZ2ZZZZ Detoxification Services for Substance Abuse Treatment (ICD-10-PCS; principal; 2019-02-17)
DX: F10.230 Alcohol dependence with withdrawal, uncomplicated (principal); F17.210 Nicotine dependence, cigarettes, uncomplicated; I25.110 Atherosclerotic heart disease of native coronary artery with unstable angina pectoris; I10 Essential (primary) hypertension; I49.9 Cardiac arrhythmia, unspecified; I71.2 Thoracic aortic aneurysm, without rupture; J44.9 Chronic obstructive pulmonary disease, unspecified; E78.00 Pure hypercholesterolemia, unspecified; E11.9 Type 2 diabetes mellitus without complications; Z79.4 Long term (current) use of insulin; K25.9 Gastric ulcer, unspecified as acute or chronic, without hemorrhage or perforation; K74.60 Unspecified cirrhosis of liver; R76.11 Nonspecific reaction to tuberculin skin test without active tuberculosis; R25.3 Fasciculation; E66.9 Obesity, unspecified; Z68.34 Body mass index [BMI] 34.0-34.9, adult
CPT/HCPCS: 36415; 71045-TC-FY; 80053; 80307; 81003; 82550; 82553; 83690; 84484; 85025; 93005; 93010; 96365; 96375; 99283-25; J0735; J7030

== ENCOUNTER 2019-03-29 17:54 | Emergency (ER) | payer OTHER ==
--- NOTE | 2019-03-29 18:03 | PDOC ---
Rapid Medical Evaluation Time Seen by Provider: 03/29/19 17:58 Medical Evaluation: Allergies Allergy/AdvReac Type Severity Reaction Status Date / Time No Known Drug Allergies Allergy Verified 02/17/19 19:33 03/29/19 17:59 CC: chest pain x3 hours PE: AOB. Hoarse voice- different per pt. Otherwise unremarkable. Orders: Cardiac w/u Patient will proceed to ED for continued evaluation. 03/29/19 18:01 Discharge Disposition - Diagnosis Chest pain - Referrals - Patient Instructions - Post Discharge Activity
[2019-03-29 18:06] VITALS: BP 146/110; PULSE 79; TEMP 98.1; BMI 34.3
--- NOTE | 2019-03-29 18:30 | PDOC ---
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 The pain has been since this AM, is sharp, waxing/waning, non-radiating, and not exacerbated or alleviated by anything he can identify. The pt states that he always has chest pain but it is worse today. He denies exertion or food before the chest pain. Pt endorses associated nausea and vomiting at 1600 today. Pt reports he usually drinks 10-12 beers daily but was only able to drink 3 today 2/2 pain. Pt also reports a gradual onset frontal, b/l PARMAR that is 'pinching', waxing/ waning, and not exacerbated or alleviated by anything he can identify. The pt states that he would like to go to detox after being evaluated here. Pt did not take his home meds today 03/29/19 18:46 Past History - Past Medical History Allergies/Adverse Reactions: Allergies Allergy/AdvReac Type Severity Reaction Status Date / Time No Known Drug Allergies Allergy Verified 03/29/19 17:59 Home Medications: Ambulatory Orders Aspirin 81 mg PO DAILY 14 Days #14 tab.chew 12/23/18 Atorvastatin Calcium [Lipitor] 10 mg PO HS 14 Days #14 tablet 12/23/18 Metoprolol Succinate [Toprol Xl] 50 mg PO DAILY 14 Days #14 tab.er.24h 12/23/18 Anemia: No Asthma: No Cancer: No Cardiac Disorders: Yes (Hx of CAD) CVA: No COPD: No CHF: No Dementia: No Diabetes: No GI Disorders: No Disorders: No HTN: Yes Hypercholesterolemia: Yes Kidney Stones: No Liver Disease: No Psychiatric Problems: Yes (DEPRESSION) Seizures: No Thyroid Disease: No - Surgical History Abdominal Surgery: Yes (epigastric hernia) Appendectomy: Yes Cardiac Surgery: No Cholecystectomy: Yes GI Surgery: Yes (appendectomy) Lung Surgery: No Neurologic Surgery: No Orthopedic Surgery: No - Reproductive History Testicular Surgery: No - Immunization History Td Vaccination: Yes Immunization Up to Date: No - Psycho Social/Smoking Cessation Hx Smoking Status: Yes Smoking History: Former smoker Years of Tobacco Use: 0 Have you smoked in the past 12 months: No Number of Cigarettes Smoked Daily: 0 If you are a former smoker, when did you quit?: smoked for 13 years Cigars Per Day: 0 Information on smoking cessation initiated: No 'Breaking Loose' booklet given: 06/12/12 Hx Alcohol Use: Yes Drug/Substance Use Hx: No Substance Use Type: Alcohol Hx Substance Use Treatment: Yes ([facility]) Review of Systems - Review of Systems Able to Perform ROS?: Yes Comments:: GENERAL/CONSTITUTIONAL: No fever or chills. No weakness HEAD, EYES, EARS, NOSE AND THROAT: No change in vision. No change in hearing. No sore throat CARDIOVASCULAR: +CP; denies shortness of breath RESPIRATORY: Denies cough, hemoptysis GASTROINTESTINAL: +N/V; denies diarrhea or constipation GENITOURINARY: No dysuria, frequency, or change in urination MUSCULOSKELETAL: No joint or muscle swelling or pain. No neck or back pain SKIN: No rash NEUROLOGIC: +b/l frontal PARMAR; No vertigo, loss of consciousness, or change in strength/sensation ENDOCRINE: No increased thirst. No abnormal weight change HEMATOLOGIC/LYMPHATIC: No anemia, easy bleeding, or history of blood clots ALLERGIC/IMMUNOLOGIC: No hives or skin allergy 03/29/19 18:29 *Physical Exam - Vital Signs Last Vital Signs Temp Pulse Resp BP Pulse Ox 98.1 F 79 18 146/110 H 100 03/29/19 18:01 03/29/19 18:01 03/29/19 18:01 03/29/19 18:01 03/29/19 18:01 - Physical Exam GENERAL: Awake, alert, and oriented to person/place/time, in no acute distress HEAD: No signs of trauma, normocephalic, atraumatic EYES: PERRLA, EOMI, sclera anicteric, conjunctiva clear ENT: Hearing grossly normal, nares patent, oropharynx clear without exudates. No uvular deviation. Moist mucosa LUNGS: No distress, speaks in full sentences, clear to auscultation bilaterally HEART: Regular rate and rhythm, normal S1 and S2, no murmurs appreciated, peripheral pulses normal and equal bilaterally ABDOMEN: Soft, nontender, normoactive bowel sounds. No guarding, no rebound EXTREMITIES: Normal inspection, Normal range of motion, no edema. No clubbing or cyanosis NEUROLOGICAL: Cranial nerves II through XII grossly intact. Normal speech, no focal sensorimotor deficits SKIN: Warm, Dry 03/29/19 18:48 ED Treatment Course - LABORATORY CBC & Chemistry Diagram: 03/29/19 18:14 03/29/19 18:17 - RADIOLOGY Radiograph Interpretation: RAD/CHEST PA & LAT Chest: Chest pain 2 views of the chest reveal clear lungs, normal mediastinum and sharp angles. The bones and soft tissues are intact. There are some degenerative changes with wedging. Impression: No acute pathology. No change of an adverse nature since 02/17/2019. 03/29/19 19:42 Medical Decision Making - Medical Decision Making The pt is a 64M w/ a history of HTN, HLD, and EtOH abuse who presents for evaluation of chest pain and PARMAR Likely alcoholic gastritis, consider ACS; heydi roldan/boerhaave, pancreatitis , GERD Pt desires to go to detox, plan for 2 Trop and re-evaluation ED Course CMP, CBC, Trop I, Lipase, EtOH ECG CXR Ofirmev, Reglan, Maalox, Viscous lidocaine for symptomatic relief ECG w/ NSR; HR 73; QTc 471; left axis deviation; no VIVIANE; abn ecg 03/29/19 19:24 No leukocytosis No anemia Lytes overall unremarkable No ESTIVEN Trop I neg Tranaminitis noted, pt with previous episodes of elevated LFTs, denies abdominal pain, previous US in 11/2018 w/o gallbladder pathology CXR w/o acute pathology 03/29/19 19:40 Pt mildly tremulous, will give Librium 50mg PO once 03/29/19 20:09 Pt now without fasciculations, no tremors, not tachycardic Pt reports symptoms improved Second Trop I sent 03/29/19 21:24 Repeat Trop I neg Pt continues to not have fasciculations or tremors, not tachy Pt continues to request detox Plan for D/C to [facility] Discharge instructions and return precautions given Patient in agreement and verbalized understanding Dispo: Home 03/29/19 22:57 Discharge - Discharge Information Problems reviewed: Yes Clinical Impression/Diagnosis: Chest pain Qualifiers: Chest pain type: unspecified Qualified Code(s): R07.9 - Chest pain, unspecified Headache Qualifiers: Headache type: unspecified Headache chronicity pattern: unspecified pattern Intractability: not intractable Qualified Code(s): R51 - Headache Condition: Stable Disposition: HOME - Admission No - Follow up/Referral - Patient Discharge Instructions Patient Printed Discharge Instructions: DI for Chest Pain, DI for Alcohol Abuse Additional Instructions: You were seen in the Emergency Department for evaluation of chest pain and headache. Your labs were notable for a elevation in your liver enzymes that is likely due to your alcohol use. You should follow up with your primary care provider or referral provided concerning the results. Review the handout provided at discharge. Return to the Emergency Department if you develop fevers, chest pain, trouble breathing, tremors, anxiety, palpitations, worsening symptoms, or any new/ concerning symptoms. Lo vieron en el departamento de emergencias para evaluar el dolor de pecho y el dolor de boogie. Shell laboratorios fueron notables por anton elevacin en shell enzimas hepticas que probablemente se deba a peña consumo de alcohol. Debe hacer un seguimiento con peña proveedor de atencin primaria o la derivacin proporcionada con respecto a los resultados. Revise el folleto proporcionado al jose. Regrese al departamento de emergencias si presenta fiebre, dolor en el pecho, dificultad para respirar, temblores, ansiedad, palpitaciones, empeoramiento de los sntomas o cualquier sntoma nuevo o preocupante. Print Language: ETHIOPIAN - Post Discharge Activity
[2019-03-29 18:54] LABS: BASO % 0.5 % (0-2.0); EOS % 0.4 % (0-4.5); HEMOGLOBIN 17.6 GM/dL (11.7-16.9); LYMPH % 33.9 % (8-40); MCH 32.1 pg (25.7-33.7); MCHC 35.1 g/dl (32.0-35.9); MEAN CELL VOLUME 91.4 fl (80-96); MONO % 6.9 % (3.8-10.2); NEUT % 58.3 % (42.8-82.8); PLATELET COUNT 129 K/MM3 (134-434); RBC 5.47 M/mm3 (4.00-5.60); WHITE BLOOD COUNT 5.5 K/mm3 (4.0-10.0)
[2019-03-29] MEDS ORDERED: ACETAMINOPHEN 1000 MG/100 ML VIAL (NON FORMULARY) IVPB ONE (19:01)
[2019-03-29] MEDS ORDERED: SODIUM CHLORIDE 0.9% 500 ML INFUS.BAG IV ONE (19:01)
[2019-03-29] MEDS ORDERED: METOCLOPRAMIDE HCL INJECTION 10 MG/2 ML VIAL IVPUSH ONE (19:01)
[2019-03-29 19:03] LABS: INR 1.5 (0.83-1.09); PROTHROMBIN TIME (PATIENT) 17.8 SEC (9.7-13.0)
[2019-03-29 19:06] LABS: ACTIVATED PTT 42.1 SECONDS (25.2-36.5)
[2019-03-29 19:14] LABS: ALBUMIN 3.8 g/dl (3.4-5.0); BILIRUBIN,TOTAL 1.4 mg/dL (0.2-1); CALCIUM 8.1 mg/dL (8.5-10.1); CREATININE 1.1 mg/dL (0.55-1.3); MAGNESIUM 1.9 mg/dL (1.8-2.4); POTASSIUM 3.9 mmol/L (3.5-5.1); TOT PROT 8.3 g/dl (6.4-8.2)
[2019-03-29] MEDS ORDERED: FAMOTIDINE 20 MG/50 ML IVPB 20 MG/50 ML MG IVPB ONE ×2 (19:21→19:41)
[2019-03-29] MEDS ORDERED: LIDOCAINE VISCOUS 2% ORAL/TOP 20 ML UNIT-DOSE CUP MM ONE (19:21)
[2019-03-29] MEDS ORDERED: MAG HYDROX/AL HYDROX/SIMETH 30 ML UNIT-DOSE CUP PO ONE (19:21)
[2019-03-29] MEDS ORDERED: METOCLOPRAMIDE HCL INJECTION 10 MG/2 ML VIAL ONE (19:24)
[2019-03-29] MEDS ORDERED: ACETAMINOPHEN INJECTION 100 ML IVPB ONE (19:24)
[2019-03-29] MEDS ORDERED: chlordiazePOXIDE HCL 25 MG CAPSULE PO ONE ×2 (19:34→23:18)
[2019-03-29] MEDS ORDERED: LIDOCAINE VISCOUS 2% ORAL/TOP 20 ML UNIT-DOSE CUP ONE (19:40)
[2019-03-29] MEDS ORDERED: chlordiazePOXIDE HCL 25 MG CAPSULE ONE ×2 (19:41→23:23)
[2019-03-29] MEDS ORDERED: MAG HYDROX/AL HYDROX/SIMETH 30 ML UNIT-DOSE CUP ONE (19:41)
[2019-03-29 19:42] LABS: LIPASE 101 U/L (73-393)
--- NOTE | 2019-03-30 11:51 | EKG ---
Test Reason : Blood Pressure : / mmHG Vent. Rate : 073 BPM Atrial Rate : 073 BPM P-R Int : 200 ms QRS Dur : 110 ms QT Int : 428 ms P-R-T Axes : 034 -59 050 degrees QTc Int : 471 ms NORMAL SINUS RHYTHM LEFT AXIS DEVIATION POSSIBLE LATERAL INFARCT , AGE UNDETERMINED INFERIOR-POSTERIOR INFARCT (CITED ON OR BEFORE 24-OCT-2018) ABNORMAL ECG Confirmed by ROBER TEIXEIRA MD ([id number]) on 03/30/2019 11:51:13 AM Referred By: Confirmed By:ROBER TEIXEIRA MD
--- NOTE | 2019-03-30 16:49 | PDOC ---
Documentation entered by Barb Wilson SCRIBE, acting as scribe for Nathan Lazcano DO. Nathan Lazcano DO: This documentation has been prepared by the charli, Barb Wilson SCRIBE, under my direction and personally reviewed by me in its entirety. I confirm that the documentation accurately reflects all work, treatment, procedures, and medical decision making performed by me. Attending Attestation - Resident Resident Name: Tomer Lagunas - ED Attending Attestation I have performed the following: I have examined & evaluated the patient, The case was reviewed & discussed with the resident, I agree w/resident's findings & plan, Exceptions are as noted - HPI HPI: 03/29/19 20:12 Patient is a 64 year old male with a significant medical history of HTN, HLD, and EtOH abuse who presents to the ED today for chest pain. Patient states, the pain has been since this morning and is burning and radiates to from epigastric to the left chest. Patient reports NBNB vomitting. Patient is Nepalese speaking. Patient denies fever. Patient reports he usually drinks 10-12 beers daily but was only able to drink 3 today 2/2 pain. The patient states that he would like to go to detox after being evaluated here. 03/29/19 20:18 03/29/19 20:22 - Physicial Exam PE: 03/29/19 20:13 GENERAL: Awake, alert, and fully oriented, in no acute distress HEAD: No signs of trauma EYES: PERRLA, EOMI, sclera anicteric, conjunctiva clear ENT: +Tongue fasciculations Auricles normal inspection, hearing grossly normal, nares patent, oropharynx clear without exudates. Moist mucosa NECK: Normal ROM, supple, no lymphadenopathy, JVD, or masses LUNGS: Breath sounds equal, clear to auscultation bilaterally. No wheezes, and no crackles HEART: Regular rate and rhythm, normal S1 and S2, no murmurs, rubs or gallops ABDOMEN: Soft and non tender. Normoactive bowel sounds. No guarding, no rebound. No masses EXTREMITIES: Normal range of motion, no edema. No clubbing or cyanosis. No cords, erythema, or tenderness NEUROLOGICAL: Cranial nerves II through XII grossly intact. Normal speech, normal gait SKIN: Warm, Dry, normal turgor, no rashes or lesions noted. 03/29/19 20:20 03/29/19 21:19 - Medical Decision Making 03/29/19 20:14 64 year old male,likely with alcohol gastritis and withdrawal. He is requesting detox, cardiac enzymes x2, lipase, basic labs, reassessment, GI cocktail. EKG Normal sinus at 73, Left lower axis LVH, Inferior P waves, No ST elevations 1802 time 03/29/19 20:21
== END 2019-03-29 23:34 | disposition home or self-care (01) ==
LOC: JER 17:54
PROC: 3E033GC Introduction of Other Therapeutic Substance into Peripheral Vein, Percutaneous Approach (ICD-10-PCS; principal; 2019-03-29)
PROC: 3E033GC Introduction of Other Therapeutic Substance into Peripheral Vein, Percutaneous Approach (ICD-10-PCS; 2019-03-29)
PROC: 3E033NZ Introduction of Analgesics, Hypnotics, Sedatives into Peripheral Vein, Percutaneous Approach (ICD-10-PCS; 2019-03-29)
DX: K29.20 Alcoholic gastritis without bleeding (principal); F10.230 Alcohol dependence with withdrawal, uncomplicated; I25.10 Atherosclerotic heart disease of native coronary artery without angina pectoris; I10 Essential (primary) hypertension; I42.2 Other hypertrophic cardiomyopathy; E78.00 Pure hypercholesterolemia, unspecified; F32.9 Major depressive disorder, single episode, unspecified; Z87.891 Personal history of nicotine dependence
CPT/HCPCS: 36415; 71046-TC-FY; 80053; 80307; 82550; 83690; 83735; 84484; 85025; 85610; 85730; 93005; 93010; 99285-25; J0131

== ENCOUNTER 2019-03-30 02:14 | Emergency (ER) | payer SELFPAY ==
[2019-03-30 02:30] VITALS: TEMP 98.3; BMI 28.1
--- NOTE | 2019-03-30 02:37 | PDOC ---
History of Present Illness - General Chief Complaint: Blood Pressure Problem Stated Complaint: BLOOD PRESSURE PROBLEM Time Seen by Provider: 03/30/19 02:36 History Source: Patient Exam Limitations: No Limitations Past History - Past Medical History Allergies/Adverse Reactions: Allergies Allergy/AdvReac Type Severity Reaction Status Date / Time No Known Drug Allergies Allergy Verified 03/29/19 17:59 Home Medications: Ambulatory Orders Aspirin 81 mg PO DAILY 14 Days #14 tab.chew 12/23/18 Atorvastatin Calcium [Lipitor] 10 mg PO HS 14 Days #14 tablet 12/23/18 Metoprolol Succinate [Toprol Xl] 50 mg PO DAILY 14 Days #14 tab.er.24h 12/23/18 Anemia: No Asthma: No Cancer: No Cardiac Disorders: Yes (Hx of CAD) CVA: No COPD: No CHF: No Dementia: No Diabetes: No GI Disorders: No Disorders: No HTN: Yes Hypercholesterolemia: Yes Kidney Stones: No Liver Disease: No Psychiatric Problems: Yes (DEPRESSION) Seizures: No Thyroid Disease: No - Surgical History Abdominal Surgery: Yes (epigastric hernia) Appendectomy: Yes Cardiac Surgery: No Cholecystectomy: Yes GI Surgery: Yes (appendectomy) Lung Surgery: No Neurologic Surgery: No Orthopedic Surgery: No - Reproductive History Testicular Surgery: No - Immunization History Td Vaccination: Yes Immunization Up to Date: No - Psycho Social/Smoking Cessation Hx Smoking Status: Yes Smoking History: Unknown if ever smoked Years of Tobacco Use: 0 Have you smoked in the past 12 months: No Number of Cigarettes Smoked Daily: 0 If you are a former smoker, when did you quit?: smoked for 13 years Cigars Per Day: 0 Information on smoking cessation initiated: No 'Breaking Loose' booklet given: 06/12/12 Hx Alcohol Use: No Drug/Substance Use Hx: No Substance Use Type: Alcohol Hx Substance Use Treatment: Yes ([facility]) *Physical Exam - Vital Signs Last Vital Signs Temp Pulse Resp BP Pulse Ox 98.3 F 83 18 152/96 96 03/30/19 02:23 03/30/19 02:23 03/30/19 02:23 03/30/19 02:23 03/30/19 02:23
--- NOTE | 2019-03-30 04:22 | PDOC ---
Attending Attestation - Resident Resident Name: Genaro Dong - ED Attending Attestation I have performed the following: I have examined & evaluated the patient, The case was reviewed & discussed with the resident, I agree w/resident's findings & plan, Exceptions are as noted - HPI HPI: 04/05/19 22:16 See resident HPI - Physicial Exam PE: 04/05/19 22:16 Agree with exam as documented by resident - Medical Decision Making 04/05/19 22:17 Sent from [facility] for asymptomatic htn bp 152/96 in triage Not actively withdrawing No acute complaints dc in am
--- NOTE | 2019-03-30 05:30 | PDOC ---
History of Present Illness - General Chief Complaint: Blood Pressure Problem Stated Complaint: BLOOD PRESSURE PROBLEM Time Seen by Provider: 03/30/19 02:36 - History of Present Illness Initial Comments: 03/30/19 05:29 64m seen earlier tonight for alcohol intoxication, early withdrawal given librium, cardiac etiology r/o by 2 trops, discharged to [facility] for detox sent by [facility] as patient was trying to get admitted to [facility] for Detox. Sent immediately back from [facility] who deemed he didn't fit criteria for detox , found "hypertensive" at 152/70, sent back to the ED. Patient doesn't understand why he's back in the ER. Past History - Past Medical History Allergies/Adverse Reactions: Allergies Allergy/AdvReac Type Severity Reaction Status Date / Time No Known Drug Allergies Allergy Verified 03/29/19 17:59 Home Medications: Ambulatory Orders Aspirin 81 mg PO DAILY 14 Days #14 tab.chew 12/23/18 Atorvastatin Calcium [Lipitor] 10 mg PO HS 14 Days #14 tablet 12/23/18 Metoprolol Succinate [Toprol Xl] 50 mg PO DAILY 14 Days #14 tab.er.24h 12/23/18 Anemia: No Asthma: No Cancer: No Cardiac Disorders: Yes (Hx of CAD) CVA: No COPD: No CHF: No Dementia: No Diabetes: No GI Disorders: No Disorders: No HTN: Yes Hypercholesterolemia: Yes Kidney Stones: No Liver Disease: No Psychiatric Problems: Yes (DEPRESSION) Seizures: No Thyroid Disease: No - Surgical History Abdominal Surgery: Yes (epigastric hernia) Appendectomy: Yes Cardiac Surgery: No Cholecystectomy: Yes GI Surgery: Yes (appendectomy) Lung Surgery: No Neurologic Surgery: No Orthopedic Surgery: No - Reproductive History Testicular Surgery: No - Immunization History Td Vaccination: Yes TDAP Vaccination: Yes Immunization Up to Date: No - Psycho Social/Smoking Cessation Hx Smoking Status: Yes Smoking History: Unknown if ever smoked Years of Tobacco Use: 0 Have you smoked in the past 12 months: No Number of Cigarettes Smoked Daily: 0 If you are a former smoker, when did you quit?: smoked for 13 years Cigars Per Day: 0 Information on smoking cessation initiated: No 'Breaking Loose' booklet given: 06/12/12 Hx Alcohol Use: No Drug/Substance Use Hx: No Substance Use Type: Alcohol Hx Substance Use Treatment: Yes ([facility]) Review of Systems - Review of Systems Able to Perform ROS?: Yes Is the patient limited Burmese proficient: No Constitutional: No: Symptoms Reported HEENTM: No: Symptoms Reported Respiratory: No: Symptoms reported Cardiac (ROS): No: Symptoms Reported ABD/GI: No: Symptoms Reported : No: Symptoms Reported Musculoskeletal: No: Symptoms Reported Integumentary: No: Symptoms Reported Neurological: No: Symptoms reported All Other Systems: Reviewed and Negative *Physical Exam - Vital Signs Last Vital Signs Temp Pulse Resp BP Pulse Ox 98.3 F 83 18 152/96 96 03/30/19 02:23 03/30/19 02:23 03/30/19 02:23 03/30/19 02:23 03/30/19 02:23 - Physical Exam General Appearance: Yes: Nourished, Appropriately Dressed. No: Apparent Distress HEENT: positive: EOMI, DAYAN, Normal ENT Inspection Respiratory/Chest: positive: Lungs Clear, Normal Breath Sounds. negative: Chest Tender Cardiovascular: positive: Regular Rhythm, Regular Rate, S1, S2 Gastrointestinal/Abdominal: positive: Normal Bowel Sounds, Flat, Soft. negative : Tender Musculoskeletal: positive: Normal Inspection. negative: CVA Tenderness Extremity: positive: Normal Capillary Refill, Normal Inspection, Normal Range of Motion Integumentary: positive: Normal Color, Dry, Warm Neurologic: positive: Fully Oriented, Alert, Normal Mood/Affect, Normal Response , Motor Strength 5/5 Medical Decision Making - Medical Decision Making 03/30/19 07:22 64m with no complaints, previously cleared a few hours earlier, sent back by [facility]. Patient comfortable, sent home in the am. EKG unchanged. Discharge - Discharge Information Problems reviewed: Yes Clinical Impression/Diagnosis: Asymptomatic Condition: Good Disposition: HOME - Admission No - Follow up/Referral - Patient Discharge Instructions Patient Printed Discharge Instructions: DI for Alcohol Abuse Additional Instructions: Come back to the emergency department for any new worsening or concerning symptoms. Follow up with [facility] for your alcohol Detox needs. - Post Discharge Activity
[2019-03-30 06:07] VITALS: BP 137/80; PULSE 74
--- NOTE | 2019-03-30 11:00 | EKG ---
Test Reason : Blood Pressure : / mmHG Vent. Rate : 083 BPM Atrial Rate : 083 BPM P-R Int : 196 ms QRS Dur : 110 ms QT Int : 374 ms P-R-T Axes : 021 -55 035 degrees QTc Int : 439 ms NORMAL SINUS RHYTHM LEFT AXIS DEVIATION LATERAL INFARCT (CITED ON OR BEFORE 22-NOV-2018) INFERIOR INFARCT (CITED ON OR BEFORE 24-OCT-2018) ABNORMAL ECG WHEN COMPARED WITH ECG OF 29-MAR-2019 18:02, QUESTIONABLE CHANGE IN INITIAL FORCES OF LATERAL LEADS Confirmed by ROBER TEIXEIRA MD ([id number]) on 03/30/2019 10:59:36 AM Referred By: Confirmed By:ROBER TEIXEIRA MD
== END 2019-03-30 07:02 | disposition home or self-care (01) ==
LOC: JER 02:14
DX: F10.10 Alcohol abuse, uncomplicated (principal); I10 Essential (primary) hypertension; I25.10 Atherosclerotic heart disease of native coronary artery without angina pectoris; I42.2 Other hypertrophic cardiomyopathy; E78.5 Hyperlipidemia, unspecified; F32.9 Major depressive disorder, single episode, unspecified; Z90.49 Acquired absence of other specified parts of digestive tract
CPT/HCPCS: 93005; 93010; 99283-25

== ENCOUNTER 2019-08-08 12:27 | Emergency (ER) | payer SELFPAY ==
[2019-08-08 12:31] VITALS: TEMP 98.3; BMI 32.9
[2019-08-08] MEDS ORDERED: SODIUM CHLORIDE 1,000 ML IV STA (12:33)
--- NOTE | 2019-08-08 12:34 | PDOC ---
Rapid Medical Evaluation Time Seen by Provider: 08/08/19 12:29 Medical Evaluation: Allergies Allergy/AdvReac Type Severity Reaction Status Date / Time No Known Drug Allergies Allergy Verified 03/29/19 17:59 08/08/19 12:31 Pt presents for chest pain and headache starting 12 hours ago. Pt endorses drinking two 40 oz beers today. States he usually drinks 6 beers a day. Exam: non-tremulous, RRR Orders: labs, EKG Pt to proceed to the ER for further evaluation Discharge Disposition - Diagnosis Alcoholism Chest pain Qualifiers: Chest pain type: unspecified Qualified Code(s): R07.9 - Chest pain, unspecified - Referrals - Patient Instructions - Post Discharge Activity
[2019-08-08 13:01] LABS: BASO % 0.9 % (0-2.0); EOS % 0.5 % (0-4.5); HEMATOCRIT 45.2 % (35.4-49); HEMOGLOBIN 15.3 GM/dL (11.7-16.9); LYMPH % 19.4 % (8-40); MCH 33.3 pg (25.7-33.7); MCHC 33.9 g/dl (32.0-35.9); MEAN CELL VOLUME 98.3 fl (80-96); MEAN PLT VOLUME 8.1 fl (7.5-11.1); MONO % 7.1 % (3.8-10.2); NEUT % 72.1 % (42.8-82.8); PLATELET COUNT 81 K/MM3 (134-434); RDW 14.4 % (11.9-15.9); WHITE BLOOD COUNT 6.5 K/mm3 (4.0-10.0)
[2019-08-08 13:07] LABS: INR 1.17 (0.83-1.09); PROTHROMBIN TIME (PATIENT) 13.8 SEC (9.7-13.0)
[2019-08-08 13:23] LABS: ALK PHOS 228 U/L (45-117); ANION GAP 13 MMOL/L (8-16); BLOOD UREA NITROGEN 8.5 mg/dL (7-18); CALCIUM 8.5 mg/dL (8.5-10.1); CHLORIDE 101 mmol/L (98-107); CO2 22 mmol/L (21-32); CREATININE 0.9 mg/dL (0.55-1.3); GLUCOSE,RANDOM 92 mg/dL (74-106); MAGNESIUM 1.9 mg/dL (1.8-2.4); POTASSIUM 3.9 mmol/L (3.5-5.1); SGOT/AST 82 U/L (15-37); SGPT/ALT 48 U/L (13-61); SODIUM 136 mmol/L (136-145); TOT PROT 8.4 g/dl (6.4-8.2)
--- NOTE | 2019-08-08 13:30 | PDOC ---
History of Present Illness - General Chief Complaint: Chest Pain Stated Complaint: HEADACHE Time Seen by Provider: 08/08/19 12:29 History Source: Patient Exam Limitations: No Limitations - History of Present Illness Initial Comments: 08/08/19 13:28 64yM w PMHx HTN, HLD, borderline hypertrophic cardiomyopathy (EF 50%), EtOH abuse presenting w mild burning marilou chest pain, epgastric pain, and marilou frontal headache starting 12 hours ago after drinking 80oz beers today. States he u sually drinks 6 beers a day. Denies tremors, hallucinations, fever, vision change, SOB, cough, urinary/bowel mvmt changes. Past History - Medical History Allergies/Adverse Reactions: Allergies Allergy/AdvReac Type Severity Reaction Status Date / Time No Known Drug Allergies Allergy Verified 08/08/19 14:30 Home Medications: Ambulatory Orders Aspirin 81 mg PO DAILY 14 Days #14 tab.chew 12/23/18 Atorvastatin Calcium [Lipitor] 10 mg PO HS 14 Days #14 tablet 12/23/18 Metoprolol Succinate [Toprol Xl] 50 mg PO DAILY 14 Days #14 tab.er.24h 12/23/18 Anemia: No Asthma: No Cancer: No Cardiac Disorders: Yes (Hx of CAD) CVA: No COPD: No CHF: No Dementia: No Diabetes: No GI Disorders: No Disorders: No HTN: Yes Hypercholesterolemia: Yes Kidney Stones: No Liver Disease: No Psychiatric Problems: Yes (DEPRESSION) Seizures: No Thyroid Disease: No - Surgical History Abdominal Surgery: Yes (epigastric hernia) Appendectomy: Yes Cardiac Surgery: No Cholecystectomy: Yes GI Surgery: Yes (appendectomy) Lung Surgery: No Neurologic Surgery: No Orthopedic Surgery: No - Reproductive History Testicular Surgery: No - Immunization History Td Vaccination: Yes TDAP Vaccination: Yes Immunization Up to Date: No - Psycho-Social/Smoking History Smoking Status: Yes Smoking History: Never smoked Years of Tobacco Use: 0 Have you smoked in the past 12 months: No Number of Cigarettes Smoked Daily: 0 If you are a former smoker, when did you quit?: smoked for 13 years Cigars Per Day: 0 'Breaking Loose' booklet given: 06/12/12 - Substance Abuse Hx (Audit-C & DAST Scrn) How often the patient has a drink containing alcohol: 4 0r more times/wk Number of drinks the patient has on a typical day: 5 or 6 How often the patient has six or more drinks on one occasion: Daily or almost daily Score: In Men: 4 or > Positive; In Women: 3 or > Positive: 10 Screen Result (Pos requires Nsg. Audit-10AR): Positive In the last yr the pt used illegal drug/Rx for NonMed reason: No Score: Yes response is considered Positive: 0 Screen Result (Positive result requires Nsg. DAST-10): Negative Review of Systems - Review of Systems Constitutional: No: Chills, Fever HEENTM: No: Eye Pain, Nose Congestion Respiratory: No: Cough, Shortness of Breath Cardiac (ROS): Yes: Chest Pain. No: Palpitations ABD/GI: No: Abdominal Distended, Nausea, Vomiting : No: Burning, Discharge Musculoskeletal: No: Back Pain, Joint Pain Integumentary: No: Bruising, Flushing Neurological: Yes: Headache. No: Seizure Psychiatric: No: Anxiety, Depression Endocrine: No: Intolerance to Cold, Intolerance to Heat Hematologic/Lymphatic: No: Anemia, Blood Clots *Physical Exam - Vital Signs Last Vital Signs Temp Pulse Resp BP Pulse Ox 98.3 F 93 H 20 169/94 100 08/08/19 12:29 08/08/19 12:29 08/08/19 12:29 08/08/19 12:29 08/08/19 12:29 - Physical Exam General Appearance: Yes: Nourished, Appropriately Dressed, Mild Distress. No: Intoxicated HEENT: positive: EOMI, DAYAN, Normal Voice, Hearing Grossly Normal. negative: Scleral Icterus (R), Scleral Icterus (L) Respiratory/Chest: positive: Lungs Clear, Normal Breath Sounds. negative: Chest Tender, Respiratory Distress, Crackles, Rales, Rhonchi, Stridor, Wheezing Cardiovascular: positive: Regular Rhythm, Regular Rate, S1, S2. negative: Edema, Murmur Gastrointestinal/Abdominal: positive: Normal Bowel Sounds, Tender (mild epigastric), Soft, Distended. negative: Organomegaly Integumentary: positive: Normal Color, Warm Neurologic: positive: Fully Oriented, Alert, Normal Mood/Affect, Normal Response, Responsive. negative: Confused, Disoriented Heart Score/ECG Review - History History: Slightly suspicious - Electrocardiogram EKG: Normal - Age Age: 45-65 - Risk Factors Risk Factors Heart Score: Yes Hx Hypercholesterolemia, Yes Hx Hypertension, No Hx Diabetes, No Smoking History, No Positive family hx of cardiac disease, Yes Hx Obesity Based on the list above the patient has:: >/=3 risk factors or Hx atherosclerotic disease - Troponin Troponin: </= normal limit - Score Heart Score - Total: 3 ED Treatment Course - LABORATORY CBC & Chemistry Diagram: 08/08/19 12:52 08/08/19 12:52 - ADDITIONAL ORDERS Additional order review: Laboratory Results 08/08/19 08/08/19 12:52 12:52 PT with INR 13.80 H INR 1.17 H Sodium 136 Potassium 3.9 Chloride 101 Carbon Dioxide 22 Anion Gap 13 BUN 8.5 Creatinine 0.9 Est GFR (CKD-EPI)AfAm 105.72 Est GFR (CKD-EPI)NonAf 91.22 Random Glucose 92 Calcium 8.5 Magnesium 1.9 Total Bilirubin 2.0 H AST 82 H ALT 48 Alkaline Phosphatase 228 H Creatine Kinase 267 Troponin I < 0.02 Total Protein 8.4 H Albumin 4.0 08/08/19 12:52 RBC 4.60 MCV 98.3 H MCHC 33.9 RDW 14.4 MPV 8.1 Neutrophils % 72.1 D Lymphocytes % 19.4 D Monocytes % 7.1 Eosinophils % 0.5 Basophils % 0.9 Medical Decision Making - Medical Decision Making 08/08/19 13:48 EKG - sinus rhythm w PACs, LAD, HR 82, QTc 476, unchanged TWI V4-6 CXR - clear lung rojas --- 64yM w PMHx HTN, HLD, borderline hypertrophic cardiomyopathy (EF 50%), EtOH abuse presenting w mild burning marilou chest pain, epgastric pain, and marilou frontal headache starting 12 hours ago after drinking 80oz beers today Chest pain likely d/t alcoholic gastritis. Low concern for ACS (neg trop, unchanged EKG, HEART 3) vs PNA (clear lungs) vs withdrawal (no tremors). Mildly elevated bili unchanged. Randolph better after given 1L NS, tylenol, maalox, pepcid Pt is not intoxicated, AOx3, non slurred speech, stable gait. Pt open to detox but [facility] doesn't have any open beds at the moment. DC w PCP,cards. [facility] referrals Discharge - Discharge Information Problems reviewed: Yes Clinical Impression/Diagnosis: Alcoholism Chest pain Qualifiers: Chest pain type: unspecified Qualified Code(s): R07.9 - Chest pain, unspecified GERD (gastroesophageal reflux disease) Qualifiers: Esophagitis presence: without esophagitis Qualified Code(s): K21.9 - Gastro- esophageal reflux disease without esophagitis Condition: Improved Disposition: HOME - Follow up/Referral Referrals: Justino Venegas MD [Staff Physician] - Freddie Martinez MD [Staff Physician] - - Patient Discharge Instructions Additional Instructions: Stop drinking alcohol Call [facility] if you wish to undergo alcohol detox [address] Follow up with the referred primary care doctor and public area attendant --- Dejar de beber alcohol Llame a [facility] si desea someterse a anton desintoxicacin por alcohol. [facility] en [address] Seguimiento con el mdico de atencin primaria y el cardilogo referidos - Post Discharge Activity
[2019-08-08] MEDS ORDERED: MAG HYDROX/AL HYDROX/SIMETH -MYLANTA- ORAL SUSPENSION PO ONE (13:39)
[2019-08-08] MEDS ORDERED: ACETAMINOPHEN 500 MG TABLET (FP) PO ONE (13:39)
[2019-08-08] MEDS ORDERED: MAG HYDROX/AL HYDROX/SIMETH 30 ML UNIT-DOSE CUP ONE (13:49)
[2019-08-08] MEDS ORDERED: ACETAMINOPHEN 325 MG TABLET (FP) ONE (13:49)
[2019-08-08] MEDS ORDERED: FAMOTIDINE 20 MG TABLET PO ONE (13:54)
--- NOTE | 2019-08-08 14:09 | EKG ---
Test Reason : Blood Pressure : / mmHG Vent. Rate : 082 BPM Atrial Rate : 082 BPM P-R Int : 188 ms QRS Dur : 108 ms QT Int : 408 ms P-R-T Axes : 028 -41 045 degrees QTc Int : 476 ms SINUS RHYTHM WITH PREMATURE ATRIAL COMPLEXES POSSIBLE LEFT ATRIAL ENLARGEMENT LEFT AXIS DEVIATION INFERIOR-POSTERIOR INFARCT (CITED ON OR BEFORE 24-OCT-2018) ABNORMAL ECG Confirmed by Luis Fernando Muñoz MD ([id number]) on 08/08/2019 2:08:56 PM Referred By: Confirmed By:Luis Fernando Muñoz MD
[2019-08-08] MEDS ORDERED: FAMOTIDINE 20 MG TABLET ONE (14:11)
[2019-08-08 14:34] VITALS: BP 166/100; PULSE 78
--- NOTE | 2019-08-08 15:16 | PDOC ---
Documentation entered by Dede Beltrán SCRIBE, acting as scribe for Princess Petersen MD. Princess Petersen MD: This documentation has been prepared by the Jerel augustin Adrianna, SCRIBE, under my direction and personally reviewed by me in its entirety. I confirm that the documentation accurately reflects all work, treatment, procedures, and medical decision making performed by me. Attending Attestation - Resident Resident Name: Suzanna,Dean - ED Attending Attestation I have performed the following: I have examined & evaluated the patient, The case was reviewed & discussed with the resident, I agree w/resident's findings & plan, Exceptions are as noted - HPI HPI: The patient is a 64 year old male, with a significant PMH of HTN, HLD, borderline hypertrophic cardiomyopathy (EF 50%), depression, and EtOH abuse, who presents to the ED for evaluation of chest pain for one day. Patient complains of bilateral chest pain that began 12 hours ago. He endorses associated bilateral frontal headache. Patient admits to drinking 2 40z beers earlier today. Patient describes the pain as burning. States the pain began after he drank the alcohol. Allergies: NKA, NKDA Surgical History: Epigastric hernia repair, appendectomy, cholecystectomy Social History: EtOH abuse. Former smoker - Physicial Exam PE: 08/10/19 11:35 General: well appearing, NAD Chest: CTAB, good air entry, no wheezes rales or rhonchi CVS: + s1 s2, RRR Abdomen: soft, nt nd, no rebound, no guarding Extremities: no LE edema, warm and well perfused - Medical Decision Making 08/10/19 11:35 64 yo M with atypical chest pain, doubt ACS and EKG without ischemic changes, more likely GI etiology such as GERD or alcoholic gastritis. Plan: -labs -cxr -reassess, if labs and imaging unremarkable will d/c with return precautions and recommend PMD f/u This clinical encounter is taking place during a federal and state health care emergency attributable to the novel Harry Virus pandemic. The [place] of the Department of Health and Human Services has declared, pursuant to the Public Health Service Act 319F-3 (42 U.S.C. 247d-6d), that a covered persons activities related to medical countermeasures against COVID-19 will be immune from liability under Federal and State law. Heart Score/ECG Review - ECG Impressions Normal ECG: No Comment:: ECG performed at 12:40 on 08/08/2019 demonstrates sinus rhythm with premature atrial complexes. 82bpm. Possible left atrial enlargement. Left axis deviation. Inferior-posterior infarct, age undetermined. Discharge - Discharge Information Problems reviewed: Yes Clinical Impression/Diagnosis: Alcoholism Chest pain Qualifiers: Chest pain type: unspecified Qualified Code(s): R07.9 - Chest pain, unspecified GERD (gastroesophageal reflux disease) Qualifiers: Esophagitis presence: without esophagitis Qualified Code(s): K21.9 - Gastro- esophageal reflux disease without esophagitis Condition: Improved Disposition: HOME - Follow up/Referral Referrals: Justino Venegas MD [Staff Physician] - Freddie Martinez MD [Staff Physician] - - Patient Discharge Instructions Additional Instructions: Stop drinking alcohol Call [facility] if you wish to undergo alcohol detox [facility] at [address] Follow up with the referred primary care doctor and guide winder --- Dejar de beber alcohol Llame a [facility] si desea someterse a anton desintoxicacin por alcohol. [facility] en [address] Seguimiento con el mdico de atencin primaria y el cardilogo referidos - Post Discharge Activity
[2019-08-08 15:36] LABS: EPI CELLS 1 /uL (0-25.1); HYALINE CASTS 2 /uL (0-3.1); URINE APPEARANCE CLEAR; URINE BACTERIA 2 /uL (0-1359); URINE BILIRUBIN NEGATIVE (NEGATIVE); URINE COLOR YELLOW; URINE GLUCOSE (UA) NEGATIVE (NEGATIVE); URINE KETONE 1+ (NEGATIVE); URINE LEUK ESTERASE NEGATIVE (NEGATIVE); URINE NITRITE NEGATIVE (NEGATIVE); URINE PROTEIN 2+ (NEGATIVE); URINE RBC 7 /uL (0-23.9); URINE WBC 2 /uL (0-25.8)
== END 2019-08-08 15:39 | disposition home or self-care (01) ==
LOC: JER 12:27
PROC: 3E0337Z Introduction of Electrolytic and Water Balance Substance into Peripheral Vein, Percutaneous Approach (ICD-10-PCS; principal; 2019-08-08)
DX: R07.9 Chest pain, unspecified (principal); K21.9 Gastro-esophageal reflux disease without esophagitis; F10.929 Alcohol use, unspecified with intoxication, unspecified
CPT/HCPCS: 36415; 71046-TC-FY; 80053; 81003; 82550; 82553; 83735; 84484; 85025; 85610; 93005; 93010; 99285-25; U0003

== ENCOUNTER 2020-01-21 17:48 | Inpatient (IN) | payer SELFPAY ==
[2020-01-21] MEDS ORDERED: IBUPROFEN 400 MG TABLET (FP) PO PRN (21:06)
[2020-01-21] MEDS ORDERED: MAG HYDROX/AL HYDROX/SIMETH 30 ML UNIT-DOSE CUP PO PRN (21:06)
[2020-01-21] MEDS ORDERED: METHOCARBAMOL 500 MG TABLET PO PRN (21:06)
[2020-01-21] MEDS ORDERED: LORazepam 1 MG TABLET PO PRN (21:06)
[2020-01-21] MEDS ORDERED: BISMUTH SUBSALICYLATE 524 MG/30 ML UD PO PRN (21:06)
[2020-01-21] MEDS ORDERED: ONDANSETRON *ODT* 4 MG TABLET SL PRN (21:06)
[2020-01-21] MEDS ORDERED: MENTHOL/PHENOL 1 EACH UD MM PRN (21:06)
[2020-01-21] MEDS ORDERED: ACETAMINOPHEN 325 MG TABLET (FP) PO PRN (21:06)
[2020-01-21] MEDS ORDERED: MAGNESIUM HYDROX 2400MG/30ML ORAL SUSPENSION 30 ML CUP PO PRN (21:06)
[2020-01-21] MEDS ORDERED: MAGNESIUM CITRATE 300 ML BOTTLE PO PRN (21:06)
[2020-01-21 21:42] VITALS: BMI 35.0
[2020-01-21] MEDS: THIAMINE HCL 100 MG TABLET (FP) PO SCH (22:41)
[2020-01-21] MEDS: LORazepam 2 MG TABLET PO SCH (22:41)
[2020-01-21] MEDS: ATORVASTATIN CA 10 MG TABLET (FP) PO SCH (22:41)
[2020-01-21] MEDS: MELATONIN 5 MG TABLETS PO SCH (22:41)
[2020-01-21] MEDS: hydrOXYzine PAMOATE 25 MG CAPSULE (FP) PO SCH (22:41)
[2020-01-22] MEDS: LORazepam 2 MG TABLET PO SCH ×4 (05:59→22:14)
[2020-01-22] MEDS: hydrOXYzine PAMOATE 25 MG CAPSULE (FP) PO SCH (06:00)
[2020-01-22] MEDS ORDERED: ASPIRIN 81 MG CHEWABLE TABLETS PO SCH (10:00)
[2020-01-22] MEDS: PRENATAL VITAMINS W/ FOLIC ACID TABLET (FP) PO SCH (10:39)
[2020-01-22] MEDS: ASPIRIN COATED 81 MG TABLET.EC PO SCH (10:39)
[2020-01-22 10:54] LABS: HEMATOCRIT 42.7 % (35.4-49); HEMOGLOBIN 14.4 GM/dL (11.7-16.9); MCH 31.8 pg (25.7-33.7); MCHC 33.7 g/dl (32.0-35.9); MEAN CELL VOLUME 94.2 fl (80-96); MEAN PLT VOLUME 8.8 fl (7.5-11.1); PLATELET COUNT 68 K/MM3 (134-434); RBC 4.54 M/mm3 (4.00-5.60); RDW 15.3 % (11.9-15.9)
[2020-01-22 11:02] LABS: POTASSIUM 3.8 mmol/L (3.5-5.1)
[2020-01-22 11:18] LABS: ALBUMIN 3.7 g/dl (3.4-5.0)
[2020-01-22 11:20] LABS: BILIRUBIN,TOTAL 1.8 mg/dL (0.2-1); TOT PROT 8.4 g/dl (6.4-8.2)
[2020-01-22 11:21] LABS: CALCIUM 8.9 mg/dL (8.5-10.1)
[2020-01-22] MEDS ORDERED: FLU VACCINE (FLULAVAL) PF 60 MCG/0.5 ML SYRINGE 2020-2021 IM ONE (12:00)
[2020-01-22] MEDS: hydrOXYzine PAMOATE 25 MG CAPSULE (FP) PO PRN (17:45)
[2020-01-22] MEDS ORDERED: ATORVASTATIN CA 10 MG TABLET (FP) PO SCH (22:00)
[2020-01-22] MEDS: ATORVASTATIN CA 10 MG TABLET (FP) PO SCH (22:14)
[2020-01-22] MEDS: THIAMINE HCL 100 MG TABLET (FP) PO SCH (22:14)
[2020-01-22] MEDS: MELATONIN 5 MG TABLETS PO SCH (22:14)
[2020-01-23] MEDS: LORazepam 1 MG TABLET PO SCH ×4 (06:14→22:11)
[2020-01-23] MEDS: ASPIRIN COATED 81 MG TABLET.EC PO SCH (10:07)
[2020-01-23] MEDS: PRENATAL VITAMINS W/ FOLIC ACID TABLET (FP) PO SCH (10:09)
[2020-01-23] MEDS: ACETAMINOPHEN 325 MG TABLET (FP) PO PRN (16:48)
[2020-01-23] MEDS: MELATONIN 5 MG TABLETS PO SCH (22:11)
[2020-01-23] MEDS: THIAMINE HCL 100 MG TABLET (FP) PO SCH (22:11)
[2020-01-23] MEDS: ATORVASTATIN CA 10 MG TABLET (FP) PO SCH (22:11)
[2020-01-24] MEDS ORDERED: LORazepam 0.5 MG TABLET PO PRN
[2020-01-24] MEDS: LORazepam 0.5 MG TABLET PO SCH ×4 (05:56→22:15)
[2020-01-24] MEDS: ASPIRIN COATED 81 MG TABLET.EC PO SCH (10:30)
[2020-01-24] MEDS: PRENATAL VITAMINS W/ FOLIC ACID TABLET (FP) PO SCH (10:30)
[2020-01-24 11:02] LABS: POTASSIUM 3.5 mmol/L (3.5-5.1)
[2020-01-24 11:07] LABS: CALCIUM 8.5 mg/dL (8.5-10.1)
[2020-01-24 11:11] LABS: CREATININE 0.9 mg/dL (0.55-1.3)
[2020-01-24 11:13] LABS: BILIRUBIN,TOTAL 1.3 mg/dL (0.2-1); TOT PROT 7.2 g/dl (6.4-8.2)
[2020-01-24] MEDS: LISINOPRIL 10 MG TABLET PO SCH (14:53)
[2020-01-24] MEDS: ACETAMINOPHEN 325 MG TABLET (FP) PO PRN (19:07)
[2020-01-24] MEDS: hydrOXYzine PAMOATE 25 MG CAPSULE (FP) PO PRN (22:15)
[2020-01-24] MEDS: ATORVASTATIN CA 10 MG TABLET (FP) PO SCH (22:15)
[2020-01-24] MEDS: THIAMINE HCL 100 MG TABLET (FP) PO SCH (22:15)
[2020-01-24] MEDS: MELATONIN 5 MG TABLETS PO SCH (22:16)
[2020-01-25] MEDS ORDERED: LORazepam 0.5 MG TABLET PO ONE (05:00)
[2020-01-25 06:20] VITALS: TEMP 97.3
[2020-01-25 09:40] VITALS: BP 152/91; PULSE 65
[2020-01-25] MEDS: PRENATAL VITAMINS W/ FOLIC ACID TABLET (FP) PO SCH (10:33)
[2020-01-25] MEDS: ASPIRIN COATED 81 MG TABLET.EC PO SCH (10:33)
[2020-01-25] MEDS: LISINOPRIL 10 MG TABLET PO SCH (10:33)
== END 2020-01-25 11:52 | disposition home or self-care (01) | DRG 775 ==
LOC: YASAS 17:48 → Y6N 21:10
PROVIDERS: ADMIT Allergy & Immunology; ATTEND Allergy & Immunology
PROC: HZ2ZZZZ Detoxification Services for Substance Abuse Treatment (ICD-10-PCS; principal; 2020-01-21)
DX: F10.230 Alcohol dependence with withdrawal, uncomplicated (principal); R73.09 Other abnormal glucose; R74.01 Elevation of levels of liver transaminase levels; I10 Essential (primary) hypertension; I25.110 Atherosclerotic heart disease of native coronary artery with unstable angina pectoris; H43.9 Unspecified disorder of vitreous body; K76.89 Other specified diseases of liver; E66.9 Obesity, unspecified; Z68.35 Body mass index [BMI] 35.0-35.9, adult
CPT/HCPCS: 36415; 80053; 82962; 85027; 86780; C9803; U0003

== ENCOUNTER 2021-09-16 22:45 | Inpatient (IN) | payer OTHER ==
[2021-09-16] MEDS ORDERED: ACETAMINOPHEN 1000 MG/100 ML BAG IVPB ONE (23:57)
[2021-09-16] MEDS ORDERED: METOCLOPRAMIDE HCL INJECTION 10 MG/2 ML VIAL IVPB ONE (23:57)
[2021-09-17] MEDS ORDERED: SODIUM CHLORIDE 0.9% 500 ML INFUS.BAG IV ONE (00:02)
[2021-09-17] MEDS ORDERED: chlordiazePOXIDE HCL 25 MG CAPSULE PO ONE (00:02)
[2021-09-17] MEDS ORDERED: ACETAMINOPHEN INJECTION 100 ML IVPB ONE (00:28)
[2021-09-17] MEDS ORDERED: METOCLOPRAMIDE HCL INJECTION 10 MG/2 ML VIAL ONE (00:28)
[2021-09-17] MEDS ORDERED: chlordiazePOXIDE HCL 25 MG CAPSULE ONE (00:28)
[2021-09-17 00:56] LABS: BASO % 0.7 % (0-2.0); EOS % 2.1 % (0-4.5); MCH 31.9 pg (25.7-33.7); MCHC 34.2 g/dl (32.0-35.9); MEAN PLT VOLUME 8.1 fl (7.5-11.1); MONO % 15.4 % (3.8-10.2); NEUT % 50.8 % (42.8-82.8); RBC 3.77 M/mm3 (4.00-5.60); RDW 19.9 % (11.9-15.9); WHITE BLOOD COUNT 3.7 K/mm3 (4.0-10.0)
[2021-09-17 01:15] LABS: CALCIUM 7.7 mg/dL (8.5-10.1)
[2021-09-17 01:16] LABS: ALBUMIN 2.7 g/dl (3.4-5.0); BLOOD UREA NITROGEN 15.2 mg/dL (7-18)
[2021-09-17 01:20] LABS: CREATININE 1.3 mg/dL (0.55-1.3); TOT PROT 8.2 g/dl (6.4-8.2)
[2021-09-17 02:19] LABS: PLATELET COUNT 36 10^3/uL (134-434)
[2021-09-17 05:45] LABS: INR 1.3 (0.83-1.09)
[2021-09-17 05:48] LABS: ACTIVATED PTT 34.4 SECONDS (25.2-36.5)
[2021-09-17] MEDS ORDERED: LORazepam 1 MG TABLET PO PRN (05:53)
[2021-09-17 08:08] LABS: HEMATOCRIT 35.4 % (35.4-49); HEMOGLOBIN 11.9 GM/dL (11.7-16.9); MCH 31.4 pg (25.7-33.7); MCHC 33.8 g/dl (32.0-35.9); RDW 19.9 % (11.9-15.9); WHITE BLOOD COUNT 2.8 K/mm3 (4.0-10.0)
[2021-09-17 08:16] LABS: PLATELET COUNT 31 10^3/uL (134-434)
[2021-09-17 08:24] LABS: MAGNESIUM 1.6 mg/dL (1.8-2.4)
[2021-09-17] MEDS ORDERED: THIAMINE HCL 100 MG TABLET (FP) ONE (09:17)
[2021-09-17] MEDS ORDERED: FOLIC ACID 1 MG TABLET (FP) ONE (09:17)
[2021-09-17] MEDS ORDERED: LISINOPRIL 10 MG TABLET ONE (09:18)
[2021-09-17] MEDS ORDERED: LIDOCAINE 5% TOPICAL PATCH ONE (09:18)
[2021-09-17] MEDS: LIDOCAINE 5% TOPICAL PATCH TP SCH (09:23)
[2021-09-17] MEDS: FOLIC ACID 1 MG TABLET (FP) PO SCH (09:23)
[2021-09-17] MEDS: THIAMINE HCL 100 MG TABLET (FP) PO SCH (09:24)
[2021-09-17] MEDS: LISINOPRIL 10 MG TABLET PO SCH (09:24)
[2021-09-17] MEDS ORDERED: ENOXAPARIN NA (PORCINE) 40 MG/0.4 ML DISP.SYRIN SQ SCH (10:00)
[2021-09-17 10:04] LABS: N-TERMINAL BNP 84.4 pg/ml (5-125)
[2021-09-17 11:11] LABS: CALCIUM 7.5 mg/dL (8.5-10.1)
[2021-09-17 11:12] LABS: ALBUMIN 2.6 g/dl (3.4-5.0)
[2021-09-17 11:15] LABS: CREATININE 1.2 mg/dL (0.55-1.3)
[2021-09-17 11:16] LABS: BILIRUBIN,TOTAL 1.3 mg/dL (0.2-1); TOT PROT 7.7 g/dl (6.4-8.2)
[2021-09-17] MEDS ORDERED: LORazepam 1 MG TABLET ONE ×3 (11:30→23:10)
[2021-09-17] MEDS: LORazepam 2 MG TABLET PO SCH ×3 (11:42→23:18)
[2021-09-17] MEDS ORDERED: ATORVASTATIN CA 10 MG TABLET (FP) ONE (21:22)
[2021-09-17] MEDS: INSULIN SLIDING SCALE (NOVOLOG) 1 VIAL SQ SCH (21:33)
[2021-09-17] MEDS: LIDOCAINE PATCH REMOVAL MC SCH (21:35)
[2021-09-17] MEDS: ATORVASTATIN CA 10 MG TABLET (FP) PO SCH (21:35)
[2021-09-18 05:01] LABS: EPI CELLS 2 /uL (0-25.1); HYALINE CASTS 0 /uL (0-3.1); URINE APPEARANCE CLEAR; URINE BACTERIA 8 /uL (0-1359); URINE BILIRUBIN NEGATIVE (NEGATIVE); URINE COLOR ORANGE; URINE GLUCOSE (UA) NEGATIVE (NEGATIVE); URINE KETONE NEGATIVE (NEGATIVE); URINE LEUK ESTERASE NEGATIVE (NEGATIVE); URINE NITRITE NEGATIVE (NEGATIVE); URINE PROTEIN 3+ (NEGATIVE); URINE RBC 2723 /uL (0-23.9); URINE WBC 12 /uL (0-25.8)
[2021-09-18] MEDS ORDERED: LORazepam 1 MG TABLET ONE ×2 (06:22→10:48)
[2021-09-18] MEDS: LORazepam 2 MG TABLET PO SCH ×3 (06:25→17:21)
[2021-09-18] MEDS: INSULIN SLIDING SCALE (NOVOLOG) 1 VIAL SQ SCH ×4 (07:30→21:38)
[2021-09-18 07:50] LABS: BASO % 0.5 % (0-2.0); HEMATOCRIT 35.7 % (35.4-49); HEMOGLOBIN 12.3 GM/dL (11.7-16.9); LYMPH % 35.9 % (8-40); MCH 31.7 pg (25.7-33.7); MCHC 34.5 g/dl (32.0-35.9); MEAN CELL VOLUME 91.9 fl (80-96); MEAN PLT VOLUME 8.5 fl (7.5-11.1); MONO % 12.9 % (3.8-10.2); NEUT % 47.7 % (42.8-82.8); RBC 3.89 M/mm3 (4.00-5.60); RDW 18.6 % (11.9-15.9)
[2021-09-18 07:56] LABS: PLATELET COUNT 27 10^3/uL (134-434)
[2021-09-18 08:14] LABS: CHLORIDE 106 mmol/L (98-107); SODIUM 143 mmol/L (136-145)
[2021-09-18 08:18] LABS: ALBUMIN 2.4 g/dl (3.4-5.0); BLOOD UREA NITROGEN 15.6 mg/dL (7-18); CALCIUM 7.4 mg/dL (8.5-10.1); GLUCOSE,RANDOM 98 mg/dL (74-106); MAGNESIUM 1.1 mg/dL (1.8-2.4)
[2021-09-18 08:22] LABS: CO2 30 mmol/L (21-32); CREATININE 1.3 mg/dL (0.55-1.3); SGOT/AST 50 U/L (15-37); TOT PROT 7.4 g/dl (6.4-8.2)
[2021-09-18 08:24] LABS: ALK PHOS 167 U/L (45-117)
[2021-09-18 08:25] LABS: ANION GAP 7 MMOL/L (8-16); SGPT/ALT 26 U/L (13-61)
[2021-09-18] MEDS ORDERED: MAGNESIUM SULFATE IN WATER 2 GM/50 ML IVPB IVPB ONE (08:53)
[2021-09-18] MEDS ORDERED: POTASSIUM CHLORIDE TABS 20 MEQ TABLET.ER (FP) PO ONE ×2 (09:00→09:08)
[2021-09-18] MEDS ORDERED: MAGNESIUM SULF 50% (8.12 MEQ/2 ML-1 GM VIAL) IVPB ONE (09:15)
[2021-09-18] MEDS ORDERED: MAGNESIUM OXIDE 400 MG TABLET (FP) PO ONE (09:15)
[2021-09-18] MEDS ORDERED: LISINOPRIL 10 MG TABLET ONE (09:32)
[2021-09-18] MEDS ORDERED: KCL 10 MEQ IVPB 30 MEQ/300 ML INFUS.BAG IVPB ONE (09:32)
[2021-09-18] MEDS ORDERED: LIDOCAINE 5% TOPICAL PATCH ONE (09:32)
[2021-09-18] MEDS ORDERED: THIAMINE HCL 100 MG TABLET (FP) ONE (09:32)
[2021-09-18] MEDS ORDERED: FOLIC ACID 1 MG TABLET (FP) ONE (09:32)
[2021-09-18] MEDS: LIDOCAINE 5% TOPICAL PATCH TP SCH (09:50)
[2021-09-18] MEDS: FOLIC ACID 1 MG TABLET (FP) PO SCH (09:50)
[2021-09-18] MEDS: THIAMINE HCL 100 MG TABLET (FP) PO SCH (09:51)
[2021-09-18] MEDS: LISINOPRIL 10 MG TABLET PO SCH (09:51)
[2021-09-18] MEDS: KCL 10 MEQ IVPB 10 MEQ/100 ML INFUS.BAG IVPB SCH ×3 (10:20→14:38)
[2021-09-18] MEDS ORDERED: LORazepam 2 MG/ML SDV VIAL IVPUSH ONE (12:33)
[2021-09-18 13:50] LABS: ALBUMIN 2.7 g/dl (3.4-5.0); BLOOD UREA NITROGEN 15.7 mg/dL (7-18); CALCIUM 7.7 mg/dL (8.5-10.1)
[2021-09-18 13:53] LABS: CREATININE 1.3 mg/dL (0.55-1.3)
[2021-09-18 13:55] LABS: BILIRUBIN,TOTAL 1.9 mg/dL (0.2-1); TOT PROT 8.4 g/dl (6.4-8.2)
[2021-09-18] MEDS: LORazepam 2 MG/ML SDV VIAL IVPUSH PRN ×2 (14:25→17:43)
[2021-09-18 17:00] VITALS: BMI 31.2
[2021-09-18] MEDS: LORazepam 1 MG TABLET PO SCH ×2 (17:13→22:03)
[2021-09-18] MEDS ORDERED: LORazepam 2 MG/ML SDV VIAL IVPUSH PRN (18:53)
[2021-09-18] MEDS: ATORVASTATIN CA 10 MG TABLET (FP) PO SCH (21:32)
[2021-09-18] MEDS: LIDOCAINE PATCH REMOVAL MC SCH (21:32)
[2021-09-19] MEDS: LORazepam 1 MG TABLET PO SCH ×4 (06:06→22:39)
[2021-09-19] MEDS: INSULIN SLIDING SCALE (NOVOLOG) 1 VIAL SQ SCH ×4 (06:12→22:32)
[2021-09-19 09:04] LABS: INR 1.47 (0.83-1.09)
[2021-09-19 09:19] LABS: BASO % 0.5 % (0-2.0); EOS % 3.1 % (0-4.5); HEMATOCRIT 37.9 % (35.4-49); HEMOGLOBIN 13.2 GM/dL (11.7-16.9); LYMPH % 28.9 % (8-40); MCH 31.9 pg (25.7-33.7); MCHC 34.7 g/dl (32.0-35.9); MEAN CELL VOLUME 91.8 fl (80-96); MEAN PLT VOLUME 8.3 fl (7.5-11.1); MONO % 15.5 % (3.8-10.2); RBC 4.13 M/mm3 (4.00-5.60); RDW 18.9 % (11.9-15.9); WHITE BLOOD COUNT 3.7 K/mm3 (4.0-10.0)
[2021-09-19 09:27] LABS: CHLORIDE 110 mmol/L (98-107); SODIUM 145 mmol/L (136-145)
[2021-09-19 09:50] LABS: PLATELET COUNT 33 10^3/uL (134-434)
[2021-09-19 09:59] LABS: ALBUMIN 2.4 g/dl (3.4-5.0)
[2021-09-19 10:02] LABS: CREATININE 1.4 mg/dL (0.55-1.3); SGOT/AST 57 U/L (15-37)
[2021-09-19 10:04] LABS: BILIRUBIN,TOTAL 2.3 mg/dL (0.2-1); CALCIUM 7.8 mg/dL (8.5-10.1); TOT PROT 7.3 g/dl (6.4-8.2)
[2021-09-19 10:05] LABS: BLOOD UREA NITROGEN 16.8 mg/dL (7-18); CO2 24 mmol/L (21-32); GLUCOSE,RANDOM 97 mg/dL (74-106); MAGNESIUM 1.4 mg/dL (1.8-2.4)
[2021-09-19 10:10] LABS: SGPT/ALT 27 U/L (13-61)
[2021-09-19 10:13] LABS: ALK PHOS 147 U/L (45-117); ANION GAP 11 MMOL/L (8-16)
[2021-09-19 10:17] LABS: HIV INTERPRETATION NEGATIVE (NEGATIVE)
[2021-09-19] MEDS: THIAMINE HCL 100 MG TABLET (FP) PO SCH (10:42)
[2021-09-19] MEDS: LIDOCAINE 5% TOPICAL PATCH TP SCH (10:45)
[2021-09-19] MEDS: FOLIC ACID 1 MG TABLET (FP) PO SCH (10:45)
[2021-09-19] MEDS: LISINOPRIL 20 MG TABLET PO SCH (10:45)
[2021-09-19] MEDS: POTASSIUM CHLORIDE TABS 20 MEQ TABLET.ER (FP) PO SCH ×3 (11:46→22:39)
[2021-09-19] MEDS: MAGNESIUM OXIDE 400 MG TABLET (FP) PO SCH ×2 (11:47→22:39)
[2021-09-19] MEDS ORDERED: BENZOCAINE/MENTHOL (CHLORASEPTIC ) LOZENGE MM PRN (16:37)
[2021-09-19] MEDS ORDERED: BISMUTH SUBSALICYLATE 524 MG/30 ML PO PRN (16:37)
[2021-09-19] MEDS ORDERED: MAG HYDROX/AL HYDROX/SIMETH 30 ML UNIT-DOSE CUP PO PRN (16:37)
[2021-09-19] MEDS ORDERED: MAGNESIUM CITRATE 300 ML BOTTLE PO PRN (16:37)
[2021-09-19] MEDS ORDERED: IBUPROFEN 600 MG TABLET (FP) PO PRN (16:37)
[2021-09-19] MEDS ORDERED: MAGNESIUM HYDROX 2400MG/30ML ORAL SUSPENSION 30 ML CUP PO PRN (16:37)
[2021-09-19] MEDS ORDERED: NICOTINE 10 MG CARTRIDGE (INHALER) IH PRN (16:37)
[2021-09-19] MEDS ORDERED: IBUPROFEN 400 MG TABLET (FP) PO PRN (16:37)
[2021-09-19] MEDS ORDERED: METHOCARBAMOL 500 MG TABLET PO PRN (16:37)
[2021-09-19] MEDS ORDERED: LOPERAMIDE HCL 2 MG CAPSULE PO PRN (16:37)
[2021-09-19] MEDS ORDERED: ONDANSETRON *ODT* 4 MG TABLET SL PRN (16:37)
[2021-09-19] MEDS: PRENATAL VITAMINS W/ FOLIC ACID TABLET (FP) PO SCH (19:43)
[2021-09-19] MEDS: hydrOXYzine PAMOATE 25 MG CAPSULE (FP) PO SCH ×2 (19:43→23:11)
[2021-09-19] MEDS: MELATONIN 5 MG TABLETS PO SCH (22:38)
[2021-09-19] MEDS: ATORVASTATIN CA 10 MG TABLET (FP) PO SCH (22:39)
[2021-09-19] MEDS: LIDOCAINE PATCH REMOVAL MC SCH (23:10)
[2021-09-20] MEDS ORDERED: LORazepam 0.5 MG TABLET PO PRN
[2021-09-20] MEDS: LORazepam 0.5 MG TABLET PO SCH ×4 (06:15→23:45)
[2021-09-20] MEDS: hydrOXYzine PAMOATE 25 MG CAPSULE (FP) PO SCH ×5 (06:15→21:34)
[2021-09-20] MEDS: INSULIN SLIDING SCALE (NOVOLOG) 1 VIAL SQ SCH ×4 (07:45→21:34)
[2021-09-20 09:55] LABS: BASO % 0.8 % (0-2.0); EOS % 5.6 % (0-4.5); HEMATOCRIT 37.7 % (35.4-49); LYMPH % 36.8 % (8-40); MCH 32.1 pg (25.7-33.7); MCHC 34.4 g/dl (32.0-35.9); MEAN CELL VOLUME 93.4 fl (80-96); MEAN PLT VOLUME 8.3 fl (7.5-11.1); MONO % 15.8 % (3.8-10.2); PLATELET COUNT 41 10^3/uL (134-434); RBC 4.04 M/mm3 (4.00-5.60); RDW 19.3 % (11.9-15.9); WHITE BLOOD COUNT 3.8 K/mm3 (4.0-10.0)
[2021-09-20 10:01] LABS: INR 1.34 (0.83-1.09); PROTHROMBIN TIME (PATIENT) 15.5 SEC (9.7-13.0)
[2021-09-20 10:17] LABS: ALBUMIN 2.3 g/dl (3.4-5.0); CALCIUM 8.1 mg/dL (8.5-10.1); MAGNESIUM 1.8 mg/dL (1.8-2.4)
[2021-09-20 10:18] LABS: BLOOD UREA NITROGEN 21.2 mg/dL (7-18)
[2021-09-20 10:20] LABS: CREATININE 1.5 mg/dL (0.55-1.3)
[2021-09-20 10:22] LABS: BILIRUBIN,TOTAL 1.8 mg/dL (0.2-1); TOT PROT 7.1 g/dl (6.4-8.2)
[2021-09-20] MEDS: FOLIC ACID 1 MG TABLET (FP) PO SCH (10:27)
[2021-09-20] MEDS: MAGNESIUM OXIDE 400 MG TABLET (FP) PO SCH (10:28)
[2021-09-20] MEDS: PRENATAL VITAMINS W/ FOLIC ACID TABLET (FP) PO SCH (10:29)
[2021-09-20] MEDS: THIAMINE HCL 100 MG TABLET (FP) PO SCH (10:29)
[2021-09-20] MEDS: LISINOPRIL 20 MG TABLET PO SCH (10:29)
[2021-09-20] MEDS: LIDOCAINE 5% TOPICAL PATCH TP SCH (14:04)
[2021-09-20] MEDS: SODIUM CHLORIDE 1,000 ML IV SCH (18:00)
[2021-09-20] MEDS: ATORVASTATIN CA 10 MG TABLET (FP) PO SCH (21:34)
[2021-09-20] MEDS: LIDOCAINE PATCH REMOVAL MC SCH (21:34)
[2021-09-20] MEDS: MELATONIN 5 MG TABLETS PO SCH (21:34)
[2021-09-21] MEDS ORDERED: LORazepam 0.5 MG TABLET PO ONE (05:00)
[2021-09-21] MEDS: hydrOXYzine PAMOATE 25 MG CAPSULE (FP) PO SCH ×6 (06:29→21:51)
[2021-09-21] MEDS: INSULIN SLIDING SCALE (NOVOLOG) 1 VIAL SQ SCH ×4 (06:48→21:57)
[2021-09-21] MEDS: SODIUM CHLORIDE 1,000 ML IV SCH ×2 (07:03→17:24)
[2021-09-21 08:49] LABS: BASO % 0.5 % (0-2.0); HEMATOCRIT 38.1 % (35.4-49); LYMPH % 34.9 % (8-40); MCH 32.1 pg (25.7-33.7); MCHC 34.2 g/dl (32.0-35.9); MEAN PLT VOLUME 7.9 fl (7.5-11.1); MONO % 15.7 % (3.8-10.2); NEUT % 44.9 % (42.8-82.8); PLATELET COUNT 44 10^3/uL (134-434); RBC 4.06 M/mm3 (4.00-5.60); RDW 19.1 % (11.9-15.9); WHITE BLOOD COUNT 3.5 K/mm3 (4.0-10.0)
[2021-09-21 09:07] LABS: ALBUMIN 2.4 g/dl (3.4-5.0); BLOOD UREA NITROGEN 27.8 mg/dL (7-18); MAGNESIUM 1.8 mg/dL (1.8-2.4)
[2021-09-21 09:10] LABS: CREATININE 1.5 mg/dL (0.55-1.3)
[2021-09-21 09:11] LABS: BILIRUBIN,TOTAL 1.3 mg/dL (0.2-1); TOT PROT 7.3 g/dl (6.4-8.2)
[2021-09-21 09:19] LABS: INR 1.26 (0.83-1.09); PROTHROMBIN TIME (PATIENT) 14.5 SEC (9.7-13.0)
[2021-09-21] MEDS: LIDOCAINE 5% TOPICAL PATCH TP SCH (10:05)
[2021-09-21] MEDS: THIAMINE HCL 100 MG TABLET (FP) PO SCH (10:05)
[2021-09-21] MEDS: PRENATAL VITAMINS W/ FOLIC ACID TABLET (FP) PO SCH (10:06)
[2021-09-21] MEDS: FOLIC ACID 1 MG TABLET (FP) PO SCH (10:06)
[2021-09-21] MEDS ORDERED: LORazepam 1 MG TABLET PO PRN (17:26)
[2021-09-21] MEDS: ATORVASTATIN CA 10 MG TABLET (FP) PO SCH (21:51)
[2021-09-21] MEDS: DICYCLOMINE HCL 10 MG CAPSULE PO PRN (21:51)
[2021-09-21] MEDS: MELATONIN 5 MG TABLETS PO SCH (21:51)
[2021-09-21] MEDS: LIDOCAINE PATCH REMOVAL MC SCH (21:56)
[2021-09-22] MEDS: hydrOXYzine PAMOATE 25 MG CAPSULE (FP) PO SCH ×5 (06:21→22:08)
[2021-09-22] MEDS: INSULIN SLIDING SCALE (NOVOLOG) 1 VIAL SQ SCH ×4 (06:32→22:12)
[2021-09-22] MEDS: PRENATAL VITAMINS W/ FOLIC ACID TABLET (FP) PO SCH (09:36)
[2021-09-22] MEDS: THIAMINE HCL 100 MG TABLET (FP) PO SCH (09:36)
[2021-09-22] MEDS: LIDOCAINE 5% TOPICAL PATCH TP SCH (09:36)
[2021-09-22] MEDS: FOLIC ACID 1 MG TABLET (FP) PO SCH (09:37)
[2021-09-22] MEDS: SODIUM CHLORIDE 1,000 ML IV SCH ×2 (09:42→17:14)
[2021-09-22] MEDS: amLODIPine BESYLATE 5 MG TABLET (FP) PO SCH (18:25)
[2021-09-22] MEDS: ATORVASTATIN CA 10 MG TABLET (FP) PO SCH (22:08)
[2021-09-22] MEDS: LIDOCAINE PATCH REMOVAL MC SCH (22:09)
[2021-09-22] MEDS: MELATONIN 5 MG TABLETS PO SCH (22:09)
[2021-09-23 02:51] VITALS: RESP 18
[2021-09-23] MEDS: SODIUM CHLORIDE 1,000 ML IV SCH ×2 (03:24→14:44)
[2021-09-23] MEDS: hydrOXYzine PAMOATE 25 MG CAPSULE (FP) PO SCH ×3 (06:38→13:50)
[2021-09-23] MEDS: INSULIN SLIDING SCALE (NOVOLOG) 1 VIAL SQ SCH ×3 (06:42→16:41)
[2021-09-23] MEDS: PRENATAL VITAMINS W/ FOLIC ACID TABLET (FP) PO SCH (10:16)
[2021-09-23] MEDS: amLODIPine BESYLATE 5 MG TABLET (FP) PO SCH (10:16)
[2021-09-23] MEDS: THIAMINE HCL 100 MG TABLET (FP) PO SCH (10:16)
[2021-09-23] MEDS: DICYCLOMINE HCL 10 MG CAPSULE PO PRN (10:17)
[2021-09-23] MEDS: FOLIC ACID 1 MG TABLET (FP) PO SCH (10:18)
[2021-09-23] MEDS: LIDOCAINE 5% TOPICAL PATCH TP SCH (10:18)
[2021-09-23 13:41] LABS: BASO % 1.1 % (0-2.0); HEMATOCRIT 36.9 % (35.4-49); HEMOGLOBIN 13.2 GM/dL (11.7-16.9); LYMPH % 36.5 % (8-40); MCH 32.7 pg (25.7-33.7); MCHC 35.8 g/dl (32.0-35.9); MEAN CELL VOLUME 91.2 fl (80-96); MEAN PLT VOLUME 7.6 fl (7.5-11.1); NEUT % 42.4 % (42.8-82.8); PLATELET COUNT 55 10^3/uL (134-434); RBC 4.04 M/mm3 (4.00-5.60); RDW 18.5 % (11.9-15.9); WHITE BLOOD COUNT 3.8 K/mm3 (4.0-10.0)
[2021-09-23] MEDS ORDERED: POTASSIUM CHLORIDE TABS 20 MEQ TABLET.ER (FP) PO ONE (14:03)
[2021-09-23 14:04] LABS: CALCIUM 8.1 mg/dL (8.5-10.1)
[2021-09-23 14:05] LABS: ALBUMIN 2.5 g/dl (3.4-5.0); BLOOD UREA NITROGEN 20.7 mg/dL (7-18); MAGNESIUM 1.4 mg/dL (1.8-2.4)
[2021-09-23 14:08] LABS: CREATININE 1.5 mg/dL (0.55-1.3)
[2021-09-23 14:10] LABS: TOT PROT 7.5 g/dl (6.4-8.2)
[2021-09-23 14:25] VITALS: BP 141/90; PULSE 78; TEMP 98.6
[2021-09-23] MEDS ORDERED: MAGNESIUM OXIDE 400 MG TABLET (FP) PO ONE (14:29)
[2021-09-23] MEDS ORDERED: amLODIPine BESYLATE 5 MG TABLET (FP) PO ONE (14:30)
[2021-09-23] MEDS ORDERED: MAGNESIUM OXIDE 400 MG TABLET (FP) PO SCH (22:00)
[2021-09-24] MEDS ORDERED: POTASSIUM CHLORIDE TABS 20 MEQ TABLET.ER (FP) PO SCH (10:00)
[2021-09-24] MEDS ORDERED: amLODIPine BESYLATE 10 MG TABLET (FP) PO SCH (10:00)
[2021-09-24] MEDS ORDERED: LISINOPRIL 5 MG TABLET PO SCH (10:00)
== END 2021-09-23 17:43 | disposition home or self-care (01) | DRG 280 ==
LOC: JER 22:45 → JERBED 09-17 00:02 → J6S 09-18 16:23
PROVIDERS: ADMIT Hospitalist; ATTEND Nurse Practitioner Family
DX: K70.10 Alcoholic hepatitis without ascites (principal); I25.10 Atherosclerotic heart disease of native coronary artery without angina pectoris; J44.9 Chronic obstructive pulmonary disease, unspecified; I48.91 Unspecified atrial fibrillation; E11.9 Type 2 diabetes mellitus without complications; E78.5 Hyperlipidemia, unspecified; F10.239 Alcohol dependence with withdrawal, unspecified; I45.2 Bifascicular block; G30.9 Alzheimer's disease, unspecified; F02.80 Dementia in other diseases classified elsewhere, unspecified severity, without behavioral disturbance, psychotic disturbance, mood disturbance, and anxiety; E83.42 Hypomagnesemia; I11.0 Hypertensive heart disease with heart failure; I50.30 Unspecified diastolic (congestive) heart failure; N17.9 Acute kidney failure, unspecified; I42.2 Other hypertrophic cardiomyopathy; R94.5 Abnormal results of liver function studies; F32.A Depression, unspecified; I44.0 Atrioventricular block, first degree; E87.0 Hyperosmolality and hypernatremia; R51.9 Headache, unspecified; D72.819 Decreased white blood cell count, unspecified; E66.9 Obesity, unspecified; Z68.31 Body mass index [BMI] 31.0-31.9, adult; Z86.73 Personal history of transient ischemic attack (TIA), and cerebral infarction without residual deficits
CPT/HCPCS: 36415; 70450-TC; 71045-TC-FY; 74176-TC; 80053; 80061; 81003; 82962; 83010; 83036; 83615; 83690; 83735; 83880; 84100; 84439; 84443; 84484; 85025; 85027; 85610; 85730; 86709; 86803; 87086; 87340; 87389; 87517; 93005; 93010; 93306-TC; 97116-GP; 97162-GP; 99291; C9803-CS; U0003; U0005